=== PATIENT | female | born 1935 | race Caucasian/White ===

== ENCOUNTER 2017-07-30 16:36 | Emergency (ER) | payer MEDICARE, OTHER ==
[~2017-07-30] VITALS: Ht 157.5 cm; Wt 47.6 kg
[~2017-07-30 16:36] MED LIST: AMLODIPINE BESYL5 MG PO; ASPIR 8181 MG PO; BIOTIN2500 MCG PO; CLONIDINE HCL0.2 MG PO; IBESARTAN PO; LEVOTHYROXINE50 MCG PO; LIVALO4 MG PO; METOPROLOL SUCC50 MG PO; MIRAPEX0.25 MG PO; NORCO 5-325 TA1 EACH PO; PANTOPRAZOLE SO40 MG PO
[2017-07-30] MEDS ORDERED: ACETAMINOPHEN 325 MG TAB PO ONE (21:30)
[2017-07-30] MEDS ORDERED: CLONIDINE HCL 0.2 MG TAB PO ONE (21:30)
[2017-07-30 22:25] LABS: BILIRUBIN,URINE NEGATIVE (NEGATIVE); COLOR,URINE YELLOW (YELLOW); KETONES,URINE TRACE (NEGATIVE); LEUKOCYTE ESTERASE ,URINE TRACE (NEGATIVE); NITRITE,URINE NEGATIVE (NEGATIVE); URINE UROBILINOGEN 0.2 mg/dL (0.2 - 1)
[2017-07-30 22:26] LABS: CLARITY,URINE SL CLOUDY (CLEAR); PROTEIN,URINE DIPSTICK 1+ (NEGATIVE)
[2017-07-30 22:29] LABS: BASOPHILS # (AUTO) 0.1 (0.0-0.1); BASOPHILS % 0.5 % (0.0-1.0); EOSINOPHILS % 0.3 % (0.0-6.0); HEMATOCRIT 34.2 % (34.2-44.1); HEMOGLOBIN 10.1 g/dL (12.0-16.0); LYMPHOCYTES # (AUTO) 2.1 (1.0-3.2); MEAN CORPUSCULAR HEMOGLOBIN 22.1 pg (28-32); MEAN CORPUSCULAR HGB CONC 29.5 g/dL (31-35); MONOCYTES # (AUTO) 0.6 (0.2-0.8); MONOCYTES % 4.9 % (4.4-11.3); NEUTROPHILS # (AUTO) 8.7 (2.1-6.9); PLATELET COUNT 417 x10e3/uL (140-360); RED BLOOD COUNT 4.56 x10e6/uL (3.6-5.1); RED CELL DISTRIBUTION WIDTH 20.3 % (11.7-14.4)
[2017-07-30 22:32] LABS: BACTERIA,URINE FEW /HPF; EPITHELIAL CELLS,URINE MODERATE /LPF; MUCUS,URINE FEW (RARE); RBC,URINE 0-5 /HPF (0-5)
[2017-07-30 22:42] LABS: INR 1.33; PROTHROMBIN TIME 17.2 seconds (11.9-14.5)
[2017-07-30 22:43] LABS: PARTIAL THROMBOPLASTIN TIME 25.2 seconds (23.8-35.5)
[2017-07-30 22:52] LABS: ALBUMIN 3.3 g/dL (3.5-5.0); ALBUMIN/GLOBULIN RATIO 0.7 (0.8-2.0); ANION GAP 20.4 mmol/L (8-16); CALCIUM 10.2 mg/dL (8.4-10.2); CREATININE, SERUM 0.99 mg/dL (0.57-1.11); POTASSIUM 4.4 mmol/L (3.5-5.1)
[2017-07-30 22:59] LABS: CREATINE KINASE MB 1.3 ng/mL (0.00-5.00); TROPONIN I 0.023 ng/mL (0-0.300)
--- NOTE | 2017-07-30 23:01 | Diagnostic Imaging Report ---
EXAMINATION: Head CT without contrast. HISTORY:Headache. COMPARISON:CT brain from 07/26/2017. TECHNIQUE: Multidetector axial images were obtained from the foramen magnum to the vertex without contrast. The images were reconstructed using brain and bone algorithms. Thin section brain images were reformatted into coronal and sagittal planes. Intravenous contrast: None IMAGE QUALITY: Acceptable. FINDINGS: Skull/scalp: No abnormality. Parenchyma: Focal, subtle hypodensity in the posterior inferior aspect of left lentiform nucleus (image 9, series 2) represents age indeterminate lacunar infarct (better visualized in current study). Nonspecific few, scattered supratentorial white matter hypodensity are likely related to small vessel ischemic changes. No acute hemorrhage or mass. Arteries: Atherosclerotic calcification in bilateral carotid siphon. Dural sinuses: No abnormal density suggestive of thrombosis. Ventricles: Moderate compensated dilatation due to volume loss. No hydrocephalus. Extra-axial spaces: No abnormal density. Brain volume: Normal for age. Craniocervical junction: No mass, Chiari malformation, or basilar invagination. Sella: No mass. Paranasal/mastoid sinuses: Imaged portions unremarkable. IMPRESSION: 1. 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 2. Moderate generalized cerebral volume loss and mild supratentorial white matter microvascular ischemic changes. Signed by: Dr. Carmen Sam M.D. on 07/30/2017 10:57 PM
[2017-07-30] MEDS ORDERED: CEFTRIAXONE SOD 1 GM VIAL IV ONE (23:45)
[2017-07-31] MEDS ORDERED: SODIUM CHLORIDE 0.9% 50ML 50 ML ONE (00:01)
== END 2017-07-31 00:30 | disposition home or self-care (01) ==
LOC: ER 16:36
DX: G44.89 Other headache syndrome (principal); G44.1 Vascular headache, not elsewhere classified; N30.00 Acute cystitis without hematuria
CPT/HCPCS: 36415; 70450; 80053; 81001; 82550; 82553; 84484; 85025; 85610; 85730; 87086; 93005; 96365; 99284

== ENCOUNTER → 2017-08-10 | Outpatient (CLI) | payer MEDICARE, OTHER ==
--- NOTE | 2017-08-10 16:33 | Diagnostic Imaging Report ---
PROCEDURE:FOOT COMPLETE BILATERAL TECHNIQUE:AP, lateral, and oblique views of the feet obtained INDICATION:Tophaceous gout, pain COMPARISON:Right foot x-ray 03/17/17. FINDINGS: Right foot: No evidence of fracture or dislocation. Focal erosion of the base of the fifth metatarsal is stable. There are no new areas of periarticular erosions. No significant joint space narrowing or osteophytosis anywhere in the digits. A small plantar calcaneal spur is stable. Left foot: No evidence of fracture, dislocation, or focal osseous lesion. There are no periarticular erosions. No joint space narrowing or osteophytosis. No focal osseous lesions. Soft tissues: Diffuse swelling of the dorsum of each foot. No radiopaque foreign bodies. CONCLUSION: 1. Stable focal erosion of the base of the fifth metatarsal of the right foot. 2. No evidence of periarticular erosion of the left foot. 3. Diffuse soft tissue swelling of each foot. Dictated by: Joselin Gaston M.D. on 08/10/2017 at 16:42 Electronically approved by: Joselin Gaston M.D. on 08/10/2017 at 16:42
--- NOTE | 2017-08-10 16:43 | Diagnostic Imaging Report ---
PROCEDURE:HAND THREE VIEWS BILATERAL TECHNIQUE:AP, lateral, and oblique images of the right and left hands obtained INDICATION:Gout and poor circulation COMPARISON:None. FINDINGS: Right hand: The bones are diffusely demineralized. There is narrowing of the proximal and distal IP joints of all digits. There are sharply marginated periarticular erosions at the head of the middle phalanges of the second and fourth digits with associated soft tissue swelling. The second digit is more severely affected than the fourth digit. Small periarticular erosion is identified at the base of the middle phalanx of the fifth digit. The IP joint of the first digit exhibits osteophytosis in one or 2 periarticular erosions. The metacarpals and bones of the wrist are intact and normal in morphology. There are no calcifications in the soft tissues. Left hand: Diffusely demineralized. There are erosions and osteophyte formation of the first CMC joint. This results in subluxation of the base of the first metacarpal and hyperextension of the thumb. The proximal and distal IP joints are narrowed. Periarticular erosions are identified at the base of the middle phalanx of the third digit and at the head of the proximal phalanx of the third digit with associated soft tissue swelling. There are small periarticular erosions at the head of the middle phalanx of the second digit and at the base of the distal phalanx of the third digit. There is increased lucency between the scaphoid and capitate. A small erosion along the radial cortical margin of the capitate is suspected. There are no calcifications in the soft tissues. CONCLUSION: 1. Periarticular erosions and soft tissue swelling of the right hand, particularly the second digit, consistent with history of gout. 2. Periarticular erosions and soft tissue swelling of the left hand consistent with history of gout. The base of the thumb and third digit are most severely affected. Involvement of the wrist by gout is also suspected. Dictated by: Joselin Gaston M.D. on 08/10/2017 at 16:52 Electronically approved by: Joselin Gaston M.D. on 08/10/2017 at 16:52
== END ==
LOC: RAD 15:00
PROVIDERS: ATTEND Internal Medicine Rheumatology
DX: M79.672 Pain in left foot (principal); M1A.9XX1 Chronic gout, unspecified, with tophus (tophi)

== ENCOUNTER 2017-08-20 07:55 | Outpatient (RCR) | payer MEDICARE, OTHER | END 2017-09-12 | LOC: WCC 07:55 | PROVIDERS: ATTEND Plastic Surgery | DX: I70.245 Atherosclerosis of native arteries of left leg with ulceration of other part of foot (principal); I70.203 Unspecified atherosclerosis of native arteries of extremities, bilateral legs; L97.528 Non-pressure chronic ulcer of other part of left foot with other specified severity; M10.9 Gout, unspecified; I10 Essential (primary) hypertension; E03.8 Other specified hypothyroidism; K21.9 Gastro-esophageal reflux disease without esophagitis ==

== ENCOUNTER 2017-11-18 08:17 | Inpatient (IN) | payer MEDICARE, OTHER ==
[~2017-11-18] VITALS: Ht 160 cm; Wt 46.3 kg
--- OUTSIDE RECORDS SUMMARY | 2017-11-18 08:20 | XMS REPORT ---
Author Author [facility] Address Unknown Phone Unavailable Care Team Providers Care [place] Surfacer Name Role Phone WILSONROSALINE ORTEGA Unavailable Unavailable RA ZAPATA Unavailable Unavailable BAL ANG Unavailable Unavailable BRODERICK, LELO Unavailable Unavailable Problems This patient has no known problems. Allergies, Adverse Reactions, Alerts This patient has no known allergies or adverse reactions. Medications This patient has no known medications. Results Test Description Test Time Test Comments Text Results Atomic Results Result Comments HAND THREE VIEWS BILATERAL [facility] [address] [place] [address] Patient Name: KATHRYN GARAY MR #: [id number] : 1935 Age/Sex: 82/F Req #: [id number] Adm Physician: Ordered by: ROSALINE WILSON Report #: [id number] Location: [facility] Room/Bed: Procedure: [id number] DX/HAND THREE VIEWS BILATERAL Exam Date: 08/10/17 Exam Time: 1520 REPORT STATUS: Signed PROCEDURE: HAND THREE VIEWS BILATERAL TECHNIQUE: AP, lateral, and oblique images of the right and left hands obtained INDICATION: Gout and poor circulation COMPARISON: None. FINDINGS: Right hand: The bones are diffusely demineralized. There is narrowing of the proximal and distal IP joints of all digits. There are sharply marginated periarticular erosions at the head of the middle phalanges of the second and fourth digits with associated soft tissue swelling. The second digit is more severely affected than the fourth digit. Small periarticular erosion is identified at the base of the middle phalanx of the fifth digit. The IP joint of the first digit exhibits osteophytosis in one or 2 periarticular erosions. The metacarpals and bones of the wrist are intact and normal in morphology. There are no calcifications in the soft tissues. Left hand: Diffusely demineralized. There are erosions and osteophyte formation of the first CMC joint. This results in subluxation of the base of the first metacarpal and hyperextension of the thumb. The proximal and distal IP joints are narrowed. Periarticular erosions are identified at the base of the middle phalanx of the third digit and at the head of the proximal phalanx of the third digit with associated soft tissue swelling. There are small periarticular erosions at the head of the middle phalanx of the second digit and at the base of the distal phalanx of the third digit. There is increased lucency between the scaphoid and capitate. A small erosion along the radial cortical margin of the capitate is suspected. There are no calcifications in the soft tissues. CONCLUSION: 1. Periarticular erosions and soft tissue swelling of the right hand, particularly the second digit, consistent with history of gout. 2. Periarticular erosions and soft tissue swelling of the left hand consistent with history of gout. The base of the thumb and third digit are most severely affected. Involvement of the wrist by gout is also suspected. Dictated by: Andres Gaston M.D. on 08/10/2017 at 16 :52 Electronically approved by: Andres Gaston M.D. on 08/10/2017 at 16:52 Dictated By: ANDRES GASTON MD 51 Transcribed By: DEEPAK on 08/10 COPY TO: ROSALINE WILSON FOOT COMPLETE BILATERAL [place] [address] Patient Name: KATHRYN GARAY MR #: [id number] : 1935 Age/Sex: 82/F Req #: [id number] Adm Physician: Ordered by: ROSALINE WILSON Report #: [id number] Location: [facility] Room/Bed: Procedure: [id number] DX/FOOT COMPLETE BILATERAL Exam Date: 08/10/17 Exam Time: 1520 REPORT STATUS: Signed PROCEDURE: FOOT COMPLETE BILATERAL TECHNIQUE: AP, lateral, and oblique views of the feet obtained INDICATION: Tophaceous gout, pain COMPARISON: Right foot x -ray 03/17/17. FINDINGS: Right foot: No evidence of fracture or dislocation. Focal erosion of the base of the fifth metatarsal is stable. There are no new areas of periarticular erosions. No significant joint space narrowing or osteophytosis anywhere in the digits. A small plantar calcaneal spur is stable. Left foot: No evidence of fracture, dislocation, or focal osseous lesion. There are no periarticular erosions. No joint space narrowing or osteophytosis. No focal osseous lesions. Soft tissues: Diffuse swelling of the dorsum of each foot. No radiopaque foreign bodies. CONCLUSION: 1. Stable focal erosion of the base of the fifth metatarsal of the right foot. 2. No evidence of periarticular erosion of the left foot. 3. Diffuse soft tissue swelling of each foot. Dictated by: Andres Gaston M.D. on 08/10/2017 at 16:42 Electronically approved by: Andres Gaston M.D. on 08/10/2017 at 16:42 Dictated By: ANDRES GASTON MD 41 Transcribed By: DEEPAK on 08/10/171641 COPY TO: ROSALINE WILSON CT BRAIN WO [facility] [address] [place] [address] Patient Name: KATHRYN GARAY MR #: [id number] : 1935 Age/Sex: 82/F Req #: [id number] Adm Physician: Ordered by: RA ZAPATA MD Report # : [id number] Location: ER Room/Bed: Procedure: [id number] CT/CT BRAIN WO Exam Date: 07/30/17 Exam Time: 2227 REPORT STATUS: Signed EXAMINATION: Head CT without contrast. HISTORY:Headache. COMPARISON:CT brain from 07/26/2017. TECHNIQUE : Multidetector axial images were obtained from the foramen magnum to the vertex without contrast. The images were reconstructed using brain and bone algorithms. Thin section brain images were reformatted into coronal and sagittal planes. Intravenous contrast: None IMAGE QUALITY: Acceptable. FINDINGS: Skull/scalp: No abnormality. Parenchyma: Focal, subtle hypodensity in the posterior inferior aspect of left lentiform nucleus (image 9, series 2) represents age indeterminate lacunar infarct ( better visualized in current study). Nonspecific few, scattered supratentorial white matter hypodensity are likely related to small vessel ischemic changes. No acute hemorrhage or mass. Arteries: Atherosclerotic calcification in bilateral carotid siphon. Dural sinuses: No abnormal density suggestive of thrombosis. Ventricles: Moderate compensated dilatation due to volume loss. No hydrocephalus. Extra- axial spaces: No abnormal density. Brain volume: Normal for age. Craniocervical junction: No mass, Chiari malformation, or basilar invagination. Sella: No mass. Paranasal/mastoid sinuses: Imaged portions unremarkable. IMPRESSION: 1. 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 2. Moderate generalized cerebral volume loss and mild supratentorial white matter microvascular ischemic changes. Signed by: Dr. Carmen Sam M.D. on 07/30/2017 10:57 PM Dictated By : CARMEN SAM MD 1337 Transcribed By: JAYDEN on 07/30/177 COPY TO: RA ZAPATA MD CT BRAIN WO [place] [address] Patient Name: KATHRYN GARAY MR #: [id number] : 1935 Age/Sex: 82/F Req #: [id number] Adm Physician: Ordered by: BAL ANG MD Report #: [id number] Location: CT Room/Bed: Procedure: [id number] CT/CT BRAIN WO Exam Date: 07/26/17 Exam Time: 1430 REPORT STATUS: Signed Examination: CT BRAIN WITHOUT CONTRAST History:Constant headaches Comparison studies:None Technique: Axial images were obtained from the skull base to the vertex. Coronal and sagittal images reconstructed from the axial data. Intravenous contrast: None Findings: Scalp: No abnormalities. Bones: No fractures, blastic or lytic lesions. Brain sulci: Moderate volume loss for age. Ventricles: No hydrocephalus. Extra-axial space: No abnormalities. Parenchyma: No abnormal densities. No masses, hemorrhage, acute or chronic vascular insults. Sellar/suprasellar region: No abnormalities. Craniocervical junction: Patent foramen magnum. No Chiari one malformation. Incidental findings: Atherosclerotic calcification of the cavernous and supraclinoid internal carotid arteries. Impression: 1. No acute intracranial abnormalities. 2. Moderate volume loss for age. Signed by: Dr. Anuja Cox M.D. on 07/26/2017 3:41 PM Dictated By: ANUJA CHUNG MD 1541 COPY TO: BAL ANG MD CTA ABD/PEL/RUN OFF [facility] [address] [place] [address] Patient Name: KATHRYN GARAY MR #: [id number] : 1935 Age/Sex: 82/F Req #: [id number] Adm Physician: Ordered by: VONDA ZHANG MD Report #: [id number] Location: ER Room/Bed: Procedure: [id number] CT/CTA ABD/PEL/RUN OFF Exam Date: 07/13/17 Exam Time: 2013 REPORT STATUS: Signed CTA OF THE ABDOMINAL AORTA AND BILATERAL LOWER EXTREMITY RUNOFF Comparison: None History: 82 y/o with thoracic aortic aneurysm. Technique: Multi-detector CT technology was employed. Spiral images was performed of the abdomen following the IV administration of 100 cc of Isovue-370. IV CONTRAST:100mL of Isovue-370 ORAL CONTRAST: Readicat RADIATION DOSE: Total DLP: 545.63 mGy*cm Estimated Effective Dose: DLP x 0.015 mSv COMPLICATIONS: None For optimization of anatomic evaluation, multiplanar reconstruction, maximum intensity projections, and advanced 3-D off-line postprocessing were performed on a dedicated stand-alone workstation under the direct supervision of the interpreting physician. FINDINGS: Potential study limitations: None. VASCULAR WITH ADVANCED 3-D OFF-LINE POSTPROCESSING: The abdominal aorta is abnormal with evidence of extensive atherosclerotic disease and infrarenal abdominal aortic ectasia. There is a mural thrombus to the left of midline best seen on series 3, image 36 The abdominal aorta measures: 2.1 cm at the supramesenteric segment 2.0 cm at the mesenteric segment 1.9 cm at the renal segment 2.2 cm at the mid infrarenal segment 1.7 cm at the aortic bifurcation. The celiac axis, SMA, and SABINE are patent. There are single renal arteries bilaterally, both of which appear patent. The pelvic arteries are tortuous and atherosclerotic, but otherwise normal in caliber and contour. Right lower extremity: The external iliac, femoral, deep femoral, popliteal arteries and trifurcation appear unremarkable with three-vessel runoff to the level of the ankle where the anterior tibial artery appears narrow but patent. Left lower extremity: The external iliac , femoral, deep femoral, popliteal arteries and trifurcation appear patent, however, quickly after bifurcation of the tibioperoneal trunk and the peroneal artery is obstructed on series 3, image 228 with 2 vessel runoff Soft tissues: Moderate edema in the bilateral lower extremities LOWER CHEST: The visualized lung bases are clear. Sliding hiatal hernia present ABDOMEN: The liver, gallbladder, spleen, and pancreas appear normal. The adrenal glands appear normal. Both kidneys demonstrate multiple simple cysts, the largest on the left kidney in the anterior interpolar region measuring 6.1 cm in diameter, the largest on the right upper pole measuring 3.5 cm in diameter. There is no significant retroperitoneal adenopathy. No free fluid or free air within the abdomen or pelvis. The bowel appears unremarkable on this non-GI contrast examination. Diverticulosis present. The appendix is not well visualized Pelvis: Evidence of hysterectomy. The ovaries are visualized. The bladder and rectum are unremarkable. IMPRESSION: 1. 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 2. Soft plaque/thrombus in the infrarenal abdominal aorta which appears slightly ectatic. 3. Left peroneal artery is obstructed just after the tibioperoneal trunk bifurcation with 2 vessel runoff. 4. Right lower extremity three-vessel runoff. 5. Bilateral renal cystic lesions, simple in appearance. 6. Diverticulosis without evidence of diverticulitis. 7. Severe levorotoscoliosis of the thoracolumbar spine Signed by: Dr. Lj Murdock M.D. on 07/14/2017 12:47 AM Dictated By: LJ EATON MD Transcribed By: JAYDEN on 07/14/1746 COPY TO: VONDA ZHANG MD
--- OUTSIDE RECORDS SUMMARY | 2017-11-18 08:20 | XMS REPORT | Continuity of Care Document ---
Author Author [facility] Organization [facility] Address [address] [place] [place] [address] Phone Unavailable Care Team Providers Care Mud Analysis Operator Name Role Phone URMILA COCHRAN MD PCP Insurance Providers Guarantor Kathryn Hand Address [address] [phone] Email NONE Payer Medicare A & B Policy Number [id number] Subscriber's Name Kathryn Hand Relationship 18 Self / Same As Patient Group Number [id number] Group Name RETIRED Effective Date 99 Payer GEHA Policy Number [id number] Subscriber's Name Ronan Walsh Relationship 01 Group Number [id number] Group Name RETIRED Effective Date 82 Advance Directives Directive Response Recorded Date/Time Does the patient have an advance directive? Yes 07/14/17 4:32am If yes, is advance directive on file with [facility]? No 07/14/17 4:32am If not on file with [facility] will patient provide a copy? Yes 07/14/17 4:32am Do you have a Directive to Physician? No 08/16/17 10:23am Do you have a Medical Power of Field Care Manager? No 08/16/17 10:23am Do you have an out of hospital Do Not Resuscitate Order? No 08/16/17 10:23am Do you have any special needs we should be aware of? No 08/16/17 10:23am Do you have a support person here with you today? No 08/16/17 10:23am Did patient receive Notice of Privacy Practices? Yes 08/16/17 10:23am Did patient receive patient rights and responsibilities? Yes 08/16/17 10:23am Problems Medical Problem Onset Date Status Arterial occlusion, lower extremity Unknown Cystitis Unknown Acute Headache Unknown Acute Hypertension Unknown Acute Urinary tract infection Unknown Acute Medications Current Home Medications Medication Dose Units Route Directions Days Qty Instructions Start Date Amlodipine Besylate 5 Mg Tablet 10 Mg Oral Daily 30 Tab Aspirin (Aspir 81) 81 Mg Tablet.dr 81 Mg Oral Daily Biotin 2,500 Mcg Capsule 5,000 Mg Oral Daily Clonidine Hcl 0.2 Mg Tablet 0.2 Mg Oral Three Times A Day Hydrocodone Bit/Acetaminophen ([place]own 5-325 Tablet) 1 Each Tablet 1 Each Oral As Needed Ibesartan 150 Mg Oral Daily Levothyroxine Sodium 50 Mcg Tablet 50 Mcg Oral Daily 30 Tab Metoprolol Succinate 50 Mg Tab.er.24h 100 Mg Oral Daily Pantoprazole Sodium (Protonix) 40 Mg Tablet.dr 40 Mg Oral Daily Pitavastatin Calcium (Livalo) 4 Mg Tablet 4 Mg Oral Daily Pramipexole Di-Hcl (Mirapex) 0.25 Mg Tablet 0.5 Mg Oral Bedtime 30 Tab Social History Social History Problem Response Recorded Date/Time Onset Date Status Hx Psychiatric Problems No 07/14/2017 4:32am Not Applicable Not Applicable Hx Eating Disorder No 07/14/2017 4:32am Not Applicable Not Applicable Hx Substance Use Disorder No 07/14/2017 4:32am Not Applicable Not Applicable Hx Depression No 07/14/2017 4:32am Not Applicable Not Applicable Hx Alcohol Use No 07/14/2017 4:32am Not Applicable Not Applicable Hx Substance Use Treatment No 07/14/2017 4:32am Not Applicable Not Applicable Hx Physical Abuse No 07/14/2017 4:32am Not Applicable Not Applicable Hospital Discharge Instructions No hospital discharge instruction information available. Plan of Care Prescriptions See Medication Section Functional Status No functional status information available. Allergies, Adverse Reactions, Alerts Allergen Type Severity Reaction Status Last Updated Sulfa (Sulfonamide Antibiotics) Allergy Mild Active 03/11/17 Dajiboc-Mlc-Bcp Reductase Inhibitor Adverse Reaction Intermediate MUSCLE SPASMS/SEVERE LEG CRAMPS Active 03/14/17 Levofloxacin Allergy Mild MUSCLE CRAMPS Active 07/21/10 Immunizations No immunization information available. Vital Signs Acute Vital Signs Vital Response Date/Time Temperature (Fahrenheit) 97.6 degrees F (97.6 - 99.5) 07/18/2017 4:38pm Pulse Pulse Rate (adult) 81 bpm (60 - 90) 07/18/2017 4:38pm Respiratory Rate 18 bpm (12 - 24) 07/18/2017 4:38pm Blood Pressure 134/62 mm Hg 07/18/2017 4:38pm Results Laboratory Results Test Name Result Units Flags Reference Collection Date/Time Result Date/ Time Comments Platelet Estimate ADEQUATE 03/12/2017 6:20am 03/12/2017 7:57am Platelet Morphology Comment NORMAL 03/12/2017 6:20am 03/12/2017 7: 57am Hypochromasia MODERATE 03/12/2017 6:20am 03/12/2017 7:57am Anisocytosis MODERATE 03/12/2017 6:20am 03/12/2017 7:57am Microcytosis MARKED 03/12/2017 6:20am 03/12/2017 7:57am Target Cells FEW 03/12/2017 6:20am 03/12/2017 7:57am Ovalocytes FEW 03/12/2017 6:20am 03/12/2017 7:57am Red Cell Morphology Comment ABNORMAL 03/12/2017 6:20am 03/12/2017 7 :57am Magnesium Level 1.9 MG/DL 1.3-2.1 03/21/2017 6:50am 03/21/2017 7:32am Amylase Level 94 U/L 25-125 2017 7:25am 2017 9:16am Lipase 26 U/L 8-78 2017 7:25am 2017 9:16am Bedside Glucose 141 mg/dL H 70-120 07/15/2017 4:09pm 07/15/2017 4:25pm Meter ID: [id number] Uric Acid 8.1 mg/dL H 2.6-6.0 07/13/2017 4:15pm 07/13/2017 5:59pm Triglycerides Level 131 MG/DL 0-149 07/15/2017 7:24am 07/15/2017 8: 26am Cholesterol Level 273 MD/DL H 0-199 07/15/2017 7:24am 07/15/2017 8:26am Less than 200 mg/dL Low Risk 201 - 239 mg/dL Borderline Risk 240 mg/dl and greater High Risk LDL Cholesterol 190 MG/DL H 60-130 07/15/2017 7:24am 07/15/2017 8:26am HDL Cholesterol 57 MG/DL 40-60 07/15/2017 7:24am 07/15/2017 8:26am Cholesterol/HDL Ratio 4.8 H 3.0-3.6 07/15/2017 7:24am 07/15/2017 8: 26am B-Type Natriuretic Peptide 950.6 pg/mL H 0-100 07/13/2017 4:15pm 2016 6:52pm White Blood Count 11.46 x10e3/uL H 4.8-10.8 07/30/2017 9:23pm 2016 10:30pm Red Blood Count 4.56 x10e6/uL 3.6-5.1 07/30/2017 9:23pm 07/30/2017 10: 30pm Hemoglobin 10.1 g/dL L 12.0-16.0 07/30/2017 9:23pm 07/30/2017 10:30pm Hematocrit 34.2 % 34.2-44.1 07/30/2017 9:23pm 07/30/2017 10:30pm Mean Corpuscular Volume 75.0 fL L 81-99 07/30/2017 9:23pm 07/30/2017 10: 30pm Mean Corpuscular Hemoglobin 22.1 pg L 28-32 07/30/2017 9:23pm 2016 10:30pm Mean Corpuscular Hemoglobin Concent 29.5 g/dL L 31-35 07/30/2017 9:23pm 07/30/2017 10:30pm Red Cell Distribution Width 20.3 % H 11.7-14.4 07/30/2017 9:23pm 2016 10:30pm Platelet Count 417 x10e3/uL H 140-360 07/30/2017 9:2307/30/2017 10: 30pm Neutrophils (%) (Auto) 76.0 % 38.7-80.0 07/30/2017 9:pm 07/30/2017 10 :30pm Lymphocytes (%) (Auto) 18.0 % 18.0-39.1 07/30/2017 9:2307/30/2017 10 :30pm Monocytes (%) (Auto) 4.9 % 4.4-11.3 07/30/2017 9:2307/30/2017 10: 30pm Eosinophils (%) (Auto) 0.3 % 0.0-6.0 07/30/2017 9:07/30/2017 10: 30pm Basophils (%) (Auto) 0.5 % 0.0-1.0 07/30/2017 9:2307/30/2017 10: 30pm IM GRANULOCYTES % 0.3 % 0.0-1.0 07/30/2017 9:2307/30/2017 10:30pm Neutrophils # (Auto) 8.7 H 2.1-6.9 07/30/2017 9:23pm 07/30/2017 10: 30pm Lymphocytes # (Auto) 2.1 1.0-3.2 07/30/2017 9:23pm 07/30/2017 10: 30pm Monocytes # (Auto) 0.6 0.2-0.8 07/30/2017 9:23pm 07/30/2017 10:30pm Eosinophils # (Auto) 0.0 0.0-0.4 07/30/2017 9:23pm 07/30/2017 10: 30pm Basophils # (Auto) 0.1 0.0-0.1 07/30/2017 9:07/30/2017 10:30pm Absolute Immature Granulocyte (auto 0.04 x10e3/uL 0-0.1 07/30/2017 9: 2307/30/2017 10:30pm Prothrombin Time 17.2 seconds H 11.9-14.5 07/30/2017 9:2307/30/2017 10:45pm Prothromb Time International Ratio 1.33 07/30/2017 9:232016 10:45pm Oral Anticoagulant Therapy INR Values: 1. Low Intensity Therapy 1.5 - 2.0 2. Moderate Intensity Therapy 2.0 - 3.0 3. High Intensity Therapy(1) 2.5 - 3.5 4. High Intensity Therapy(2) 3.0 - 4.0 5. Panic Value INR > 5.0 Activated Partial Thromboplast Time 25.2 seconds 23.8-35.5 07/30/2017 9: 23pm 07/30/2017 10:45pm Urine Color YELLOW YELLOW 07/30/2017 9:2007/30/2017 10:26pm Urine Clarity SL CLOUDY CLEAR 07/30/2017 9:20pm 07/30/2017 10:26pm Urine Specific [place] 1.020 1.010-1.025 07/30/2017 9:20pm 2016 10:26pm Urine pH 6 5 - 7 07/30/2017 9:20pm 07/30/2017 10:26pm Urine Leukocyte Esterase TRACE H NEGATIVE 07/30/2017 9:20pm 2016 10:26pm Urine Nitrite NEGATIVE NEGATIVE 07/30/2017 9:2007/30/2017 10:26pm Urine Protein 1+ H NEGATIVE 07/30/2017 9:20pm 07/30/2017 10:26pm Urine Glucose (UA) NEGATIVE NEGATIVE 07/30/2017 9:20pm 07/30/2017 10: 26pm Urine Ketones TRACE H NEGATIVE 07/30/2017 9:20pm 07/30/2017 10:26pm Urine Urobilinogen 0.2 mg/dL 0.2 - 1 07/30/2017 9:20pm 07/30/2017 10: 26pm Urine Bilirubin NEGATIVE NEGATIVE 07/30/2017 9:2007/30/2017 10: 26pm Urine Blood NEGATIVE NEGATIVE 07/30/2017 9:20pm 07/30/2017 10:26pm Urine WBC 11-20 /HPF H 0-5 07/30/2017 9:20pm 07/30/2017 10:32pm Urine RBC 0-5 /HPF 0-5 07/30/2017 9:20pm 07/30/2017 10:32pm Urine Bacteria FEW /HPF NONE 07/30/2017 9:20pm 07/30/2017 10:32pm Urine Epithelial Cells MODERATE /LPF NONE 07/30/2017 9:20pm 07/30/2017 10:32pm Urine Mucus FEW H RARE 07/30/2017 9:20pm 07/30/2017 10:32pm Sodium Level 134 mmol/L L 136-145 07/30/2017 9:32pm 07/30/2017 10:55pm Potassium Level 4.4 mmol/L 3.5-5.1 07/30/2017 9:32pm 07/30/2017 10: 55pm Chloride Level 96 mmol/L L 98-107 07/30/2017 9:32pm 07/30/2017 10:55pm Carbon Dioxide Level 22 mmol/L 22-29 07/30/2017 9:32pm 07/30/2017 10: 55pm Anion Gap 20.4 mmol/L H 8-16 07/30/2017 9:32p 07/30/2017 10:55pm Blood Urea Nitrogen 17 mg/dL 7-26 07/30/2017 9:32pm 07/30/2017 10:55pm Creatinine 0.99 mg/dL 0.57-1.11 07/30/2017 9:32pm 07/30/2017 10:55pm BUN/Creatinine Ratio 17 6-25 07/30/2017 9:32p 07/30/2017 10:55pm Estimat Glomerular Filtration Rate 54 ML/MIN L 60- 07/30/2017 9:32p 10:55pm Ranges were taken from the National Kidney Disease Education Program and the National Kid[employer] Foundation literature. Reference ranges: 60 or greater: Normal 16-59 (for 3 consecutive months): Chronic kidney disease 15 or less: Kidney failure Glucose Level 85 mg/dL 74-118 07/30/2017 9:32pm 07/30/2017 10:55pm Calcium Level 10.2 mg/dL 8.4-10.2 07/30/2017 9:32pm 07/30/2017 10:55pm Total Bilirubin 0.4 mg/dL 0.2-1.2 07/30/2017 9:32pm 07/30/2017 10:55pm Aspartate Amino Transf (AST/SGOT) 26 IU/L 5-34 07/30/2017 9:32pm 2016 10:55pm Alanine Aminotransferase (ALT/SGPT) 18 IU/L 0-55 07/30/2017 9:32pm 10:55pm Total Protein 8.2 g/dL H 6.5-8.1 07/30/2017 9:32p 07/30/2017 10:55pm Albumin 3.3 g/dL L 3.5-5.0 07/30/2017 9:32p 07/30/2017 10:55pm Globulin 4.9 g/dL H 2.3-3.5 07/30/2017 9:32p 07/30/2017 10:55pm Albumin/Globulin Ratio 0.7 L 0.8-2.0 07/30/2017 9:32p 07/30/2017 10: 55pm Alkaline Phosphatase 73 IU/L 40-150 07/30/2017 9:32p 07/30/2017 10: 55pm Creatine Kinase 21 IU/L L 29-168 07/30/2017 9:32p 07/30/2017 10:55pm Creatine Kinase MB 1.30 ng/mL 0.00-5.00 07/30/2017 9:32p 07/30/2017 11 :00pm Troponin I 0.023 ng/mL 0-0.300 07/30/2017 9:32p 07/30/2017 11:00pm Procedures Procedure Status Date Provider(s) CT of abdomen and pelvis without contrast Active 03/11/17 VONDA ZHANG MD X-ray of chest, two views Active 03/11/17 VNODA ZHANG MD X-ray of chest, two views Active 03/16/17 BERTHA EPPS MD Computed tomography angiography of abdominal aorta and bilateral iliofemoral arteries with lower extremity runoff without then with contrast Active VONDA ZHANG MD Computed tomography of brain without radiopaque contrast Active 07/26/17 BAL ANG MD Computed tomography of brain without radiopaque contrast Active 07/30/17 RA ZAPATA MD Encounters Encounter Location Arrival/Admit Date Discharge/Depart Date Attending Provider Discharged [facility]urring [facility] 08/20/17 7:55am 09/12/17 11:59pm SELENE KWON MD Registered Clinic [facility] 08/10/17 3:00pm ROSALINE WILSON Departed Emergency Room [facility] 07/30/17 4:36pm 12:30am RA ZAPATA MD Registered Clinic [facility] 07/26/17 2:08pm BAL ANG MD Discharged Inpatient [facility] 07/14/17 2:10am 07/18/17 7:15pm URMILA COCHRAN MD Registered Clinic [facility] 07/10/17 1:20pm URMIAL COCHRAN MD Discharged Inpatient [facility] 03/12/17 4:13pm 03/21/17 2:20pm URMILA COCHRAN MD
--- OUTSIDE RECORDS SUMMARY | 2017-11-18 08:20 | XMS REPORT | Clinical Summary ---
Author Author [facility] [employer] [facility] Address Unknown Phone Unavailable Care Team Providers Care Key Sander Name Role Phone PCP Unavailable Allergies Active Allergy Reactions Severity Noted Date Comments Sulfa (Sulfonamide Anaphylaxis High 11/18/2014 Antibiotics) Current Medications Prescription Sig. Disp. Refills Start End Date Status Date metoprolol (TOPROL-XL) Take 100 mg by mouth Active 100 MG 24 hr tablet daily. pantoprazole (PROTONIX) Take 40 mg by mouth Active 40 MG tablet daily. aspirin 81 MG EC tablet Take 81 mg by mouth Active daily. temazepam (RESTORIL) 30 Take 30 mg by mouth every Active mg capsule night as needed for Sleep. magnesium oxide 400 mg Take by mouth. 1-3 x Active Cap daily Active Problems Problem Noted Date Hyponatremia 11/18/2014 Encounters Date Type Specialty Care Team Description 02/06/2017 Hospital Cardiology Phillip Farias, Peripheral vascular Encounter disease, unspecified (HCC) 02/01/2017 Outside Orders Central Scheduling Phillip Fairas Peripheral vascular MD disease, unspecified (HCC) (Primary Dx) after 11/17/2016 Social History Tobacco Use Types Packs/Day Years Used Date Former Smoker Alcohol Use Drinks/Week oz/Week Comments Yes Sex Assigned at Date Recorded Not on file Last Filed Vital Signs Not on file Plan of Treatment Not on file Results * PERIPHERAL VASCULAR REPORT - SCAN (02/06/2017 3:23 PM) * Arterial Doppler Legs Bilateral (02/06/2017 10:08 AM) Component Value Ref Range Ejection Fraction Specimen Performing Laboratory [facility] CPACS Impressions Right Impression 1. The common femoral, profunda femoral, superficial femoral, popliteal, posterior tibial, peroneal and anterior tibial arteries are patent with biphasic Doppler waveforms throughout. 2. There is > 50 % stenosis of the common femoral and proximal superficial femoral arteries with elevated velocities of 283 cm/s and 213 cm/s. 3. The PT pressure is 158 mmHg with an REILLY of 1.01(normal range) and the DP pressure is 137 mmHg with an REILLY of 0.86 (mild obstruction range). 4. The great toe pressure is 71 mmHg with an abnormal TBI of 0.46. 5. The digits have adequate flow by PPG waveforms. Left Impression 1. The common femoral, superficial femoral, popliteal and peroneal arteries are patent with biphasic Doppler waveforms throughout. 2. The posterior tibial and anterior tibial arteries have monophasic waveforms. 3. The PT pressure is 102 mmHg with an REILLY of 0.65 (severe obstruction range)and the DP pressure is 88 mmHg with an REILLY of 0.56 (severe obstruction range. 4. The great toe pressure is 46 mmHg with an abnormal TBI of 0.29. 5. The digits have adequate flow by PPG waveforms. Conclusions Summary Arterial pressures and Doppler analysis were performed bilaterally. The arteries were adequately visualized. On the right, the common femoral, profunda femoral, superficial femoral, popliteal, posterior tibial, peroneal and anterior tibial arteries were patent with biphasic Doppler waveforms throughout. There was stenosis of the common femoral and proximal superficial femoral artery. The REILLY's were in the normal to mild obstruction range. The TBI was abnormal. The digits had adequate flow by PPG. On the left, the common femoral, superficial femoral, popliteal and peroneal arteries were patent with biphasic Doppler waveforms throughout. The posterior tibial and anterior tibial arteries had monophasic waveforms. The REILLY's were in the severe obstruction range. The TBI was abnormal and the digits had adequate flow by PPG. Signature Velocities are measured in cm/s ; Diameters are measured in cm LE Duplex Measurements Right Left + + + ------+ + + + +--------- --------+ + !Location ! !PSV!EDV !Waveform ! !PSV !EDV!Waveform ! + + + ------+ + + + +--------- --------+ + !Mid Common Femoral ! !283! !Biphasic ! !128 ! !Biphasic ! + + + ------+ + + + +--------- --------+ + !Prox PFA ! !187! !Biphasic ! !105 ! !Monophasic ! + + + ------+ + + + +--------- --------+ + !Prox SFA ! !213! !Biphasic ! !108 ! !Biphasic ! + + + ------+ + + + +--------- --------+ + !Mid SFA ! !140! !Biphasic ! !124 ! !Biphasic ! + + + ------+ + + + +--------- --------+ + !Dist SFA ! !97.4 ! !Biphasic ! !98.2 ! !Biphasic ! + + + ------+ + + + +--------- --------+ + !Prox Popliteal ! !84.1 ! !Biphasic ! !65.7 ! !Biphasic ! + + + ------+ + + + +--------- --------+ + !Dist Popliteal ! !103! !Biphasic ! !61 ! !Biphasic ! + + + ------+ + + + +--------- --------+ + !Prox PARKING LOT SPOTTER ! !87.2 ! !Biphasic ! !51.1 ! !Biphasic ! + + + ------+ + + + +--------- --------+ + !Mid PARKING LOT SPOTTER ! !91.9 ! !Biphasic ! !63.9 ! !Monophasic ! + + + ------+ + + + +--------- --------+ + !Dist PARKING LOT SPOTTER ! !92.7 ! !Biphasic ! !65.1 ! !Monophasic ! + + + ------+ + + + +--------- --------+ + !Prox TONI ! !92.6 ! !Biphasic ! !57 ! !Monophasic ! + + + ------+ + + + +--------- --------+ + !Mid TONI ! !108! !Biphasic ! !82.5 ! !Monophasic ! + + + ------+ + + + +--------- --------+ + !Dist TONI ! !86.2 ! !Biphasic ! !31 ! !Monophasic ! + + + ------+ + + + +--------- --------+ + !Prox Peroneal ! !68.6 ! !Biphasic ! !36.1 ! !Biphasic ! + + + ------+ + + + +--------- --------+ + !Dist Peroneal ! !56.3 ! !Biphasic ! !32.2 ! !Biphasic ! + + + ------+ + + + +--------- --------+ + Narrative [facility] - Lower Extremity Arterial Duplex Demographics Patient NameKATHRYN WALSH Date of Study02/06/2017 MILLICENT Age 81 Visit [id number] Gender Female Date of Birth Number Referring [facility] Room Number Physician Jose Supervisor Cereal Kenneth Coyle.Interpreting Jose Andre RVT, JESSIE Blair MD, [facility] Procedure Type of Study: Extremities Arteries: Lower Extremities Arterial Duplex, ARTERIAL DOPPLER LEGS, BILATERAL. Indications for Study:PVD. Patient Status:Routine. Study Location:Vascular Lab. Technical Quality:Adequate visualization. Procedure Note Interface, External Ris In - 02/06/2017 2:53 PM CDT [facility] - Lower Extremity Arterial Duplex Demographics Patient Name KATHRYN WALSH Date of Study 02/06/2017 MILLICENT Age 81 Visit Number [id number] Gender Female Date of 1935 Number Referring [facility] Room Number Physician Garcia Supervisor Cereal Kenneth Coyle. Interpreting Jose Andre RVT, JESSIE Blair MD, [facility] Procedure Type of Study: Extremities Arteries: Lower Extremities Arterial Duplex, ARTERIAL DOPPLER LEGS, BILATERAL. Indications for Study:PVD. Patient Status:Routine. Study Location:Vascular Lab. Technical Quality:Adequate visualization. Impressions Right Impression 1. The common femoral, profunda femoral, superficial femoral, popliteal, posterior tibial, peroneal and anterior tibial arteries are patent with biphasic Doppler waveforms throughout. 2. There is > 50 % stenosis of the common femoral and proximal superficial femoral arteries with elevated velocities of 283 cm/s and 213 cm/s. 3. The PT pressure is 158 mmHg with an REILLY of 1.01(normal range) and the DP pressure is 137 mmHg with an REILLY of 0.86 (mild obstruction range). 4. The great toe pressure is 71 mmHg with an abnormal TBI of 0.46. 5. The digits have adequate flow by PPG waveforms. Left Impression 1. The common femoral, superficial femoral, popliteal and peroneal arteries are patent with biphasic Doppler waveforms throughout. 2. The posterior tibial and anterior tibial arteries have monophasic waveforms. 3. The PT pressure is 102 mmHg with an REILLY of 0.65 (severe obstruction range)and the DP pressure is 88 mmHg with an REILLY of 0.56 (severe obstruction range. 4. The great toe pressure is 46 mmHg with an abnormal TBI of 0.29. 5. The digits have adequate flow by PPG waveforms. Conclusions Summary Arterial pressures and Doppler analysis were performed bilaterally. The arteries were adequately visualized. On the right, the common femoral, profunda femoral, superficial femoral, popliteal, posterior tibial, peroneal and anterior tibial arteries were patent with biphasic Doppler waveforms throughout. There was stenosis of the common femoral and proximal superficial femoral artery. The REILLY's were in the normal to mild obstruction range. The TBI was abnormal. The digits had adequate flow by PPG. On the left, the common femoral, superficial femoral, popliteal and peroneal arteries were patent with biphasic Doppler waveforms throughout. The posterior tibial and anterior tibial arteries had monophasic waveforms. The REILLY's were in the severe obstruction range. The TBI was abnormal and the digits had adequate flow by PPG. Signature Velocities are measured in cm/s ; Diameters are measured in cm LE Duplex Measurements Right Left + + + ------+ + + + +--------- --------+ + !Location ! !PSV !EDV !Waveform ! !PSV !EDV !Waveform ! + + + ------+ + + + +--------- --------+ + !Mid Common Femoral ! !283 ! !Biphasic ! !128 ! !Biphasic ! + + + ------+ + + + +--------- --------+ + !Prox PFA ! !187 ! !Biphasic ! !105 ! !Monophasic ! + + + ------+ + + + +--------- --------+ + !Prox SFA ! !213 ! !Biphasic ! !108 ! !Biphasic ! + + + ------+ + + + +--------- --------+ + !Mid SFA ! !140 ! !Biphasic ! !124 ! !Biphasic ! + + + ------+ + + + +--------- --------+ + !Dist SFA ! !97.4 ! !Biphasic ! !98.2 ! !Biphasic ! + + + ------+ + + + +--------- --------+ + !Prox Popliteal ! !84.1 ! !Biphasic ! !65.7 ! !Biphasic ! + + + ------+ + + + +--------- --------+ + !Dist Popliteal ! !103 ! !Biphasic ! !61 ! !Biphasic ! + + + ------+ + + + +--------- --------+ + !Prox PARKING LOT SPOTTER ! !87.2 ! !Biphasic ! !51.1 ! !Biphasic ! + + + ------+ + + + +--------- --------+ + !Mid PARKING LOT SPOTTER ! !91.9 ! !Biphasic ! !63.9 ! !Monophasic ! + + + ------+ + + + +--------- --------+ + !Dist PARKING LOT SPOTTER ! !92.7 ! !Biphasic ! !65.1 ! !Monophasic ! + + + ------+ + + + +--------- --------+ + !Prox TONI ! !92.6 ! !Biphasic ! !57 ! !Monophasic ! + + + ------+ + + + +--------- --------+ + !Mid TONI ! !108 ! !Biphasic ! !82.5 ! !Monophasic ! + + + ------+ + + + +--------- --------+ + !Dist TONI ! !86.2 ! !Biphasic ! !31 ! !Monophasic ! + + + ------+ + + + +--------- --------+ + !Prox Peroneal ! !68.6 ! !Biphasic ! !36.1 ! !Biphasic ! + + + ------+ + + + +--------- --------+ + !Dist Peroneal ! !56.3 ! !Biphasic ! !32.2 ! !Biphasic ! + + + ------+ + + + +--------- --------+ + after 11/17/2016
--- OUTSIDE RECORDS SUMMARY | 2017-11-18 08:20 | XMS REPORT | Clinical Summary ---
Author Author [facility] Address Unknown Phone Unavailable Care Team Providers Care Lusterer Name Role Phone Ronan Gardner MD PCP Unavailable Allergies Active Allergy Reactions Severity Noted Date Comments Levofloxacin Swelling 01/23/2017 Sulfa (Sulfonamide 01/23/2017 Antibiotics) Current Medications Prescription Sig. Disp. Refills Start End Date Status Date aspirin (ECOTRIN) 81 MG Take 81 mg by mouth. Active enteric coated tablet amLODIPine (NORVASC) 5 mg Take 5 mg by mouth once 3 12/18/19 Active tablet daily. 17 clonIDINE HCl (CATAPRES) 11/28/19 Active 0.2 MG tablet 17 levothyroxine (SYNTHROID, TAKE 1 TABLET BY MOUTH ON 3 11/26/19 Active LEVOXYL) 50 mcg tablet AN EMPTY STOMACH 17 metoprolol succinate XL Take 100 mg by mouth once 3 12/18/19 Active (TOPROL-XL) 100 mg 24 hr daily. 17 tablet pantoprazole (PROTONIX) Take 40 mg by mouth once 3 12/18/19 Active 40 MG EC tablet daily. 17 HYDROcodone-acetaminophen Take 1 tablet by mouth Active (NORCO) 5-325 mg per every 6 (six) hours as tablet needed for moderate pain. Active Problems Problem Noted Date GERD (gastroesophageal reflux disease) Substernal chest pain Encounters Date Type Specialty Care Team Description 01/29/2017 Documentation Gastroenterology Romie Ayala MD 01/26/2017 [facility] Radiology Romie Ayala Substernal chest pain Encounter 01/23/2017 [facility] Radiology Romie Ayala Substernal chest pain Encounter 01/23/2017 Office Visit Gastroenterology Romie Ayala Substernal chest pain (Primary Dx); Gastroesophageal reflux disease, esophagitis presence not specified after 11/17/2016 Family History Relation Name Status Comments Father Mother Social History Tobacco Use Types Packs/Day Years Used Date Former Smoker Alcohol Use Drinks/Week oz/Week Comments No Sex Assigned at Date Recorded Not on file Last Filed Vital Signs Vital Sign Reading Time Taken Blood Pressure 212/77 01/23/2017 2:08 PM CDT Pulse 90 01/23/2017 2:08 PM CDT Temperature 36.4 C (97.5 F) 01/23/2017 2:08 PM CDT Respiratory Rate - - Oxygen Saturation - - Inhaled Oxygen - - Concentration Weight 51.3 kg (113 lb) 01/23/2017 2:08 PM CDT Height - - Body Mass Index - - Plan of Treatment Health Maintenance Due Date Last Done Comments ZOSTER VACCINE 1994 PNEUMOCOCCAL 1999 POLYSACCHARIDE VACCINE AGE 65 AND OVER PNEUMOCOCCAL-13 1999 INFLUENZA VACCINE 03/13/2018 Results * US Abdomen Complete (01/26/2017 12:18 PM) Specimen Performing Laboratory [facility] [address] [place] [address] Narrative EXAM: US ABDOMEN COMPLETE CLINICAL DATA:R07.2 Precordial pain, ABDOMINAL PAIN COMPARISON: Yet IMPRESSION: LIVER:The liver demonstrates normal echogenicity without focal mass or intrahepatic biliary ductal dilatation. GALLBLADDER:The gallbladder is without evidence of calculi. The gallbladder wall is not thickened and there is no pericholecystic fluid. CBD: 2.3 mm, within normal limits. MPV:Demonstrated normal hepatopedal flow.0.98 cm diameter PANCREAS:The partially visualized portions of the pancreas are within normal limits. SPLEEN:.Spleen is not enlarged.7.0 cm. RIGHT KIDNEY: Right kidney demonstrated no mass or obstruction The right kidney measures 9.2cm. There are 2 renal cysts. LEFT KIDNEY: Left kidney demonstrated no mass or obstruction The left kidney measures 7.7cm. There are 3 renal cysts with the largest measuring 5.7 cm.. 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 IVC:The visualized portions of the inferior vena cava are unremarkable. ASCITES: No abnormal abdominal fluid collections are visualized. There is no evidence of ascites. PLEURAL EFFUSION:There are no pleural effusions. [facility]-[id number] Procedure Note Interface, Radiology Results Incoming - 01/26/2017 3:25 PM CDT EXAM: US ABDOMEN COMPLETE CLINICAL DATA: R07.2 Precordial pain, ABDOMINAL PAIN COMPARISON: Yet IMPRESSION: LIVER: The liver demonstrates normal echogenicity without focal mass or intrahepatic biliary ductal dilatation. GALLBLADDER: The gallbladder is without evidence of calculi. The gallbladder wall is not thickened and there is no pericholecystic fluid. CBD: 2.3 mm, within normal limits. MPV: Demonstrated normal hepatopedal flow. 0.98 cm diameter PANCREAS: The partially visualized portions of the pancreas are within normal limits. SPLEEN:. Spleen is not enlarged. 7.0 cm. RIGHT KIDNEY: Right kidney demonstrated no mass or obstruction The right kidney measures 9.2cm. There are 2 renal cysts. LEFT KIDNEY: Left kidney demonstrated no mass or obstruction The left kidney measures 7.7cm. There are 3 renal cysts with the largest measuring 5.7 cm.. 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 IVC: The visualized portions of the inferior vena cava are unremarkable. ASCITES: No abnormal abdominal fluid collections are visualized. There is no evidence of ascites. PLEURAL EFFUSION: There are no pleural effusions. [facility]-[id number] * [place] Esophagram Complete (01/23/2017 4:00 PM) Specimen Performing Laboratory [facility] [address] [place] [id number] Narrative EXAMINATION:FL ESOPHAGRAM COMPLETE CLINICAL HISTORY:R07.2 Precordial pain, Chest pain COMPARISON:None. Fluoroscopy time: 1.3 minute. FINDINGS: The patient swallowed air producing granules and barium without difficulty. The esophagus demonstrates frequent tertiary contractions in the distal esophagus. No stricture or suspicious filling defect is seen. There is a moderate sliding hiatal hernia. IMPRESSION: Moderate hiatal hernia. Prominent tertiary contractions. [facility]-[id number] Procedure Note Interface, Radiology Results Incoming - 01/23/2017 4:29 PM CDT EXAMINATION: FL ESOPHAGRAM COMPLETE CLINICAL HISTORY: R07.2 Precordial pain, Chest pain COMPARISON: None. Fluoroscopy time: 1.3 minute. FINDINGS: The patient swallowed air producing granules and barium without difficulty. The esophagus demonstrates frequent tertiary contractions in the distal esophagus. No stricture or suspicious filling defect is seen. There is a moderate sliding hiatal hernia. IMPRESSION: Moderate hiatal hernia. Prominent tertiary contractions. [facility]-[id number] after 11/17/2016 Insurance Payer Benefit Subscriber ID Type Phone Address Plan / Group MEDICARE MEDICARE xxxxxxxxxxx Medicare [place], [place] PART A AND B [facility] xxxxxxxxxxxx Commercial SUPPLEMENT Home: [id number] [facility] [place] [id number]
[2017-11-18] MEDS ORDERED: ALLOPURINOL100 MG PO (08:39)
[2017-11-18] MEDS ORDERED: MEGESTROL ACETA40 MG PO (08:42)
[2017-11-18 09:54] LABS: BASOPHILS # (AUTO) 0.1 (0.0-0.1); BASOPHILS % 0.5 % (0.0-1.0); EOSINOPHILS # (AUTO) 0.3 (0.0-0.4); EOSINOPHILS % 2.5 % (0.0-6.0); HEMATOCRIT 31.8 % (34.2-44.1); HEMOGLOBIN 9.2 g/dL (12.0-16.0); LYMPHOCYTES # (AUTO) 1.6 (1.0-3.2); LYMPHOCYTES % 13.5 % (18.0-39.1); MEAN CORPUSCULAR HEMOGLOBIN 20.4 pg (28-32); MEAN CORPUSCULAR HGB CONC 28.9 g/dL (31-35); MEAN CORPUSCULAR VOLUME 70.7 fL (81-99); MONOCYTES # (AUTO) 0.9 (0.2-0.8); MONOCYTES % 7.6 % (4.4-11.3); NEUTROPHILS # (AUTO) 8.6 (2.1-6.9); NEUTROPHILS % 75.5 % (38.7-80.0); PLATELET COUNT 453 x10e3/uL (140-360); RED CELL DISTRIBUTION WIDTH 29.9 % (11.7-14.4)
[2017-11-18 10:08] LABS: INR 1.05; PROTHROMBIN TIME 12.9 seconds (11.9-14.5)
[2017-11-18 10:14] LABS: ALANINE AMINOTRANSFERASE 23 IU/L (0-55); ALBUMIN 2.6 g/dL (3.5-5.0); ALBUMIN/GLOBULIN RATIO 0.5 (0.8-2.0); ALKALINE PHOSPHATASE 69 IU/L (40-150); ANION GAP 16.9 mmol/L (8-16); BLOOD UREA NITROGEN 22 mg/dL (7-26); BUN/CREATININE RATIO 26 (6-25); CALCIUM 8.8 mg/dL (8.4-10.2); CARBON DIOXIDE 26 mmol/L (22-29); CHLORIDE 102 mmol/L (98-107); CREATINE KINASE 22 IU/L (29-168); CREATININE, SERUM 0.85 mg/dL (0.57-1.11); EST GLOMERULAR FILTRATION RATE > 60 ML/MIN (60-); GLUCOSE 83 mg/dL (74-118); POTASSIUM 5.9 mmol/L (3.5-5.1); SODIUM 139 mmol/L (136-145)
--- NOTE | 2017-11-18 10:14 | Diagnostic Imaging Report ---
EXAMINATION: CHEST SINGLE (PORTABLE) INDICATION: \S\SOB \[id number] \S\[id number] COMPARISON: Chest radiograph from 03/11/[address] abdomen pelvis on 12 11/11/2016 FINDINGS: AP view TUBES and LINES: None. LUNGS: Lungs are well inflated. Interstitial bilateral lower lobe consolidation, left greater than right, new since prior exam. There is no evidence of pneumonia or pulmonary edema. PLEURA: No pleural effusion or pneumothorax. HEART AND MEDIASTINUM: The cardiac silhouette is within normal limits. Pulmonary arteries are prominent. Fullness of the left hilar may be also due to superimposed lymphadenopathy. Large hiatal hernia. BONES AND SOFT TISSUES: No acute osseous lesion. Soft tissues are unremarkable. UPPER ABDOMEN: No free air under the diaphragm. IMPRESSION: Interval development of bilateral lower lobes interstitial airspace opacities concerning for atypical pneumonia. Edema is possible, however, the heart is normal in size and there is no redistribution of the flow. Fullness of the left hilar, more prominent compared to prior exam. Consider further evaluation with CT chest with IV contrast. Unchanged large hiatal hernia. Signed by: Dr. Farhana Canales M.D. on 11/18/2017 10:10 AM
[2017-11-18] MEDS ORDERED: ALBUTEROL/IPRATROPIUM 3 ML NEB NEB ONE (10:30)
[2017-11-18 10:33] LABS: THYROID STIMULATING HORMONE 6.193 uIU/mL (0.350-4.940)
[2017-11-18] MEDS ORDERED: ENOXAPARIN SODIUM INJ 100 MG/ML SYR SC SCH ×2 (12:00→16:00)
[2017-11-18] MEDS: ENOXAPARIN SOD INJ 60 MG/0.6 ML SYR SC SCH (14:03)
--- NOTE | 2017-11-18 15:02 | Diagnostic Imaging Report ---
EXAM: VENTILATION PERFUSION LUNG SCAN INDICATION: SOB COMPARISON: Chest radiograph 11/18/2017 DISCUSSION: Xenon-133 gas 15 mCi was administered via inhalation. Dynamic images of the lungs in the posterior projection were obtained through single breath and washout phases. Distribution of tracer activity is irregular throughout the lungs. Washout is diffusely delayed with diffuse air trapping. Perfusion images of the lungs in multiple projections were obtained following intravenous administration of 6.3 mCi of Tc-99m MAA. Distribution of tracer is irregular throughout the lungs. There are no segmental perfusion defects of any size. The contours of the lungs are well demarcated. The cardiac silhouette is unremarkable. IMPRESSION: 1. Scan findings represent a VERY LOW probability for acute pulmonary embolic disease based on the PIOPED II criteria. 2. Scan findings are compatible with diffuse parenchymal and/or obstructive lung disease. Signed by: Dr. Katherine Gan M.D. on 11/18/2017 2:59 PM
[2017-11-18] MEDS ORDERED: FUROSEMIDE INJ 10 MG/ML 4 ML VIAL IV ONE (15:30)
[2017-11-18] MEDS ORDERED: ENOXAPARIN SOD INJ 60 MG/0.6 ML SYR SC SCH (16:00)
[2017-11-18] MEDS ORDERED: SODIUM CHLORIDE FLUSH 10 ML SYR INJ PRN (16:00)
[2017-11-18] MEDS: CEFTRIAXONE SOD 1 GM VIAL IV SCH (16:23)
[2017-11-18] MEDS ORDERED: ALLOPURINOL300 MG PO (16:39)
--- OUTSIDE RECORDS SUMMARY | 2017-11-18 16:49 | XMS REPORT | Clinical Summary ---
Author Author [facility] Address Unknown Phone Unavailable Care Team Providers Care Franchise Consultant Name Role Phone Ronan Gardner MD PCP [...] 01/29/2017 Documentation Gastroenterology Romie Ayala MD 01/26/2017 [facility] Radiology Romie Ayala Substernal chest pain Encounter 01/23/2017 [facility] Radiology Romie Ayala Substernal chest pain [...] 12:18 PM) Specimen Performing Laboratory [facility] [address] [place] [address] Narrative EXAM: US ABDOMEN COMPLETE CLINICAL DATA:R07.2 [...] ascites. PLEURAL EFFUSION:There are no pleural effusions. [facility]-[id number] Procedure Note Interface, Radiology Results Incoming - [...] PLEURAL EFFUSION: There are no pleural effusions. [facility]-[id number] * [place] Esophagram Complete (01/23/2017 4:00 PM) Specimen Performing Laboratory [facility] [address] [place] [address] Narrative EXAMINATION:FL ESOPHAGRAM COMPLETE CLINICAL HISTORY:R07.2 Precordial pain, Chest pain COMPARISON:None. Fluoroscopy time: 1.3 minute. FINDINGS: The patient swallowed air producing granules and barium without difficulty. The esophagus demonstrates frequent tertiary contractions in the distal esophagus. No stricture or suspicious filling defect is seen. There is a moderate sliding hiatal hernia. IMPRESSION: Moderate hiatal hernia. Prominent tertiary contractions. [facility]-[id number] Procedure Note Interface, Radiology Results Incoming - [...] IMPRESSION: Moderate hiatal hernia. Prominent tertiary contractions. [facility]-[id number] after 11/17/2016 Insurance Payer Benefit Subscriber ID Type Phone Address Plan / Group MEDICARE MEDICARE xxxxxxxxxxx Medicare [place], [place] PART A AND B [facility] xxxxxxxxxxxx Commercial SUPPLEMENT Home: [id number] [facility] [place] [phone]
--- OUTSIDE RECORDS SUMMARY | 2017-11-18 16:49 | XMS REPORT | Clinical Summary ---
Author Author [facility] Address Unknown Phone Unavailable Care Team Providers Care Superintendent Generating Plant Name Role Phone PCP Unavailable Allergies Active [...] (HCC) 02/01/2017 Outside Orders Central Scheduling Phillip Farias Peripheral vascular MD disease, unspecified (HCC) (Primary [...] Ref Range Ejection Fraction Specimen Performing Laboratory [facility]CHO [facility]ART[facility] MKCKESSON CPACS Impressions Right Impression [...] + + + +--------- --------+ + !Prox METAL ENGINEERING PROCESS WORKER ! !87.2 ! !Biphasic ! !51.1 ! !Biphasic ! + + + ------+ + + + +--------- --------+ + !Mid METAL ENGINEERING PROCESS WORKER ! !91.9 ! !Biphasic ! !63.9 ! !Monophasic ! + + + ------+ + + + +--------- --------+ + !Dist METAL ENGINEERING PROCESS WORKER ! !92.7 ! !Biphasic ! !65.1 ! [...] Date of Study02/06/2017 MILLICENT Age 81 Visit [id number] Gender Female Date of Birth Number Referring [facility] Room Number Physician Jose Micro Paleontologist Kenneth Coyle.Interpreting Jose Andre RVT, JESSIE Blair MD, [facility] Procedure Type of Study: Extremities Arteries: Lower Extremities Arterial Duplex, ARTERIAL DOPPLER LEGS, BILATERAL. Indications for Study:PVD. Patient Status:Routine. Study Location:Vascular Lab. Technical Quality:Adequate visualization. Procedure Note Interface, External Ris In - 02/06/2017 2:53 PM CDT [facility] - Lower Extremity Arterial Duplex Demographics Patient Name KATHRYN WALSH Date of Study 02/06/2017 MILLICENT Age 81 Visit Number [id number] Gender Female Date of 1935 Number Referring [facility] Room Number Physician Garcia Micro Paleontologist Kenneth Coyle. Interpreting Jose Andre RVT, JESSIE Blair MD, [facility] Procedure Type of Study: Extremities Arteries: Lower [...] + + + +--------- --------+ + !Prox METAL ENGINEERING PROCESS WORKER ! !87.2 ! !Biphasic ! !51.1 ! !Biphasic ! + + + ------+ + + + +--------- --------+ + !Mid METAL ENGINEERING PROCESS WORKER ! !91.9 ! !Biphasic ! !63.9 ! !Monophasic ! + + + ------+ + + + +--------- --------+ + !Dist METAL ENGINEERING PROCESS WORKER ! !92.7 ! !Biphasic ! !65.1 ! [...]
[2017-11-18] MEDS: FUROSEMIDE INJ 10 MG/ML 4 ML VIAL IV SCH (17:00)
[2017-11-18 17:19] VITALS: BP 178/76
[2017-11-18 17:26] VITALS: BP 178/76
[2017-11-18 17:30] VITALS: BP 178/76
--- NOTE | 2017-11-18 18:12 | Diagnostic Imaging Report ---
EXAM: CT Chest WITHOUT contrast 11/18/2017 3:49 PM INDICATION: \S\R/O HILAR MASS OR PNEUMONIA \[id number] \S\[id number] \S\Y COMPARISON: CTA abdomen and pelvis 07/13/[address] abdomen and pelvis 03/11/2017 TECHNIQUE: Chest was scanned utilizing a multidetector helical scanner from the lung apex through the level of the adrenal glands without administration of IV contrast. Absence of intravenous contrast decreases sensitivity for detection of lymphadenopathy and vascular pathology. Coronal and sagittal reformations were obtained. Routine protocol was performed. IV CONTRAST: None COMPLICATIONS: None RADIATION DOSE: Total DLP: 361 mGy*cm Estimated effective dose: (DLP x 0.015 x size factor) mSv CTDIvol has been reviewed. It is below the limits set by the Radiation Protocol Committee (RPC). FINDINGS: LINES/ TUBES: None. LUNGS AND AIRWAYS: Advanced bilateral centrilobular emphysema. Diffuse bilateral alveolar opacities suggestive of pulmonary edema. Bilateral lower lobes reticular consolidation, left greater than right, new since prior exam. Mild bilateral peribronchial wall thickening. PLEURA: Low-attenuation bilateral pleural effusions, small on the right and a small to moderate on the left. HEART AND MEDIASTINUM: The thyroid gland is normal. Few enlarged noncalcified mediastinal lymph nodes, measuring up to 1.2 cm. The left atrium and left ventricle are mildly enlarged. There is no pericardial effusion. Coronary artery calcifications. The thoracic aorta normal in caliber and associated with moderate atherosclerotic calcifications. The main pulmonary artery is normal in caliber measuring 2.6 cm in diameter (normal up to 3 cm). The left pulmonary artery is mildly enlarged measuring 2.4 cm in diameter (normal up to 2.2 cm). The right pulmonary artery is mildly enlarged measuring 2.4 cm in diameter (normal up to 2.2 cm). Large hiatal hernia. UPPER ABDOMEN: Both kidneys are atrophic and contain multiple simple cysts, the largest on the left kidney in the anterior interpolar region measuring 6.1 cm in diameter, the largest on the right upper pole measuring 3.5 cm in diameter, unchanged. BONES: Scoliosis with multilevel degenerative changes of the thoracic spine. SOFT TISSUES: Anasarca. IMPRESSION: 1. Mild enlargement of the heart with associated pulmonary edema and bilateral pleural effusions. 2. Bilateral lower lobes, left greater than right, reticular consolidations are new since prior CT and concerning for atypical pneumonia. 3. The prominent left hilar correlates with an enlarged left pulmonary artery likely due to pulmonary hypertension. 4. Few enlarged mediastinal lymph nodes, likely reactive. 5. Advanced bilateral emphysema. Signed by: Dr. Farhana Canales M.D. on 11/18/2017 6:08 PM
[2017-11-18 20:00] VITALS: BP 136/56
[2017-11-18] MEDS: ALBUTEROL/IPRATROPIUM 3 ML NEB NEB SCH (20:10)
[2017-11-18] MEDS: CLONIDINE HCL 0.2 MG TAB PO SCH (21:00)
[2017-11-18] MEDS: PRAMIPEXOLE DIHYDROCHLORIDE 0.25 MG TAB PO SCH (21:30)
[2017-11-19] VITALS (8 sets, daily range): BP systolic 111–168; BP diastolic 53–76
[2017-11-19] MEDS: ENOXAPARIN SOD INJ 60 MG/0.6 ML SYR SC SCH ×2 (00:16→12:12)
[2017-11-19] MEDS: ALBUTEROL/IPRATROPIUM 3 ML NEB NEB SCH ×4 (01:10→18:40)
[2017-11-19 02:47] LABS: CREATINE KINASE 17 IU/L (29-168)
[2017-11-19] MEDS: LEVOTHYROXINE SODIUM 88 MCG TAB PO SCH (05:13)
--- NOTE | 2017-11-19 07:02 | Diagnostic Imaging Report ---
EXAMINATION: CHEST SINGLE (PORTABLE) INDICATION: Congestive heart failure COMPARISON: 11/18/2017 FINDINGS: TUBES and LINES: None. LUNGS: Lungs are not well inflated. There are confluent left lung base atelectasis. There is mild prominence of the central pulmonary vasculature, consistent with pulmonary venous congestion. Interlobular septi thickening present. PLEURA: No pleural effusion or pneumothorax. HEART AND MEDIASTINUM: The cardiomediastinal silhouette is unremarkable. There are atherosclerotic calcifications within the aorta. BONES AND SOFT TISSUES: No acute osseous lesion. Soft tissues are unremarkable. UPPER ABDOMEN: No free air under the diaphragm. IMPRESSION: Findings are compatible with fluid overload and persistent left lung base atelectasis. Signed by: Dr. Lj Murdock M.D. on 11/19/2017 6:58 AM
[2017-11-19 07:47] LABS: ANION GAP 13.1 mmol/L (8-16); BLOOD UREA NITROGEN 19 mg/dL (7-26); BUN/CREATININE RATIO 24 (6-25); CALCIUM 8.4 mg/dL (8.4-10.2); CARBON DIOXIDE 30 mmol/L (22-29); CHLORIDE 102 mmol/L (98-107); CREATININE, SERUM 0.79 mg/dL (0.57-1.11); EST GLOMERULAR FILTRATION RATE > 60 ML/MIN (60-); GLUCOSE 105 mg/dL (74-118); POTASSIUM 4.1 mmol/L (3.5-5.1); SODIUM 141 mmol/L (136-145)
[2017-11-19 08:24] LABS: CREATINE KINASE MB 0.9 ng/mL (0-5.0)
[2017-11-19 08:26] LABS: BASOPHILS % 0.3 % (0.0-1.0); EOSINOPHILS # (AUTO) 0.1 (0.0-0.4); EOSINOPHILS % 0.6 % (0.0-6.0); HEMATOCRIT 25.7 % (34.2-44.1); LYMPHOCYTES # (AUTO) 1.3 (1.0-3.2); LYMPHOCYTES % 13.2 % (18.0-39.1); MEAN CORPUSCULAR HEMOGLOBIN 20.3 pg (28-32); MEAN CORPUSCULAR HGB CONC 29.2 g/dL (31-35); MEAN CORPUSCULAR VOLUME 69.5 fL (81-99); MONOCYTES % 10.5 % (4.4-11.3); NEUTROPHILS # (AUTO) 7.3 (2.1-6.9); PLATELET COUNT 320 x10e3/uL (140-360); RED CELL DISTRIBUTION WIDTH 29.4 % (11.7-14.4)
[2017-11-19 08:29] LABS: HEMOGLOBIN 7.5 g/dL (12.0-16.0)
[2017-11-19 08:52] LABS: % IRON SATURATION 9 % (15-50); IRON 17 ug/dL (50-170); TOTAL IRON BINDING CAPACITY 188 ug/dL (261-478); TRANSFERRIN 134 mg/dL (180-382)
[2017-11-19] MEDS: FUROSEMIDE INJ 10 MG/ML 4 ML VIAL IV SCH ×2 (08:59→16:46)
[2017-11-19] MEDS ORDERED: FUROSEMIDE INJ 10 MG/ML 4 ML VIAL IV SCH (09:00)
[2017-11-19] MEDS: IRBESARTAN 150 MG TAB PO SCH ×2 (09:00→16:50)
[2017-11-19] MEDS: MEGESTROL ACETATE 40 MG TAB PO SCH (09:00)
[2017-11-19] MEDS ORDERED: IRBESARTAN 150 MG PO SCH (09:00)
[2017-11-19] MEDS: ASPIRIN 81 MG CHEW TAB PO SCH (09:00)
[2017-11-19] MEDS ORDERED: AMLODIPINE BESYLATE 5 MG TAB PO SCH (09:00)
[2017-11-19] MEDS: CLONIDINE HCL 0.2 MG TAB PO SCH ×3 (09:00→21:02)
[2017-11-19] MEDS: ALLOPURINOL 100 MG TAB PO SCH (09:01)
[2017-11-19] MEDS: AMLODIPINE BESYLATE 10 MG TAB PO SCH (09:01)
[2017-11-19] MEDS: METOPROLOL SUCCINATE 50 MG TAB XL PO SCH (09:01)
[2017-11-19] MEDS: PANTOPRAZOLE SOD 40 MG TABEC PO SCH (09:20)
--- NOTE | 2017-11-19 09:22 | Consultation ---
DATE OF CONSULTATION: November 18, 2017 PULMONARY CONSULTATION CONSULTING PHYSICIAN: Dr. Lowe Source of the history is the patient and the review of the previous admissions. CHIEF COMPLAINT: Shortness of breath and cough going on for the last 3 days progressively getting worse. HPI: Ms. Hand is an 82-year-old female who presented to the emergency room with worsening shortness of breath, cough, dyspnea on exertion, and leg edema going on for last 3 days progressively getting worse. She reports that she received Lasix in the emergency room and has been feeling better. She has a 30-35 pack year smoking history, and has been diagnosed with COPD. She denies any chest pain, nausea or vomiting. She reports wheezing, dyspnea on exertion and paroxysmal nocturnal dyspnea. REVIEW OF SYSTEMS GENERAL: Denies any fever or chills. HEENT: Denies any head trauma. . ENT: Denies any headache. CV: Denies any chest pain. RESPIRATORY: Shortness of breath and wheezing. The rest of the review systems are negative except as in HPI. PAST MEDICAL HISTORY: Hypertension, hypothyroidism, COPD, history of DVT and PE in the past, hypertension, chronic pain. PAST SURGICAL HISTORY: Hysterectomy, tubal ligation and appendectomy. FAMILY HISTORY AND SOCIAL HISTORY: A 35-pack year smoking history. Stopped in . Denies any alcohol use. PHYSICAL EXAMINATION VITAL SIGNS: Temperature 96.4, pulse of 90, blood pressure 178/76, respiratory rate is 20-22, O2 sat 92% on 3 L. SKIN: Warm and dry. HEENT: Atraumatic and normocephalic. Pupils reactive. CHEST: Markedly reduced air entry bilaterally and wheezing. HEART: S1 and S2 audible. ABDOMEN: Soft, nontender and nondistended. EXTREMITIES: Bilateral pedal edema. NEUROLOGIC: Awake and alert. LABS: White count of 11,000, hemoglobin 9.2 and platelets 453,000. Chemistry: Sodium 139, potassium 5.9, chloride 102, bicarb 26, BUN 22, creatinine 0.85, AST 56. BNP 275.7. Albumin 2.6. TSH 6.93. CT of the chest was done in the emergency room. I have reviewed the images showing bilateral pleural effusion, right more than the left and increased congestion. Possible consolidation on the left lower lobe as well, and also showing emphysema. INR is 1.05, PT 12.9. ASSESSMENT AND PLAN: Ms. Hand is an 82-year-old female who presented with worsening shortness of breath. Patient has bilateral pleural effusion, history of chronic obstructive pulmonary disease, emphysema on chest computerized tomography and ex-smoker. Seems like a combination of tqkac-rgv-ideubon diastolic heart failure along with possible pneumonia. She has underlying chronic obstructive pulmonary disease. However, she reports that she did not have any problem breathing in the past. IMPRESSION 1. Xdlah-jl-mgvniwe diastolic heart failure. 2. Bilateral pleural effusion likely due to heart failure. 3. Reported Chronic obstructive pulmonary disease and emphysema on computerized tomography of chest. 4. Ex-smoker. 5. History of deep venous thrombosis, currently the INR is normal. I am unsure if she was on any new or oral anticoagulant like Eliquis or Xarelto. It is not on her medication list. 6. Hypothyroidism. PLAN 1. Patient has received 1 dose of Lasix in the emergency room. I will start the patient on Lasix IV 40 mg daily. Check labs. 2. Continue the patient on Lovenox. I am unsure if she was on any other coagulant. 3. Continue the patient on DuoNeb nebulizer treatments. Thank you for this consult. Job#: [id number] DIANA
[2017-11-19] MEDS ORDERED: SODIUM CHLORIDE 0.9% 250ML 250 ML IV ONE (09:45)
[2017-11-19 10:23] LABS: ANISOCYTOSIS MODE; HYPOCHROMASIA MODERATE; MICROCYTOSIS SLIGHT; PLATELET ESTIMATE ADEQUATE; POIKILOCYTOSIS SLIGHT; RBC MORPHOLOGY COMMENT ABNORMAL; TARGET CELLS FEW
[2017-11-19 10:24] LABS: PLATELET MORPHOLOGY COMMENT NORMAL
--- NOTE | 2017-11-19 15:36 | Consultation ---
DATE OF CONSULTATION: November 19, 2017 CARDIOLOGY CONSULTATION REQUESTING PHYSICIAN: Dr. Eduardo Gardner REASON FOR CONSULTATION: Pxanb-wh-upewoia diastolic heart failure. HISTORY OF PRESENT ILLNESS: This is an 82-year-old woman with a history of chronic diastolic heart failure, history of DVT/PE, hypertension and COPD, who presented with complaint of worsening shortness of breath. The patient reports she was in her usual state of health until Sunday when she began developing shortness of breath that was progressively worse. She presented to the ER for further evaluation. The patient endorses chronic lower extremity edema that is unchanged but does note that she has been having symptoms consistent with orthopnea and PND as well as dyspnea on exertion at approximately 10 feet. She denied any chest pain or palpitations. Of note, she recently traveled to [place] on Sunday for a vacation. REVIEW OF SYSTEMS: Negative, except as per HPI. PAST MEDICAL HISTORY 1. Chronic diastolic heart failure. 2. Hypertension. 3. History of DVT/PE. 4. COPD. PAST SURGICAL HISTORY 1. Hysterectomy. 2. Tubal ligation. 3. Appendectomy. SOCIAL HISTORY: Prior smoker. No alcohol. FAMILY HISTORY: Noncontributory. PHYSICAL EXAMINATION VITAL SIGNS: Temperature 98.3 degrees, pulse 120, respiratory rate 18, blood pressure 153/70, oxygen saturation 100% on 2 L nasal cannula. GENERAL: Elderly woman in no acute distress. Frail appearing, cachectic. HEENT: Normocephalic and atraumatic. Pupils are equal with no scleral icterus. NECK: Supple. No thyromegaly or cervical lymphadenopathy. No carotid bruit. LUNGS: Decreased breath sounds at the bases with crackles at the bases as well. No wheezes appreciated. CARDIOVASCULAR: Normal rate, regular rhythm. No murmur. Normal S1 and S2. ABDOMEN: Soft. Nontender. EXTREMITIES: There is 2+ pitting edema bilaterally. CARDIAC MEDICATION: Amlodipine 10 mg p.o. daily. LABS: WBC 9.76, hemoglobin 7.5, hematocrit 25.7, platelets 320. Sodium 141, potassium 4.1, chloride 102, CO2 30, BUN 19, creatinine 0.79. Troponin 0.001. BNP 276. INR 1.05. CT CHEST: Mild enlargement of the heart with associated pulmonary edema and bilateral pleural effusions. Bilateral lower lobe, left greater than right, reticular consolidations are new since prior CT concerning for atypical pneumonia. Prominent left hilar correlates with enlarged left pulmonary artery likely due to pulmonary hypertension. A few enlarged mediastinal lymph nodes likely reactive. Advanced bilateral emphysema. EKG: Normal sinus rhythm. IMPRESSION 1. Tntlm-mo-gljmsgz diastolic heart failure. 2. Atypical pneumonia suggested by CT chest. 3. Chronic obstructive pulmonary disease/emphysema. 4. Hypertension. 5. History of deep vein thrombosis/pulmonary embolism. 6. Hypothyroidism. 7. Chronic kidney disease. RECOMMENDATIONS: Scheduled intravenous furosemide for diuresis. Continue current cardiac medications otherwise. Patient is not on anticoagulation as an outpatient due to poor nutritional status. Patient had previously been on warfarin. However, she developed supratherapeutic INR to 8. Warfarin was subsequently stopped due to difficulty with INR control. If her nutritional status improves, which the patient indicates is now better, we could attempt resuming warfarin for anticoagulation. Discussed NOACs with the patient, but she would prefer to attempt warfarin instead. Thank you for this consult. We will continue to follow. BAL ANG MD Job#: [id number] NASEEM
[2017-11-19] MEDS: CEFTRIAXONE SOD 1 GM VIAL IV SCH (16:46)
[2017-11-19] MEDS: PRAMIPEXOLE DIHYDROCHLORIDE 0.25 MG TAB PO SCH (21:02)
[2017-11-19] MEDS: HYDROCODONE/APAP 5MG-325MG TAB PO PRN (21:30)
[2017-11-20] VITALS (7 sets, daily range): BP systolic 102–114; BP diastolic 50–57
[2017-11-20] MEDS: ALBUTEROL/IPRATROPIUM 3 ML NEB NEB SCH ×4 (01:50→19:00)
[2017-11-20] MEDS: LEVOTHYROXINE SODIUM 88 MCG TAB PO SCH (05:39)
[2017-11-20] MEDS: PANTOPRAZOLE SOD 40 MG TABEC PO SCH (09:20)
[2017-11-20] MEDS: ALLOPURINOL 100 MG TAB PO SCH (09:52)
[2017-11-20] MEDS: IRBESARTAN 150 MG TAB PO SCH ×2 (09:52→17:28)
[2017-11-20] MEDS: AMLODIPINE BESYLATE 10 MG TAB PO SCH (09:52)
[2017-11-20] MEDS: FUROSEMIDE INJ 10 MG/ML 4 ML VIAL IV SCH ×2 (09:52→17:28)
[2017-11-20] MEDS: METOPROLOL SUCCINATE 50 MG TAB XL PO SCH (09:52)
[2017-11-20] MEDS: CLONIDINE HCL 0.2 MG TAB PO SCH ×3 (09:52→21:15)
[2017-11-20] MEDS: ASPIRIN 81 MG CHEW TAB PO SCH (09:52)
[2017-11-20] MEDS: MEGESTROL ACETATE 40 MG TAB PO SCH (09:52)
[2017-11-20] MEDS: ENOXAPARIN SOD INJ 60 MG/0.6 ML SYR SC SCH ×2 (11:16)
--- NOTE | 2017-11-20 13:02 | Progress Note ---
DATE: November 20, 2017 CARDIOLOGY PROGRESS NOTE SUBJECTIVE: Patient denies chest pain or shortness of breath. She reports she has not been up and walking. OBJECTIVE VITAL SIGNS: Temperature 98.2 degrees, pulse 81, respiratory rate 16, blood pressure 114/55, oxygen saturation 93% on 1 liter nasal cannula. GENERAL: Elderly woman, frail, no acute distress, cachectic. LUNGS: Decreased breath sounds in the bases. No wheezes or crackles. CARDIOVASCULAR: Normal rate, regular rhythm. No murmur. Normal S1 and S2. ABDOMEN: Soft, nontender. EXTREMITIES: Trace edema. CARDIAC MEDICATIONS 1. Enoxaparin 50 mg subcutaneous q.12 h. 2. Furosemide 40 mg IV b.i.d. 3. Irbesartan 150 mg p.o. b.i.d. 4. Amlodipine 10 mg p.o. daily. 5. Metoprolol succinate 100 mg p.o. daily. 6. Aspirin 81 mg p.o. daily. 7. Levothyroxine 88 mcg p.o. daily. LABS: Pending. TELEMETRY: Normal sinus rhythm. IMPRESSION 1. Fixlw-na-tkjrtfb diastolic heart failure. 2. Atypical pneumonia suggested by computed tomography chest. 3. Chronic obstructive pulmonary disease/emphysema. 4. Hypertension. 5. History of deep vein thrombosis/pulmonary embolism. 6. Hypothyroidism. 7. Chronic kidney disease. RECOMMENDATIONS: Continue intravenous diuretics. Monitor basic metabolic panel daily. Continue current cardiac medications. Will request physical therapy evaluation. Patient is not currently on anticoagulation as an outpatient due to poor nutritional status and extremely labile INR. Once the patient recovers from her acute illness, we can attempt to resume warfarin now that she states her nutrition is better. We did discuss NOACs with the patient, but she expressed a preference for warfarin. Thank you for this consult. We will continue to follow. Job#: [id number]
[2017-11-20 13:13] LABS: ANION GAP 13.8 mmol/L (8-16); CALCIUM 8.6 mg/dL (8.4-10.2); CREATININE, SERUM 0.97 mg/dL (0.57-1.11); POTASSIUM 4.8 mmol/L (3.5-5.1)
[2017-11-20] MEDS ORDERED: SODIUM CHLORIDE 0.9% 250ML 250 ML ONE (17:22)
[2017-11-20] MEDS: CEFTRIAXONE SOD 1 GM VIAL IV SCH (17:27)
[2017-11-20] MEDS: IRON SUCROSE 100 MG in SODIUM CHLORIDE 0.9% 100 ML 100 ML IV SCH (17:36)
[2017-11-20] MEDS: PRAMIPEXOLE DIHYDROCHLORIDE 0.25 MG TAB PO SCH (21:15)
[2017-11-20] MEDS: HYDROCODONE/APAP 5MG-325MG TAB PO PRN (22:15)
[2017-11-21] VITALS (8 sets, daily range): BP systolic 90–126; BP diastolic 42–57
[2017-11-21] MEDS: ENOXAPARIN SOD INJ 60 MG/0.6 ML SYR SC SCH ×2 (00:15→12:33)
[2017-11-21] MEDS: ALBUTEROL/IPRATROPIUM 3 ML NEB NEB SCH ×3 (02:15→19:35)
[2017-11-21] MEDS: LEVOTHYROXINE SODIUM 88 MCG TAB PO SCH (06:01)
[2017-11-21 06:57] LABS: BASOPHILS % 0.2 % (0.0-1.0); EOSINOPHILS # (AUTO) 0.3 (0.0-0.4); EOSINOPHILS % 2.5 % (0.0-6.0); HEMATOCRIT 27.4 % (34.2-44.1); HEMOGLOBIN 8.1 g/dL (12.0-16.0); LYMPHOCYTES % 10.5 % (18.0-39.1); MEAN CORPUSCULAR HEMOGLOBIN 21.6 pg (28-32); MEAN CORPUSCULAR HGB CONC 29.6 g/dL (31-35); MEAN CORPUSCULAR VOLUME 73.1 fL (81-99); MONOCYTES # (AUTO) 0.8 (0.2-0.8); MONOCYTES % 7.7 % (4.4-11.3); NEUTROPHILS # (AUTO) 7.7 (2.1-6.9); NEUTROPHILS % 78.3 % (38.7-80.0); PLATELET COUNT 274 x10e3/uL (140-360); RED BLOOD COUNT 3.75 x10e6/uL (3.6-5.1); RED CELL DISTRIBUTION WIDTH 27.9 % (11.7-14.4)
[2017-11-21 07:17] LABS: ALBUMIN 1.8 g/dL (3.5-5.0); ALBUMIN/GLOBULIN RATIO 0.6 (0.8-2.0); ANION GAP 14.2 mmol/L (8-16); CALCIUM 8.2 mg/dL (8.4-10.2); CREATININE, SERUM 1.18 mg/dL (0.57-1.11); POTASSIUM 4.2 mmol/L (3.5-5.1)
[2017-11-21] MEDS ORDERED: MAGNESIUM SULFATE 2GM/50ML 50 ML IV ONE ×2 (08:15→12:30)
[2017-11-21] MEDS: PANTOPRAZOLE SOD 40 MG TABEC PO SCH (08:23)
[2017-11-21] MEDS: FUROSEMIDE INJ 10 MG/ML 4 ML VIAL IV SCH (08:33)
[2017-11-21] MEDS: MEGESTROL ACETATE 40 MG TAB PO SCH (08:34)
[2017-11-21] MEDS: ASPIRIN 81 MG CHEW TAB PO SCH (08:34)
[2017-11-21] MEDS: METOPROLOL SUCCINATE 50 MG TAB XL PO SCH (08:35)
[2017-11-21] MEDS: IRBESARTAN 150 MG TAB PO SCH ×2 (08:35→17:59)
[2017-11-21] MEDS: ALLOPURINOL 100 MG TAB PO SCH (08:35)
[2017-11-21] MEDS: AMLODIPINE BESYLATE 10 MG TAB PO SCH (08:36)
[2017-11-21] MEDS: CLONIDINE HCL 0.2 MG TAB PO SCH ×3 (08:36→21:00)
[2017-11-21 10:01] LABS: ANISOCYTOSIS MODERATE; HYPOCHROMASIA SLIGHT; RBC MORPHOLOGY COMMENT ABNORMAL
[2017-11-21 10:02] LABS: PLATELET ESTIMATE ADEQUATE; PLATELET MORPHOLOGY COMMENT FEW LARGE
[2017-11-21 10:06] LABS: ELLIPTOCYTE, RBC SLIGHT; TOXIC GRANULATION SLIGHT
[2017-11-21] MEDS: CEFTRIAXONE SOD 1 GM VIAL IV SCH (15:38)
[2017-11-21] MEDS: IRON SUCROSE 100 MG in SODIUM CHLORIDE 0.9% 100 ML 100 ML IV SCH (17:59)
--- NOTE | 2017-11-21 18:00 | Progress Note ---
DATE: November 21, 2017 CARDIOLOGY PROGRESS NOTE SUBJECTIVE: Patient denies chest pain or shortness of breath. She reports she is able to walk the halls without any dyspnea. OBJECTIVE VITAL SIGNS: Temperature 98.5 degrees, pulse 92, respiratory rate 18, blood pressure 115/53, oxygen saturation 92%. GENERAL: Elderly woman, frail, no acute distress, cachectic. LUNGS: Clear to auscultation bilaterally. No wheezes or crackles. CARDIOVASCULAR: Normal rate, regular rhythm. No murmur. Normal S1 and S2. ABDOMEN: Soft, nontender. EXTREMITIES: No edema. CARDIAC MEDICATIONS 1. Enoxaparin 50 mg subcutaneous q.12 h. 2. Irbesartan 150 mg p.o. b.i.d. 3. Metoprolol succinate 100 mg p.o. daily. 4. Aspirin 81 mg p.o. daily. 5. Furosemide 40 mg IV b.i.d. 6. Levothyroxine 88 mcg p.o. daily. 7. Amlodipine 10 mg p.o. daily. 8. Clonidine 0.2 mg p.o. t.i.d. LABS: WBC 9.83, hemoglobin 8.1, hematocrit 27.4, platelets 274. Sodium 139, potassium 4.2, chloride 94, CO2 35, BUN 31, creatinine 1.18. TELEMETRY: Normal sinus rhythm. IMPRESSION 1. Jxizq-dm-tszvwrg diastolic heart failure. 2. Atypical pneumonia suggested by computed tomography chest. 3. Chronic obstructive pulmonary disease/emphysema. 4. Hypertension. 5. History of deep vein thrombosis/pulmonary embolism. 6. Hypothyroidism. 7. Chronic kidney disease. RECOMMENDATIONS: The patient's creatinine is slightly higher today. Stop diuretics. Likely resume oral diuretics tomorrow. Monitor BMP daily. Continue current cardiac medications otherwise. Patient is not currently on anticoagulation as an outpatient due to poor nutritional status and extremely labile INR. Patient reports her appetite is better now. Once she recovers from her acute illness, we can attempt to resume warfarin. NOACs were discussed with the patient, but she did not wish to attempt them at this time. Thank you for this consult. We will continue to follow. Job#: [id number] [id number]
[2017-11-21] MEDS: PRAMIPEXOLE DIHYDROCHLORIDE 0.25 MG TAB PO SCH (20:56)
[2017-11-21] MEDS: HYDROCODONE/APAP 5MG-325MG TAB PO PRN (21:29)
[2017-11-22] VITALS (9 sets, daily range): BP systolic 109–148; BP diastolic 50–67
[2017-11-22] MEDS: ALBUTEROL/IPRATROPIUM 3 ML NEB NEB SCH ×4 (01:30→18:55)
[2017-11-22] MEDS: LEVOTHYROXINE SODIUM 88 MCG TAB PO SCH (05:12)
[2017-11-22 07:07] LABS: BASOPHILS % 0.4 % (0.0-1.0); EOSINOPHILS # (AUTO) 0.3 (0.0-0.4); EOSINOPHILS % 3.1 % (0.0-6.0); HEMATOCRIT 30.1 % (34.2-44.1); HEMOGLOBIN 8.9 g/dL (12.0-16.0); LYMPHOCYTES % 11.6 % (18.0-39.1); MEAN CORPUSCULAR HEMOGLOBIN 21.9 pg (28-32); MEAN CORPUSCULAR HGB CONC 29.6 g/dL (31-35); MONOCYTES # (AUTO) 0.8 (0.2-0.8); NEUTROPHILS # (AUTO) 6.3 (2.1-6.9); NEUTROPHILS % 75.5 % (38.7-80.0); PLATELET COUNT 333 x10e3/uL (140-360); RED BLOOD COUNT 4.07 x10e6/uL (3.6-5.1); RED CELL DISTRIBUTION WIDTH 28.8 % (11.7-14.4)
[2017-11-22 07:37] LABS: ALBUMIN/GLOBULIN RATIO 0.6 (0.8-2.0); ANION GAP 14.5 mmol/L (8-16); CALCIUM 9.1 mg/dL (8.4-10.2); CREATININE, SERUM 0.95 mg/dL (0.57-1.11); POTASSIUM 4.5 mmol/L (3.5-5.1)
[2017-11-22] MEDS: METOPROLOL SUCCINATE 50 MG TAB XL PO SCH (09:22)
[2017-11-22] MEDS: MEGESTROL ACETATE 40 MG TAB PO SCH (09:23)
[2017-11-22] MEDS: CLONIDINE HCL 0.2 MG TAB PO SCH ×3 (09:23→21:00)
[2017-11-22] MEDS: AMLODIPINE BESYLATE 10 MG TAB PO SCH (09:23)
[2017-11-22] MEDS: ASPIRIN 81 MG CHEW TAB PO SCH (09:23)
[2017-11-22] MEDS: ALLOPURINOL 100 MG TAB PO SCH (09:23)
[2017-11-22] MEDS: PANTOPRAZOLE SOD 40 MG TABEC PO SCH (09:23)
[2017-11-22] MEDS: IRBESARTAN 150 MG TAB PO SCH ×2 (09:23→17:19)
[2017-11-22] MEDS: ENOXAPARIN SOD INJ 60 MG/0.6 ML SYR SC SCH ×3 (12:15→23:40)
--- NOTE | 2017-11-22 15:01 | Progress Note ---
DATE: November 22, 2017 CARDIOLOGY PROGRESS NOTE SUBJECTIVE: The patient denies chest pain or shortness of breath. OBJECTIVE VITAL SIGNS: Temperature 98.7 degrees, pulse 91, respiratory rate 20, blood pressure 144/67, oxygen saturation 100% on 1 liter nasal cannula. GENERAL: Elderly woman, frail. No acute distress. Cachectic. LUNGS: Clear to auscultation bilaterally. No wheezes or crackles. CARDIOVASCULAR: Normal rate, regular rhythm, no murmur. Normal S1 and S2. ABDOMEN: Soft, nontender. EXTREMITIES: No edema. CARDIAC MEDICATIONS 1. Enoxaparin 50 mg subcu q.12 hours. 2. Irbesartan 150 mg p.o. b.i.d. 3. Amlodipine 10 mg p.o. daily. 4. Aspirin 81 mg p.o. daily. 5. Clonidine 0.2 mg p.o. t.i.d. 6. Metoprolol succinate 100 mg p.o. daily. 7. Levothyroxine 88 mcg p.o. daily. LABS: WBC 8.33, hemoglobin 8.9, hematocrit 30.1, platelets 333. Sodium 139, potassium 4.5, chloride 95, CO2 34, BUN 28, creatinine 0.95. TELEMETRY: Normal sinus rhythm. IMPRESSION 1. Sjkry-mk-gxdfneq diastolic heart failure. 2. Atypical pneumonia suggested by CT chest. 3. Chronic obstructive pulmonary disease/emphysema. 4. Hypertension. 5. History of deep vein thrombosis/pulmonary embolism. 6. Hypothyroidism. 7. Chronic kidney disease. RECOMMENDATIONS: Patient's creatinine has improved. Start low dose oral diuretics today. Discussion was held with patient regarding anticoagulation. Patient declined anticoagulation with NOACs due to cost. We will resume patient on warfarin 0.5 mg p.o. daily with close followup in the office. Continue current cardiac medications otherwise. Thank you for this consult. We will continue to follow. Job#: [id number] DEE
[2017-11-22] MEDS: CEFTRIAXONE SOD 1 GM VIAL IV SCH (15:44)
[2017-11-22] MEDS ORDERED: SODIUM CHLORIDE 0.9% 100 ML 100 ML ONE (15:45)
[2017-11-22] MEDS ORDERED: WARFARIN SOD 1 MG TAB PO SCH (17:00)
[2017-11-22] MEDS: IRON SUCROSE 100 MG in SODIUM CHLORIDE 0.9% 100 ML 100 ML IV SCH (17:29)
[2017-11-22] MEDS: PRAMIPEXOLE DIHYDROCHLORIDE 0.25 MG TAB PO SCH (20:51)
[2017-11-22] MEDS: HYDROCODONE/APAP 5MG-325MG TAB PO PRN (20:51)
[2017-11-23] VITALS: BP 129/61
[2017-11-23] MEDS: ALBUTEROL/IPRATROPIUM 3 ML NEB NEB SCH ×2 (01:25→06:30)
[2017-11-23 04:31] VITALS: BP 152/66
[2017-11-23] MEDS: LEVOTHYROXINE SODIUM 88 MCG TAB PO SCH (05:45)
[2017-11-23 07:51] LABS: INR 1.04; PROTHROMBIN TIME 12.8 seconds (11.9-14.5)
[2017-11-23 08:25] VITALS: BP 149/67
[2017-11-23] MEDS: ASPIRIN 81 MG CHEW TAB PO SCH (08:55)
[2017-11-23] MEDS: AMLODIPINE BESYLATE 10 MG TAB PO SCH (08:55)
[2017-11-23] MEDS: MEGESTROL ACETATE 40 MG TAB PO SCH (08:55)
[2017-11-23] MEDS: CLONIDINE HCL 0.2 MG TAB PO SCH (08:55)
[2017-11-23] MEDS: IRBESARTAN 150 MG TAB PO SCH (08:55)
[2017-11-23] MEDS: PANTOPRAZOLE SOD 40 MG TABEC PO SCH (08:55)
[2017-11-23] MEDS: METOPROLOL SUCCINATE 50 MG TAB XL PO SCH (08:56)
[2017-11-23] MEDS: ALLOPURINOL 100 MG TAB PO SCH (08:56)
[2017-11-23 11:39] VITALS: BP 149/67
[2017-11-23] MEDS ORDERED: COUMADIN1 MG PO (12:02)
[2017-11-23] MEDS: ENOXAPARIN SOD INJ 60 MG/0.6 ML SYR SC SCH (12:28)
--- NOTE | 2017-11-23 14:19 | Progress Note ---
DATE: November 23, 2017 CARDIOLOGY PROGRESS NOTE SUBJECTIVE: The patient denies chest pain or shortness of breath. She was advised to follow up for INR check in 1 week. OBJECTIVE VITAL SIGNS: Temperature 99 degrees, pulse 99, respiratory rate 20, blood pressure 149/67, oxygen saturation 100% on 2 liters nasal cannula. GENERAL: Awake, alert, frail, elderly woman in no acute distress. Cachectic. LUNGS: Clear to auscultation bilaterally. No wheezes or crackles. CARDIOVASCULAR: Normal rate, regular rhythm, no murmur. Normal S1 and S2. ABDOMEN: Soft, nontender. EXTREMITIES: No edema. CARDIAC MEDICATIONS 1. Enoxaparin 50 mg subcutaneous q.12 h. 2. Metoprolol succinate 100 mg p.o. daily. 3. Irbesartan 150 mg p.o. b.i.d. 4. Amlodipine 10 mg p.o. daily. 5. Clonidine 0.2 mg p.o. t.i.d. 6. Aspirin 81 mg p.o. daily. 7. Levothyroxine 88 mcg p.o. daily. 8. Warfarin 0.5 mg p.o. daily. LABS: INR 1.04. TELEMETRY: Normal sinus rhythm. IMPRESSION 1. Jcgwh-hi-vjbsvxx diastolic heart failure. 2. Atypical pneumonia suggested by CT chest. 3. Chronic obstructive pulmonary disease/emphysema. 4. Hypertension. 5. History of deep vein thrombosis/pulmonary embolism. 6. Hypothyroidism. 7. Chronic kidney disease. RECOMMENDATIONS: After an extensive discussion with the patient regarding anticoagulation, she declined NOAC due to cost. Warfarin 0.5 mg p.o. daily was resumed. She was instructed to follow up in the office for INR check next Sunday. She was given a prescription for Lasix 20 mg p.o. daily for her qerhz-hb-tmilqem diastolic heart failure. She will need followup labs at the office next week as well. Continue current cardiac medications otherwise. Thank you for this consult. We will continue to follow. Job#: [id number]
== END 2017-11-23 13:04 | disposition home health service (06) | DRG 291 ==
LOC: ER 08:17 → ERHOLD 16:46 → MED/SURG 16:49 → OBSVTOIN 11-19 11:46
PROVIDERS: ADMIT Internal Medicine; ATTEND Internal Medicine
PROC: 30233N1 Transfusion of Nonautologous Red Blood Cells into Peripheral Vein, Percutaneous Approach (ICD-10-PCS; principal; 2017-11-19)
DX: I13.0 Hypertensive heart and chronic kidney disease with heart failure and stage 1 through stage 4 chronic kidney disease, or unspecified chronic kidney disease (principal); I50.33 Acute on chronic diastolic (congestive) heart failure; J18.9 Pneumonia, unspecified organism; I48.91 Unspecified atrial fibrillation; N18.3 Chronic kidney disease, stage 3 (moderate); I73.9 Peripheral vascular disease, unspecified; J44.0 Chronic obstructive pulmonary disease with (acute) lower respiratory infection; Z86.711 Personal history of pulmonary embolism; Z86.718 Personal history of other venous thrombosis and embolism; J43.9 Emphysema, unspecified; E03.9 Hypothyroidism, unspecified; D50.9 Iron deficiency anemia, unspecified
CPT/HCPCS: 36415; 71045; 71250; 78582; 80048; 80053; 82550; 82553; 83540; 83735; 83880; 84443; 84466; 84484; 85025; 85379; 85610; 85730; 86850; 86900; 86920; 93005; 94640; 99284; A9540; A9558; G0378; J0696; J1650; J1756; J1940; J7050; P9016

== ENCOUNTER 2017-12-01 13:18 | Inpatient (IN) | payer MEDICARE, OTHER ==
[~2017-12-01] VITALS: Ht 160 cm; Wt 46.7 kg
[~2017-12-01 13:18] MED LIST changes: +ALLOPURINOL100 MG PO; +ALLOPURINOL300 MG PO; +COUMADIN1 MG PO; +MEGESTROL ACETA40 MG PO
--- OUTSIDE RECORDS SUMMARY | 2017-12-01 13:20 | XMS REPORT | Clinical Summary ---
Author Author [employer] Application Security [facility] Address Unknown Phone Unavailable Care Team Providers Care Track Helper Name Role Phone PCP Unavailable Allergies Active [...] MD disease, unspecified (HCC) (Primary Dx) after 11/30/2016 Social History Tobacco Use Types Packs/Day Years [...] Ref Range Ejection Fraction Specimen Performing Laboratory [facility] MKCKESSON CPACS Impressions Right Impression [...] + + + +--------- --------+ + !Prox RADIO DIV[employer] LIEUTENANT ! !87.2 ! !Biphasic ! !51.1 ! !Biphasic ! + + + ------+ + + + +--------- --------+ + !Mid [employer] ! !91.9 ! !Biphasic ! !63.9 ! !Monophasic ! + + + ------+ + + + +--------- --------+ + !Dist [employer] ! !92.7 ! !Biphasic ! !65.1 ! [...] Date of Study02/06/2017 MILLICENT Age 81 Visit [id number] Gender Female Date of Birth Number Referring [facility] Room Number Physician Jose Software Tools Engineer Kenneth Coyle.Interpreting Jose Andre RVT, JESSIE Blair MD, [facility] Procedure Type of Study: Extremities Arteries: Lower Extremities Arterial Duplex, ARTERIAL DOPPLER LEGS, BILATERAL. Indications for Study:PVD. Patient Status:Routine. Study Location:Vascular Lab. Technical Quality:Adequate visualization. Procedure Note Interface, External Ris In - 02/06/2017 2:53 PM CDT [facility] - Lower Extremity Arterial Duplex Demographics Patient Name KATHRYN WALSH Date of Study 02/06/2017 MILLICENT Age 81 Visit Number [id number] Gender Female Date of 1935 Number Referring [facility] Room Number Physician Garcia Software Tools Engineer Kenneth Coyle. Interpreting Jose Andre RVT, JESSIE Blair MD, [facility] Procedure Type of Study: Extremities Arteries: Lower [...] + + + +--------- --------+ + !Prox RADIO DIV[employer] LIE[employer]ENANT ! !87.2 ! !Biphasic ! !51.1 ! !Biphasic ! + + + ------+ + + + +--------- --------+ + !Mid [employer] ! !91.9 ! !Biphasic ! !63.9 ! !Monophasic ! + + + ------+ + + + +--------- --------+ + !Dist [employer] ! !92.7 ! !Biphasic ! !65.1 ! [...] + + + +--------- --------+ + after 11/30/2016
--- OUTSIDE RECORDS SUMMARY | 2017-12-01 13:20 | XMS REPORT | Continuity of Care Document ---
Author Author [facility] Organization [facility] Address [address] [place] [address] Phone Unavailable Care Team Providers Care Etcher Apprentice Photoengraving Name Role Phone URMILA COCHRAN MD PCP Insurance Providers Guarantor Kathryn Hand Address [address] [place] [address] Email PT DECLINED Payer [facility] Policy Number [id number] Subscriber's Name Ronan Walsh Relationship G8 Other Relationship Group Number [id number] Group Name RETIRED Effective Date 17 Payer Medicare A & B Policy Number [id number] Subscriber's Name Kathryn Hand Relationship 18 Self / Same As Patient Group Number [id number] Group Name RETIRED Effective Date 99 Advance Directives Directive Response Recorded Date/Time Does the patient have an advance directive? Yes 11/18/17 5:26pm If yes, is advance directive on file with [facility]? No 07/14/17 4:32am If not on file with [facility] will patient provide a copy? Yes 07/14/17 4:32am Do you have a Directive to Physician? No 11/18/17 9:46am Do you have a Medical Power of Rn Imaging? No 11/18/17 9:46am Do you have an out of hospital Do Not Resuscitate Order? No 11/18/17 9:46am Do you have any special needs we should be aware of? No 11/18/17 9:46am Do you have a support person here with you today? Yes 11/18/17 9:46am Did patient receive Notice of Privacy Practices? Yes 11/18/17 9:46am Did patient receive patient rights and responsibilities? Yes 11/18/17 9:46am Problems Medical Problem Onset Date Status Arterial occlusion, lower extremity Unknown Cystitis Unknown Acute Headache Unknown Acute Hypertension Unknown Acute Urinary tract infection Unknown Acute Medications Current Home Medications Medication Dose Units Route Directions Days Qty Instructions Start Date Allopurinol 100 Mg Tablet 100 Mg Oral Daily 30 Tab Allopurinol 300 Mg Tablet 100 Mg Oral Daily 30 Tab Amlodipine Besylate 5 Mg Tablet 10 Mg Oral Daily 30 Tab Aspirin (Aspir 81) 81 Mg Tablet.dr 81 Mg Oral Daily Biotin 2,500 Mcg Capsule 5,000 Mg Oral Daily Clonidine Hcl 0.2 Mg Tablet 0.2 Mg Oral Three Times A Day Hydrocodone Bit/Acetaminophen (Sunset 5-325 Tablet) 1 Each Tablet 1 Each Oral As Needed Ibesartan 150 Mg Oral Twice A Day Levothyroxine Sodium 50 Mcg Tablet 50 Mcg Oral Daily 30 Tab Megestrol Acetate 40 Mg Tablet 20 Mg Oral Daily 30 Tab Metoprolol Succinate 50 Mg Tab.er.24h 100 Mg Oral Daily Pantoprazole Sodium (Protonix) 40 Mg Tablet.dr 40 Mg Oral Daily Pramipexole Di-Hcl (Mirapex) 0.25 Mg Tablet 0.5 Mg Oral Bedtime 30 Tab Warfarin Sodium (Coumadin) 1 Mg Tablet 0.5 Mg Oral Today At 5:00PM 7 Tab Past Home Medications Medication Directions Ordered Status Pitavastatin Calcium (Livalo) 4 Mg Tablet, 4 Mg Oral Daily Discontinued Social History Social History Problem Response Recorded Date/Time Onset Date Status Hx Psychiatric Problems No 11/18/2017 5:26pm Not Applicable Not Applicable Hx Eating Disorder No 11/18/2017 5:26pm Not Applicable Not Applicable Hx Substance Use Disorder No 11/18/2017 5:26pm Not Applicable Not Applicable Hx Depression No 11/18/2017 5:26pm Not Applicable Not Applicable Hx Alcohol Use No 11/18/2017 5:26pm Not Applicable Not Applicable Hx Substance Use Treatment No 11/18/2017 5:26pm Not Applicable Not Applicable Hx Physical Abuse No 11/18/2017 5:26pm Not Applicable Not Applicable Smoking Status Start Date Stop Date Former smoker Hospital Discharge Instructions No hospital discharge instruction information available. Plan of Care Discharge Date 11/23/17 1:04pm Disposition HOME HEALTH SERVICE Instructions/Education Provided Using Oxygen at Home Prescriptions See Medication Section Additional Instructions/Education LOW SALT DIET AND FOLLOW UP WITH PRIMARY CARE PROVIDER IN 2 WEEKS SEE INSTRUCTIONS ON USE OF OXYGEN SCHEDULE FOLOW UP APPOINTMENT WITH DR. ANG IN 1 WEEK AFTER DISCHARGE FOR INR BLOOD CHECK Functional Status Query Response Date Recorded FUNCTIONAL STATUS . November 21, 2017 11:49am Assistive Devices Rolling Walker November 18, 2017 5:30pm Ambulation Ability Minimum Assistance 1 person assist November 18, 2017 5:30pm Toileting Ability Minimum Assistance November 22, 2017 6:22pm Allergies, Adverse Reactions, Alerts Allergen Type Severity Reaction Status Last Updated Sulfa (Sulfonamide Antibiotics) Allergy Mild Active 03/11/17 Giipnvk-Rke-Iiz Reductase Inhibitor Adverse Reaction Intermediate MUSCLE SPASMS/SEVERE LEG CRAMPS Active 03/14/17 Levofloxacin Allergy Mild MUSCLE CRAMPS Active 07/21/10 Immunizations No immunization information available. Vital Signs Acute Vital Signs Vital Response Date/Time Temperature (Fahrenheit) 99.0 degrees F (97.6 - 99.5) 11/23/2017 11:39am Pulse Pulse Rate (adult) 99 bpm (60 - 90) 11/23/2017 11:39am Respiratory Rate 20 bpm (12 - 24) 11/23/2017 11:39am Blood Pressure 149/67 mm Hg 11/23/2017 11:39am Height 5 ft 3 in 11/18/2017 5:26pm Weight 102.13 lb 11/21/2017 6:42am Body Mass Index 18.1 kg/m^2 11/21/2017 6:42am Results Laboratory Results Test Name Result Units Flags Reference Collection Date/Time Result Date/ Time Comments Ovalocytes FEW 03/12/2017 6:20am 03/12/2017 7:57am Amylase Level 94 U/L 25-125 2017 7:25am 2017 9:16am Lipase 26 U/L 8-78 2017 7:25am 2017 9:16am Bedside Glucose 141 mg/dL H 70-120 07/15/2017 4:09pm 07/15/2017 4:25pm Meter ID: [id number] Uric Acid 8.1 mg/dL H 2.6-6.0 07/13/2017 [...] H 3.0-3.6 07/15/2017 7:24am 07/15/2017 8: 26am Urine Color YELLOW YELLOW 07/30/2017 9:20pm 07/30/2017 10:26pm Urine Clarity SL CLOUDY CLEAR 07/30/2017 9:20pm 07/30/2017 10:26pm Urine Specific Gould 1.020 1.010-1.025 07/30/2017 9:20pm 2016 10:26pm Urine pH 6 5 - 7 07/30/2017 9:20pm 07/30/2017 10:26pm Urine Leukocyte Esterase TRACE H NEGATIVE 07/30/2017 9:20pm 2016 10:26pm Urine Nitrite NEGATIVE NEGATIVE 07/30/2017 9:20pm 07/30/2017 10:26pm Urine Protein 1+ H NEGATIVE 07/30/2017 9:20pm 07/30/2017 10:26pm Urine Glucose (UA) NEGATIVE NEGATIVE 07/30/2017 9:20pm 07/30/2017 10: 26pm Urine Ketones TRACE H NEGATIVE 07/30/2017 9:20pm 07/30/2017 10:26pm Urine Urobilinogen 0.2 mg/dL 0.2 - 1 07/30/2017 9:20pm 07/30/2017 10: 26pm Urine Bilirubin NEGATIVE NEGATIVE 07/30/2017 9:20pm 07/30/2017 10: 26pm Urine Blood NEGATIVE NEGATIVE 07/30/2017 9:20pm 07/30/2017 10:26pm Urine WBC 11-20 /HPF H 0-5 07/30/2017 9:20pm 07/30/2017 10:32pm Urine RBC 0-5 /HPF 0-5 07/30/2017 9:2007/30/2017 10:32pm Urine Bacteria FEW /HPF NONE 07/30/2017 9:20pm 07/30/2017 10:32pm Urine Epithelial Cells MODERATE /LPF NONE 07/30/2017 9:20pm 07/30/2017 10:32pm Urine Mucus FEW H RARE 07/30/2017 9:20pm 07/30/2017 10:32pm White Blood Count 8.33 x10e3/uL 4.8-10.8 11/22/2017 6:35am 11/22/2017 7 :11am Red Blood Count 4.07 x10e6/uL 3.6-5.1 11/22/2017 6:35am 11/22/2017 7: 11am Hemoglobin 8.9 g/dL L 12.0-16.0 11/22/2017 6:35am 11/22/2017 7:11am Hematocrit 30.1 % L 34.2-44.1 11/22/2017 6:35am 11/22/2017 7:11am Mean Corpuscular Volume 74.0 fL L 81-99 11/22/2017 6:35am 11/22/2017 7: 11am Mean Corpuscular Hemoglobin 21.9 pg L 28-32 11/22/2017 6:35am 2017 7:11am Mean Corpuscular Hemoglobin Concent 29.6 g/dL L 31-35 11/22/2017 6:35am 11/22/2017 7:11am Red Cell Distribution Width 28.8 % H 11.7-14.4 11/22/2017 6:35am 2017 7:11am Platelet Count 333 x10e3/uL 140-360 11/22/2017 6:35am 11/22/2017 7: 11am Neutrophils (%) (Auto) 75.5 % 38.7-80.0 11/22/2017 6:3511/22/2017 7: 11am Lymphocytes (%) (Auto) 11.6 % L 18.0-39.1 11/22/2017 6:3511/22/2017 7 :11am Monocytes (%) (Auto) 9.0 % 4.4-11.3 11/22/2017 6:3511/22/2017 7: 11am Eosinophils (%) (Auto) 3.1 % 0.0-6.0 11/22/2017 6:3511/22/2017 7: 11am Basophils (%) (Auto) 0.4 % 0.0-1.0 11/22/2017 6:3511/22/2017 7:11am IM GRANULOCYTES % 0.4 % 0.0-1.0 11/22/2017 6:3511/22/2017 7:11am Neutrophils # (Auto) 6.3 2.1-6.9 11/22/2017 6:3511/22/2017 7:11am Lymphocytes # (Auto) 1.0 1.0-3.2 11/22/2017 6:3511/22/2017 7:11am Monocytes # (Auto) 0.8 0.2-0.8 11/22/2017 6:3511/22/2017 7:11am Eosinophils # (Auto) 0.3 0.0-0.4 11/22/2017 6:3511/22/2017 7:11am Basophils # (Auto) 0.0 0.0-0.1 11/22/2017 6:3511/22/2017 7:11am Absolute Immature Granulocyte (auto 0.03 x10e3/uL 0-0.1 11/22/2017 6: 3511/22/2017 7:11am Platelet Estimate ADEQUATE 11/21/2017 6:3011/21/2017 10:07am Platelet Morphology Comment FEW LARGE 11/21/2017 6:3011/21/2017 10:07am Hypochromasia SLIGHT 11/21/2017 6:3011/21/2017 10:07am Poikilocytosis SLIGHT 11/19/2017 8:23am 11/19/2017 10:24am Anisocytosis MODERATE 11/21/2017 6:30am 11/21/2017 10:07am Microcytosis SLIGHT 11/19/2017 8:23am 11/19/2017 10:24am Macrocytosis MODERATE 11/21/2017 6:30am 11/21/2017 10:07am Target Cells FEW 11/19/2017 8:23am 11/19/2017 10:24am Toxic Granulation SLIGHT 11/21/2017 6:30am 11/21/2017 10:07am Elliptocytes SLIGHT 11/21/2017 6:30am 11/21/2017 10:07am Red Cell Morphology Comment ABNORMAL 11/21/2017 6:30am 11/21/2017 10:07am Prothrombin Time 12.8 seconds 11.9-14.5 11/23/2017 6:28am 11/23/2017 7: 55am Prothromb Time International Ratio 1.04 11/23/2017 6:28am 2017 7:55am Oral Anticoagulant Therapy INR Values: 1. Low Intensity Therapy 1.5 - 2.0 2. Moderate Intensity Therapy 2.0 - 3.0 3. High Intensity Therapy(1) 2.5 - 3.5 4. High Intensity Therapy(2) 3.0 - 4.0 5. Panic Value INR > 5.0 Activated Partial Thromboplast Time 32.0 seconds 23.8-35.5 11/18/2017 8: 31am 11/18/2017 10:10am D-Dimer Quantitative (PE/DVT) 3.04 ug/mLFEU H 0.00-0.45 11/18/2017 8: 31am 11/18/2017 10:13am As with all in vitro diagnostic tests, the test results should be interpreted by the physician in conjunction with clinical findings and other test results. Test results are reported in NEW D-dimer units(ug/mLFEU). Sodium Level 139 mmol/L 136-145 11/22/2017 6:35am 11/22/2017 7:43am Potassium Level 4.5 mmol/L 3.5-5.1 11/22/2017 6:35am 11/22/2017 7:43am Chloride Level 95 mmol/L L 98-107 11/22/2017 6:35am 11/22/2017 7:43am Carbon Dioxide Level 34 mmol/L H 22-29 11/22/2017 6:3511/22/2017 7: 43am Anion Gap 14.5 mmol/L 8-16 11/22/2017 6:35am 11/22/2017 7:43am Blood Urea Nitrogen 28 mg/dL H 7-11/22/2017 6:35am 11/22/2017 7:43am Creatinine 0.95 mg/dL 0.57-1.11 11/22/2017 6:3511/22/2017 7:43am BUN/Creatinine Ratio 29 H 6-11/22/2017 6:3511/22/2017 7:43am Estimat Glomerular Filtration Rate 56 ML/MIN L 60- 11/22/2017 6:3507/2018 7:43am Ranges were taken from the National Kidney Disease Education Program and the National Kid[employer] literature. Reference ranges: 60 or greater: Normal 16-59 (for 3 consecutive months): Chronic kidney disease 15 or less: Kidney failure Glucose Level 82 mg/dL 74-118 11/22/2017 6:3511/22/2017 7:43am Calcium Level 9.1 mg/dL 8.4-10.2 11/22/2017 6:3511/22/2017 7:43am Magnesium Level 1.7 MG/DL 1.3-2.1 11/22/2017 6:3511/22/2017 7:43am Iron Level 17 ug/dL L 50-170 11/19/2017 6:49am 11/19/2017 8:52am Total Iron Binding Capacity 188 ug/dL L 261-478 11/19/2017 6:49am 2017 8:52am Percent Iron Saturation 9 % L 15-50 11/19/2017 6:49am 11/19/2017 8:52am Transferrin 134 mg/dL L 180-382 11/19/2017 6:49am 11/19/2017 8:52am Total Bilirubin 0.2 mg/dL 0.2-1.2 11/22/2017 6:35am 11/22/2017 7:43am Aspartate Amino Transf (AST/SGOT) 40 IU/L H 5-34 11/22/2017 6:35am 11/22 7:43am Alanine Aminotransferase (ALT/SGPT) 24 IU/L 0-55 11/22/2017 6:35am 07/2018 7:43am Total Protein 5.5 g/dL L 6.5-8.1 11/22/2017 6:35am 11/22/2017 7:43am Albumin 2.0 g/dL L 3.5-5.0 11/22/2017 6:35am 11/22/2017 7:43am Globulin 3.5 g/dL 2.3-3.5 11/22/2017 6:35am 11/22/2017 7:43am Albumin/Globulin Ratio 0.6 L 0.8-2.0 11/22/2017 6:35am 11/22/2017 7: 43am Alkaline Phosphatase 71 IU/L 40-150 11/22/2017 6:35am 11/22/2017 7: 43am B-Type Natriuretic Peptide 63.5 pg/mL 0-100 11/22/2017 6:35am 2017 4:53pm Creatine Kinase 15 IU/L L 29-168 11/19/2017 6:40am 11/19/2017 8:27am Creatine Kinase MB 0.90 ng/mL 0-5.0 11/19/2017 6:40am 11/19/2017 8: 27am Troponin I 0.001 ng/mL 0-0.300 11/19/2017 6:40am 11/19/2017 8:27am Thyroid Stimulating Hormone (TSH) 6.193 uIU/mL H 0.350-4.940 11/18/2017 8 :31am 11/18/2017 10:47am Procedures Procedure Status Date Provider(s) CT of abdomen and pelvis without contrast Active 03/11/17 VONDA ZHANG MD X-ray of chest, two views Active 03/11/17 VONDA ZHANG MD X-ray of chest, two views Active 03/16/17 BERTHA EPPS MD Computed tomography angiography of abdominal aorta and bilateral iliofemoral arteries with lower extremity runoff without then with contrast Active VONDA ZHANG MD Computed tomography of brain without radiopaque contrast Active 07/26/17 BAL ANG MD Computed tomography of brain without radiopaque contrast Active 07/30/17 RA ZAPATA MD Computed tomography of chest without contrast Active 11/18/17 VONDA ZHANG MD Encounters Encounter Location Arrival/Admit Date Discharge/Depart Date Attending Provider Discharged Inpatient [facility] 11/19/17 11:46am 1:04pm URMILA COCHRAN MD Discharged Recurring [facility] 08/20/17 7:55am 09/12/17 11:59pm SELENE KWON MD Registered Clinic [facility] 08/10/17 3:00pm ROSALINE WILSON Departed Emergency Room [facility] 07/30/17 4:36pm 12:30am RA ZAPATA MD Registered Clinic [facility] 07/26/17 2:08pm BAL ANG MD Discharged Inpatient [facility] 07/14/17 2:10am 07/18/17 7:15pm URMILA COCHRAN MD Registered Clinic [facility] 07/10/17 1:20pm URMILA COCHRAN MD Discharged Inpatient [facility] 03/12/17 4:13pm 03/21/17 2:20pm URMILA COCHRAN MD
--- OUTSIDE RECORDS SUMMARY | 2017-12-01 13:20 | XMS REPORT | Clinical Summary ---
Author Author [facility] Organization [facility] Address Unknown Phone Unavailable Care Team Providers Care Machine Shop Inspector Name Role Phone Ronan Gardner MD PCP [...] 01/29/2017 Documentation Gastroenterology Romie Ayala MD 01/26/2017 [facility] Radiology Romie Ayala Substernal chest pain Encounter 01/23/2017 [facility] Radiology Romie Ayala Substernal chest pain Encounter 01/23/2017 Office Visit Gastroenterology Romie Ayala Substernal chest pain (Primary Dx); Gastroesophageal reflux disease, esophagitis presence not specified after 11/30/2016 Family History Relation Name Status Comments Father [...] 12:18 PM) Specimen Performing Laboratory [facility] [address] [place] [address] Narrative EXAM: US ABDOMEN COMPLETE CLINICAL DATA:R07.2 [...] ascites. PLEURAL EFFUSION:There are no pleural effusions. [facility]-[id number] Procedure Note Interface, Radiology Results Incoming - [...] PLEURAL EFFUSION: There are no pleural effusions. [facility]-[id number] * [place] Esophagram Complete (01/23/2017 4:00 PM) Specimen Performing Laboratory [facility] [address] [place] [id number] Narrative EXAMINATION:FL ESOPHAGRAM COMPLETE CLINICAL HISTORY:R07.2 Precordial pain, Chest pain COMPARISON:None. Fluoroscopy time: 1.3 minute. FINDINGS: The patient swallowed air producing granules and barium without difficulty. The esophagus demonstrates frequent tertiary contractions in the distal esophagus. No stricture or suspicious filling defect is seen. There is a moderate sliding hiatal hernia. IMPRESSION: Moderate hiatal hernia. Prominent tertiary contractions. [facility]-[id number] Procedure Note Interface, Radiology Results Incoming - [...] IMPRESSION: Moderate hiatal hernia. Prominent tertiary contractions. [facility]-[id number] after 11/30/2016 Insurance Payer Benefit Subscriber ID Type Phone Address Plan / Group MEDICARE MEDICARE xxxxxxxxxxx Medicare [place], [place] PART A AND B FORMERLY [facility] xxxxxxxxxxxx Commercial SUPPLEMENT Home: [address] [facility] [place] [id number]
[2017-12-01 14:22] LABS: ANION GAP 13.3 mmol/L (8-16); CALCIUM 9.6 mg/dL (8.4-10.2); CREATININE, SERUM 1.55 mg/dL (0.57-1.11); POTASSIUM 5.3 mmol/L (3.5-5.1)
[2017-12-01 16:11] LABS: CLARITY,URINE CLOUDY (CLEAR); COLOR,URINE YELLOW (YELLOW); LEUKOCYTE ESTERASE ,URINE 2+ (NEGATIVE); NITRITE,URINE POSITIVE (NEGATIVE); PROTEIN,URINE DIPSTICK 1+ (NEGATIVE)
[2017-12-01 16:12] LABS: BILIRUBIN,URINE NEGATIVE (NEGATIVE); KETONES,URINE NEGATIVE (NEGATIVE); URINE UROBILINOGEN 0.2 mg/dL (0.2 - 1)
[2017-12-01 16:21] LABS: BACTERIA,URINE FEW /HPF; WBC,URINE (MAN) >50 /HPF (0-5)
[2017-12-01] MEDS ORDERED: SODIUM CHLORIDE 0.9% 1000ML 1,000 ML IV STA (17:15)
[2017-12-01 17:25] LABS: BASOPHILS % 0.5 % (0.0-1.0); EOSINOPHILS # (AUTO) 0.2 (0.0-0.4); EOSINOPHILS % 2.1 % (0.0-6.0); HEMATOCRIT 29.2 % (34.2-44.1); HEMOGLOBIN 8.3 g/dL (12.0-16.0); LYMPHOCYTES # (AUTO) 0.9 (1.0-3.2); LYMPHOCYTES % 11.8 % (18.0-39.1); MEAN CORPUSCULAR HGB CONC 28.4 g/dL (31-35); MEAN CORPUSCULAR VOLUME 77.5 fL (81-99); MONOCYTES % 13.1 % (4.4-11.3); NEUTROPHILS # (AUTO) 5.5 (2.1-6.9); NEUTROPHILS % 71.2 % (38.7-80.0); PLATELET COUNT 554 x10e3/uL (140-360); RED BLOOD COUNT 3.77 x10e6/uL (3.6-5.1); RED CELL DISTRIBUTION WIDTH 29.5 % (11.7-14.4)
[2017-12-01 17:42] LABS: CREATINE KINASE MB 0.9 ng/mL (0-5.0)
--- NOTE | 2017-12-01 17:45 | Diagnostic Imaging Report ---
EXAMINATION: CHEST SINGLE (PORTABLE) INDICATION: Shortness of breath COMPARISON: Chest x-ray 11/19/2017 FINDINGS: AP view Patient is rotated on this exam. TUBES and LINES: None. LUNGS: Lungs are well inflated. Improving left basilar atelectasis. There is perihilar interstitial opacities, consistent with interstitial edema. Ill-defined airspace opacity in the left midlung. PLEURA: Likely tiny bilateral pleural effusions. HEART AND MEDIASTINUM: The cardiomediastinal silhouette is unremarkable. There are atherosclerotic calcifications within the aorta. BONES AND SOFT TISSUES: There are degenerative changes in the thoracic spine. Soft tissues are unremarkable. UPPER ABDOMEN: No free air under the diaphragm. IMPRESSION: Slight increase in interstitial edema compared to chest x-ray 11/19/2017. Questionable airspace opacity in the left midlung which may be a component of the edema versus superimposed infection. Signed by: Dr. Irineo Bauman M.D. on 12/01/2017 5:40 PM
[2017-12-01] MEDS ORDERED: CEFTRIAXONE SOD 1 GM VIAL IV SCH (18:00)
[2017-12-01] MEDS ORDERED: ONDANSETRON HCL 4 MG ORAL DISINTEGRATING TAB PO PRN (18:45)
--- OUTSIDE RECORDS SUMMARY | 2017-12-01 19:19 | XMS REPORT | Clinical Summary ---
Author Author [facility] [employer] [facility] Address Unknown Phone Unavailable Care Team Providers Care Crisis Counselor Name Role Phone PCP Unavailable Allergies Active [...] Ref Range Ejection Fraction Specimen Performing Laboratory [facility] MKCKESSON CPACS Impressions Right [...] + + + +--------- --------+ + !Prox SCOUTS ! !87.2 ! !Biphasic ! !51.1 ! !Biphasic ! + + + ------+ + + + +--------- --------+ + !Mid SCOUTS ! !91.9 ! !Biphasic ! !63.9 ! !Monophasic ! + + + ------+ + + + +--------- --------+ + !Dist SCOUTS ! !92.7 ! !Biphasic ! !65.1 ! [...] Date of Study02/06/2017 MILLICENT Age 81 Visit [id number] Gender Female Date of Birth Number Referring [facility] Room Number Physician Jose Police Sergeant Kenneth Coyle.Interpreting Jose Andre RVT, JESSIE Blair MD, [facility] Procedure Type of Study: Extremities Arteries: Lower Extremities Arterial Duplex, ARTERIAL DOPPLER LEGS, BILATERAL. Indications for Study:PVD. Patient Status:Routine. Study Location:Vascular Lab. Technical Quality:Adequate visualization. Procedure Note Interface, External Ris In - 02/06/2017 2:53 PM CDT PV LAB - Lower Extremity Arterial Duplex Demographics Patient Name KATHRYN WALSH Date of Study 02/06/2017 MILLICENT Age 81 Visit Number [id number] Gender Female Date of 1935 Number Referring [facility] Room Number Physician Garcia Police Sergeant Kenneth Coyle. Interpreting Jose Andre RVT, JESSIE Blair MD, [facility] Procedure Type of Study: Extremities Arteries: [...] + + + +--------- --------+ + !Prox SCOUTS ! !87.2 ! !Biphasic ! !51.1 ! !Biphasic ! + + + ------+ + + + +--------- --------+ + !Mid SCOUTS ! !91.9 ! !Biphasic ! !63.9 ! !Monophasic ! + + + ------+ + + + +--------- --------+ + !Dist SCOUTS ! !92.7 ! !Biphasic ! !65.1 ! [...]
--- OUTSIDE RECORDS SUMMARY | 2017-12-01 19:19 | XMS REPORT | Clinical Summary ---
Author Author [facility] Address Unknown Phone Unavailable Care Team Providers Care Bail Attacher Name Role Phone Ronan Gardner MD PCP [...] 01/29/2017 Documentation Gastroenterology Romie Ayala MD 01/26/2017 [facility] Radiology Romie Ayala Substernal chest pain Encounter 01/23/2017 [facility] Radiology Romie Ayala Substernal chest pain [...] 12:18 PM) Specimen Performing Laboratory [facility] [address] [place] [address] Narrative EXAM: US ABDOMEN COMPLETE CLINICAL DATA:R07.2 [...] ascites. PLEURAL EFFUSION:There are no pleural effusions. [facility]-[id number] Procedure Note Interface, Radiology Results Incoming - [...] PLEURAL EFFUSION: There are no pleural effusions. [facility]-[id number] * [place] Esophagram Complete (01/23/2017 4:00 PM) Specimen Performing Laboratory [facility] [address] [place] [id number] Narrative EXAMINATION:[place] ESOPHAGRAM COMPLETE CLINICAL HISTORY:R07.2 Precordial pain, Chest pain COMPARISON:None. Fluoroscopy time: 1.3 minute. FINDINGS: The patient swallowed air producing granules and barium without difficulty. The esophagus demonstrates frequent tertiary contractions in the distal esophagus. No stricture or suspicious filling defect is seen. There is a moderate sliding hiatal hernia. IMPRESSION: Moderate hiatal hernia. Prominent tertiary contractions. [facility]-[id number] Procedure Note Interface, Radiology Results Incoming - [...] IMPRESSION: Moderate hiatal hernia. Prominent tertiary contractions. [facility]-[id number] after 11/30/2016 Insurance Payer Benefit Subscriber ID Type Phone Address Plan / Group MEDICARE MEDICARE xxxxxxxxxxx Medicare [place], [place] PART A AND B FORMERLY [facility] xxxxxxxxxxxx Commercial SUPPLEMENT Home: [address] [facility] [facility] [place] [phone]
[2017-12-01] MEDS: CEFTRIAXONE SOD 1 GM VIAL IV SCH (19:57)
[2017-12-01] MEDS: SODIUM CHLORIDE 0.9% 1000ML 1,000 ML IV SCH (19:58)
[2017-12-01 20:17] LABS: INR 1.15; PROTHROMBIN TIME 13.8 seconds (11.9-14.5)
[2017-12-01 21:16] VITALS: BP 129/67
[2017-12-01 21:17] VITALS: BP 129/67
[2017-12-01 21:24] VITALS: BP 129/67
[2017-12-01] MEDS: PRAMIPEXOLE DIHYDROCHLORIDE 0.25 MG TAB PO SCH (22:13)
[2017-12-01] MEDS: HYDROCODONE/APAP 5MG-325MG TAB PO PRN (22:13)
[2017-12-01 23:12] VITALS: BP 138/54
[2017-12-02 03:53] VITALS: BP 137/50
[2017-12-02] MEDS: SODIUM CHLORIDE 0.9% 1000ML 1,000 ML IV SCH (05:21)
[2017-12-02 06:31] LABS: BASOPHILS % 0.3 % (0.0-1.0); EOSINOPHILS # (AUTO) 0.2 (0.0-0.4); EOSINOPHILS % 1.7 % (0.0-6.0); HEMOGLOBIN 7.7 g/dL (12.0-16.0); LYMPHOCYTES # (AUTO) 0.8 (1.0-3.2); LYMPHOCYTES % 8.7 % (18.0-39.1); MEAN CORPUSCULAR HEMOGLOBIN 22.4 pg (28-32); MEAN CORPUSCULAR HGB CONC 29.6 g/dL (31-35); MEAN CORPUSCULAR VOLUME 75.8 fL (81-99); MONOCYTES # (AUTO) 0.9 (0.2-0.8); MONOCYTES % 10.1 % (4.4-11.3); NEUTROPHILS # (AUTO) 6.9 (2.1-6.9); NEUTROPHILS % 77.6 % (38.7-80.0); PLATELET COUNT 480 x10e3/uL (140-360); RED BLOOD COUNT 3.43 x10e6/uL (3.6-5.1); RED CELL DISTRIBUTION WIDTH 28.5 % (11.7-14.4)
[2017-12-02 07:09] LABS: ANION GAP 12.2 mmol/L (8-16); CALCIUM 9.5 mg/dL (8.4-10.2); CREATININE, SERUM 1.27 mg/dL (0.57-1.11); POTASSIUM 5.2 mmol/L (3.5-5.1)
[2017-12-02 08:10] VITALS: BP 135/63
[2017-12-02] MEDS: ASPIRIN 81 MG CHEW TAB PO SCH (08:53)
[2017-12-02] MEDS: CLONIDINE HCL 0.2 MG TAB PO SCH ×4 (08:54→20:45)
[2017-12-02] MEDS: PANTOPRAZOLE SOD 40 MG TABEC PO SCH (08:54)
[2017-12-02] MEDS: METOPROLOL SUCCINATE 50 MG TAB XL PO SCH (08:54)
[2017-12-02] MEDS: LEVOTHYROXINE SODIUM 50 MCG TAB PO SCH (08:54)
[2017-12-02] MEDS: AMLODIPINE BESYLATE 5 MG TAB PO SCH (08:54)
[2017-12-02] MEDS ORDERED: ALLOPURINOL 100 MG TAB PO SCH (09:00)
[2017-12-02] MEDS ORDERED: ALLOPURINOL 300 MG TAB PO SCH (09:00)
[2017-12-02] MEDS: ALLOPURINOL 100 MG TAB PO SCH (09:11)
--- NOTE | 2017-12-02 10:23 | History and Physical ---
An 81-year-old female comes in with low blood pressure and also a finding of high potassium. HISTORY OF PRESENT ILLNESS: This is Ms. Hand with a history of COPD, AFib, hypothyroidism, DVT was in her usual state of health on the day of admission. Home health nurse visited the patient. Was found to have a low BP of 70/30. With that, the patient's lab work which was done in the office, analysis showed a potassium of 6.3. The patient with both these findings decided to come to the hospital and got admitted for urinary tract infection. The patient denies any chest pain or shortness of breath. No nausea, vomiting, diarrhea, no constipation, and no rectal bleeding. No abdominal pain or dysuria. PAST MEDICAL HISTORY: History of gout, history of hypertension, history of chronic pain, history of hypothyroidism, history of COPD, history of reflux esophagitis, history of restless leg syndrome, and history of DVT. MEDICATIONS: She takes at home are: 1. Allopurinol 400 mg. 2. Amlodipine 5 mg. 3. Aspirin 81 mg. 4. Biotin capsules. 5. Clonidine 0.2 mg tablet t.i.d. 6. Hydrocodone 5 per 325 mg p.r.n. 7. Levothyroxine 50 mcg daily. 8. Megestrol 40 mg daily. 9. Metoprolol succinate 50 mg ER. 10. Pantoprazole 40 mg. 11. Pramipexole. 12. Mirapex 0.25 mg daily. 13. Warfarin 1 mg daily. 14. Irbesartan 150 mg twice a day. SURGICAL HISTORY: History of hysterectomy and appendectomy. FAMILY HISTORY: Hypertension. SOCIAL HISTORY: No ETOH. History of smoking in the past. No drug abuse. REVIEW OF SYSTEMS: Negative for chest pain. No shortness of breath. No nausea, vomiting or diarrhea. No constipation. No rectal bleeding. No hematochezia. No hematemesis. Positive for baseline dyspnea, which is because of the patient's COPD. Positive for weakness, fatigue and lower extremity weakness. PHYSICAL EXAMINATION VITALS: Temperature is 97.5, pulse 78, respirations 20, blood pressure 120/69, pulse ox 92% on room air. HEENT: Normocephalic and atraumatic. Pupils reactive to light and accommodation. CV: S1 and S2 normal. Regular rate and rhythm. ABDOMEN: Nontender and nondistended. EXTREMITIES: No clubbing. No cyanosis. No edema. LABORATORY VALUES: White count was 8.88, hemoglobin 8.3 and 29.2, and platelets of 554,000. Chemistry shows sodium of 136, potassium 5.3, gap is 13.3, creatinine of 1.5. GFR was 32. The earlier labs in my office was 2.6. Coags are normal. Urine shows cloudy with rbcs and nitrites positive, and also esterase positive too. MICROBIOLOGY: Urine pending. ASSESSMENT 1. Urinary tract infection. 2. Hypotension. 3. Hyperkalemia. 4. History of chronic obstructive pulmonary disease. 5. History of hypertension. 6. History of atrial fibrillation. 7. Hypothyroidism. 8. Acute kidney injury. 9. Chronic diastolic congestive heart failure. PLAN: Continue all home medications. The patient has been put on Rocephin 1 g q.24 h. Will continue morning that. Also, await for the cultures of the urine. Further recommendations per clinical course. Potassium will watch it. If needed, Kayexalate will be given. At this point, there is no reason for it. Will adjust her medications and watch her kidneys closely. Job#: [id number] DIANA
[2017-12-02 10:29] LABS: ANISOCYTOSIS SLIGHT; BAND NEUTROPHILS % (MANUAL) 8 %; EOSINOPHILS % (MANUAL) 3 % (0-7); LYMPHOCYTES % (MANUAL) 16 % (19-48); MONOCYTES % (MANUAL) 1 % (3.4-9.0); NEUTROPHILS % (MANUAL) 72 % (40-74); PLATELET MORPHOLOGY COMMENT MODERATE LARGE; RBC MORPHOLOGY COMMENT ABNORMAL
[2017-12-02 10:30] LABS: PLATELET ESTIMATE MARKEDLY INCREASED
[2017-12-02 10:51] VITALS: BP 135/63
[2017-12-02 12:01] VITALS: BP 112/41
[2017-12-02] MEDS: WARFARIN SOD 1 MG TAB PO SCH (16:23)
[2017-12-02 16:27] VITALS: BP 111/55
[2017-12-02] MEDS: CEFTRIAXONE SOD 1 GM VIAL IV SCH (19:05)
[2017-12-02 20:00] VITALS: BP 129/51
[2017-12-02] MEDS: HYDROCODONE/APAP 5MG-325MG TAB PO PRN (20:40)
[2017-12-02] MEDS: PRAMIPEXOLE DIHYDROCHLORIDE 0.25 MG TAB PO SCH (20:40)
[2017-12-03] VITALS (7 sets, daily range): BP systolic 116–145; BP diastolic 53–65
[2017-12-03 06:45] LABS: BASOPHILS % 0.3 % (0.0-1.0); EOSINOPHILS # (AUTO) 0.1 (0.0-0.4); EOSINOPHILS % 1.6 % (0.0-6.0); HEMATOCRIT 27.2 % (34.2-44.1); HEMOGLOBIN 7.9 g/dL (12.0-16.0); LYMPHOCYTES % 11.4 % (18.0-39.1); MEAN CORPUSCULAR HEMOGLOBIN 22.1 pg (28-32); MEAN CORPUSCULAR VOLUME 76.2 fL (81-99); MONOCYTES # (AUTO) 0.9 (0.2-0.8); MONOCYTES % 10.8 % (4.4-11.3); NEUTROPHILS # (AUTO) 6.4 (2.1-6.9); NEUTROPHILS % 74.2 % (38.7-80.0); PLATELET COUNT 431 x10e3/uL (140-360); RED BLOOD COUNT 3.57 x10e6/uL (3.6-5.1); RED CELL DISTRIBUTION WIDTH 28.7 % (11.7-14.4)
[2017-12-03 07:07] LABS: ALBUMIN 1.7 g/dL (3.5-5.0); ALBUMIN/GLOBULIN RATIO 0.5 (0.8-2.0); CALCIUM 9.5 mg/dL (8.4-10.2); CREATININE, SERUM 1.03 mg/dL (0.57-1.11)
[2017-12-03 07:54] LABS: ELLIPTOCYTE, RBC SLIGHT
[2017-12-03 07:56] LABS: ANISOCYTOSIS SLIGHT; HYPOCHROMASIA MODERATE; PLATELET ESTIMATE ADEQUATE; PLATELET MORPHOLOGY COMMENT NORMAL; RBC MORPHOLOGY COMMENT NORMAL
[2017-12-03] MEDS: AMLODIPINE BESYLATE 5 MG TAB PO SCH (08:49)
[2017-12-03] MEDS: LEVOTHYROXINE SODIUM 50 MCG TAB PO SCH (08:49)
[2017-12-03] MEDS: CLONIDINE HCL 0.2 MG TAB PO SCH ×3 (08:49→20:54)
[2017-12-03] MEDS: PANTOPRAZOLE SOD 40 MG TABEC PO SCH (08:49)
[2017-12-03] MEDS: ASPIRIN 81 MG CHEW TAB PO SCH (08:49)
[2017-12-03] MEDS: METOPROLOL SUCCINATE 50 MG TAB XL PO SCH (08:50)
[2017-12-03] MEDS: ALLOPURINOL 100 MG TAB PO SCH (08:50)
[2017-12-03] MEDS ORDERED: MAGNESIUM SULFATE 2GM/50ML 50 ML IV ONE (09:00)
[2017-12-03] MEDS ORDERED: SODIUM CHLORIDE 0.9% 250ML 0 ML ONE (09:59)
[2017-12-03] MEDS: WARFARIN SOD 1 MG TAB PO SCH (16:25)
[2017-12-03] MEDS: CEFTRIAXONE SOD 1 GM VIAL IV SCH (20:50)
[2017-12-03] MEDS: HYDROCODONE/APAP 5MG-325MG TAB PO PRN (20:50)
[2017-12-03] MEDS: PRAMIPEXOLE DIHYDROCHLORIDE 0.25 MG TAB PO SCH (20:50)
[2017-12-04] VITALS: BP 109/54
[2017-12-04 04:00] VITALS: BP 132/63
[2017-12-04] MEDS ORDERED: MAGNESIUM SULFATE 2GM/50ML 50 ML IV ONE (04:45)
[2017-12-04] MEDS: LEVOTHYROXINE SODIUM 50 MCG TAB PO SCH (05:03)
[2017-12-04] MEDS ORDERED: SODIUM CHLORIDE 0.9% 250ML 250 ML ONE (05:17)
[2017-12-04] MEDS ORDERED: MEROPENEM 1 GM VIAL IV SCH (06:00)
[2017-12-04] MEDS ORDERED: MEROPENEM 1GM 100 ML IV SCH ×2 (06:00→06:30)
[2017-12-04] MEDS: MEROPENEM 1 GM VIAL IV SCH ×3 (06:34→21:40)
[2017-12-04 08:22] VITALS: BP 117/58
[2017-12-04] MEDS: METOPROLOL SUCCINATE 50 MG TAB XL PO SCH (09:03)
[2017-12-04] MEDS: ASPIRIN 81 MG CHEW TAB PO SCH (09:03)
[2017-12-04] MEDS: PANTOPRAZOLE SOD 40 MG TABEC PO SCH (09:03)
[2017-12-04] MEDS: MEGACE 400MG/ 10ML CUP PO SCH (09:03)
[2017-12-04] MEDS: ALLOPURINOL 100 MG TAB PO SCH (09:03)
[2017-12-04] MEDS: AMLODIPINE BESYLATE 5 MG TAB PO SCH (09:03)
[2017-12-04] MEDS: CLONIDINE HCL 0.2 MG TAB PO SCH ×3 (09:03→21:00)
[2017-12-04 12:05] VITALS: BP 102/50
[2017-12-04] MEDS: WARFARIN SOD 1 MG TAB PO SCH (16:55)
[2017-12-04 20:00] VITALS: BP 113/54
[2017-12-04 20:39] VITALS: BP 113/62
[2017-12-04] MEDS: PRAMIPEXOLE DIHYDROCHLORIDE 0.25 MG TAB PO SCH (21:40)
[2017-12-04] MEDS: HYDROCODONE/APAP 5MG-325MG TAB PO PRN (22:24)
[2017-12-05] VITALS (7 sets, daily range): BP systolic 112–181; BP diastolic 53–85
[2017-12-05] MEDS: LEVOTHYROXINE SODIUM 50 MCG TAB PO SCH (05:19)
[2017-12-05] MEDS: MEROPENEM 1 GM VIAL IV SCH ×2 (05:19→15:49)
[2017-12-05 06:57] LABS: BASOPHILS % 0.4 % (0.0-1.0); EOSINOPHILS # (AUTO) 0.1 (0.0-0.4); EOSINOPHILS % 1.7 % (0.0-6.0); HEMATOCRIT 29.6 % (34.2-44.1); HEMOGLOBIN 8.7 g/dL (12.0-16.0); LYMPHOCYTES % 12.9 % (18.0-39.1); MEAN CORPUSCULAR HEMOGLOBIN 22.4 pg (28-32); MEAN CORPUSCULAR HGB CONC 29.4 g/dL (31-35); MEAN CORPUSCULAR VOLUME 76.1 fL (81-99); MONOCYTES # (AUTO) 0.7 (0.2-0.8); MONOCYTES % 8.8 % (4.4-11.3); NEUTROPHILS # (AUTO) 5.8 (2.1-6.9); NEUTROPHILS % 74.5 % (38.7-80.0); PLATELET COUNT 508 x10e3/uL (140-360); RED BLOOD COUNT 3.89 x10e6/uL (3.6-5.1)
[2017-12-05 07:15] LABS: INR 1.02; PROTHROMBIN TIME 12.6 seconds (11.9-14.5)
[2017-12-05 07:40] LABS: ALBUMIN 1.9 g/dL (3.5-5.0); ALBUMIN/GLOBULIN RATIO 0.5 (0.8-2.0); ANION GAP 11.3 mmol/L (8-16); CALCIUM 10.4 mg/dL (8.4-10.2); CREATININE, SERUM 1.22 mg/dL (0.57-1.11)
[2017-12-05 07:49] LABS: POTASSIUM 6.3 mmol/L (3.5-5.1)
[2017-12-05 08:50] LABS: ANISOCYTOSIS MODE; ELLIPTOCYTE, RBC SLIGHT; HYPOCHROMASIA SLIGHT; PLATELET ESTIMATE MODERATELY INCREASED; PLATELET MORPHOLOGY COMMENT NORMAL; POIKILOCYTOSIS SLIG; RBC MORPHOLOGY COMMENT ABNORMAL; TARGET CELLS FEW
[2017-12-05] MEDS ORDERED: FAMOTIDINE INJ 20 MG in SODIUM CHLORIDE 0.9% 50ML 50 ML IV ONE ×2 (09:00→09:15)
[2017-12-05] MEDS ORDERED: IRON DEXTRAN INJ 50 MG in SODIUM CHLORIDE 0.9% 100 ML IV ONE ×2 (09:00→09:15)
[2017-12-05] MEDS ORDERED: DIPHENHYDRAMINE HCL INJ 25 MG in SODIUM CHLORIDE 0.9% 50ML 50 ML IV ONE ×2 (09:00→09:15)
[2017-12-05] MEDS ORDERED: IRON DEXTRAN INJ 500 MG in SODIUM CHLORIDE 0.9% 500ML 500 ML IV PRN ×2 (09:00→09:15)
[2017-12-05] MEDS ORDERED: DEXAMETHASONE PHOS 10MG INJ 20 MG in SODIUM CHLORIDE 0.9% 50ML 50 ML IV ONE (09:00)
[2017-12-05] MEDS ORDERED: SOD POLYSTYRENE SULFONATE SUSP 15 GM/60 ML BTL PO STA (09:29)
[2017-12-05] MEDS ORDERED: LACTULOSE SYRUP 20 GM/30 ML UDC PO STA (09:29)
[2017-12-05 09:44] LABS: BASOPHILS % 0.4 % (0.0-1.0); EOSINOPHILS # (AUTO) 0.2 (0.0-0.4); EOSINOPHILS % 1.9 % (0.0-6.0); HEMATOCRIT 26.7 % (34.2-44.1); HEMOGLOBIN 7.9 g/dL (12.0-16.0); MEAN CORPUSCULAR HEMOGLOBIN 22.5 pg (28-32); MEAN CORPUSCULAR HGB CONC 29.6 g/dL (31-35); MEAN CORPUSCULAR VOLUME 76.1 fL (81-99); MONOCYTES # (AUTO) 0.8 (0.2-0.8); MONOCYTES % 9.2 % (4.4-11.3); NEUTROPHILS # (AUTO) 6.4 (2.1-6.9); NEUTROPHILS % 74.9 % (38.7-80.0); PLATELET COUNT 442 x10e3/uL (140-360); RED BLOOD COUNT 3.51 x10e6/uL (3.6-5.1); RED CELL DISTRIBUTION WIDTH 28.8 % (11.7-14.4)
[2017-12-05] MEDS: MEGACE 400MG/ 10ML CUP PO SCH (09:56)
[2017-12-05] MEDS: PANTOPRAZOLE SOD 40 MG TABEC PO SCH (09:56)
[2017-12-05] MEDS: METOPROLOL SUCCINATE 50 MG TAB XL PO SCH (09:56)
[2017-12-05] MEDS: ASPIRIN 81 MG CHEW TAB PO SCH (09:56)
[2017-12-05] MEDS: AMLODIPINE BESYLATE 10 MG TAB PO SCH (09:56)
[2017-12-05] MEDS: ALLOPURINOL 100 MG TAB PO SCH (09:56)
[2017-12-05] MEDS: CLONIDINE HCL 0.2 MG TAB PO SCH ×2 (09:56→15:00)
[2017-12-05 10:15] LABS: % IRON SATURATION 23 % (15-50); IRON 50 ug/dL (50-170); TOTAL IRON BINDING CAPACITY 213 ug/dL (261-478); TRANSFERRIN 152 mg/dL (180-382)
[2017-12-05] MEDS: SODIUM CHLORIDE 0.9% 1000ML 1,000 ML IV SCH (11:41)
--- NOTE | 2017-12-05 11:55 | Consultation ---
DATE OF CONSULTATION: December 05, 2017 HISTORY OF PRESENT ILLNESS: Ms. Jemima Hand is a delightful 82-year-old white female with underlying history of hypertension, hypothyroidism, renal consult for hyperkalemia and acute kidney injury. Patient has abnormal kidney function in the past, but states that lately her potassium level has been running on the higher side. She is currently awake, alert, delightful lady, in no apparent distress. Denies nausea, vomiting, shortness of breath. Denies any diarrhea. ALLERGIES: TO STATIN, HMG-COA REDUCTASE INHIBITORS, SULFA, AND LEVAQUIN. CURRENT MEDICATIONS: Patient is on meropenem for pseudomonas UTI. She is on warfarin 0.5 mg p.o. daily. She is on Mirapex p.r.n., Protonix. She takes Megace 400 mg daily, Levothyroxine 50 mcg daily. She is on clonidine 0.2 p.o. t.i.d., aspirin to chew, amlodipine 10 mg daily, allopurinol 100 mg daily, diphenhydramine p.r.n., and famotidine 20 mg IV. SOCIAL HISTORY: Does not smoke or drink. Fairly independent lady. Denies any smoking or alcohol use. FAMILY HISTORY: Significant for hypertension. PHYSICAL EXAMINATION GENERAL: Awake, alert, lying supine, thin-built female, very poor muscle mass. VITAL SIGNS: Blood pressure 113/54, pulse rate 78, afebrile, oxygen saturation 98% on 2 liters nasal cannula. HEAD AND NECK: Corneae clear. Arcus senilis noted. No JVD. LUNGS: Relatively clear. HEART: S1, S2 audible. ABDOMEN: Soft, nontender. LOWER EXTREMITY: No edema. LABORATORY DATA: Shows anemia with hemoglobin 8.7 with a low MCV of 76, platelets are elevated at 508. Potassium of 6.1 with a creatinine 1.22, bicarbonate 31, calcium 10.4 with an albumin of 1.9 and also hypomagnesemic. IMPRESSION 1. Hyperkalemia, multifactorial. 2. Most likely iron deficiency anemia. 3. Hypercalcemia. We will do workup to start IV normal saline. We will give Kayexalate and lactulose. Place on a renal potassium restricted diet. Renal workup ordered including kidney ultrasound. Discussed with patient. Will need IV iron if iron deficiency is confirmed. Has complicated urinary tract infection, pseudomonas, currently receiving antibiotics. Please see orders. Job#: [id number] VAS
[2017-12-05 12:11] LABS: ANISOCYTOSIS SLIGHT; HOWELL-JOLLY BODIES FEW; HYPOCHROMASIA MODERATE; PLATELET ESTIMATE ADEQUATE; PLATELET MORPHOLOGY COMMENT FEW LARGE; RBC MORPHOLOGY COMMENT NORMAL
[2017-12-05] MEDS: WARFARIN SOD 1 MG TAB PO SCH (17:15)
[2017-12-05] MEDS: HYDRALAZINE HCL 20 MG/ML VIAL IV PRN ×2 (17:15→23:15)
[2017-12-05] MEDS: PRAMIPEXOLE DIHYDROCHLORIDE 0.25 MG TAB PO SCH (22:03)
[2017-12-05] MEDS: HYDROCODONE/APAP 5MG-325MG TAB PO PRN (22:03)
[2017-12-06] VITALS (9 sets, daily range): BP systolic 114–189; BP diastolic 56–78
[2017-12-06] MEDS: MEROPENEM 1 GM VIAL IV SCH ×4 (00:01→22:26)
[2017-12-06] MEDS ORDERED: METOPROLOL TARTRATE INJ 1 MG/ML VIAL IV PRN (00:15)
[2017-12-06] MEDS ORDERED: METOPROLOL TARTRATE INJ 1 MG/ML VIAL ONE ×2 (00:43→11:52)
[2017-12-06] MEDS: METOPROLOL TARTRATE INJ 1 MG/ML VIAL IV PRN ×2 (01:02→11:59)
[2017-12-06 01:42] LABS: CREATINE KINASE MB 0.8 ng/mL (0-5.0)
[2017-12-06] MEDS: SODIUM CHLORIDE 0.9% 1000ML 1,000 ML IV SCH ×2 (05:50→07:35)
[2017-12-06] MEDS: LEVOTHYROXINE SODIUM 50 MCG TAB PO SCH (06:06)
[2017-12-06 07:11] LABS: INR 1.16; PROTHROMBIN TIME 13.9 seconds (11.9-14.5)
[2017-12-06 07:19] LABS: ALBUMIN 2.1 g/dL (3.5-5.0); ALBUMIN/GLOBULIN RATIO 0.5 (0.8-2.0); ANION GAP 14.7 mmol/L (8-16); CALCIUM 10.7 mg/dL (8.4-10.2); CREATININE, SERUM 1.07 mg/dL (0.57-1.11); POTASSIUM 4.7 mmol/L (3.5-5.1)
[2017-12-06] MEDS: MEGACE 400MG/ 10ML CUP PO SCH (08:21)
[2017-12-06] MEDS: ALLOPURINOL 100 MG TAB PO SCH (08:21)
[2017-12-06] MEDS: METOPROLOL SUCCINATE 50 MG TAB XL PO SCH ×2 (08:21→16:58)
[2017-12-06] MEDS: ASPIRIN 81 MG CHEW TAB PO SCH (08:21)
[2017-12-06] MEDS: AMLODIPINE BESYLATE 10 MG TAB PO SCH (08:21)
[2017-12-06] MEDS: PANTOPRAZOLE SOD 40 MG TABEC PO SCH (08:21)
[2017-12-06] MEDS: NITROGLYCERIN 0.4 MG SUBL SL PRN ×2 (08:26→08:39)
[2017-12-06] MEDS ORDERED: NITROGLYCERIN 0.4 MG SUBL ONE (08:30)
--- NOTE | 2017-12-06 13:28 | Consultation ---
DATE OF CONSULTATION: December 06, 2017 CARDIOLOGY CONSULTATION REQUESTING PHYSICIAN: Dr. Eduardo Gardner. REASON FOR CONSULTATION: Chest pain. HISTORY OF PRESENT ILLNESS: This is an 82-year-old woman well known to our service with history of DVT/PE, chronic diastolic heart failure, hypertension, chronic kidney disease and COPD, who presented to [facility] ER with complaints of hypotension. She states she was in her usual state of health until the day of admission. Her home health nurse visited and found her to be hypotensive with a blood pressure of 70/30. Labs were done, and the patient was noted to be hyperkalemic with a potassium of 6.3. On presentation to the ER she was found to have acute kidney injury with a creatinine of 1.55 and hyperkalemia with a potassium of 5.3. BNP was elevated at 159, and she was found to have an abnormal UA with 1+ protein, 1+ blood, positive nitrites, 2+ leukocyte esterase, 6-10 RBCs and greater than 50 WBCs. She was, therefore, admitted for a urinary tract infection. She states she was doing well during admission until she developed chest pain last night. She describes the pain as a pressure that was 8 out of 10 in severity that lasted all night. There was no radiation, shortness of breath, nausea or diaphoresis. She denied any orthopnea, PND, lightheadedness or syncope. Cardiology is consulted for management of above. REVIEW OF SYSTEMS: Negative except as per HPI. PAST MEDICAL HISTORY 1. Chronic diastolic heart failure. 2. History of DVT/PE. 3. Hypertension. 4. Reported history of atrial fibrillation. 5. Chronic kidney disease. 6. COPD. PAST SURGICAL HISTORY 1. Hysterectomy. 2. Tubal ligation. 3. Appendectomy. ALLERGIES: PLEASE SEE EMR. MEDICATIONS: Please see medication list. SOCIAL HISTORY: Prior smoker. No alcohol. FAMILY HISTORY: Noncontributory. PHYSICAL EXAMINATION VITAL SIGNS: Temperature 98.5 degrees, pulse 119, respiratory rate 18, blood pressure 166/70, oxygen saturation 99% on nasal cannula. GENERAL: Elderly woman, cachectic, frail, in no acute distress. HEENT: Normocephalic, atraumatic. Pupils equal, no scleral icterus. NECK: Supple. No thyromegaly or cervical lymphadenopathy, no carotid bruits. LUNGS: Clear to auscultation bilaterally. No wheezes or crackles. CARDIOVASCULAR: Normal rate, regular rhythm. No murmur. Normal S1 and S2. ABDOMEN: Soft, nontender. EXTREMITIES: 1+ pitting edema on dependent areas. NEURO: Nonfocal exam. LABS: Sodium 144, potassium 4.7, chloride 106, CO2 28, BUN 33, creatinine 1.07. INR 1.16. Urine culture: Pseudomonas aeruginosa. IMPRESSION 1. Chest pain. 2. Pseudomonas aeruginosa urinary tract infection. 3. Acute kidney injury on chronic kidney disease, improving. 4. Iron deficiency anemia. 5. Ficvl-ig-kubyxqb diastolic heart failure. 6. History of deep vein thrombosis/pulmonary embolism. 7. Reported history of atrial fibrillation. 8. Hypertension, uncontrolled. 9. Sinus tachycardia. RECOMMENDATIONS: Patient's EKG demonstrates sinus tachycardia with PACs with nonspecific anterior T-wave changes. Trend cardiac biomarkers to rule out myocardial infarction. Increase metoprolol succinate. Continue current medications otherwise. Patient's INR is subtherapeutic. We will continue for now given patient's prior issues with nutrition status and will discuss with Nephrology if we can resume her outpatient ARB. Thank you for this consult. We will continue to follow. Job#: [id number] EV
[2017-12-06] MEDS: HYDROCODONE/APAP 5MG-325MG TAB PO PRN ×2 (15:16→22:27)
[2017-12-06] MEDS: WARFARIN SOD 1 MG TAB PO SCH (16:57)
[2017-12-06] MEDS: DEXTROSE 5% 1,000 ML IV SCH (16:58)
[2017-12-06 17:54] LABS: CREATINE KINASE MB 0.9 ng/mL (0-5.0)
[2017-12-06] MEDS ORDERED: SODIUM CHLORIDE 0.9% 250ML 250 ML ONE (22:04)
[2017-12-06] MEDS: PRAMIPEXOLE DIHYDROCHLORIDE 0.25 MG TAB PO SCH (22:26)
[2017-12-07] VITALS (7 sets, daily range): BP systolic 124–175; BP diastolic 59–73
[2017-12-07] MEDS: DEXTROSE 5% 1,000 ML IV SCH (02:30)
[2017-12-07] MEDS ORDERED: SODIUM CHLORIDE 0.9% 250ML 250 ML ONE (05:51)
[2017-12-07] MEDS: LEVOTHYROXINE SODIUM 50 MCG TAB PO SCH (06:16)
[2017-12-07] MEDS: MEROPENEM 1 GM VIAL IV SCH ×3 (06:16→21:32)
[2017-12-07 07:34] LABS: INR 1.19; PROTHROMBIN TIME 14.2 seconds (11.9-14.5)
[2017-12-07 07:44] LABS: ALBUMIN 2.1 g/dL (3.5-5.0); ALBUMIN/GLOBULIN RATIO 0.6 (0.8-2.0); ANION GAP 10.4 mmol/L (8-16); CALCIUM 10.6 mg/dL (8.4-10.2); CREATININE, SERUM 0.93 mg/dL (0.57-1.11); POTASSIUM 4.4 mmol/L (3.5-5.1)
--- NOTE | 2017-12-07 08:42 | Progress Note ---
DATE: Denies any nausea or vomiting. On IV fluids. Denies any trouble breathing at this time. Calcium has been high, and possibly some fluid overload on the x-ray. PHYSICAL EXAMINATION: GENERAL: Lying in bed, no distress as such. VITAL SIGNS: Temperature 97.9, pulse 86, blood pressure 166/70. CHEST: Faint crackles at the bases. CARDIAC: Normal heart tones. Rhythm sounds regular. ABDOMEN: Benign. EXTREMITIES: Trace edema. LABS: Hemoglobin 7.9. Calcium 10.6. BUN 31, creatinine 1, estimated GFR 58 mL per minute. K is 4.4. PTH was suppressed at 13. Phosphorus is 3.5. ASSESSMENT: Hypercalcemia, possibly chronic kidney disease stage 2 or 3. Source of hypercalcemia is unclear at this time. PLAN: Six doses of calcitonin. Serial chemistries. Await vitamin D level. Check serum and urine protein electrophoresis studies. Will follow along. Job#: [id number]
[2017-12-07] MEDS: MEGACE 400MG/ 10ML CUP PO SCH (08:57)
[2017-12-07] MEDS: ASPIRIN 81 MG CHEW TAB PO SCH (08:57)
[2017-12-07] MEDS: FUROSEMIDE 20 MG TAB PO SCH (08:57)
[2017-12-07] MEDS: AMLODIPINE BESYLATE 10 MG TAB PO SCH (08:58)
[2017-12-07] MEDS: METOPROLOL SUCCINATE 50 MG TAB XL PO SCH ×2 (08:58→17:00)
[2017-12-07] MEDS: CALCITONIN SALMON 400 IU/2ML VIAL SC SCH ×3 (08:58→21:00)
[2017-12-07] MEDS: ALLOPURINOL 100 MG TAB PO SCH (08:58)
[2017-12-07] MEDS: PANTOPRAZOLE SOD 40 MG TABEC PO SCH (08:58)
--- NOTE | 2017-12-07 11:49 | Consultation ---
DATE OF CONSULTATION: December 05, 2017 CONSULTATION TO: Dr. Gardner Ms. Hand is an 82-year-old white female who was referred to me for evaluation of anemia. The patient is very well known to me. The last I saw her was 11/01/2017 when she was referred to me by Dr. Castle for anemia. CBC showed a hemoglobin of 7.7 dated 10/08/2017, low MCV of 71.8, low MCHC of 27.5 with platelets of 523,000. The patient had complained of swelling of both legs, feeling fatigued, diarrhea. Had blood clots in the legs in the past. The patient was on: 1. Protonix. 2. Metoprolol. 3. Synthroid. 4. [place]. 5. Allopurinol. 6. Amlodipine. 7. Irbesartan. 8. Aspirin. 9. Colchicine. Subsequently, iron deficiency anemia diagnosis, essential hypertension and hypothyroidism were made. The patient was suggested to have a thorough GI and workup including a CAT scan of the abdomen and pelvis with contrast. Subsequently, she ends up here with about the same hemoglobin of 8.7. SOCIAL HISTORY: Noncontributory. FAMILY HISTORY: Noncontributory. ALLERGIES: REPORTED NONE. MEDICATIONS: The list is as I dictated. REVIEW OF SYSTEMS HEENT: Normal. CARDIAC: History of hypertension. RESPIRATORY: History of COPD. GI: Normal. : Normal. MUSCULOSKELETAL: Normal. SKIN AND BREASTS: Normal. NEUROENDOCRINE: History of hypothyroidism. PHYSICAL EXAMINATION GENERAL: A rather thin-built female. Anemic. No palpable adenopathy. HEART: Within normal limits. LUNGS: Clear. ABDOMEN: Obese. There is no hepatosplenomegaly. RECTAL: Exam deferred. CENTRAL NERVOUS SYSTEM: Essentially normal. LABS: Hemoglobin of 8.3, MCHC low at 28.4, platelets high at 508,000. Potassium reported high at 6.3. Protein is low at 5. Albumin low at 1.7. IMPRESSION 1. Iron deficiency anemia. 2. Secondary thrombocythemia. 3. Hyperkalemia. 4. Hypoproteinemia. 5. Hypoalbuminemia. 6. Congestive heart failure. 7. History of chronic obstructive pulmonary disease. 8. History of gout. 9. History of hypertension. 10. History of hypothyroidism. 11. Hypotension. 12. Urinary tract infection. PLAN, COMMENTS AND SUGGESTIONS: Suggest stool for occult blood. Suggest INFeD. If the CAT scans have not been done, suggest a CAT scan. Job#: [id number]
[2017-12-07] MEDS: WARFARIN SOD 1 MG TAB PO SCH (17:00)
--- NOTE | 2017-12-07 18:00 | Progress Note ---
DATE: December 07, 2017 CARDIOLOGY PROGRESS NOTE SUBJECTIVE: Patient denies chest pain or shortness of breath. OBJECTIVE VITAL SIGNS: Temperature 98 degrees, pulse 79, respiratory rate 20, blood pressure 135/63, oxygen saturation 100% on 3 liters nasal cannula. GENERAL: Elderly woman, cachectic, frail, no acute distress. LUNGS: Clear to auscultation bilaterally. No wheezes or crackles. CARDIOVASCULAR: Normal rate, regular rhythm. No murmur. Normal S1 and S2. ABDOMEN: Soft, nontender. EXTREMITIES: 1+ pitting edema dependent areas. CARDIAC MEDICATIONS 1. Warfarin 0.5 mg p.o. daily. 2. Metoprolol succinate 100 mg p.o. b.i.d. 3. Amlodipine 10 mg p.o. daily. 4. Furosemide 20 mg p.o. daily. 5. Aspirin 81 mg p.o. daily. 6. Levothyroxine 50 mcg p.o. daily. LABS: Sodium 139, potassium 4.4, chloride 103, CO2 30, BUN 31, creatinine 0.93. INR 1.19. TELEMETRY: Normal sinus rhythm. IMPRESSION 1. Chest pain. 2. Pseudomonas aeruginosa urinary tract infection. 3. Acute kidney injury on chronic kidney disease, improving. 4. Iron deficiency anemia. 5. Dzgrr-sa-vfxhpdl diastolic heart failure. 6. History of deep vein thrombosis/pulmonary embolism. 7. Reported history of atrial fibrillation. 8. Hypertension, uncontrolled. 9. Sinus tachycardia, resolved. RECOMMENDATIONS: Patient ruled out for a myocardial infarction with serial cardiac biomarkers. Heart rate is improved with increase in metoprolol. Continue current cardiac medications. Monitor patient on telemetry. Given patient's recent acute kidney injury and frailty, she is not a candidate for invasive cardiac evaluation at this time. Continue medical management. Patient's INR is subtherapeutic. Plan to increase warfarin to 1 mg if no procedures are planned. Antibiotics per primary service. Thank you for this consult. We will continue to follow. Job#: [id number] EV
[2017-12-07] MEDS: PRAMIPEXOLE DIHYDROCHLORIDE 0.25 MG TAB PO SCH (21:00)
[2017-12-07] MEDS ORDERED: MORPHINE SULFATE 2 MG/ML SYR IV PRN (21:00)
[2017-12-07] MEDS: PROMETHAZINE 12.5MG/ NACL 0.9% 12.5 MG/50 ML BAG IV PRN (21:32)
[2017-12-08] VITALS (7 sets, daily range): BP systolic 155–185; BP diastolic 68–77
[2017-12-08] MEDS: MEROPENEM 1 GM VIAL IV SCH ×2 (05:41→14:30)
[2017-12-08] MEDS: LEVOTHYROXINE SODIUM 50 MCG TAB PO SCH (05:41)
[2017-12-08 08:23] LABS: BASOPHILS % 0.3 % (0.0-1.0); EOSINOPHILS % 0.1 % (0.0-6.0); HEMATOCRIT 29.1 % (34.2-44.1); HEMOGLOBIN 8.6 g/dL (12.0-16.0); LYMPHOCYTES # (AUTO) 1.5 (1.0-3.2); LYMPHOCYTES % 11.9 % (18.0-39.1); MEAN CORPUSCULAR HEMOGLOBIN 22.6 pg (28-32); MEAN CORPUSCULAR HGB CONC 29.6 g/dL (31-35); MEAN CORPUSCULAR VOLUME 76.4 fL (81-99); MONOCYTES # (AUTO) 0.8 (0.2-0.8); MONOCYTES % 6.3 % (4.4-11.3); NEUTROPHILS # (AUTO) 9.9 (2.1-6.9); NEUTROPHILS % 79.7 % (38.7-80.0); PLATELET COUNT 460 x10e3/uL (140-360); RED BLOOD COUNT 3.81 x10e6/uL (3.6-5.1); RED CELL DISTRIBUTION WIDTH 29.2 % (11.7-14.4)
[2017-12-08] MEDS: PROMETHAZINE 12.5MG/ NACL 0.9% 12.5 MG/50 ML BAG IV PRN ×2 (08:35→14:30)
[2017-12-08 08:36] LABS: INR 1.08; PROTHROMBIN TIME 13.2 seconds (11.9-14.5)
[2017-12-08 08:50] LABS: ANION GAP 12.4 mmol/L (8-16); BLOOD UREA NITROGEN 27 mg/dL (7-26); BUN/CREATININE RATIO 35 (6-25); CALCIUM 10.3 mg/dL (8.4-10.2); CARBON DIOXIDE 29 mmol/L (22-29); CHLORIDE 102 mmol/L (98-107); CREATININE, SERUM 0.78 mg/dL (0.57-1.11); EST GLOMERULAR FILTRATION RATE > 60 ML/MIN (60-); GLUCOSE 82 mg/dL (74-118); PHOSPHORUS 2.6 MG/DL (2.3-4.7); POTASSIUM 4.4 mmol/L (3.5-5.1); SODIUM 139 mmol/L (136-145)
--- NOTE | 2017-12-08 08:58 | Diagnostic Imaging Report ---
EXAM: Abdomen, one view INDICATION: Pain. COMPARISON: None available. FINDINGS: LINES: None. Bowel: No air fluid levels.. No pneumoperitoneum.. Moderate amount of retained feces and air are noted in the colon and rectum. No calcifications project over the renal shadows, expected course of the ureters bilaterally, and bladder. Phleboliths are present in the pelvis. Soft tissues: Normal. Bones: No acute osseous abnormality. Degenerative changes of the lumbar spine and pelvis. Severe scoliosis of the thoracolumbar spine. Impression: No acute radiographic abnormality. Signed by: Dr. Carlos Neal M.D. on 12/08/2017 8:54 AM
[2017-12-08] MEDS: MEGACE 400MG/ 10ML CUP PO SCH (09:00)
[2017-12-08] MEDS: FUROSEMIDE 20 MG TAB PO SCH (09:00)
[2017-12-08] MEDS: AMLODIPINE BESYLATE 10 MG TAB PO SCH (09:00)
[2017-12-08] MEDS: ASPIRIN 81 MG CHEW TAB PO SCH (09:00)
[2017-12-08] MEDS: ALLOPURINOL 100 MG TAB PO SCH (09:00)
[2017-12-08] MEDS: METOPROLOL SUCCINATE 50 MG TAB XL PO SCH ×2 (09:00→16:36)
[2017-12-08 10:51] LABS: EOSINOPHILS % (MANUAL) 1 % (0-7); LYMPHOCYTES % (MANUAL) 14 % (19-48); MONOCYTES % (MANUAL) 6 % (3.4-9.0); NEUTROPHILS % (MANUAL) 79 % (40-74); PLATELET ESTIMATE SLIGHTLY INCREASED; PLATELET MORPHOLOGY COMMENT NORMAL
[2017-12-08 10:52] LABS: RBC MORPHOLOGY COMMENT NORMAL
[2017-12-08] MEDS: PANTOPRAZOL 40MG/SOD CHL 0.9% 50 ML IV SCH ×3 (11:00→21:14)
[2017-12-08] MEDS: CALCITONIN SALMON 400 IU/2ML VIAL SC SCH ×2 (11:00→21:13)
--- NOTE | 2017-12-08 15:26 | Progress Note ---
DATE: December 08, 2017 CARDIOLOGY PROGRESS NOTE SUBJECTIVE: The patient denies chest pain or shortness of breath. She is complaining of nausea. OBJECTIVE VITAL SIGNS: Temperature 99.2 degrees, pulse 97, respiratory rate 20, blood pressure 161/68, oxygen saturation 100% on 3 liters nasal cannula. GENERAL: Elderly woman, cachectic, frail, no acute distress. LUNGS: Clear to auscultation bilaterally. No wheezes or crackles. CARDIOVASCULAR: Normal rate, regular rhythm. No murmur. Normal S1 and S2. ABDOMEN: Soft, nontender. EXTREMITIES: No edema. CARDIAC MEDICATIONS 1. Warfarin 0.5 mg p.o. daily. 2. Metoprolol succinate 100 mg p.o. b.i.d. 3. Amlodipine 10 mg p.o. daily. 4. Furosemide 20 mg p.o. daily. 5. Aspirin 81 mg p.o. daily. 6. Levothyroxine 50 mcg p.o. daily. LABS: WBC 12.39, hemoglobin 8.6, hematocrit 29.1, platelets 460,000. Sodium 139, potassium 4.4, chloride 102, CO2 of 29, BUN 27, creatinine 0.78. TELEMETRY: Normal sinus rhythm. IMPRESSION 1. Chest pain. 2. Pseudomonas aeruginosa urinary tract infection. 3. Acute kidney injury on chronic kidney disease, improved. 4. Iron deficiency anemia. 5. Wbior-ab-jvgxgtj diastolic heart failure. 6. History of deep vein thrombosis/pulmonary embolism. 7. Reported history of atrial fibrillation. 8. Hypertension, uncontrolled. 9. Sinus tachycardia, resolved. RECOMMENDATIONS: The patient ruled out for myocardial infarction with serial cardiac biomarkers. Continue current cardiac medications. However, the patient refused her medications this morning. Monitor the patient on telemetry. Given the patient's frailty and recent acute kidney injury, she is not a candidate for invasive cardiac evaluation at this time. Continue medical management. The patient's INR is subtherapeutic. However, as she is feeling nauseated we will not increase her warfarin at this time. Antibiotics per primary service. Thank you for this consult. We will continue to follow. Job#: [id number]
[2017-12-08] MEDS: METOPROLOL TARTRATE INJ 1 MG/ML VIAL IV PRN ×2 (16:09→21:14)
[2017-12-08] MEDS: WARFARIN SOD 1 MG TAB PO SCH (16:34)
[2017-12-08] MEDS: SODIUM CHLORIDE 0.9% 1000ML 1,000 ML IV SCH (16:45)
[2017-12-08] MEDS: PRAMIPEXOLE DIHYDROCHLORIDE 0.25 MG TAB PO SCH (21:14)
[2017-12-09] VITALS (7 sets, daily range): BP systolic 160–182; BP diastolic 67–78
[2017-12-09] MEDS: SODIUM CHLORIDE 0.9% 1000ML 1,000 ML IV SCH (01:11)
[2017-12-09] MEDS: PANTOPRAZOL 40MG/SOD CHL 0.9% 50 ML IV SCH ×5 (01:11→22:38)
[2017-12-09] MEDS: HYDROCODONE/APAP 5MG-325MG TAB PO PRN ×2 (01:11→21:59)
[2017-12-09] MEDS: LEVOTHYROXINE SODIUM 50 MCG TAB PO SCH (06:10)
[2017-12-09] MEDS: METOPROLOL TARTRATE INJ 1 MG/ML VIAL IV PRN ×3 (06:11→21:58)
[2017-12-09] MEDS: PROMETHAZINE 12.5MG/ NACL 0.9% 12.5 MG/50 ML BAG IV PRN ×2 (06:56→21:59)
[2017-12-09] MEDS ORDERED: LEVOFLOXACIN 500MG/D5W 100ML 100 ML IV SCH (07:30)
[2017-12-09] MEDS: ALLOPURINOL 100 MG TAB PO SCH (08:15)
[2017-12-09] MEDS: PIPER-TAZ 3.375 GM 100 ML IV SCH ×4 (08:40→23:51)
[2017-12-09] MEDS: FUROSEMIDE 20 MG TAB PO SCH (08:50)
[2017-12-09] MEDS: AMLODIPINE BESYLATE 10 MG TAB PO SCH (08:50)
[2017-12-09] MEDS: MEGACE 400MG/ 10ML CUP PO SCH (08:50)
[2017-12-09] MEDS: METOPROLOL SUCCINATE 50 MG TAB XL PO SCH ×2 (08:50→16:10)
[2017-12-09] MEDS: ASPIRIN 81 MG CHEW TAB PO SCH (08:55)
[2017-12-09] MEDS ORDERED: LOSARTAN POTASSIUM 25 MG TAB PO ONE (16:00)
--- NOTE | 2017-12-09 16:38 | Progress Note ---
DATE: December 09, 2017 CARDIOLOGY PROGRESS NOTE SUBJECTIVE: The patient states she had a little chest pain overnight. Denies any shortness of breath. She states her nausea is better. OBJECTIVE VITAL SIGNS: Temperature 97.2 degrees, pulse 107, respiratory rate 22, blood pressure 173/75, oxygen saturation 93% on 3 liters nasal cannula. GENERAL: Elderly woman, cachectic, frail, no acute distress. LUNGS: Clear to auscultation bilaterally. No wheezes or crackles. CARDIOVASCULAR: Normal rate, regular rhythm. No murmur. Normal S1 and S2. ABDOMEN: Soft, nontender. EXTREMITIES: There is 1+ pitting edema of bilateral lower extremities. CARDIAC MEDICATIONS 1. Metoprolol tartrate 5 mg IV q.6 h. 2. Aspirin 81 mg p.o. daily. 3. Furosemide 20 mg p.o. daily. 4. Metoprolol succinate 100 mg p.o. b.i.d. 5. Amlodipine 10 mg p.o. daily. 6. Levothyroxine 50 mcg p.o. daily. 7. Warfarin 0.5 mg p.o. daily. LABS: None today. TELEMETRY: Normal sinus rhythm. IMPRESSION 1. Chest pain. 2. Pseudomonas aeruginosa urinary tract infection. 3. Acute kidney injury on chronic kidney disease, improved. 4. Iron deficiency anemia. 5. Fhdlw-rd-graduvo diastolic heart failure. 6. History of deep vein thrombosis/pulmonary embolism. 7. Reported history of atrial fibrillation. 8. Hypertension, uncontrolled. 9. Sinus tachycardia, resolved. RECOMMENDATIONS: The patient ruled out for myocardial infarction with serial cardiac biomarkers. Continue current cardiac medications. Monitor the patient on telemetry. Given the patient's frailty and recent acute kidney injury, she is not a candidate for invasive cardiac evaluation at this time. Continue medical management. The patient's INR is subtherapeutic. However, as she is not eating well at this time, we will make no changes to her warfarin dose. Antibiotics per primary service. We will resume the patient's irbesartan as her blood pressure is not controlled and her renal function has improved. Thank you for this consult. We will continue to follow. Job#: [id number]
[2017-12-09] MEDS ORDERED: SODIUM CHLORIDE 0.9% 250ML 250 ML ONE (21:35)
[2017-12-09] MEDS: PRAMIPEXOLE DIHYDROCHLORIDE 0.25 MG TAB PO SCH (21:58)
[2017-12-10] VITALS (8 sets, daily range): BP systolic 126–164; BP diastolic 58–77
[2017-12-10] MEDS: PANTOPRAZOL 40MG/SOD CHL 0.9% 50 ML IV SCH ×5 (03:44→22:03)
[2017-12-10] MEDS: PIPER-TAZ 3.375 GM 100 ML IV SCH ×3 (05:44→17:33)
[2017-12-10] MEDS: LEVOTHYROXINE SODIUM 50 MCG TAB PO SCH (05:44)
[2017-12-10] MEDS: METOPROLOL TARTRATE INJ 1 MG/ML VIAL IV PRN (05:45)
[2017-12-10] MEDS: ACETAMINOPHEN 325 MG TAB PO PRN (05:45)
[2017-12-10] MEDS: PROMETHAZINE 12.5MG/ NACL 0.9% 12.5 MG/50 ML BAG IV PRN (06:10)
[2017-12-10 07:28] LABS: BASOPHILS # (AUTO) 0.1 (0.0-0.1); BASOPHILS % 0.5 % (0.0-1.0); EOSINOPHILS % 0.3 % (0.0-6.0); HEMATOCRIT 32.9 % (34.2-44.1); LYMPHOCYTES # (AUTO) 1.3 (1.0-3.2); LYMPHOCYTES % 9.6 % (18.0-39.1); MEAN CORPUSCULAR HEMOGLOBIN 22.7 pg (28-32); MEAN CORPUSCULAR HGB CONC 30.4 g/dL (31-35); MEAN CORPUSCULAR VOLUME 74.6 fL (81-99); MONOCYTES # (AUTO) 0.8 (0.2-0.8); MONOCYTES % 5.6 % (4.4-11.3); NEUTROPHILS # (AUTO) 11.2 (2.1-6.9); NEUTROPHILS % 83.2 % (38.7-80.0); PLATELET COUNT 445 x10e3/uL (140-360); RED BLOOD COUNT 4.41 x10e6/uL (3.6-5.1); RED CELL DISTRIBUTION WIDTH 29.1 % (11.7-14.4)
[2017-12-10 07:34] LABS: INR 1.27; PROTHROMBIN TIME 14.9 seconds (11.9-14.5)
[2017-12-10 07:52] LABS: ANION GAP 14.1 mmol/L (8-16); BLOOD UREA NITROGEN 22 mg/dL (7-26); BUN/CREATININE RATIO 27 (6-25); CALCIUM 8.8 mg/dL (8.4-10.2); CARBON DIOXIDE 29 mmol/L (22-29); CHLORIDE 97 mmol/L (98-107); CREATININE, SERUM 0.83 mg/dL (0.57-1.11); EST GLOMERULAR FILTRATION RATE > 60 ML/MIN (60-); GLUCOSE 73 mg/dL (74-118); POTASSIUM 3.1 mmol/L (3.5-5.1); SODIUM 137 mmol/L (136-145)
[2017-12-10] MEDS: ASPIRIN 81 MG CHEW TAB PO SCH (09:40)
[2017-12-10] MEDS: LOSARTAN POTASSIUM 25 MG TAB PO SCH (09:40)
[2017-12-10] MEDS: METOPROLOL SUCCINATE 50 MG TAB XL PO SCH ×2 (09:40→17:33)
[2017-12-10] MEDS: AMLODIPINE BESYLATE 10 MG TAB PO SCH (09:40)
[2017-12-10] MEDS: MEGACE 400MG/ 10ML CUP PO SCH (09:40)
[2017-12-10] MEDS: FUROSEMIDE 20 MG TAB PO SCH (09:40)
[2017-12-10] MEDS: ALLOPURINOL 100 MG TAB PO SCH (09:41)
[2017-12-10 10:58] LABS: ANISOCYTOSIS MODE; POIKILOCYTOSIS SLIGHT; TARGET CELLS FEW
[2017-12-10 10:59] LABS: PLATELET ESTIMATE SLIGHTLY INCREASED; PLATELET MORPHOLOGY COMMENT FEW GIANT; RBC MORPHOLOGY COMMENT ABNORMAL
[2017-12-10] MEDS ORDERED: POTASSIUM CHLORIDE 20 MEQ TAB CR PO STA (12:58)
--- NOTE | 2017-12-10 14:29 | Progress Note ---
CARDIOLOGY PROGRESS NOTE DATE: December 10, 2017 SUBJECTIVE: The patient denies chest pain or shortness of breath. She still is nauseated. OBJECTIVE VITAL SIGNS: Temperature 98.4 degrees, pulse 97, respiratory rate 18, blood pressure 162/73. Oxygen saturation 98% on 3 liters nasal cannula. GENERAL: Elderly woman, cachectic, frail. No acute distress. LUNGS: Clear to auscultation bilaterally. No wheezes or crackles. CARDIOVASCULAR: Normal rate, regular rhythm. No murmur. Normal S1, S2. ABDOMEN: Soft, nontender. EXTREMITIES: 1+ pitting edema bilateral lower extremities. CARDIAC MEDICATIONS 1. Losartan 50 mg p.o. daily. 2. Furosemide 20 mg p.o. daily. 3. Metoprolol succinate 100 mg p.o. b.i.d. 4. Amlodipine 10 mg p.o. daily. 5. Aspirin 81 mg p.o. daily. LABS: WBC 13.44, hemoglobin 10, hematocrit 32.9, platelets 445. Sodium 137, potassium 3.1, chloride 97, CO2 29, BUN 20, creatinine 0.83. INR 1.27. TELEMETRY: Normal sinus rhythm. IMPRESSION 1. Chest pain. 2. Pseudomonas aeruginosa urinary tract infection. 3. Acute kidney injury on chronic kidney disease, improved. 4. Iron deficiency anemia. 5. Nbhhx-go-ixqsivs diastolic heart failure. 6. Deep vein thrombosis/pulmonary embolus. 7. Reported history of atrial fibrillation. 8. Hypertension, uncontrolled. 9. Sinus tachycardia, resolved. RECOMMENDATIONS: The patient ruled out for myocardial infarction with serial cardiac biomarkers. Continue current cardiac medications. Monitor the patient on telemetry. Given her frailty and recent acute kidney injury she is not a candidate for invasive cardiac evaluation at this time. Continue medical management. Patient's INR remains subtherapeutic however as patient is not eating well, we will make no changes to her warfarin dose. Antibiotics per primary service. We will evaluate response to irbesartan. She may need up-titration. Thank you for this consult. We will continue to follow. Job#: [id number] DEE
[2017-12-10 16:31] LABS: ALPHA 2 GLOBULIN URINE PEP 19.5 % (.)
[2017-12-10] MEDS: PRAMIPEXOLE DIHYDROCHLORIDE 0.25 MG TAB PO SCH (20:59)
[2017-12-10] MEDS: HYDROCODONE/APAP 5MG-325MG TAB PO PRN (21:06)
[2017-12-11] VITALS (9 sets, daily range): BP systolic 129–164; BP diastolic 61–72
[2017-12-11] MEDS: PIPER-TAZ 3.375 GM 100 ML IV SCH ×4 (00:24→17:26)
[2017-12-11] MEDS: PANTOPRAZOL 40MG/SOD CHL 0.9% 50 ML IV SCH ×5 (03:12→22:50)
[2017-12-11] MEDS: LEVOTHYROXINE SODIUM 50 MCG TAB PO SCH (05:29)
[2017-12-11 07:14] LABS: BASOPHILS % 0.3 % (0.0-1.0); EOSINOPHILS # (AUTO) 0.1 (0.0-0.4); EOSINOPHILS % 0.7 % (0.0-6.0); HEMATOCRIT 33.1 % (34.2-44.1); HEMOGLOBIN 10.1 g/dL (12.0-16.0); LYMPHOCYTES # (AUTO) 1.3 (1.0-3.2); LYMPHOCYTES % 9.3 % (18.0-39.1); MEAN CORPUSCULAR HEMOGLOBIN 23.1 pg (28-32); MEAN CORPUSCULAR HGB CONC 30.5 g/dL (31-35); MEAN CORPUSCULAR VOLUME 75.7 fL (81-99); MONOCYTES # (AUTO) 0.9 (0.2-0.8); MONOCYTES % 6.8 % (4.4-11.3); NEUTROPHILS # (AUTO) 11.2 (2.1-6.9); NEUTROPHILS % 82.3 % (38.7-80.0); PLATELET COUNT 408 x10e3/uL (140-360); RED BLOOD COUNT 4.37 x10e6/uL (3.6-5.1); RED CELL DISTRIBUTION WIDTH 29.1 % (11.7-14.4)
[2017-12-11 07:44] LABS: ALANINE AMINOTRANSFERASE 8 IU/L (0-55); ALBUMIN 2.3 g/dL (3.5-5.0); ALBUMIN/GLOBULIN RATIO 0.7 (0.8-2.0); ALKALINE PHOSPHATASE 43 IU/L (40-150); ANION GAP 13.6 mmol/L (8-16); BLOOD UREA NITROGEN 25 mg/dL (7-26); BUN/CREATININE RATIO 30 (6-25); CALCIUM 8.7 mg/dL (8.4-10.2); CARBON DIOXIDE 28 mmol/L (22-29); CHLORIDE 98 mmol/L (98-107); CREATININE, SERUM 0.84 mg/dL (0.57-1.11); EST GLOMERULAR FILTRATION RATE > 60 ML/MIN (60-); GLUCOSE 74 mg/dL (74-118); POTASSIUM 3.6 mmol/L (3.5-5.1); SODIUM 136 mmol/L (136-145)
[2017-12-11] MEDS: ASPIRIN 81 MG CHEW TAB PO SCH (08:05)
[2017-12-11] MEDS: AMLODIPINE BESYLATE 10 MG TAB PO SCH (08:05)
[2017-12-11] MEDS: METOPROLOL SUCCINATE 50 MG TAB XL PO SCH ×2 (08:05→17:26)
[2017-12-11] MEDS: LOSARTAN POTASSIUM 25 MG TAB PO SCH (08:05)
[2017-12-11] MEDS: ALLOPURINOL 100 MG TAB PO SCH (08:05)
[2017-12-11] MEDS: FUROSEMIDE 20 MG TAB PO SCH (08:05)
[2017-12-11] MEDS: MEGACE 400MG/ 10ML CUP PO SCH (08:05)
[2017-12-11] MEDS ORDERED: MAGNESIUM SULFATE 2GM/50ML 50 ML IV ONE ×3 (09:30→13:00)
[2017-12-11 09:33] LABS: BAND NEUTROPHILS % (MANUAL) 2 %; LYMPHOCYTES % (MANUAL) 21 % (19-48); METAMYELOCYTES % (MANUAL) 1 % (0-0); MONOCYTES % (MANUAL) 2 % (3.4-9.0); NEUTROPHILS % (MANUAL) 73 % (40-74)
[2017-12-11 09:34] LABS: RBC MORPHOLOGY COMMENT ABNORMAL; SMUDGE CELLS FEW; TARGET CELLS MODERATE
[2017-12-11 09:35] LABS: ANISOCYTOSIS MODE; MICROCYTOSIS MODERATE; PLATELET MORPHOLOGY COMMENT FEW LARGE; POIKILOCYTOSIS SLIGHT
[2017-12-11 09:36] LABS: PLATELET ESTIMATE ADEQUATE
--- NOTE | 2017-12-11 10:47 | Progress Note ---
DATE: December 11, 2017 CARDIOLOGY PROGRESS NOTE SUBJECTIVE: The patient denies chest pain or shortness of breath. She reports her nausea is better. OBJECTIVE VITAL SIGNS: Temperature 97.8 degrees, pulse 81, respiratory rate 18, blood pressure 164/72. Oxygen saturation 100% on 3 liters nasal cannula. GENERAL: Elderly woman, cachectic, frail. No acute distress. LUNGS: Clear to auscultation bilaterally. No wheezes or crackles. CARDIOVASCULAR: Normal rate, regular rhythm. No murmur. Normal S1, S2. ABDOMEN: Soft, nontender. EXTREMITIES: No edema. CARDIAC MEDICATIONS 1. Losartan 50 mg p.o. daily. 2. Furosemide 20 mg p.o. daily. 3. Metoprolol succinate 100 mg p.o. b.i.d. 4. Amlodipine 10 mg p.o. daily. 5. Aspirin 81 mg p.o. daily. 6. Levothyroxine 50 mcg p.o. daily. LABS: WBC 13.61, hemoglobin 10.1, hematocrit 33.1, platelets 408. Sodium 136, potassium 3.6, chloride 98, CO2 28, BUN 25, creatinine 0.84. TELEMETRY: Normal sinus rhythm. IMPRESSION 1. Chest pain. 2. Pseudomonas aeruginosa urinary tract infection. 3. Acute kidney injury on chronic kidney disease, improved. 4. Iron deficiency anemia with positive stool occult blood. 5. Bakuf-hz-hpajcxc diastolic heart failure. 6. History of deep vein thrombosis/pulmonary embolus. 7. Reported history of atrial fibrillation. 8. Hypertension, uncontrolled. 9. Sinus tachycardia, resolved. RECOMMENDATIONS: The patient ruled out for myocardial infarction with serial cardiac biomarkers. Continue current cardiac medications. Monitor the patient on telemetry. Her blood pressure is above goal for age. We will increase her ARB. Antibiotics per primary service. Monitor INR. Thank you for this consult. We will continue to follow. Job#: [id number]
[2017-12-11] MEDS ORDERED: LOSARTAN POTASSIUM 100 MG TAB PO NR (11:00)
[2017-12-11] MEDS: HYDROCODONE/APAP 5MG-325MG TAB PO PRN (21:11)
[2017-12-11] MEDS: PRAMIPEXOLE DIHYDROCHLORIDE 0.25 MG TAB PO SCH (21:11)
[2017-12-12] VITALS (7 sets, daily range): BP systolic 103–158; BP diastolic 51–67
[2017-12-12] MEDS: PIPER-TAZ 3.375 GM 100 ML IV SCH ×4 (00:03→18:31)
[2017-12-12] MEDS: PANTOPRAZOL 40MG/SOD CHL 0.9% 50 ML IV SCH ×4 (03:44→21:00)
[2017-12-12] MEDS: LEVOTHYROXINE SODIUM 50 MCG TAB PO SCH (05:13)
[2017-12-12 07:53] LABS: ALBUMIN 2.2 g/dL (3.5-5.0); ALBUMIN/GLOBULIN RATIO 0.9 (0.8-2.0); ANION GAP 13.3 mmol/L (8-16); CALCIUM 8.5 mg/dL (8.4-10.2); CREATININE, SERUM 0.94 mg/dL (0.57-1.11); POTASSIUM 3.3 mmol/L (3.5-5.1)
[2017-12-12] MEDS: AMLODIPINE BESYLATE 10 MG TAB PO SCH (08:30)
[2017-12-12] MEDS: FUROSEMIDE 20 MG TAB PO SCH (08:30)
[2017-12-12] MEDS: ALLOPURINOL 100 MG TAB PO SCH (08:30)
[2017-12-12] MEDS: LOSARTAN POTASSIUM 100 MG TAB PO SCH (08:30)
[2017-12-12] MEDS: MEGACE 400MG/ 10ML CUP PO SCH (08:30)
[2017-12-12] MEDS: METOPROLOL SUCCINATE 50 MG TAB XL PO SCH ×2 (08:30→18:31)
[2017-12-12] MEDS: ASPIRIN 81 MG CHEW TAB PO SCH (08:30)
[2017-12-12] MEDS ORDERED: LOSARTAN POTASSIUM 25 MG TAB PO SCH (09:00)
[2017-12-12 09:58] LABS: INR 1.23; PROTHROMBIN TIME 14.6 seconds (11.9-14.5)
--- NOTE | 2017-12-12 10:15 | Progress Note ---
DATE: December 12, 2017 CARDIOLOGY PROGRESS NOTE SUBJECTIVE: The patient denies chest pain or shortness of breath. She indicates that her nausea has resolved. OBJECTIVE VITALS: Temperature 96.9 degrees, pulse 73, respiratory rate 20, blood pressure 146/65, oxygen saturation 99% on 3 L nasal cannula. GENERAL: Elderly cachectic, frail woman in no acute distress. LUNGS: Clear to auscultation bilaterally. No wheezes or crackles. CARDIOVASCULAR: Normal rate. Regular rhythm. No murmur. Normal S1 and S2. ABDOMEN: Soft and nontender. EXTREMITIES: No edema. CARDIAC MEDICATIONS 1. Losartan 100 mg p.o. daily. 2. Furosemide 20 mg p.o. daily. 3. Metoprolol succinate 100 mg p.o. b.i.d. 4. Amlodipine 10 mg p.o. daily. 5. Aspirin 81 mg p.o. daily. 6. Levothyroxine 50 mcg p.o. daily. LABS: Sodium 136, potassium 3.3, chloride 98, CO2 28, BUN 24, creatinine 0.94. Telemetry is normal sinus rhythm. IMPRESSION 1. Chest pain. 2. Pseudomonas aeruginosa urinary tract infection. 3. Acute kidney injury on chronic kidney disease, improved. 4. Iron deficiency anemia with positive stool occult blood. 5. Ysadi-lx-rvkszat diastolic heart failure. 6. History of deep venous thrombosis/pulmonary embolism. 7. Reported history of atrial fibrillation. 8. Hypertension, uncontrolled. 9. Sinus tachycardia, resolved. RECOMMENDATIONS: The patient ruled out for myocardial infarction with serial cardiac biomarkers. Continue current cardiac medications. Monitor the patient on telemetry. Follow INR given the patient's variable nutritional status. Result from today is pending. Blood pressure has improved with increase in ARB. We will monitor for now. Antibiotics per primary service. Monitor and replete electrolytes. Thank you for this consult. We will continue to follow. Job#: [id number] DIANA
[2017-12-12] MEDS ORDERED: POTASSIUM CHLORIDE 20MEQ/100ML 200 ML IV ONE (11:00)
[2017-12-12] MEDS ORDERED: POTASSIUM CHLORIDE 20MEQ/15ML UDC PO STA (12:41)
[2017-12-12] MEDS: CHOLESTYRAMINE 4 GM PACKET PO SCH (21:00)
[2017-12-12] MEDS: PRAMIPEXOLE DIHYDROCHLORIDE 0.25 MG TAB PO SCH (21:00)
[2017-12-12] MEDS: HYDROCODONE/APAP 5MG-325MG TAB PO PRN (21:05)
[2017-12-13] VITALS (8 sets, daily range): BP systolic 98–139; BP diastolic 48–65
[2017-12-13] MEDS: PANTOPRAZOL 40MG/SOD CHL 0.9% 50 ML IV SCH ×5 (00:45→23:58)
[2017-12-13] MEDS: PIPER-TAZ 3.375 GM 100 ML IV SCH ×4 (00:50→17:36)
[2017-12-13] MEDS: LEVOTHYROXINE SODIUM 50 MCG TAB PO SCH (06:14)
[2017-12-13 06:59] LABS: BASOPHILS % 0.2 % (0.0-1.0); EOSINOPHILS # (AUTO) 0.2 (0.0-0.4); EOSINOPHILS % 1.5 % (0.0-6.0); HEMOGLOBIN 8.2 g/dL (12.0-16.0); LYMPHOCYTES # (AUTO) 1.3 (1.0-3.2); LYMPHOCYTES % 13.2 % (18.0-39.1); MEAN CORPUSCULAR HEMOGLOBIN 23.3 pg (28-32); MEAN CORPUSCULAR HGB CONC 30.4 g/dL (31-35); MEAN CORPUSCULAR VOLUME 76.7 fL (81-99); MONOCYTES % 10.1 % (4.4-11.3); NEUTROPHILS # (AUTO) 7.5 (2.1-6.9); NEUTROPHILS % 74.3 % (38.7-80.0); PLATELET COUNT 303 x10e3/uL (140-360); RED BLOOD COUNT 3.52 x10e6/uL (3.6-5.1); RED CELL DISTRIBUTION WIDTH 29.1 % (11.7-14.4)
[2017-12-13 07:19] LABS: ANION GAP 10.6 mmol/L (8-16); CALCIUM 8.3 mg/dL (8.4-10.2); CREATININE, SERUM 1.03 mg/dL (0.57-1.11); MAGNESIUM 1.4 MG/DL (1.3-2.1); POTASSIUM 3.6 mmol/L (3.5-5.1)
[2017-12-13] MEDS: FUROSEMIDE 20 MG TAB PO SCH (07:46)
[2017-12-13] MEDS: ALLOPURINOL 100 MG TAB PO SCH (07:46)
[2017-12-13] MEDS: AMLODIPINE BESYLATE 10 MG TAB PO SCH (07:46)
[2017-12-13] MEDS: LOSARTAN POTASSIUM 100 MG TAB PO SCH (07:46)
[2017-12-13] MEDS: CHOLESTYRAMINE 4 GM PACKET PO SCH ×2 (07:46→17:36)
[2017-12-13] MEDS: MEGACE 400MG/ 10ML CUP PO SCH (07:46)
[2017-12-13] MEDS: ASPIRIN 81 MG CHEW TAB PO SCH (07:46)
[2017-12-13] MEDS: METOPROLOL SUCCINATE 50 MG TAB XL PO SCH ×2 (07:46→17:00)
[2017-12-13 09:36] LABS: ANISOCYTOSIS MODERATE; PLATELET ESTIMATE ADEQUATE; PLATELET MORPHOLOGY COMMENT NORMAL; RBC MORPHOLOGY COMMENT ABNORMAL
[2017-12-13 09:37] LABS: HYPOCHROMASIA SLIGHT
--- NOTE | 2017-12-13 11:25 | Progress Note ---
DATE: December 13, 2017 CARDIOLOGY PROGRESS NOTE SUBJECTIVE: The patient denies chest pain or shortness of breath. OBJECTIVE VITALS: Temperature 97.5 degrees, pulse 71, respiratory rate 18, blood pressure 139/65, oxygen saturation 99% on room air. GENERAL: Elderly woman, cachectic, frail, in no acute distress. LUNGS: Clear to auscultation bilaterally. No wheezes or crackles. CARDIOVASCULAR: Normal rate. Regular rhythm. No murmur. Normal S1 and S2. ABDOMEN: Soft and nontender. EXTREMITIES: No edema. CARDIAC MEDICATIONS 1. Losartan 100 mg p.o. daily. 2. Furosemide 20 mg p.o. daily. 3. Metoprolol succinate 100 mg p.o. b.i.d. 4. Amlodipine 10 mg p.o. daily. 5. Aspirin 81 mg p.o. daily. LABS: WBC 10.14, hemoglobin 8.2, hematocrit 27, platelets 303. Sodium 134, potassium 3.6, chloride 102, CO2 25, BUN 23, creatinine 1.03. TELEMETRY: Normal sinus rhythm. IMPRESSION 1. Acute anemia, suspect gastrointestinal bleeding given positive stool occult blood. 2. Pseudomonas aeruginosa urinary tract infection. 3. Acute kidney injury on chronic kidney disease, improved. 4. Iron deficiency anemia. 5. Vddov-if-wrnkbas diastolic heart failure. 6. Chest pain. 7. History of deep venous thrombosis/pulmonary embolism. 8. Reported history of atrial fibrillation. 9. Hypertension, improved. 10. Sinus tachycardia, resolved. RECOMMENDATIONS: The patient ruled out for myocardial infarction with serial cardiac biomarkers. Continue current cardiac medications. Monitor the patient on telemetry. Warfarin has been discontinued due to the patient's anemia. GI consult noted. She may proceed with EGD without further cardiac evaluation. Antibiotics per primary service. Monitor and replete electrolytes. Thank you for this consult. We will continue to follow. Job#: [id number]
[2017-12-13] MEDS: PRAMIPEXOLE DIHYDROCHLORIDE 0.25 MG TAB PO SCH (21:30)
[2017-12-13] MEDS: HYDROCODONE/APAP 5MG-325MG TAB PO PRN (21:30)
[2017-12-14] VITALS (8 sets, daily range): BP systolic 114–152; BP diastolic 51–78
[2017-12-14] MEDS: PIPER-TAZ 3.375 GM 100 ML IV SCH (00:45)
[2017-12-14] MEDS: PANTOPRAZOL 40MG/SOD CHL 0.9% 50 ML IV SCH ×4 (04:26→20:21)
[2017-12-14 05:57] LABS: BASOPHILS % 0.3 % (0.0-1.0); EOSINOPHILS # (AUTO) 0.3 (0.0-0.4); EOSINOPHILS % 2.4 % (0.0-6.0); HEMATOCRIT 28.8 % (34.2-44.1); HEMOGLOBIN 8.4 g/dL (12.0-16.0); LYMPHOCYTES # (AUTO) 1.4 (1.0-3.2); LYMPHOCYTES % 13.2 % (18.0-39.1); MEAN CORPUSCULAR HEMOGLOBIN 23.1 pg (28-32); MEAN CORPUSCULAR HGB CONC 29.2 g/dL (31-35); MEAN CORPUSCULAR VOLUME 79.3 fL (81-99); MONOCYTES # (AUTO) 1.1 (0.2-0.8); MONOCYTES % 9.8 % (4.4-11.3); NEUTROPHILS # (AUTO) 7.9 (2.1-6.9); PLATELET COUNT 321 x10e3/uL (140-360); RED BLOOD COUNT 3.63 x10e6/uL (3.6-5.1)
[2017-12-14 06:15] LABS: ANION GAP 9.2 mmol/L (8-16); CALCIUM 8.2 mg/dL (8.4-10.2); CREATININE, SERUM 1.17 mg/dL (0.57-1.11); POTASSIUM 4.2 mmol/L (3.5-5.1)
[2017-12-14] MEDS: LEVOTHYROXINE SODIUM 50 MCG TAB PO SCH (06:24)
[2017-12-14 07:57] LABS: PLATELET ESTIMATE ADEQUATE; PLATELET MORPHOLOGY COMMENT NORMAL
[2017-12-14 07:59] LABS: ANISOCYTOSIS MARKED; ELLIPTOCYTE, RBC SLIGHT; HYPOCHROMASIA MARKED; MICROCYTOSIS MODERATE; RBC MORPHOLOGY COMMENT ABNORMAL; TARGET CELLS MODERATE
[2017-12-14] MEDS: MEGACE 400MG/ 10ML CUP PO SCH (09:00)
[2017-12-14] MEDS: CHOLESTYRAMINE 4 GM PACKET PO SCH ×2 (09:00→17:45)
[2017-12-14] MEDS: METOPROLOL SUCCINATE 50 MG TAB XL PO SCH ×2 (09:00→17:45)
[2017-12-14] MEDS: LOSARTAN POTASSIUM 100 MG TAB PO SCH (09:00)
[2017-12-14] MEDS: FUROSEMIDE 20 MG TAB PO SCH (09:00)
[2017-12-14] MEDS: AMLODIPINE BESYLATE 10 MG TAB PO SCH (09:00)
[2017-12-14] MEDS: ASPIRIN 81 MG CHEW TAB PO SCH (09:00)
[2017-12-14] MEDS: ALLOPURINOL 100 MG TAB PO SCH (09:00)
--- NOTE | 2017-12-14 17:51 | Progress Note ---
DATE: December 14, 2017 CARDIOLOGY PROGRESS NOTE SUBJECTIVE: The patient denies chest pain or shortness of breath. She reports she was eating well yesterday before she became n.p.o. for EGD today. OBJECTIVE VITAL SIGNS: Temperature 97.6 degrees, pulse 88, respiratory rate 18, blood pressure 134/78, oxygen saturation 100% on room air. GENERAL: Cachectic, frail, elderly woman in no acute distress. LUNGS: Clear to auscultation bilaterally. No wheezes or crackles. CARDIOVASCULAR: Normal rate, regular rhythm. No murmur. Normal S1 and S2. ABDOMEN: Soft, nontender. EXTREMITIES: No edema. CARDIAC MEDICATIONS 1. Losartan 100 mg p.o. daily. 2. Lasix 20 mg p.o. daily. 3. Metoprolol succinate 100 mg p.o. b.i.d. 4. Amlodipine 10 mg p.o. daily. 5. Aspirin 81 mg p.o. daily. 6. Levothyroxine 50 mcg p.o. daily. LABS: WBC 10.67, hemoglobin 8.4, hematocrit 28.8, platelets 321. Sodium 135, potassium 4.2, chloride 105, CO2 25, BUN 25, creatinine 1.17. IMPRESSION 1. Acute anemia, suspect gastrointestinal bleeding given a positive stool occult blood. 2. Pseudomonas aeruginosa urinary tract infection. 3. Acute kidney injury on chronic kidney disease, improved. 4. Iron deficiency anemia. 5. Hmpvt-mt-wdkxovq diastolic heart failure. 6. Chest pain. 7. History of deep vein thrombosis/pulmonary embolism. 8. History of atrial fibrillation. 9. Hypertension, improved. 10. Sinus tachycardia, resolved. RECOMMENDATIONS: The patient ruled out for a myocardial infarction with serial cardiac biomarkers. Her blood pressure is acceptable for age. Continue current cardiac medications. Monitor patient on telemetry. Warfarin is currently on hold given acute anemia. We will discuss resuming after EGD and GI evaluation has been completed. Antibiotics per primary service. Thank you for this consult. We will continue to follow. Job#: [id number] EV
[2017-12-14] MEDS ORDERED: PROPOFOL IV EMULSION 10 MG/ML 50 ML VIAL ONE (19:10)
[2017-12-14] MEDS: PRAMIPEXOLE DIHYDROCHLORIDE 0.25 MG TAB PO SCH (20:14)
[2017-12-14] MEDS: HYDROCODONE/APAP 5MG-325MG TAB PO PRN (20:20)
[2017-12-14] MEDS ORDERED: MAGNESIUM SULFATE 2GM/50ML 50 ML IV ONE (21:15)
[2017-12-14] MEDS ORDERED: SODIUM CHLORIDE 0.9% 250ML 250 ML ONE (21:57)
[2017-12-15] MEDS: PANTOPRAZOL 40MG/SOD CHL 0.9% 50 ML IV SCH ×2 (01:16→07:25)
[2017-12-15 04:15] VITALS: BP 142/63
[2017-12-15 06:45] LABS: BASOPHILS % 0.4 % (0.0-1.0); EOSINOPHILS # (AUTO) 0.3 (0.0-0.4); EOSINOPHILS % 2.5 % (0.0-6.0); HEMATOCRIT 30.2 % (34.2-44.1); LYMPHOCYTES # (AUTO) 1.2 (1.0-3.2); MEAN CORPUSCULAR HEMOGLOBIN 23.7 pg (28-32); MEAN CORPUSCULAR HGB CONC 29.8 g/dL (31-35); MEAN CORPUSCULAR VOLUME 79.7 fL (81-99); MONOCYTES % 8.9 % (4.4-11.3); NEUTROPHILS # (AUTO) 8.3 (2.1-6.9); NEUTROPHILS % 76.7 % (38.7-80.0); PLATELET COUNT 325 x10e3/uL (140-360); RED BLOOD COUNT 3.79 x10e6/uL (3.6-5.1); RED CELL DISTRIBUTION WIDTH 30.2 % (11.7-14.4)
[2017-12-15 07:11] LABS: ANION GAP 9.2 mmol/L (8-16); CALCIUM 8.6 mg/dL (8.4-10.2); CREATININE, SERUM 0.97 mg/dL (0.57-1.11); POTASSIUM 4.2 mmol/L (3.5-5.1)
[2017-12-15] MEDS: LEVOTHYROXINE SODIUM 50 MCG TAB PO SCH (07:17)
[2017-12-15 08:06] LABS: ANISOCYTOSIS MARKED; BAND NEUTROPHILS % (MANUAL) 1 %; EOSINOPHILS % (MANUAL) 1 % (0-7); HYPOCHROMASIA MODERATE; LYMPHOCYTES % (MANUAL) 16 % (19-48); NEUTROPHILS % (MANUAL) 82 % (40-74); POIKILOCYTOSIS MODERATE
[2017-12-15 08:07] LABS: PLATELET ESTIMATE ADEQUATE; PLATELET MORPHOLOGY COMMENT FEW EDTA CLUMPING
[2017-12-15] MEDS: LOSARTAN POTASSIUM 100 MG TAB PO SCH (09:00)
[2017-12-15] MEDS: ASPIRIN 81 MG CHEW TAB PO SCH (09:00)
[2017-12-15] MEDS: FUROSEMIDE 20 MG TAB PO SCH (09:01)
[2017-12-15] MEDS: AMLODIPINE BESYLATE 10 MG TAB PO SCH (09:01)
[2017-12-15] MEDS: METOPROLOL SUCCINATE 50 MG TAB XL PO SCH ×2 (09:01→17:00)
[2017-12-15] MEDS: ALLOPURINOL 100 MG TAB PO SCH (09:01)
[2017-12-15] MEDS: MEGACE 400MG/ 10ML CUP PO SCH (09:01)
[2017-12-15] MEDS: CHOLESTYRAMINE 4 GM PACKET PO SCH ×2 (09:01→17:14)
[2017-12-15 09:29] VITALS: BP 137/62
[2017-12-15 12:12] VITALS: BP 137/62
--- NOTE | 2017-12-15 12:49 | Progress Note ---
DATE: December 15, 2017 CARDIOLOGY PROGRESS NOTE SUBJECTIVE: Patient denies any shortness of breath, chest pain or palpitations. Status post EGD yesterday and feeling well. OBJECTIVE VITAL SIGNS: Temperature 98.2, pulse 82, respiratory rate 18. Blood pressure 137/62. Oxygen saturation 100% on 2 liters nasal cannula. CARDIOVASCULAR MEDICATIONS 1. Lasix 20 mg p.o. daily. 2. Metoprolol 100 p.o. b.i.d. 3. Amlodipine 10 p.o. daily. 4. Losartan 100 p.o. daily. 5. Aspirin 81 p.o. daily. 6. Levothyroxine 50 mcg p.o. daily. LABS: WBC count 10.79, hemoglobin 9.0, hematocrit 30.2, platelets 325. Sodium 136, potassium 4.2, BUN 19, creatinine 0.97. Calcium 8.6. TELEMETRY: Sinus rhythm. PHYSICAL EXAMINATION GENERAL: Alert and oriented times 3, resting comfortably in bed, does not appear to be in any acute distress. CARDIOVASCULAR: Regular rate and rhythm, normal S1 and S2. No S3 or S4 auscultated. No rubs. No gallops. LUNGS: Clear to auscultation throughout. No wheezing. No rhonchi. No crackles. ABDOMEN: Soft, nontender. LOWER EXTREMITIES: No edema. IMPRESSION 1. Acute anemia, suspect gastrointestinal bleed. However, ricki esophagitis and gastritis noted on esophagogastroduodenoscopy. Positive stool occult blood. 2. Pseudomonas aeruginosa urinary tract infection. 3. Acute kidney injury on chronic kidney disease, improved. 4. Iron deficiency anemia. 5. Yudbx-pz-zmtxqzp diastolic heart failure. 6. Chest pain, resolved. 7. History of deep vein thrombosis and pulmonary embolism. 8. History of atrial fibrillation. 9. Hypertension. RECOMMENDATION: Patient has been ruled out for myocardial infarction with serial cardiac markers. Chest pain has resolved. Continue to monitor and maintain on tele. Continue to monitor blood pressure closely. Patient acceptable for age at this time. Warfarin is currently on hold given acute anemia and also requiring procedures. Patient reports plan for colonoscopy coming up soon. Continue antibiotics per primary service. Protonix initiated due to gastritis. Will continue to follow the patient very closely. Dictated by Gabriela Cash NP. Job#: [id number]
[2017-12-15 13:15] VITALS: BP 129/59
[2017-12-15 17:06] VITALS: BP 124/59
[2017-12-15 20:00] VITALS: BP 138/65
[2017-12-15] MEDS: HYDROCODONE/APAP 5MG-325MG TAB PO PRN (21:47)
[2017-12-15] MEDS: PRAMIPEXOLE DIHYDROCHLORIDE 0.25 MG TAB PO SCH (21:47)
--- NOTE | 2017-12-15 23:30 | Progress Note ---
DATE: SUBJECTIVE: Patient is doing a little bit better. EGD was noted. Feels like her appetite is better. OBJECTIVE VITAL SIGNS: Stable. She is afebrile. GENERAL: No apparent distress. CARDIOVASCULAR: Regular rate and rhythm. LUNGS: Clear to auscultation bilaterally. ABDOMEN: Good bowel sounds, soft, nontender. EXTREMITIES: No clubbing, cyanosis. NEUROLOGIC: Nonfocal. ASSESSMENT AND PLAN 1. Gastrointestinal bleed. Continue with workup per gastrointestinal. 2. Anemia. Continue to monitor. 3. Anorexia. Continue with Megace and encourage p.o. intake. 4. Urinary tract infection. She has finished the antibiotics, so this has been discontinued. Please see hospital chart for full details. Job#: [id number] CQ
[2017-12-16] VITALS (7 sets, daily range): BP systolic 122–163; BP diastolic 58–68
[2017-12-16] MEDS: LEVOTHYROXINE SODIUM 50 MCG TAB PO SCH (06:37)
[2017-12-16 07:31] LABS: BASOPHILS # (AUTO) 0.1 (0.0-0.1); BASOPHILS % 0.4 % (0.0-1.0); EOSINOPHILS # (AUTO) 0.2 (0.0-0.4); EOSINOPHILS % 1.7 % (0.0-6.0); HEMATOCRIT 29.1 % (34.2-44.1); HEMOGLOBIN 8.5 g/dL (12.0-16.0); LYMPHOCYTES # (AUTO) 1.3 (1.0-3.2); LYMPHOCYTES % 9.9 % (18.0-39.1); MEAN CORPUSCULAR HEMOGLOBIN 23.4 pg (28-32); MEAN CORPUSCULAR HGB CONC 29.2 g/dL (31-35); MEAN CORPUSCULAR VOLUME 79.9 fL (81-99); MONOCYTES # (AUTO) 0.9 (0.2-0.8); MONOCYTES % 6.9 % (4.4-11.3); NEUTROPHILS % 80.7 % (38.7-80.0); PLATELET COUNT 328 x10e3/uL (140-360); RED BLOOD COUNT 3.64 x10e6/uL (3.6-5.1); RED CELL DISTRIBUTION WIDTH 30.5 % (11.7-14.4)
[2017-12-16 08:15] LABS: ANION GAP 10.2 mmol/L (8-16); BLOOD UREA NITROGEN 24 mg/dL (7-26); BUN/CREATININE RATIO 31 (6-25); CALCIUM 9.1 mg/dL (8.4-10.2); CARBON DIOXIDE 25 mmol/L (22-29); CHLORIDE 104 mmol/L (98-107); CREATININE, SERUM 0.78 mg/dL (0.57-1.11); EST GLOMERULAR FILTRATION RATE > 60 ML/MIN (60-); POTASSIUM 5.2 mmol/L (3.5-5.1); SODIUM 134 mmol/L (136-145)
[2017-12-16] MEDS ORDERED: BISACODYL 5 MG TAB EC PO ONE ×6 (09:00→23:30)
[2017-12-16] MEDS: LOSARTAN POTASSIUM 100 MG TAB PO SCH (09:12)
[2017-12-16] MEDS: MEGACE 400MG/ 10ML CUP PO SCH (09:12)
[2017-12-16] MEDS: FUROSEMIDE 20 MG TAB PO SCH (09:12)
[2017-12-16] MEDS: ASPIRIN 81 MG CHEW TAB PO SCH (09:12)
[2017-12-16] MEDS: METOPROLOL SUCCINATE 50 MG TAB XL PO SCH ×2 (09:13→17:15)
[2017-12-16] MEDS: AMLODIPINE BESYLATE 10 MG TAB PO SCH (09:13)
[2017-12-16] MEDS: ALLOPURINOL 100 MG TAB PO SCH (09:13)
[2017-12-16] MEDS: CHOLESTYRAMINE 4 GM PACKET PO SCH ×2 (09:13→17:00)
--- NOTE | 2017-12-16 10:33 | Progress Note ---
DATE: December 16, 2017 CARDIOLOGY PROGRESS NOTE SUBJECTIVE: Patient is without any complaints. She denies any shortness of breath, chest pain or palpitations. She states she is eagerly awaiting her colonoscopy tomorrow. OBJECTIVE VITAL SIGNS: Temperature 98.8, pulse 94, respiratory rate 20. Blood pressure 151/67. Oxygen saturation is 100% on 2 liters nasal cannula. CARDIOVASCULAR MEDICATIONS 1. Levothyroxine 50 mcg p.o. daily. 2. Furosemide 20 mg p.o. daily. 3. Amlodipine 10 p.o. daily. 4. Metoprolol 5 mg IV q.6 h. p.r.n. for hypertension. 5. Losartan 100 mg p.o. daily. 6. Aspirin 81 p.o. daily. 7. Metoprolol 100 mg p.o. b.i.d. LABS: WBC 13.59, hemoglobin 8.5, hematocrit 29.1, platelets 328. Sodium 134, potassium 5.2, BUN 24, creatinine 0.78, calcium 9.1. PHYSICAL EXAMINATION GENERAL: Alert and oriented times 3, resting comfortably in bed, does not appear to be in any acute distress. LUNGS: Clear to auscultation throughout. However, scattered fine crackles anteriorly in lower lobes. No wheezing. No rhonchi. ABDOMEN: Soft. Nontender. LOWER EXTREMITIES: No edema. CARDIOVASCULAR: Regular rate and rhythm. Normal S1 and S2. No rubs and no gallops noted. IMPRESSION 1. Acute anemia, suspected gastrointestinal bleed with positive occult stool. 2. Lida esophagitis and gastritis noted on esophagogastroduodenoscopy. 3. Pseudomonas aeruginosa urinary tract infection. 4. Ftalw-bs-hyzptjp kidney injury. 5. Iron deficiency anemia. 6. Ssfat-gr-xxxfuug diastolic heart failure. 7. Chest pain feature resolved. 8. History of deep vein thrombosis and pulmonary embolism. 9. Atrial fibrillation. 10. Hypertension. RECOMMENDATIONS: Continue the above-listed cardiac medications. Maintain on telemetry. Noted to be in sinus rhythm. Continue to monitor the blood pressure closely. Blood pressure is acceptable for age at this time and re-evaluate. Continue to hold warfarin with reported colonoscopy scheduled for tomorrow. Continue care with GI. Will continue to follow very closely. Dictated by Gabriela Cash NP. Job#: [id number]
[2017-12-16 10:36] LABS: GLUCOSE 87 mg/dL (74-118)
[2017-12-16] MEDS ORDERED: CITRATE OF MAGNESIA 300ML BOTTLE PO ONE ×2 (17:00→20:00)
[2017-12-16] MEDS: PRAMIPEXOLE DIHYDROCHLORIDE 0.25 MG TAB PO SCH (20:55)
[2017-12-16] MEDS: HYDROCODONE/APAP 5MG-325MG TAB PO PRN (20:55)
[2017-12-17] VITALS (8 sets, daily range): BP systolic 99–170; BP diastolic 44–64
[2017-12-17] MEDS: LEVOTHYROXINE SODIUM 50 MCG TAB PO SCH (03:54)
[2017-12-17] MEDS ORDERED: CITRATE OF MAGNESIA 300ML BOTTLE PO ONE (05:00)
[2017-12-17 06:20] LABS: BASOPHILS # (AUTO) 0.1 (0.0-0.1); BASOPHILS % 0.9 % (0.0-1.0); EOSINOPHILS # (AUTO) 0.3 (0.0-0.4); EOSINOPHILS % 3.5 % (0.0-6.0); HEMATOCRIT 28.5 % (34.2-44.1); HEMOGLOBIN 8.3 g/dL (12.0-16.0); LYMPHOCYTES # (AUTO) 1.1 (1.0-3.2); LYMPHOCYTES % 12.8 % (18.0-39.1); MEAN CORPUSCULAR HEMOGLOBIN 23.6 pg (28-32); MEAN CORPUSCULAR HGB CONC 29.1 g/dL (31-35); MEAN CORPUSCULAR VOLUME 81.2 fL (81-99); MONOCYTES # (AUTO) 0.8 (0.2-0.8); NEUTROPHILS % 72.4 % (38.7-80.0); PLATELET COUNT 348 x10e3/uL (140-360); RED BLOOD COUNT 3.51 x10e6/uL (3.6-5.1); RED CELL DISTRIBUTION WIDTH 30.3 % (11.7-14.4)
[2017-12-17 06:44] LABS: BLOOD UREA NITROGEN 26 mg/dL (7-26); BUN/CREATININE RATIO 33 (6-25); CALCIUM 9.7 mg/dL (8.4-10.2); CARBON DIOXIDE 21 mmol/L (22-29); CHLORIDE 107 mmol/L (98-107); CREATININE, SERUM 0.79 mg/dL (0.57-1.11); EST GLOMERULAR FILTRATION RATE > 60 ML/MIN (60-); GLUCOSE 83 mg/dL (74-118); SODIUM 135 mmol/L (136-145)
[2017-12-17 08:36] LABS: HYPOCHROMASIA SLIGHT; RBC MORPHOLOGY COMMENT ABNORMAL
[2017-12-17 08:37] LABS: ANISOCYTOSIS MODERATE; PLATELET ESTIMATE ADEQUATE; PLATELET MORPHOLOGY COMMENT NORMAL; POIKILOCYTOSIS MODERATE
[2017-12-17] MEDS: MEGACE 400MG/ 10ML CUP PO SCH (09:00)
[2017-12-17] MEDS: METOPROLOL SUCCINATE 50 MG TAB XL PO SCH ×2 (09:00→16:36)
[2017-12-17] MEDS: AMLODIPINE BESYLATE 10 MG TAB PO SCH (09:00)
[2017-12-17] MEDS: LOSARTAN POTASSIUM 100 MG TAB PO SCH (09:00)
[2017-12-17] MEDS: ALLOPURINOL 100 MG TAB PO SCH (09:00)
[2017-12-17] MEDS: ASPIRIN 81 MG CHEW TAB PO SCH (09:00)
[2017-12-17] MEDS: FUROSEMIDE 20 MG TAB PO SCH (09:00)
[2017-12-17] MEDS: CHOLESTYRAMINE 4 GM PACKET PO SCH ×2 (09:00→15:47)
[2017-12-17] MEDS ORDERED: PEG (High)/E-LYTE SOLN 4,000 ML BTL PO ONE (12:30)
--- NOTE | 2017-12-17 18:42 | Diagnostic Imaging Report ---
PROCEDURE: A single AP view of the chest. COMPARISON: 12/01/17 INDICATIONS: SHORTNESS OF BREATH, COUGH FINDINGS: Lines/tubes: None. Lungs: The lungs are well inflated. Multi-focal opacities, most prominent in right upper lobe. Pleura: There is no significant pleural effusion or pneumothorax. Heart and mediastinum: The heart and the mediastinum are unremarkable. Bones: No acute bony abnormality. IMPRESSION: Airspace opacities, especially in right upper lobe, concerning for pneumonia. Dictated by: Nghia Hallman M.D. on 12/17/2017 at 18:44 Electronically approved by: Nghia Hallman M.D. on 12/17/2017 at 18:44
--- NOTE | 2017-12-17 19:14 | Progress Note ---
DATE: December 17, 2017 CARDIOLOGY PROGRESS NOTE SUBJECTIVE: Patient denies chest pain or shortness of breath. She complains of congestion. OBJECTIVE VITAL SIGNS: Temperature 97.7 degrees, pulse 96, respiratory rate 18, blood pressure 170/64, oxygen saturation 100% on room air. GENERAL: Elderly woman, frail, no acute distress. Chronically ill-appearing. LUNGS: Clear to auscultation bilaterally. No wheezes or crackles. CARDIOVASCULAR: Normal rate, regular rhythm. No murmur. Normal S1 and S2. ABDOMEN: Soft, nontender. EXTREMITIES: No edema. CARDIAC MEDICATIONS 1. Metoprolol succinate 100 mg p.o. b.i.d. 2. Furosemide 20 mg p.o. daily. 3. Losartan 100 mg p.o. daily. 4. Amlodipine 10 mg p.o. daily. 5. Levothyroxine 50 mcg p.o. daily. 6. Aspirin 81 mg p.o. daily. LABS: WBC 8.22, hemoglobin 8.3, hematocrit 28.5, platelets 348. Sodium 135, potassium 4, chloride 107, CO2 21, BUN 26, creatinine 0.79. IMPRESSION 1. Acute anemia, suspect gastrointestinal bleed with positive stool occult blood. 2. Lida esophagitis and gastritis as noted on esophagogastroduodenoscopy. 3. Pseudomonas aeruginosa urinary tract infection. 4. Zbbjf-pu-gulgsvv kidney disease. 5. Iron deficiency anemia. 6. Bfued-vy-qdjycwb diastolic heart failure. 7. Chest pain, resolved. 8. History of deep vein thrombosis/pulmonary embolism. 9. Reported history of atrial fibrillation. 10. Hypertension. RECOMMENDATIONS: The patient ruled out for a myocardial infarction with serial cardiac biomarkers. Continue current cardiac medications. Warfarin is on hold given anemia. Currently undergoing GI evaluation for possible GI source of bleeding. Patient was unable to undergo colonoscopy today because she was not adequately clear after GoLYTELY prep. Attempting colonoscopy tomorrow. Antibiotics per primary service. Discussed resuming anticoagulation once GI evaluation is complete. Check chest x-ray given her complaint of cough. Blood pressure is not well controlled. However, patient missed several of her medications this morning due to her n.p.o. status. Thank you for this consult. We will continue to follow. Job#: [id number] MANISHA
[2017-12-17] MEDS: PRAMIPEXOLE DIHYDROCHLORIDE 0.25 MG TAB PO SCH (21:09)
[2017-12-17] MEDS: PIPER-TAZ 3.375 GM 100 ML IV SCH (22:40)
[2017-12-18] VITALS: BP 111/56
[2017-12-18 04:00] VITALS: BP 123/56
[2017-12-18] MEDS: ACETAMINOPHEN 325 MG TAB PO PRN (04:50)
[2017-12-18] MEDS: PIPER-TAZ 3.375 GM 100 ML IV SCH ×3 (06:09→21:31)
[2017-12-18] MEDS: LEVOTHYROXINE SODIUM 50 MCG TAB PO SCH (06:09)
[2017-12-18 07:12] LABS: BASOPHILS % 0.7 % (0.0-1.0); EOSINOPHILS # (AUTO) 0.2 (0.0-0.4); EOSINOPHILS % 3.7 % (0.0-6.0); HEMOGLOBIN 7.1 g/dL (12.0-16.0); LYMPHOCYTES # (AUTO) 0.9 (1.0-3.2); LYMPHOCYTES % 15.5 % (18.0-39.1); MEAN CORPUSCULAR HEMOGLOBIN 23.5 pg (28-32); MEAN CORPUSCULAR HGB CONC 29.6 g/dL (31-35); MEAN CORPUSCULAR VOLUME 79.5 fL (81-99); MONOCYTES # (AUTO) 0.7 (0.2-0.8); MONOCYTES % 12.1 % (4.4-11.3); NEUTROPHILS % 67.7 % (38.7-80.0); PLATELET COUNT 277 x10e3/uL (140-360); RED BLOOD COUNT 3.02 x10e6/uL (3.6-5.1); RED CELL DISTRIBUTION WIDTH 30.4 % (11.7-14.4)
[2017-12-18 07:34] LABS: ANION GAP 11.3 mmol/L (8-16); BLOOD UREA NITROGEN 24 mg/dL (7-26); BUN/CREATININE RATIO 29 (6-25); CALCIUM 9.2 mg/dL (8.4-10.2); CARBON DIOXIDE 25 mmol/L (22-29); CHLORIDE 106 mmol/L (98-107); CREATININE, SERUM 0.83 mg/dL (0.57-1.11); EST GLOMERULAR FILTRATION RATE > 60 ML/MIN (60-); GLUCOSE 75 mg/dL (74-118); POTASSIUM 4.3 mmol/L (3.5-5.1); SODIUM 138 mmol/L (136-145)
[2017-12-18 07:50] VITALS: BP 133/57
[2017-12-18 08:00] VITALS: BP 133/57
[2017-12-18] MEDS: METOPROLOL SUCCINATE 50 MG TAB XL PO SCH ×2 (09:00→17:00)
[2017-12-18] MEDS: ALLOPURINOL 100 MG TAB PO SCH (09:35)
[2017-12-18] MEDS: AMLODIPINE BESYLATE 10 MG TAB PO SCH (09:35)
[2017-12-18 09:53] LABS: ANISOCYTOSIS MODERATE; HOWELL-JOLLY BODIES FEW; HYPOCHROMASIA MODERATE; PLATELET ESTIMATE ADEQUATE; POIKILOCYTOSIS SLIGHT; RBC MORPHOLOGY COMMENT ABNORMAL
[2017-12-18 09:54] LABS: ELLIPTOCYTE, RBC SLIGHT; PLATELET MORPHOLOGY COMMENT FEW LARGE
--- NOTE | 2017-12-18 10:28 | Consultation ---
DATE OF CONSULTATION: PULMONARY CONSULTATION A charming but unfortunate 82-year-old woman admitted with low blood pressure noted by home health nurses. She was also found to be in renal failure with elevated potassium. She has a history of hypertension, intermittent atrial fibrillation, DVT in the past, chronic kidney disease, COPD, gouty arthritis. She was found to have a urinary tract infection. ALLERGIES: SHE IS ALLERGIC TO SULFA, LEVAQUIN AND STATINS. Currently, she is on Zosyn, allopurinol, Norvasc, aspirin, Questran, Vicodin, Levoxyl, losartan, Megace, metoprolol, pramipexole. She is an ex-smoker. Smoked for 35 years. Quit in . civil service worker. FAMILY HISTORY: Noncontributory. She has had tubal ligation, hysterectomy and appendectomy. PHYSICAL EXAMINATION GENERAL: She is a slight white female in no acute distress. Awaiting colonoscopy. VITALS: Temperature 97.8, pulse 92, respirations 18, blood pressure 123/81. HEENT: Head is normocephalic and atraumatic. LUNGS: Few rhonchi. HEART: Regular rhythm. ABDOMEN: Nontender. EXTREMITIES: Nonedematous. Chest x-ray suggests right upper lobe pneumonia. Vague and raring fluid in the supine position is also a possibility. PLAN: Continue antibiotics. GI evaluation. Ultrasound of chest. Follow 2-view chest x-ray. Inhaled bronchodilators. Will attempt to avoid beta-2 agonist in view of her history of atrial fibrillation. Continue anticoagulation in view of her sedentary lifestyle and history of DVT. She currently uses a walker. Thank you for this kind referral. Job#: [id number] [place]
[2017-12-18] MEDS: IPRATROPIUM BROMIDE 0.02% 2.5 ML NEB NEB SCH ×2 (13:00→19:30)
--- NOTE | 2017-12-18 13:49 | Operative Report ---
DATE OF PROCEDURE: December 18, 2017 REFERRING PHYSICIAN: Eduardo Cochran MD PROCEDURE PERFORMED: Colonoscopy with biopsies. INDICATIONS FOR COLONOSCOPY: Anemia, guaiac-positive stools. MEDICATION: Patient was done under MAC. Please see anesthesiologist's note. PROCEDURE: With the patient in the left lateral decubitus position, the flexible fiberoptic Olympus colonoscope was inserted into the rectum with ease and advanced all the way to the cecum. It was then withdrawn slowly. Mucosa overlying the cecum, ascending colon, and transverse colon grossly appeared to be within normal limits. There were some scattered minute ulcerations noted in the distal descending and the sigmoid colon, and biopsies were obtained. This might represent a resolving ischemic colitis. There was some diverticular disease noted in the sigmoid colon. The rectum grossly appeared to be within normal limits. The scope was then retroflexed into the distal rectum, and the area around the dentate line appeared to be within normal limits. The scope was then straightened out. The rectosigmoid area as well as the distal rectal area were decompressed. The scope was subsequently withdrawn. Patient tolerated the procedure well. IMPRESSION 1. Colitis, resolving, (?)ischemic, distal descending and sigmoid colon. Biopsies obtained. 2. Diverticulosis. PLAN: Follow up histology. Initiate GI soft diet. There is no need for a followup colonoscopy. Job#: [id number] cc:EDUARDO COCHRAN MD
[2017-12-18] MEDS: CHOLESTYRAMINE 4 GM PACKET PO SCH (14:15)
[2017-12-18] MEDS: LOSARTAN POTASSIUM 100 MG TAB PO SCH (14:15)
[2017-12-18] MEDS: MEGACE 400MG/ 10ML CUP PO SCH (14:15)
[2017-12-18] MEDS: ASPIRIN 81 MG CHEW TAB PO SCH (14:15)
[2017-12-18] MEDS: FUROSEMIDE 20 MG TAB PO SCH (14:15)
[2017-12-18] MEDS ORDERED: PANTOPRAZOLE SOD 40 MG TABEC PO ONE (14:30)
[2017-12-18] MEDS ORDERED: ACETAMINOPHEN 325 MG TAB PO STA (15:01)
[2017-12-18] MEDS ORDERED: FUROSEMIDE INJ 10 MG/ML 2 ML VIAL IV PRN (15:15)
[2017-12-18] MEDS ORDERED: SODIUM CHLORIDE 0.9% 250ML 250 ML IV ONE (15:15)
--- NOTE | 2017-12-18 15:42 | Progress Note ---
DATE: December 18, 2017 CARDIOLOGY PROGRESS NOTE SUBJECTIVE: Patient denies chest pain or shortness of breath. She underwent colonoscopy today which revealed resolving colitis in the distal descending and sigmoid colon, possibly ischemic, biopsies were obtained, and diverticulosis. A chest x-ray that was ordered for new-onset cough was suspicious for air-space opacities in the right upper lobe concerning for pneumonia. Chest x-ray PA and lateral is pending. OBJECTIVE VITAL SIGNS: Temperature 96.7 degrees, pulse 93, respiratory rate is 20, blood pressure 117/50, oxygen saturation 97% on 2 liters nasal cannula. GENERAL: Cachectic, elderly, frail woman in no acute distress. LUNGS: Clear to auscultation bilaterally. No wheezes or crackles. CARDIOVASCULAR: Normal rate, regular rhythm. No murmur. Normal S1 and S2. ABDOMEN: Soft, nontender. EXTREMITIES: No edema. CARDIAC MEDICATIONS 1. Losartan 100 mg p.o. daily. 2. Furosemide 20 mg p.o. daily. 3. Aspirin 81 mg p.o. daily. 4. Amlodipine 10 mg p.o. daily. 5. Levothyroxine 50 mcg p.o. daily. 6. Metoprolol succinate 100 mg p.o. b.i.d. LABS: WBC 5.88, hemoglobin 7.1, hematocrit 24, platelets 277. Sodium 138, potassium 4.3, chloride 106, CO2 25, BUN 24, creatinine 0.83. IMPRESSION 1. Acute anemia, suspect gastrointestinal bleeding due to positive stool occult blood. 2. Lida esophagitis and gastritis as noted on esophagogastroduodenoscopy. 3. Resolving colitis, possibly ischemic. 4. Pseudomonas aeruginosa urinary tract infection. 5. Suspected right upper lobe pneumonia. 6. Usiid-vq-bcqybwn kidney disease. 7. Iron deficiency anemia. 8. Fjqrg-yk-ylakfso diastolic heart failure. 9. Chest pain, resolved. 10. History of deep vein thrombosis/pulmonary embolism. 11. Reported history of atrial fibrillation. 12. Hypertension. RECOMMENDATIONS: Patient ruled out for myocardial infarction with serial cardiac biomarkers. Continue current cardiac medications. Warfarin is on hold given downtrending hemoglobin and hematocrit. Currently undergoing GI evaluation for possible GI source of bleeding. Await biopsy results. Antibiotics per primary service. Patient's blood pressure is well controlled today. Continue current antihypertensive therapies. Thank you for this consult. We will continue to follow. Job#: [id number] EV
[2017-12-18 16:00] VITALS: BP 138/52
[2017-12-18] MEDS ORDERED: FENTANYL CITRATE/PF 100MCG/2 ML INJ ONE (17:50)
--- NOTE | 2017-12-18 17:54 | Diagnostic Imaging Report ---
PROCEDURE:US CHEST (INCL MEDIASTINUM) COMPARISON:None. INDICATIONS:EFFUSION FINDINGS:Transverse and longitudinal images of the chest were performed for purpose of identifying effusions. Examination shows a small right and ltiwa-td-atjtvoqg left pleural effusions with associated lower lobe atelectatic changes. CONCLUSION: 1. Small right and kbfzi-nt-pxghmzes left pleural effusions with associated lower lobe atelectatic changes José Antonio Alexander M.D. Dictated by: José Antonio Alexander M.D. on 12/18/2017 at 17:56 Electronically approved by: José Antonio Alexander M.D. on 12/18/2017 at 17:56
[2017-12-18] MEDS ORDERED: LIDOCAINE HCL 2% LOCAL INJ 5 ML SDV VIAL INJ ONE (19:31)
[2017-12-18] MEDS ORDERED: PROPOFOL IV EMULSION 10 MG/ML 20 ML VIAL ONE (19:31)
[2017-12-18] MEDS ORDERED: PHENYLEPHRINE HCL 1% 10 MG/ML VIAL ONE (19:31)
[2017-12-18 20:00] VITALS: BP 118/70
[2017-12-18] MEDS ORDERED: MAGNESIUM/ALUMINUM/SIMETHICONE 30 ML UDC PO PRN (20:15)
[2017-12-18] MEDS: PRAMIPEXOLE DIHYDROCHLORIDE 0.25 MG TAB PO SCH (21:31)
[2017-12-19] VITALS (7 sets, daily range): BP systolic 120–157; BP diastolic 55–68
[2017-12-19] MEDS: IPRATROPIUM BROMIDE 0.02% 2.5 ML NEB NEB SCH ×4 (00:45→19:40)
[2017-12-19] MEDS: LEVOTHYROXINE SODIUM 50 MCG TAB PO SCH (06:18)
--- NOTE | 2017-12-19 06:40 | Diagnostic Imaging Report ---
CHEST 2 VIEWS, Technique: CHEST 2 VIEWS Comparison: 12/17/2017 Clinical history: Pneumonia DISCUSSION: Stable cardiomediastinal silhouette. Persistent patchy bilateral and nodular opacities. Small bilateral effusions with bibasilar atelectasis or consolidation. Hiatal hernia. IMPRESSION: Stable findings of pneumonia. Signed by: Dr Sharri Osuna MD on 12/19/2017 6:37 AM
[2017-12-19] MEDS: PIPER-TAZ 3.375 GM 100 ML IV SCH ×3 (06:56→21:47)
[2017-12-19 07:43] LABS: BASOPHILS % 0.5 % (0.0-1.0); EOSINOPHILS # (AUTO) 0.2 (0.0-0.4); EOSINOPHILS % 2.2 % (0.0-6.0); HEMATOCRIT 37.5 % (34.2-44.1); HEMOGLOBIN 12.1 g/dL (12.0-16.0); LYMPHOCYTES # (AUTO) 1.1 (1.0-3.2); LYMPHOCYTES % 13.2 % (18.0-39.1); MEAN CORPUSCULAR HEMOGLOBIN 26.2 pg (28-32); MEAN CORPUSCULAR HGB CONC 32.3 g/dL (31-35); MEAN CORPUSCULAR VOLUME 81.3 fL (81-99); MONOCYTES # (AUTO) 0.8 (0.2-0.8); MONOCYTES % 9.7 % (4.4-11.3); NEUTROPHILS # (AUTO) 6.3 (2.1-6.9); NEUTROPHILS % 73.9 % (38.7-80.0); PLATELET COUNT 249 x10e3/uL (140-360); RED BLOOD COUNT 4.61 x10e6/uL (3.6-5.1); RED CELL DISTRIBUTION WIDTH 23.5 % (11.7-14.4)
[2017-12-19] MEDS: FUROSEMIDE 20 MG TAB PO SCH (07:59)
[2017-12-19] MEDS: PANTOPRAZOLE SOD 40 MG TABEC PO SCH (07:59)
[2017-12-19] MEDS: LOSARTAN POTASSIUM 100 MG TAB PO SCH (07:59)
[2017-12-19] MEDS: MEGACE 400MG/ 10ML CUP PO SCH (07:59)
[2017-12-19] MEDS: ASPIRIN 81 MG CHEW TAB PO SCH (07:59)
[2017-12-19] MEDS: METOPROLOL SUCCINATE 50 MG TAB XL PO SCH ×2 (07:59→16:29)
[2017-12-19] MEDS: AMLODIPINE BESYLATE 10 MG TAB PO SCH (07:59)
[2017-12-19] MEDS: CHOLESTYRAMINE 4 GM PACKET PO SCH ×2 (07:59→16:28)
[2017-12-19] MEDS: ALLOPURINOL 100 MG TAB PO SCH (07:59)
[2017-12-19 08:05] LABS: ALBUMIN 2.1 g/dL (3.5-5.0); ALBUMIN/GLOBULIN RATIO 0.7 (0.8-2.0); ANION GAP 10.1 mmol/L (8-16); CALCIUM 8.8 mg/dL (8.4-10.2); CREATININE, SERUM 1.04 mg/dL (0.57-1.11); MAGNESIUM 1.3 MG/DL (1.3-2.1); POTASSIUM 4.1 mmol/L (3.5-5.1)
[2017-12-19 11:09] LABS: ANISOCYTOSIS MODERATE; PLATELET ESTIMATE ADEQUATE
[2017-12-19 11:10] LABS: PLATELET MORPHOLOGY COMMENT NORMAL; RBC MORPHOLOGY COMMENT NORMAL
--- NOTE | 2017-12-19 15:58 | Progress Note ---
DATE: December 19, 2017 CARDIOLOGY PROGRESS NOTE SUBJECTIVE: Patient denies chest pain or shortness of breath. She reports her cough is better. OBJECTIVE VITAL SIGNS: Temperature 98 degrees, pulse 85, respiratory rate 20, blood pressure 157/68, oxygen saturation 100% on 2 L nasal cannula. GENERAL: Awake, alert, cachectic, elderly, frail woman in no acute distress. LUNGS: Clear to auscultation bilaterally. No wheezes or crackles. CARDIOVASCULAR: Normal rate, regular rhythm. No murmur. Normal S1 and S2. ABDOMEN: Soft, nontender. EXTREMITIES: No edema. CARDIAC MEDICATIONS 1. Losartan 100 mg p.o. daily. 2. Furosemide 20 mg p.o. daily. 3. Metoprolol succinate 100 mg p.o. b.i.d. 4. Amlodipine 10 mg p.o. daily. 5. Aspirin 81 mg p.o. daily. 6. Levothyroxine 50 mcg p.o. daily. LABS: WBC 8.46, hemoglobin 12.1, hematocrit 37.5, platelets 249. Sodium 136, potassium 4.1, chloride 106, CO2 24, BUN 22, creatinine 1.04. IMPRESSION 1. Acute anemia, suspect gastrointestinal bleeding due to positive stool occult blood. 2. Lida esophagitis and gastritis as noted on esophagogastroduodenoscopy. 3. Resolving colitis, possibly ischemic. 4. Pseudomonas aeruginosa urinary tract infection. 5. Suspected right upper lobe pneumonia. 6. Eylfr-sd-bvwbctt kidney disease. 7. Iron deficiency anemia. 8. Rmlgf-rl-yqayavb diastolic heart failure. 9. Chest pain, resolved. 10. History of deep vein thrombosis/pulmonary embolism. 11. Reported history of atrial fibrillation. 12. Hypertension. RECOMMENDATIONS: Patient ruled out for myocardial infarction with serial cardiac biomarkers. Continue current cardiac medications. Warfarin is on hold given downtrending hemoglobin and hematocrit. Currently undergoing GI evaluation for possible source of bleeding. Await biopsy results. Antibiotics per primary service. Patient's blood pressure is borderline for age. Continue current antihypertensive therapy. Watch creatinine closely. Thank you for this consult. We will continue to follow. Job#: [id number]
[2017-12-19] MEDS: HYDROCODONE/APAP 5MG-325MG TAB PO PRN (21:47)
[2017-12-19] MEDS: PRAMIPEXOLE DIHYDROCHLORIDE 0.25 MG TAB PO SCH (21:47)
[2017-12-20] VITALS (8 sets, daily range): BP systolic 105–158; BP diastolic 47–69
[2017-12-20] MEDS: IPRATROPIUM BROMIDE 0.02% 2.5 ML NEB NEB SCH ×4 (02:05→20:38)
[2017-12-20] MEDS: PIPER-TAZ 3.375 GM 100 ML IV SCH ×3 (05:04→21:09)
[2017-12-20] MEDS: LEVOTHYROXINE SODIUM 50 MCG TAB PO SCH (05:05)
[2017-12-20] MEDS ORDERED: MAGNESIUM SULFATE 2GM/50ML 50 ML IV ONE (05:45)
[2017-12-20 07:16] LABS: BASOPHILS % 0.3 % (0.0-1.0); EOSINOPHILS # (AUTO) 0.2 (0.0-0.4); EOSINOPHILS % 3.2 % (0.0-6.0); HEMATOCRIT 36.2 % (34.2-44.1); HEMOGLOBIN 11.6 g/dL (12.0-16.0); LYMPHOCYTES # (AUTO) 1.3 (1.0-3.2); LYMPHOCYTES % 18.5 % (18.0-39.1); MEAN CORPUSCULAR HEMOGLOBIN 26.4 pg (28-32); MEAN CORPUSCULAR VOLUME 82.5 fL (81-99); MONOCYTES # (AUTO) 0.7 (0.2-0.8); MONOCYTES % 9.1 % (4.4-11.3); NEUTROPHILS % 68.3 % (38.7-80.0); PLATELET COUNT 264 x10e3/uL (140-360); RED BLOOD COUNT 4.39 x10e6/uL (3.6-5.1); RED CELL DISTRIBUTION WIDTH 24.2 % (11.7-14.4)
[2017-12-20 07:33] LABS: ANION GAP 11.1 mmol/L (8-16); CALCIUM 8.8 mg/dL (8.4-10.2); CREATININE, SERUM 0.95 mg/dL (0.57-1.11); POTASSIUM 4.1 mmol/L (3.5-5.1)
[2017-12-20 08:05] LABS: PLATELET ESTIMATE ADEQUATE
[2017-12-20 08:08] LABS: PLATELET MORPHOLOGY COMMENT FEW LARGE
[2017-12-20 08:09] LABS: ANISOCYTOSIS MODE; POIKILOCYTOSIS SLIGHT; RBC MORPHOLOGY COMMENT ABNORMAL
[2017-12-20] MEDS: CHOLESTYRAMINE 4 GM PACKET PO SCH ×2 (08:29→16:21)
[2017-12-20] MEDS: ASPIRIN 81 MG CHEW TAB PO SCH (08:29)
[2017-12-20] MEDS: PANTOPRAZOLE SOD 40 MG TABEC PO SCH (08:29)
[2017-12-20] MEDS: FUROSEMIDE 20 MG TAB PO SCH (08:29)
[2017-12-20] MEDS: MEGACE 400MG/ 10ML CUP PO SCH (08:29)
[2017-12-20] MEDS: ALLOPURINOL 100 MG TAB PO SCH (08:29)
[2017-12-20] MEDS: METOPROLOL SUCCINATE 50 MG TAB XL PO SCH ×2 (08:30→16:21)
[2017-12-20] MEDS: LOSARTAN POTASSIUM 100 MG TAB PO SCH (08:30)
[2017-12-20] MEDS: AMLODIPINE BESYLATE 10 MG TAB PO SCH (08:30)
--- NOTE | 2017-12-20 14:54 | Progress Note ---
DATE: December 20, 2017 CARDIOLOGY PROGRESS NOTE SUBJECTIVE: Patient denies chest pain or shortness of breath. She is still coughing. OBJECTIVE VITAL SIGNS: Temperature 97.8 degrees, pulse 82, respiratory rate 18, blood pressure 121/47, oxygen saturation 100% on nasal cannula. GENERAL: Awake, alert, cachectic, elderly, frail woman in no acute distress. LUNGS: Clear to auscultation bilaterally. No wheezes or crackles. CARDIOVASCULAR: Normal rate, regular rhythm. No murmur. Normal S1 and S2. ABDOMEN: Soft, nontender. EXTREMITIES: No edema. CARDIAC MEDICATIONS 1. Losartan 100 mg p.o. daily. 2. Metoprolol succinate 100 mg p.o. b.i.d. 3. Amlodipine 10 mg p.o. daily. 4. Furosemide 20 mg p.o. daily. 5. Aspirin 81 mg p.o. daily. 6. Levothyroxine 50 mcg p.o. daily. LABS: WBC 7.24, hemoglobin 11.6, hematocrit 36.2, platelets 264. Sodium 136, potassium 4.1, chloride 107, CO2 22, BUN 18, creatinine 0.95. IMPRESSION 1. Acute anemia, suspect gastrointestinal bleeding due to positive stool occult blood. 2. Lida esophagitis and gastritis as noted on esophagogastroduodenoscopy. 3. Resolving colitis, possibly ischemic. 4. Pseudomonas aeruginosa urinary tract infection. 5. Suspected right upper lobe pneumonia. 6. Vrlti-cz-bmlzjgn kidney disease. 7. Iron deficiency anemia. 8. Vvpqk-cl-uzdhzle diastolic heart failure. 9. Chest pain, resolved. 10. History of deep vein thrombosis/pulmonary embolism. 11. Reported history of atrial fibrillation. 12. Hypertension. RECOMMENDATIONS: Patient ruled out for myocardial infarction with serial cardiac biomarkers. Continue current cardiac medications. Warfarin is on hold due to continued worsening of hemoglobin and hematocrit. Plan to resume once H and H have been stable and cleared from GI standpoint. Antibiotics per primary service. Blood pressure is acceptable for age. Continue current antihypertensive therapy. Thank you for this consult. We will continue to follow. Job#: [id number]
[2017-12-20] MEDS: PRAMIPEXOLE DIHYDROCHLORIDE 0.25 MG TAB PO SCH (21:08)
[2017-12-21] VITALS (9 sets, daily range): BP systolic 105–142; BP diastolic 50–65
[2017-12-21] MEDS: IPRATROPIUM BROMIDE 0.02% 2.5 ML NEB NEB SCH ×4 (01:22→19:25)
[2017-12-21] MEDS: PIPER-TAZ 3.375 GM 100 ML IV SCH ×3 (05:17→18:22)
[2017-12-21] MEDS: LEVOTHYROXINE SODIUM 50 MCG TAB PO SCH (05:17)
[2017-12-21] MEDS: LOSARTAN POTASSIUM 100 MG TAB PO SCH (10:18)
[2017-12-21] MEDS: ASPIRIN 81 MG CHEW TAB PO SCH (10:18)
[2017-12-21] MEDS: FUROSEMIDE 20 MG TAB PO SCH (10:18)
[2017-12-21] MEDS: PANTOPRAZOLE SOD 40 MG TABEC PO SCH (10:18)
[2017-12-21] MEDS: MEGACE 400MG/ 10ML CUP PO SCH (10:19)
[2017-12-21] MEDS: CHOLESTYRAMINE 4 GM PACKET PO SCH ×2 (10:19→18:20)
[2017-12-21] MEDS: ALLOPURINOL 100 MG TAB PO SCH (10:19)
[2017-12-21] MEDS: AMLODIPINE BESYLATE 10 MG TAB PO SCH (10:19)
[2017-12-21] MEDS: METOPROLOL SUCCINATE 50 MG TAB XL PO SCH ×2 (10:19→17:00)
[2017-12-21] MEDS ORDERED: FUROSEMIDE INJ 10 MG/ML 4 ML VIAL IV SCH (16:45)
[2017-12-21] MEDS ORDERED: FUROSEMIDE INJ 10 MG/ML 2 ML VIAL IV ONE (16:45)
--- NOTE | 2017-12-21 17:01 | Progress Note ---
DATE: December 21, 2017 CARDIOLOGY PROGRESS NOTE SUBJECTIVE: Patient denies chest pain or shortness of breath. She is still coughing. OBJECTIVE VITAL SIGNS: Temperature 96.6 degrees, pulse 91, respiratory rate 17, blood pressure 142/65, oxygen saturation 96% on 2 liters nasal cannula. GENERAL: Elderly, cachectic, frail woman in no acute distress, awake and alert. LUNGS: Clear to auscultation bilaterally. No wheezes or crackles. CARDIOVASCULAR: Normal rate, regular rhythm. No murmur. Normal S1 and S2. ABDOMEN: Soft, nontender. EXTREMITIES: No edema. CARDIAC MEDICATIONS 1. Metoprolol succinate 100 mg p.o. b.i.d. 2. Amlodipine 10 mg p.o. daily. 3. Losartan 100 mg p.o. daily. 4. Furosemide 20 mg p.o. daily. 5. Aspirin 81 mg p.o. daily. 6. Levothyroxine 50 mcg p.o. daily. LABS: None today. IMPRESSION 1. Acute anemia, suspect gastrointestinal bleeding due to positive stool occult blood. 2. Lida esophagitis and gastritis as noted on esophagogastroduodenoscopy. 3. Resolving colitis, possibly ischemic. 4. Pseudomonas aeruginosa urinary tract infection. 5. Suspected right upper lobe pneumonia. 6. Edvxc-th-kfwhrvy kidney disease. 7. Iron deficiency anemia. 8. Poazr-ga-mrscogp diastolic heart failure. 9. Chest pain, resolved. 10. History of deep vein thrombosis/pulmonary embolism. 11. Reported history of atrial fibrillation. 12. Hypertension. RECOMMENDATIONS: The patient ruled out for a myocardial infarction with serial cardiac biomarkers. Continue current cardiac medications. Warfarin was held due to worsening hemoglobin and hematocrit. Plan to resume once hemoglobin and hematocrit have been stable and she is cleared from GI standpoint. Antibiotics per primary service. Blood pressure is acceptable for age. We will continue current antihypertensive therapy. Give 1 dose of IV Lasix today given she has 1+ lower extremity edema today. Thank you for this consult. We will continue to follow. Job#: [id number] EV
[2017-12-21] MEDS: PRAMIPEXOLE DIHYDROCHLORIDE 0.25 MG TAB PO SCH (20:59)
[2017-12-21] MEDS: HYDROCODONE/APAP 5MG-325MG TAB PO PRN (21:01)
[2017-12-22] VITALS (7 sets, daily range): BP systolic 95–156; BP diastolic 48–70
[2017-12-22] MEDS: IPRATROPIUM BROMIDE 0.02% 2.5 ML NEB NEB SCH ×4 (01:10→19:03)
[2017-12-22] MEDS: LEVOTHYROXINE SODIUM 50 MCG TAB PO SCH (05:51)
[2017-12-22] MEDS: PIPER-TAZ 3.375 GM 100 ML IV SCH ×3 (05:51→20:52)
[2017-12-22] MEDS: PANTOPRAZOLE SOD 40 MG TABEC PO SCH (07:30)
[2017-12-22] MEDS: CHOLESTYRAMINE 4 GM PACKET PO SCH ×2 (09:00→17:00)
[2017-12-22] MEDS: METOPROLOL SUCCINATE 50 MG TAB XL PO SCH ×2 (09:00→17:00)
[2017-12-22] MEDS: AMLODIPINE BESYLATE 10 MG TAB PO SCH (09:00)
[2017-12-22] MEDS: FUROSEMIDE 20 MG TAB PO SCH (09:00)
[2017-12-22] MEDS: MEGACE 400MG/ 10ML CUP PO SCH (09:00)
[2017-12-22] MEDS: LOSARTAN POTASSIUM 100 MG TAB PO SCH (09:00)
[2017-12-22] MEDS: ALLOPURINOL 100 MG TAB PO SCH (09:00)
[2017-12-22] MEDS: ASPIRIN 81 MG CHEW TAB PO SCH (09:00)
--- NOTE | 2017-12-22 13:55 | Progress Note ---
DATE: December 22, 2017 CARDIOLOGY PROGRESS NOTE SUBJECTIVE: No complaints today. OBJECTIVE VITALS: Temperature 97.3, heart rate 88, respiratory rate 16, blood pressure 127/70, O2 sat 96% on 2 L per minute nasal cannula. GENERAL: No acute distress. CHEST: Scattered rhonchi. CARDIOVASCULAR: Regular rate and rhythm. Normal S1 and S2. No S3. No S4. ABDOMEN: Soft. EXTREMITIES: No edema. CARDIOVASCULAR MEDICATIONS 1. Metoprolol succinate 100 mg b.i.d. 2. Amlodipine 10 mg daily. 3. Losartan 100 mg daily. 4. Furosemide 20 daily. 5. Aspirin 81 mg daily. STUDIES: Reviewed. No labs for today. ASSESSMENT 1. Acute anemia: Suspected gastrointestinal bleed in the setting of positive stool occult blood. 2. Lida esophagitis and gastritis. 3. Resolved colitis, possibly ischemic. 4. Pseudomonas aeruginosa urinary tract infection. 5. Suspected right upper lobe pneumonia. 6. Mgjkl-qg-sgbabko kidney disease. 7. Iron deficiency anemia. 8. Vpwfc-gs-tcfhzxo diastolic heart failure with improved volume status. 9. History of deep venous thrombosis/pulmonary embolism. 10. Reported history of atrial fibrillation. 11. Hypertension. 12. Resolved chest pain. PLAN: No AMI. Tolerating current cardiovascular medications. Given recent anemia, anticoagulation on hold. Await GI input. If okay to resume, will re-challenge with warfarin. Monitor H and H closely. Volume status overall better. Job#: [id number] DIANA
[2017-12-22] MEDS: HYDROCODONE/APAP 5MG-325MG TAB PO PRN (20:52)
[2017-12-22] MEDS: PRAMIPEXOLE DIHYDROCHLORIDE 0.25 MG TAB PO SCH (20:52)
[2017-12-23] VITALS: BP 153/67
[2017-12-23] MEDS: IPRATROPIUM BROMIDE 0.02% 2.5 ML NEB NEB SCH ×4 (02:50→19:12)
[2017-12-23 04:00] VITALS: BP 162/72
[2017-12-23] MEDS: PIPER-TAZ 3.375 GM 100 ML IV SCH ×3 (05:26→21:25)
[2017-12-23] MEDS: LEVOTHYROXINE SODIUM 50 MCG TAB PO SCH (05:26)
[2017-12-23] MEDS: PANTOPRAZOLE SOD 40 MG TABEC PO SCH (07:30)
[2017-12-23 08:11] LABS: BASOPHILS # (AUTO) 0.1 (0.0-0.1); BASOPHILS % 0.7 % (0.0-1.0); EOSINOPHILS # (AUTO) 0.3 (0.0-0.4); EOSINOPHILS % 3.3 % (0.0-6.0); HEMATOCRIT 41.4 % (34.2-44.1); HEMOGLOBIN 12.9 g/dL (12.0-16.0); LYMPHOCYTES # (AUTO) 1.5 (1.0-3.2); MEAN CORPUSCULAR HEMOGLOBIN 26.7 pg (28-32); MEAN CORPUSCULAR HGB CONC 31.2 g/dL (31-35); MEAN CORPUSCULAR VOLUME 85.5 fL (81-99); MONOCYTES # (AUTO) 0.6 (0.2-0.8); MONOCYTES % 7.9 % (4.4-11.3); NEUTROPHILS # (AUTO) 5.2 (2.1-6.9); NEUTROPHILS % 67.9 % (38.7-80.0); PLATELET COUNT 254 x10e3/uL (140-360); RED BLOOD COUNT 4.84 x10e6/uL (3.6-5.1); RED CELL DISTRIBUTION WIDTH 25.1 % (11.7-14.4)
[2017-12-23 08:13] VITALS: BP 154/69
[2017-12-23] MEDS: CHOLESTYRAMINE 4 GM PACKET PO SCH ×2 (09:00→17:00)
[2017-12-23] MEDS: METOPROLOL SUCCINATE 50 MG TAB XL PO SCH ×2 (09:00→17:00)
[2017-12-23] MEDS: ASPIRIN 81 MG CHEW TAB PO SCH (09:00)
[2017-12-23] MEDS: MEGACE 400MG/ 10ML CUP PO SCH (09:00)
[2017-12-23] MEDS: FUROSEMIDE 20 MG TAB PO SCH (09:00)
[2017-12-23] MEDS: LOSARTAN POTASSIUM 100 MG TAB PO SCH (09:00)
[2017-12-23] MEDS: ALLOPURINOL 100 MG TAB PO SCH (09:00)
[2017-12-23] MEDS: AMLODIPINE BESYLATE 10 MG TAB PO SCH (09:00)
[2017-12-23 12:16] VITALS: BP 147/64
--- NOTE | 2017-12-23 15:24 | Progress Note ---
DATE: December 23, 2017 CARDIOLOGY PROGRESS NOTE SUBJECTIVE: No complaints. OBJECTIVE: VITAL SIGNS: Temperature 97.6, heart rate 87, respiratory rate 18, blood pressure 147/64, O2 sat 96% on room air. GENERAL: No acute distress. CHEST: Clear to auscultation. CARDIOVASCULAR: Regular rate and rhythm. Normal S1 and S2. ABDOMEN: Soft. EXTREMITIES: No edema. CARDIOVASCULAR MEDICATIONS: 1. Metoprolol succinate 100 mg b.i.d. 2. Amlodipine 10 mg daily. 3. Losartan 100 mg daily. 4. Furosemide 20 mg daily. 5. Aspirin 81 mg daily. LABORATORY STUDIES: Reviewed. White blood cells 7.6, hemoglobin 12.9, platelets 254. INR 1.2; that is from yesterday. Last creatinine from December 20, 2017, was 0.95. ASSESSMENT: 1. Acute anemia, suspected gastrointestinal bleed in setting of positive occult blood in stools. 2. Lida esophagitis and gastritis. 3. Resolved colitis, possibly ischemic. 4. Pseudomonas aeruginosa urinary tract infection. 5. Suspected right upper lobe pneumonia. 6. Acute on chronic kidney disease. 7. Iron deficiency anemia. 8. Acute on chronic diastolic heart failure, with now improved volume status. 9. History of deep vein thrombosis and pulmonary embolism. 10. Reported history of atrial fibrillation. 11. Hypertension. 12. Resolved chest pain. RECOMMENDATIONS: Continue current cardiovascular medications. Given recent anemia and above-listed GI issues, await GI input regarding resuming anticoagulation. If okay, will rechallenge with warfarin. Continue to monitor H\T\H. Stable volume status. Continue antihypertensives. Blood pressure remains mildly elevated. However, will monitor over the following couple of days prior to further adjustment in medication doses. Job#: [id number] EV
[2017-12-23 16:38] VITALS: BP 159/70
[2017-12-23 20:00] VITALS: BP 154/67
[2017-12-23] MEDS: PRAMIPEXOLE DIHYDROCHLORIDE 0.25 MG TAB PO SCH (21:25)
[2017-12-24] VITALS (7 sets, daily range): BP systolic 130–174; BP diastolic 55–75
[2017-12-24] MEDS: IPRATROPIUM BROMIDE 0.02% 2.5 ML NEB NEB SCH ×3 (02:05→12:57)
[2017-12-24] MEDS: PIPER-TAZ 3.375 GM 100 ML IV SCH ×2 (04:59→13:37)
[2017-12-24] MEDS: LEVOTHYROXINE SODIUM 50 MCG TAB PO SCH (05:19)
[2017-12-24 07:37] LABS: BASOPHILS % 0.6 % (0.0-1.0); EOSINOPHILS # (AUTO) 0.3 (0.0-0.4); HEMATOCRIT 38.3 % (34.2-44.1); HEMOGLOBIN 11.9 g/dL (12.0-16.0); LYMPHOCYTES # (AUTO) 1.2 (1.0-3.2); LYMPHOCYTES % 19.1 % (18.0-39.1); MEAN CORPUSCULAR HEMOGLOBIN 25.9 pg (28-32); MEAN CORPUSCULAR HGB CONC 31.1 g/dL (31-35); MEAN CORPUSCULAR VOLUME 83.3 fL (81-99); MONOCYTES # (AUTO) 0.6 (0.2-0.8); MONOCYTES % 9.6 % (4.4-11.3); NEUTROPHILS % 64.6 % (38.7-80.0); PLATELET COUNT 257 x10e3/uL (140-360); RED CELL DISTRIBUTION WIDTH 25.1 % (11.7-14.4)
[2017-12-24 07:51] LABS: BLOOD UREA NITROGEN 15 mg/dL (7-26); BUN/CREATININE RATIO 18 (6-25); CALCIUM 8.9 mg/dL (8.4-10.2); CARBON DIOXIDE 24 mmol/L (22-29); CHLORIDE 104 mmol/L (98-107); CREATININE, SERUM 0.83 mg/dL (0.57-1.11); EST GLOMERULAR FILTRATION RATE > 60 ML/MIN (60-); GLUCOSE 76 mg/dL (74-118); SODIUM 133 mmol/L (136-145)
[2017-12-24] MEDS: LOSARTAN POTASSIUM 100 MG TAB PO SCH (09:07)
[2017-12-24] MEDS: ASPIRIN 81 MG CHEW TAB PO SCH (09:07)
[2017-12-24] MEDS: PANTOPRAZOLE SOD 40 MG TABEC PO SCH (09:07)
[2017-12-24] MEDS: ALLOPURINOL 100 MG TAB PO SCH (09:08)
[2017-12-24] MEDS: CHOLESTYRAMINE 4 GM PACKET PO SCH ×2 (09:08→17:00)
[2017-12-24] MEDS: METOPROLOL SUCCINATE 50 MG TAB XL PO SCH ×2 (09:08→17:45)
[2017-12-24] MEDS: AMLODIPINE BESYLATE 10 MG TAB PO SCH (09:08)
[2017-12-24] MEDS: MEGACE 400MG/ 10ML CUP PO SCH (09:08)
[2017-12-24] MEDS: FUROSEMIDE 20 MG TAB PO SCH (09:08)
--- NOTE | 2017-12-24 12:51 | Progress Note ---
DATE: December 24, 2017 CARDIOLOGY PROGRESS NOTE SUBJECTIVE: The patient denies chest pain or shortness of breath. She is being discharged today. OBJECTIVE VITAL SIGNS: Temperature 96.6 degrees, pulse 93, respiratory rate 18, blood pressure 143/65, oxygen saturation 97% on room air. GENERAL: Elderly, frail, cachectic woman in no acute distress. LUNGS: Clear to auscultation bilaterally. No wheezes or crackles. CARDIOVASCULAR: Normal rate, regular rhythm. No murmur. Normal S1 and S2. ABDOMEN: Soft. EXTREMITIES: No edema. CARDIAC MEDICATIONS 1. Furosemide 20 mg p.o. daily. 2. Metoprolol succinate 100 mg p.o. b.i.d. 3. Amlodipine 10 mg p.o. daily. 4. Losartan 100 mg p.o. daily. 5. Aspirin 81 mg p.o. daily. 6. Levothyroxine 50 mcg p.o. daily. LABS: WBC 6.17, hemoglobin 11.9, hematocrit 38.3, platelets 257. Sodium 133, potassium 5, chloride 104, CO2 24, BUN 15, creatinine 0.83. IMPRESSION 1. Acute anemia, suspect gastrointestinal bleed in setting of positive stool occult blood. 2. Lida esophagitis and gastritis. 3. Resolved colitis, possibly ischemic. 4. Pseudomonas aeruginosa urinary tract infection. 5. Suspected right upper lobe pneumonia. 6. Ldlib-fg-rmkvhzd kidney disease. 7. Iron deficiency anemia. 8. Hoqdm-ce-kgjclkd diastolic heart failure with now improved volume status. 9. History of deep vein thrombosis/pulmonary embolism. 10. Reported history of atrial fibrillation. 11. Hypertension. 12. Resolved chest pain. RECOMMENDATIONS: Continue current cardiac medications. Given recent anemia and positive stool occult blood, await GI input regarding resuming anticoagulation. Continue monitoring hemoglobin and hematocrit. Continue current cardiac medications otherwise. Blood pressure is labile but has been elevated recently. If her blood pressure remains elevated, plan to add further antihypertensive therapies. Thank you for this consult. We will continue to follow. Job#: [id number] EV
--- NOTE | 2017-12-26 11:02 | Operative Report ---
DATE OF PROCEDURE: December 14, 2017 REFERRING PHYSICIAN: Dr. Eduardo Gardner and Dr. Shalonda Farmer PROCEDURE PERFORMED: Esophagogastroduodenoscopy with biopsies and esophageal brushings. INDICATIONS FOR ESOPHAGOGASTRODUODENOSCOPY: Anemia and guaiac positive stools and History of acid reflux. MEDICATION: Patient was done under MAC. Please see anesthesiologist's note. PROCEDURE: With patient in left lateral decubitus position, flexible fiberoptic Olympus gastroscope was introduced into the esophagus under direct visualization without any difficulty. There was some scattered yellowish-whitish plaques. Those were brushed. There were some scattered yellowish-whitish plaques in the esophagus and those were brushed and sent to stain for ricki. The scope was then advanced with ease into her stomach traversing a moderate-size hiatal hernia. Mucosa overlying the antrum and the body revealed some patchy erythema and low-grade to moderate edema and biopsies were obtained and sent to stain for H. pylori. Several hyperplastic appearing polyps were noted in the body of the stomach. Some were partially excised with cold biopsy forceps. Pylorus appeared to be of normal contour and shape, was intubated with ease and the scope was advanced all the way to the 2nd portion of the duodenum. The scope was then withdrawn slowly. Mucosa overlying the proximal 2nd portion and the duodenal bulb appeared to be within normal limits. The scope was then withdrawn back into the stomach and retroflexed and the previously described hiatal hernia was also noted in the retroflexed position. The scope was then straightened out. Scope was subsequently withdrawn. Patient tolerated the procedure well. IMPRESSION 1. Rule out ricki esophagitis. 2. Moderate-size hiatal hernia. 3. Gastritis biopsied. Biopsies sent to stain for H. pylori. 4. Gastric polyps, body, some partially excised with cold biopsy forceps. PLAN: Follow up histology. Initiate Protonix 40 mg one p.o. q. a.m. a.c. Findings do not necessarily explain patient's anemia. She might benefit from a colonoscopy however for the time being she declines to proceed. Job#: [id number] DG cc:MD SHALONDA VILLATORO MD
== END 2017-12-24 18:43 | disposition home or self-care (01) | DRG 682 ==
LOC: ER 13:18 → ERHOLD 18:32 → EDBEDREQ 18:41 → IMCU 20:24 → OBSVTOIN 12-03 16:28 → MED/SURG3 12-04 10:13
PROVIDERS: ADMIT Internal Medicine; ATTEND Internal Medicine
PROC: 0DBN8ZX Excision of Sigmoid Colon, Via Natural or Artificial Opening Endoscopic, Diagnostic (ICD-10-PCS; 2017-12-18)
PROC: 30233N1 Transfusion of Nonautologous Red Blood Cells into Peripheral Vein, Percutaneous Approach (ICD-10-PCS; 2017-12-18)
PROC: 0DBM8ZX Excision of Descending Colon, Via Natural or Artificial Opening Endoscopic, Diagnostic (ICD-10-PCS; principal; 2017-12-18 11:38)
DX: N17.9 Acute kidney failure, unspecified (principal); I50.33 Acute on chronic diastolic (congestive) heart failure; J18.9 Pneumonia, unspecified organism; N30.01 Acute cystitis with hematuria; I13.0 Hypertensive heart and chronic kidney disease with heart failure and stage 1 through stage 4 chronic kidney disease, or unspecified chronic kidney disease; E44.0 Moderate protein-calorie malnutrition; Z68.1 Body mass index [BMI] 19.9 or less, adult; K55.9 Vascular disorder of intestine, unspecified; B37.81 Candidal esophagitis; J44.9 Chronic obstructive pulmonary disease, unspecified; I48.91 Unspecified atrial fibrillation; Z79.01 Long term (current) use of anticoagulants; E03.9 Hypothyroidism, unspecified; D50.9 Iron deficiency anemia, unspecified; E83.52 Hypercalcemia; R07.9 Chest pain, unspecified; B96.5 Pseudomonas (aeruginosa) (mallei) (pseudomallei) as the cause of diseases classified elsewhere; Z87.891 Personal history of nicotine dependence; R00.0 Tachycardia, unspecified; D69.59 Other secondary thrombocytopenia; E77.8 Other disorders of glycoprotein metabolism; M10.9 Gout, unspecified; I95.9 Hypotension, unspecified; Z88.1 Allergy status to other antibiotic agents; Z88.2 Allergy status to sulfonamides; Z88.8 Allergy status to other drugs, medicaments and biological substances; K57.30 Diverticulosis of large intestine without perforation or abscess without bleeding; N18.3 Chronic kidney disease, stage 3 (moderate); Z86.711 Personal history of pulmonary embolism
CPT/HCPCS: 36415; 43235; 43239; 45380; 71045; 71046; 74018; 76604; 80048; 80053; 81001; 82270; 82306; 82550; 82553; 82728; 82948; 83540; 83605; 83735; 83880; 83970; 84100; 84132; 84165; 84166; 84466; 84484; 84550; 85025; 85610; 86850; 86900; 86920; 87040; 87086; 87106; 87186; 87205; 87493; 88305; 88312; 93005; 94640; 96361; 96365; 96366; 96376; 97139; 99284; G0378; J0360; J0696; J1100; J1200; J1750; J1940; J2001; J2185; J2270; J2370; J2543; J2550; J3480; J7030; J7040; J7050; J7070; P9016

== ENCOUNTER 2018-01-03 10:59 | Inpatient (IN) | payer MEDICARE, OTHER ==
[~2018-01-03] VITALS: Ht 157.5 cm; Wt 49.0 kg
[2018-01-03] VITALS (31 sets, daily range): BP systolic 83–151; BP diastolic 46–96
--- OUTSIDE RECORDS SUMMARY | 2018-01-03 11:02 | XMS REPORT | Clinical Summary ---
Author Author [facility] Address Unknown Phone Unavailable Care Team Providers Care Curb Supervisor Name Role Phone PCP Unavailable Allergies Active [...] MD disease, unspecified (HCC) (Primary Dx) after 01/02/2017 Social History Tobacco Use Types Packs/Day Years [...] Range Ejection Fraction Specimen Performing Laboratory [facility] MKCKESSON CPACS Impressions Right [...] + + + +--------- --------+ + !Prox BLUE PRINT CONTROL CLERK ! !87.2 ! !Biphasic ! !51.1 ! !Biphasic ! + + + ------+ + + + +--------- --------+ + !Mid BLUE PRINT CONTROL CLERK ! !91.9 ! !Biphasic ! !63.9 ! !Monophasic ! + + + ------+ + + + +--------- --------+ + !Dist BLUE PRINT CONTROL CLERK ! !92.7 ! !Biphasic ! !65.1 ! [...] Date of Study02/06/2017 MILLICENT Age 81 Visit [id number] Gender Female Date of Birth Number Referring [facility] Room Number Physician Jose Utility Plant Operative Kenneth Coyle.Interpreting Jose Andre RVT, JESSIE Blair MD, [facility] [place] Procedure Type of Study: Extremities Arteries: Lower Extremities Arterial Duplex, ARTERIAL DOPPLER LEGS, BILATERAL. Indications for Study:PVD. Patient Status:Routine. Study Location:Vascular Lab. Technical Quality:Adequate visualization. Procedure Note Interface, External Ris In - 02/06/2017 2:53 PM CDT [facility] - Lower Extremity Arterial Duplex Demographics Patient Name KATHRYN WALSH Date of Study 02/06/2017 MILLICENT Age 81 Visit Number [id number] Gender Female Date of 1935 Number Referring [facility] Room Number Physician Garcia [employer] Plant Operative Kenneth Coyle. Interpreting Jose Andre RVT, JESSIE Blair MD, [facility] [place] Procedure Type of Study: Extremities Arteries: Lower [...] + + + +--------- --------+ + !Prox BLUE PRINT CONTROL CLERK ! !87.2 ! !Biphasic ! !51.1 ! !Biphasic ! + + + ------+ + + + +--------- --------+ + !Mid BLUE PRINT CONTROL CLERK ! !91.9 ! !Biphasic ! !63.9 ! !Monophasic ! + + + ------+ + + + +--------- --------+ + !Dist BLUE PRINT CONTROL CLERK ! !92.7 ! !Biphasic ! !65.1 ! [...] + + + +--------- --------+ + after 01/02/2017
--- OUTSIDE RECORDS SUMMARY | 2018-01-03 11:02 | XMS REPORT | Clinical Summary ---
Author Author [facility] Address Unknown Phone Unavailable Care Team Providers Care Nba Player Name Role Phone Ronan Gardner MD PCP [...] reflux disease, esophagitis presence not specified after 01/02/2017 Family History Relation Name Status Comments Father [...] Health Maintenance Due Date Last Done Comments SHINGRIX VACCINE (#1) 1984 ZOSTER VACCINE 1994 PNEUMOCOCCAL 1999 POLYSACCHARIDE VACCINE AGE 65 AND OVER PNEUMOCOCCAL-13 1999 INFLUENZA VACCINE 03/13/2018 Results * US Abdomen Complete (01/26/2017 12:18 PM) Specimen Performing Laboratory [facility] [address] [place] [address] Narrative EXAM: US ABDOMEN COMPLETE CLINICAL DATA:R07.2 [...] ascites. PLEURAL EFFUSION:There are no pleural effusions. [id number] Procedure Note Interface, Radiology Results Incoming - [...] PLEURAL EFFUSION: There are no pleural effusions. [id number] * [place] Esophagram Complete (01/23/2017 4:00 PM) Specimen Performing Laboratory [address] [address] Narrative EXAMINATION:FL ESOPHAGRAM COMPLETE CLINICAL HISTORY:R07.2 Precordial pain, Chest pain COMPARISON:None. Fluoroscopy time: 1.3 minute. FINDINGS: The patient swallowed air producing granules and barium without difficulty. The esophagus demonstrates frequent tertiary contractions in the distal esophagus. No stricture or suspicious filling defect is seen. There is a moderate sliding hiatal hernia. IMPRESSION: Moderate hiatal hernia. Prominent tertiary contractions. [id number] Procedure Note Interface, Radiology Results Incoming - [...] IMPRESSION: Moderate hiatal hernia. Prominent tertiary contractions. [facility]-[id number] after 01/02/2017 Insurance Payer Benefit Subscriber ID Type Phone Address Plan / Group MEDICARE MEDICARE xxxxxxxxxxx Medicare [place] PART A AND B [facility] xxxxxxxxxxxx Commercial SUPPLEMENT Home: [address] [place], [place] [phone] [place] [id number]
--- OUTSIDE RECORDS SUMMARY | 2018-01-03 11:03 | XMS REPORT | Continuity of Care Document ---
Author Author [facility] Organization [facility] Address [address] [place] [address] Phone Unavailable Care Team Providers Care Artist'S Model Name Role Phone URMILA COCHRAN MD PCP Insurance Providers Guarantor Kathryn Hand Address [address] [place] [address] Email [email or web address] Payer Medicare A & B Policy Number [id number] Subscriber's Name Kathryn Hand Relationship 18 Self / Same As Patient Group Number [id number] Group Name RETIRED Effective Date 99 Payer GEHA Policy Number [id number] Subscriber's Name Tacos Walsh Relationship G8 Other Relationship Group Number [id number] Group Name RETIRED Effective Date 82 Advance Directives Directive Response Recorded Date/Time Does the patient have an advance directive? Yes 12/01/17 9:18pm If yes, is advance directive on file with [facility]? No 12/01/17 9:18pm If not on file with [facility] will patient provide a copy? Yes 12/01/17 9:18pm Do you have a Directive to Physician? No 12/01/17 4:17pm Do you have a Medical Power of Touring Production Manager? No 12/01/17 4:17pm Do you have an out of hospital Do Not Resuscitate Order? No 12/01/17 4:17pm Do you have any special needs we should be aware of? No 12/01/17 4:17pm Do you have a support person here with you today? Yes 12/01/17 4:17pm Did patient receive Notice of Privacy Practices? Yes 12/01/17 4:17pm Did patient receive patient rights and responsibilities? Yes 12/01/17 4:17pm Problems Medical Problem Onset Date Status Arterial [...] Oral Three Times A Day Hydrocodone Bit/Acetaminophen (Perry 5-325 Tablet) 1 Each Tablet 1 Each [...] Onset Date Status Hx Psychiatric Problems No 12/01/2017 9:18pm Not Applicable Not Applicable Hx Eating Disorder No 12/01/2017 9:18pm Not Applicable Not Applicable Hx Substance Use Disorder No 12/01/2017 9:18pm Not Applicable Not Applicable Hx Depression No 12/01/2017 9:18pm Not Applicable Not Applicable Hx Alcohol Use No 12/01/2017 9:18pm Not Applicable Not Applicable Hx Substance Use Treatment No 12/01/2017 9:18pm Not Applicable Not Applicable Hx Physical Abuse No 12/01/2017 9:18pm Not Applicable Not Applicable Hospital Discharge Instructions No hospital discharge instruction information available. Plan of Care Discharge Date 12/24/17 6:43pm Disposition HOME, SELF-CARE Instructions/Education Provided Hematuria - Female Prescriptions See Medication Section Additional Instructions/Education REGULAR DIET AND FOLLOW UP WITH DR COCHRAN IN 2 WEEKS Functional Status Query Response Date Recorded FUNCTIONAL STATUS . December 05, 2017 11:51am Assistive Devices Rolling Walker December 01, 2017 9:24pm Ambulation Ability Minimum Assistance December 01, 2017 9:24pm Toileting Ability Independent December 24, 2017 1:41pm Allergies, Adverse Reactions, Alerts Allergen Type Severity Reaction Status Last Updated Sulfa (Sulfonamide Antibiotics) Allergy Mild Active 03/11/17 Ibmovro-Kao-Tbi Reductase Inhibitor Adverse Reaction Intermediate MUSCLE SPASMS/SEVERE LEG CRAMPS Active 03/14/17 Levofloxacin Allergy Mild MUSCLE CRAMPS Active 07/21/10 Immunizations No immunization information available. Vital Signs Acute Vital Signs Vital Response Date/Time Temperature (Fahrenheit) 97.8 degrees F (97.6 - 99.5) 12/24/2017 4:06pm Pulse Pulse Rate (adult) 88 bpm (60 - 90) 12/24/2017 4:06pm Respiratory Rate 18 bpm (12 - 24) 12/24/2017 4:06pm Blood Pressure 130/62 mm Hg 12/24/2017 4:06pm Height 5 ft 3 in 12/01/2017 1:42pm Weight 103 lb 12/24/2017 12:00am Body Mass Index 18.2 kg/m^2 12/24/2017 12:00am Results Laboratory Results Test Name Result Units Flags Reference Collection Date/Time Result Date/ Time Comments Ovalocytes FEW 03/12/2017 6:20am 03/12/2017 7:57am Amylase Level 94 U/L 25-125 2017 7:25am 2017 9:16am Lipase 26 U/L 8-78 2017 7:25am 2017 9:16am Triglycerides Level 131 MG/DL 0-149 07/15/2017 7:24am [...] 3.0-3.6 07/15/2017 7:24am 07/15/2017 8: 26am Urine Mucus FEW H RARE 07/30/2017 9:20pm 07/30/2017 10:32pm Toxic Granulation SLIGHT 11/21/2017 6:30am 11/21/2017 10:07am Activated Partial Thromboplast Time 32.0 seconds 23.8-35.5 11/18/2017 8: 31am 11/18/2017 10:10am D-Dimer Quantitative (PE/DVT) 3.04 ug/mLFEU H 0.00-0.45 11/18/2017 8: 31am 11/18/2017 10:13am As with all in vitro diagnostic tests, the test results should be interpreted by the physician in conjunction with clinical findings and other test results. Test results are reported in NEW D-dimer units(ug/mLFEU). Thyroid Stimulating Hormone (TSH) 6.193 uIU/mL H 0.350-4.940 11/18/2017 8 :31am 11/18/2017 10:47am White Blood Count 6.17 x10e3/uL 4.8-10.8 12/24/2017 6:55am 12/24/2017 7 :42am Red Blood Count 4.60 x10e6/uL 3.6-5.1 12/24/2017 6:55am 12/24/2017 7: 42am Hemoglobin 11.9 g/dL L 12.0-16.0 12/24/2017 6:55am 12/24/2017 7:42am Hematocrit 38.3 % 34.2-44.1 12/24/2017 6:55am 12/24/2017 7:42am Mean Corpuscular Volume 83.3 fL 81-99 12/24/2017 6:55am 12/24/2017 7: 42am Mean Corpuscular Hemoglobin 25.9 pg L 28-32 12/24/2017 6:55am 2017 7:42am Mean Corpuscular Hemoglobin Concent 31.1 g/dL 31-35 12/24/2017 6:55am 12/24/2017 7:42am Red Cell Distribution Width 25.1 % H 11.7-14.4 12/24/2017 6:55am 2017 7:42am Platelet Count 257 x10e3/uL 140-360 12/24/2017 6:55am 12/24/2017 7: 42am Neutrophils (%) (Auto) 64.6 % 38.7-80.0 12/24/2017 6:55am 12/24/2017 7: 42am Lymphocytes (%) (Auto) 19.1 % 18.0-39.1 12/24/2017 6:55am 12/24/2017 7: 42am Monocytes (%) (Auto) 9.6 % 4.4-11.3 12/24/2017 6:55am 12/24/2017 7: 42am Eosinophils (%) (Auto) 5.0 % 0.0-6.0 12/24/2017 6:55am 12/24/2017 7: 42am Basophils (%) (Auto) 0.6 % 0.0-1.0 12/24/2017 6:5512/24/2017 7:42am IM GRANULOCYTES % 1.1 % H 0.0-1.0 12/24/2017 6:5512/24/2017 7:42am Neutrophils # (Auto) 4.0 2.1-6.9 12/24/2017 6:55am 12/24/2017 7:42am Lymphocytes # (Auto) 1.2 1.0-3.2 12/24/2017 6:55am 12/24/2017 7:42am Monocytes # (Auto) 0.6 0.2-0.8 12/24/2017 6:55am 12/24/2017 7:42am Eosinophils # (Auto) 0.3 0.0-0.4 12/24/2017 6:55am 12/24/2017 7:42am Basophils # (Auto) 0.0 0.0-0.1 12/24/2017 6:55am 12/24/2017 7:42am Absolute Immature Granulocyte (auto 0.07 x10e3/uL 0-0.1 12/24/2017 6: 55am 12/24/2017 7:42am Differential Total Cells Counted 100 12/15/2017 6:20am 12/15/2017 8 :07am Neutrophils % (Manual) 82 % H 40-74 12/15/2017 6:20am 12/15/2017 8:07am Band Neutrophils % 1 % 12/15/2017 6:20am 12/15/2017 8:07am Lymphocytes % (Manual) 16 % L 19-48 12/15/2017 6:20am 12/15/2017 8:07am Monocytes % (Manual) 2 % L 3.4-9.0 12/11/2017 6:53am 12/11/2017 9:36am Eosinophils % (Manual) 1 % 0-7 12/15/2017 6:20am 12/15/2017 8:07am Metamyelocytes % 1 % H 0-0 12/11/2017 6:53am 12/11/2017 9:36am Reactive Lymphocytes 1 12/11/2017 6:53am 12/11/2017 9:36am Smudge Cells FEW 12/11/2017 6:53am 12/11/2017 9:36am Platelet Estimate ADEQUATE 12/20/2017 6:42am 12/20/2017 8:09am Platelet Morphology Comment FEW LARGE 12/20/2017 6:42am 12/20/2017 8:09am Hypochromasia MODERATE 12/18/2017 6:54am 12/18/2017 9:54am Poikilocytosis SLIGHT 12/20/2017 6:42am 12/20/2017 8:09am Anisocytosis MODE 12/20/2017 6:42am 12/20/2017 8:09am Microcytosis MODERATE 12/14/2017 5:15am 12/14/2017 7:59am Macrocytosis MODERATE 12/13/2017 6:05am 12/13/2017 9:37am Target Cells MODERATE 12/14/2017 5:15am 12/14/2017 7:59am [place] Bodies FEW 12/18/2017 6:54am 12/18/2017 9:54am Elliptocytes SLIGHT 12/18/2017 6:54am 12/18/2017 9:54am Red Cell Morphology Comment ABNORMAL 12/20/2017 6:42am 12/20/2017 8 :09am Prothrombin Time 14.6 seconds H 11.9-14.5 12/12/2017 7:09am 12/12/2017 10:02am Prothromb Time International Ratio 1.23 12/12/2017 7:09am 2017 10:02am Oral Anticoagulant Therapy INR Values: 1. Low Intensity Therapy 1.5 - 2.0 2. Moderate Intensity Therapy 2.0 - 3.0 3. High Intensity Therapy(1) 2.5 - 3.5 4. High Intensity Therapy(2) 3.0 - 4.0 5. Panic Value INR > 5.0 Urine Color YELLOW YELLOW 12/01/2017 3:58pm 12/01/2017 4:12pm Urine Clarity CLOUDY H CLEAR 12/01/2017 3:58pm 12/01/2017 4:12pm Urine Specific Childs 1.015 1.010-1.025 12/01/2017 3:58pm 2017 4:12pm Urine pH 7 5 - 7 12/01/2017 3:58pm 12/01/2017 4:12pm Urine Leukocyte Esterase 2+ H NEGATIVE 12/01/2017 3:58pm 12/01/2017 4: 12pm Urine Nitrite POSITIVE H NEGATIVE 12/01/2017 3:58pm 12/01/2017 4:12pm Urine Protein 1+ H NEGATIVE 12/01/2017 3:58pm 12/01/2017 4:12pm Urine Glucose (UA) NEGATIVE NEGATIVE 12/01/2017 3:58pm 12/01/2017 4: 12pm Urine Ketones NEGATIVE NEGATIVE 12/01/2017 3:58pm 12/01/2017 4:12pm Urine Urobilinogen 0.2 mg/dL 0.2 - 1 12/01/2017 3:58pm 12/01/2017 4: 12pm Urine Bilirubin NEGATIVE NEGATIVE 12/01/2017 3:58pm 12/01/2017 4: 12pm Urine Blood 1+ H NEGATIVE 12/01/2017 3:58pm 12/01/2017 4:12pm Urine WBC >50 /HPF H 0-5 12/01/2017 3:58pm 12/01/2017 4:21pm Urine RBC 6-10 /HPF H 0-5 12/01/2017 3:58pm 12/01/2017 4:21pm Urine Bacteria FEW /HPF NONE 12/01/2017 3:58pm 12/01/2017 4:21pm Urine Epithelial Cells NONE /LPF NONE 12/01/2017 3:58pm 12/01/2017 4: 21pm Sodium Level 133 mmol/L L 136-145 12/24/2017 6:55am 12/24/2017 7:52am Potassium Level 5.0 mmol/L 3.5-5.1 12/24/2017 6:55am 12/24/2017 7:52am Chloride Level 104 mmol/L 98-107 12/24/2017 6:55am 12/24/2017 7:52am Carbon Dioxide Level 24 mmol/L 22-29 12/24/2017 6:55am 12/24/2017 7: 52am Anion Gap 10.0 mmol/L 8-16 12/24/2017 6:55am 12/24/2017 7:52am Blood Urea Nitrogen 15 mg/dL 7-26 12/24/2017 6:55am 12/24/2017 7:52am Creatinine 0.83 mg/dL 0.57-1.11 12/24/2017 6:55am 12/24/2017 7:52am BUN/Creatinine Ratio 18 6-25 12/24/2017 6:55am 12/24/2017 7:52am Estimat Glomerular Filtration Rate > 60 ML/MIN 60- 12/24/2017 6:55am 7:52am Ranges were taken from the National Kidney Disease Education Program and the National Kidney Foundation literature. Reference ranges: 60 or greater: Normal 16-59 (for 3 consecutive months): Chronic kidney disease 15 or less: Kidney failure Glucose Level 76 mg/dL 74-118 12/24/2017 6:55am 12/24/2017 7:52am Calcium Level 8.9 mg/dL 8.4-10.2 12/24/2017 6:55am 12/24/2017 7:52am Bedside Glucose 262 mg/dL H 70-120 12/15/2017 7:48am 12/15/2017 7:55am Meter ID: [id number] Lactic Acid Level 7.5 MG/DL 4.5-19.8 12/01/2017 5:45pm 12/01/2017 6: 05pm Uric Acid 5.8 mg/dL 2.6-8.0 12/06/2017 6:25am 12/06/2017 7:20am Phosphorus Level 2.6 MG/DL 2.3-4.7 12/08/2017 7:3012/08/2017 8:53am Magnesium Level 1.3 MG/DL 1.3-2.1 12/19/2017 7:1312/19/2017 8:08am Iron Level 50 ug/dL 50-170 12/05/2017 8:3312/05/2017 10:17am Total Iron Binding Capacity 213 ug/dL L 261-478 12/05/2017 8:332017 10:17am Percent Iron Saturation 23 % 15-50 12/05/2017 8:3312/05/2017 10: 17am Transferrin 152 mg/dL L 180-382 12/05/2017 8:3312/05/2017 10:17am Ferritin 708.92 ng/mL H 4.63-204.00 12/05/2017 8:3312/05/2017 10: 32am Total Bilirubin 0.4 mg/dL 0.2-1.2 12/19/2017 7:1312/19/2017 8:08am Aspartate Amino Transf (AST/SGOT) 14 IU/L 5-34 12/19/2017 7:2017 8:08am Alanine Aminotransferase (ALT/SGPT) 8 IU/L 0-55 12/19/2017 7:12/19 8:08am Total Protein 5.0 g/dL L 6.5-8.1 12/19/2017 7:12/19/2017 8:08am Albumin 2.1 g/dL L 3.5-5.0 12/19/2017 7:12/19/2017 8:08am Globulin 2.9 g/dL 2.3-3.5 12/19/2017 7:12/19/2017 8:08am Albumin/Globulin Ratio 0.7 L 0.8-2.0 12/19/2017 7:1312/19/2017 8: 08am Alkaline Phosphatase 46 IU/L 40-150 12/19/2017 7:1312/19/2017 8: 08am B-Type Natriuretic Peptide 159.4 pg/mL H 0-100 12/01/2017 1:40pm 2017 5:52pm Creatine Kinase 8 IU/L L 29-168 12/06/2017 5:24pm 12/06/2017 5:48pm Creatine Kinase MB 0.90 ng/mL 0-5.0 12/06/2017 5:24pm 12/06/2017 5: 54pm Troponin I 0.015 ng/mL 0-0.300 12/06/2017 5:24pm 12/06/2017 5:54pm Albumin (PEP) 2.6 g/dL L 2.9-4.4 12/08/2017 7:3012/10/2017 9:09pm Kvsrt-7-Wihbwtxzm 0.3 g/dL 0.0-0.4 12/08/2017 7:12/10/2017 9:09pm Wdrux-7-Wudyfbyxy 1.1 g/dL H 0.4-1.0 12/08/2017 7:3012/10/2017 9: 09pm Beta Gamma Globulin 0.8 g/dL 0.7-1.3 12/08/2017 7:12/10/2017 9: 09pm Gamma Globulins 0.5 g/dL 0.4-1.8 12/08/2017 7:12/10/2017 9:09pm Total Protein (PEP) 5.3 g/dL L 6.0-8.5 12/08/2017 7:12/10/2017 9: 09pm Globulin 2.7 g/dL 2.2-3.9 12/08/2017 7:3012/10/2017 9:09pm [place] Light Chain Analysis 8.5 mg/L 3.3-19.4 12/08/2017 7:2017 9:09pm Lambda Light Chain Analysis 10.6 mg/L 5.7-26.3 12/08/2017 7:302017 9:09pm Totl [place]/Lambda Light Chain Ratio 0.80 0.26-1.65 12/08/2017 7:30am 12/10/2017 9:09pm Performed at: - [facility] [address] [id number] Bench Molder Apprentice: Augusto Clark MD, Phone: [phone] Performed at: DA - [facility] [address], [place], [place] [id number] Bench Molder Apprentice: ANGEL Barber MD, Phone: [phone] Protein Electrophoresis M-Manny Not Observed g/dL Not Observed 2017 7:30am 12/10/2017 9:09pm Albumin/Globulin Ratio 1.0 0.7-1.7 12/08/2017 7:30am 12/10/2017 9: 09pm Protein Electrophoresis Note Comment . 12/08/2017 7:30am 12/10/2017 9 :09pm Protein electrophoresis scan will follow via computer, mail, or gravity meter observer delivery. 25-Hydroxy Vitamin D Total 31 ng/mL . 12/06/2017 6:25am 12/13/2017 5: 32am Reference Range: All Ages: Target levels 30 - 100 25-Hydroxy Vitamin D3 30 ng/mL . 12/06/2017 6:25am 12/13/2017 5:32am Performed at: [facility] [address] [place] [id number] Bench Molder Apprentice: Marko Wright MD, Phone: [phone] 25-Hydroxy Vitamin D2 <1.0 ng/mL . 12/06/2017 6:25am 12/13/2017 5:32am Urine Protein 12.9 mg/dL Not Estab. 12/08/2017 7:49am 12/10/2017 9: 09pm Urine Albumin 35.6 % . 12/08/2017 7:49am 12/10/2017 9:09pm Urine Bamsd-5-Qqscmpbx 11.4 % . 12/08/2017 7:49am 12/10/2017 9:09pm Urine Mocay-6-Gnbwfhlzq 19.5 % . 12/08/2017 7:49am 12/10/2017 9:09pm Urine Beta Globulin 23.6 % . 12/08/2017 7:49am 12/10/2017 9:09pm Urine Gamma Globulin 9.9 % . 12/08/2017 7:49am 12/10/2017 9:09pm Urine Random PEP M-Manny % Not Observed % Not Observed 12/08/2017 7: 49am 12/10/2017 9:09pm Protein Electrophoresis Note Comment . 12/08/2017 7:49am 12/10/2017 9 :09pm Protein electrophoresis scan will follow via computer, mail, or gravity meter observer delivery. Performed at: [address] [id number] Bench Molder Apprentice: Augusto Clark MD, Phone: [phone] Performed at: [address], [place], [place] [id number] Bench Molder Apprentice: ANGEL Barber MD, Phone: [phone] Parathyroid Hormone 13 pg/mL L 15-65 12/05/2017 6:30am 12/06/2017 8: 28am Calcium (Send out) 9.7 mg/dL 8.7-10.3 12/05/2017 6:30am 12/06/2017 8: 28am Parathyroid Hormone Interpretation Comment . 12/05/2017 6:30am 2017 8:28am Interpretation Intact PTH Calcium (pg/mL) (mg/dL) Normal 15 - 65 8.6 - 10.2 Primary Hyperparathyroidism >65 >10.2 Secondary Hyperparathyroidism >65 <10.2 Non-Parathyroid Hypercalcemia <65 >10.2 Hypoparathyroidism <15 < 8.6 Non-Parathyroid Hypocalcemia 15 - 65 < 8.6 Performed at: [address] [id number] Bench Molder Apprentice: Augusto Clark MD, Phone: [phone] Performed at: [address] [id number] Bench Molder Apprentice: Walter Ruvalcaba MD, Phone: [phone] Stool Occult Blood POSITIVE H NEGATIVE 12/08/2017 8:47pm 12/11/2017 8: 05am Clostridium Difficile Toxin A & B NEGATIVE NEGATIVE 12/07/2017 8:47pm 12/08/2017 9:51am Testing on stool aspirate specimens is outside wellness assistant claims since specimen type not validated on this assay. Microbiology Results Procedure Source Organism/Result Collection Date/Time Result Date/Time Result Status Urine Culture Urine,Clean Catch PSEUDOMONAS AERUGINOSA 12/01/2017 3:58pm 12/03/2017 10:45am Final Fungal Smear [id number], Esophageal EDGARDO ALBICANS 12/14/2017 3:20pm 06/2018 9:18am Final Blood Culture Blood NO GROWTH AFTER 5 DAYS, FINAL REPORT 12/18/2017 3:00pm 12/23/2017 3:31pm Final Procedures Procedure Status Date Provider(s) TRANSFUSE NONAUT RED BLOOD CELLS IN PERIPH VEIN, PERC Completed 11/19/17 URMILA COCHRAN MD EGD with biopsy Completed 12/14/17 DOLORES SANTOYO MD EGD (esophagogastroduodenoscopy) Completed 12/14/17 DOLORES SANTOYO MD Colonoscopy with biopsy Completed 12/18/[address] of abdomen and pelvis without contrast [...] without contrast Active 11/18/17 VONDA ZHANG MD X-ray of chest, two views Active 12/19/17 TACOS HERNANDEZ MD Ultrasound of chest including mediastinum Active 12/18/17 TACOS HERNANDEZ MD Encounters Encounter Location Arrival/Admit Date Discharge/Depart Date Attending Provider Discharged Inpatient [facility] 12/03/17 4:28pm 12/24/17 6:43pm URMILA COCHRAN MD Discharged Inpatient [facility] 11/19/17 11:46am 1:04pm URMILA COCHRAN MD Discharged Recurring [facility] 08/20/17 7:55am 09/12/17 11:59pm SELENE KWON MD Registered Clinic [facility] 08/10/17 3:00pm ROSALINE WILSON Departed Emergency Room [facility] 07/30/17 4:36pm 12:30am RA ZAPATA MD Registered Clinic [facility] 07/26/17 2:08pm BLA ANG MD Discharged Inpatient [facility] 07/14/17 2:10am 07/18/17 7:15pm URMILA COCHRAN MD Registered Clinic [facility] 07/10/17 1:20pm URMILA COCHRAN MD Discharged Inpatient [facility] 03/12/17 4:13pm 03/21/17 2:20pm URMIAL COCHRAN MD
[2018-01-03] MEDS ORDERED: ASPIRIN 81 MG CHEW TAB PO ONE (11:30)
[2018-01-03 11:42] LABS: BASOPHILS % 0.5 % (0.0-1.0); EOSINOPHILS # (AUTO) 0.1 (0.0-0.4); EOSINOPHILS % 0.8 % (0.0-6.0); HEMATOCRIT 35.9 % (34.2-44.1); HEMOGLOBIN 11.3 g/dL (12.0-16.0); LYMPHOCYTES % 12.4 % (18.0-39.1); MEAN CORPUSCULAR HGB CONC 31.5 g/dL (31-35); MEAN CORPUSCULAR VOLUME 85.9 fL (81-99); MONOCYTES # (AUTO) 0.7 (0.2-0.8); MONOCYTES % 8.4 % (4.4-11.3); NEUTROPHILS # (AUTO) 6.3 (2.1-6.9); NEUTROPHILS % 76.9 % (38.7-80.0); PLATELET COUNT 324 x10e3/uL (140-360); RED BLOOD COUNT 4.18 x10e6/uL (3.6-5.1); RED CELL DISTRIBUTION WIDTH 24.4 % (11.7-14.4)
[2018-01-03 11:54] LABS: INR 1.16; PARTIAL THROMBOPLASTIN TIME 26.1 seconds (23.8-35.5); PROTHROMBIN TIME 13.9 seconds (11.9-14.5)
[2018-01-03 12:00] LABS: ALBUMIN 2.7 g/dL (3.5-5.0); ALBUMIN/GLOBULIN RATIO 0.7 (0.8-2.0); ANION GAP 21.4 mmol/L (8-16); CALCIUM 9.2 mg/dL (8.4-10.2); CREATININE, SERUM 7.9 mg/dL (0.57-1.11)
[2018-01-03 12:01] LABS: CREATINE KINASE 28 IU/L (29-168)
[2018-01-03 12:05] LABS: MAGNESIUM 0.9 MG/DL (1.3-2.1); POTASSIUM 7.4 mmol/L (3.5-5.1)
[2018-01-03] MEDS ORDERED: DEXTROSE 50% SYRINGE 50 ML IV STA (12:10)
[2018-01-03] MEDS ORDERED: SODIUM BICARBONATE 8.4% INJ 50 ML SYR IV STA (12:10)
[2018-01-03] MEDS ORDERED: MAGNESIUM SULFATE 2GM/50ML 50 ML IV ONE (12:15)
[2018-01-03] MEDS ORDERED: CALCIUM CHLORIDE 13.6 MEQ in SODIUM CHLORIDE 0.9% 100 ML 100 ML IV ONE (12:15)
[2018-01-03] MEDS ORDERED: INSULIN REGULAR, HUMAN 100 UNIT/1 ML 3ML VIAL SQ ONE (12:15)
[2018-01-03] MEDS ORDERED: ALBUTEROL SULF 0.083% NEB SOLN 3 ML NEB NEB STA (12:18)
[2018-01-03] MEDS ORDERED: ALBUTEROL SULF 0.083% NEB SOLN 3 ML NEB ONE (12:20)
[2018-01-03] MEDS ORDERED: FUROSEMIDE INJ 10 MG/ML 4 ML VIAL IV ONE (12:30)
--- NOTE | 2018-01-03 12:33 | Diagnostic Imaging Report ---
PROCEDURE: A single AP view of the chest. COMPARISON: [facility], DX, CHEST SINGLE (PORTABLE), 12/01/2017, 17:27. [facility], DX, CHEST SINGLE (PORTABLE), 12/17/2017, 18:34. [facility], DX, CHEST 2 VIEWS, 12/19/2017, 6:17. INDICATIONS: CHRONIC HIGH BLOOD PRESSURE, KIDNEY PROBLEMS FINDINGS: Lines/tubes: None. Lungs: Interval improvement in patchy and nodular airspace opacity in the lateral aspect of the right upper lobe. No consolidation or pulmonary edema. Pleura: There is no pleural effusion or pneumothorax. Heart and mediastinum: Cardiac silhouette is unremarkable. Pulmonary vasculature is normal. Bones: Stable rightward curvature of the thoracic spine with associated degenerative changes. IMPRESSION: 1. improvement in right upper lobe opacity, consistent with improved pneumonia José Antonio Alexander M.D. Dictated by: José Antonio Alexander M.D. on 01/03/2018 at 12:35 Electronically approved by: José Antonio Alexander M.D. on 01/03/2018 at 12:35
[2018-01-03 14:01] LABS: CLARITY,URINE CLEAR (CLEAR); COLOR,URINE YELLOW (YELLOW)
[2018-01-03 14:02] LABS: BILIRUBIN,URINE NEGATIVE (NEGATIVE); KETONES,URINE NEGATIVE (NEGATIVE); LEUKOCYTE ESTERASE ,URINE NEGATIVE (NEGATIVE); NITRITE,URINE NEGATIVE (NEGATIVE); PROTEIN,URINE DIPSTICK 2+ (NEGATIVE); URINE UROBILINOGEN 0.2 mg/dL (0.2 - 1)
[2018-01-03] MEDS ORDERED: SODIUM CHLORIDE 0.9% 1000ML 1,000 ML IV SCH (14:23)
[2018-01-03] MEDS ORDERED: MAGNESIUM OXIDE 400 MG TAB PO ONE (14:30)
[2018-01-03 14:36] LABS: BACTERIA,URINE MODERATE /HPF; EPITHELIAL CELLS,URINE FEW /LPF; WBC,URINE (MAN) 0-5 /HPF (0-5)
[2018-01-03] MEDS ORDERED: SODIUM CHLORIDE 0.9% 1000ML 1,000 ML IV ONE (15:15)
[2018-01-03 15:18] LABS: ANION GAP 20.6 mmol/L (8-16); CALCIUM 9.8 mg/dL (8.4-10.2); CREATININE, SERUM 7.83 mg/dL (0.57-1.11)
[2018-01-03 15:20] LABS: POTASSIUM 6.6 mmol/L (3.5-5.1)
[2018-01-03 15:20] LABS: ANISOCYTOSIS SLIGHT; ELLIPTOCYTE, RBC MODERATE
[2018-01-03] MEDS: HYDROCODONE/APAP 5MG-325MG TAB PO PRN ×2 (15:20→20:05)
[2018-01-03 15:21] LABS: PLATELET ESTIMATE ADEQUATE; PLATELET MORPHOLOGY COMMENT NORMAL; RBC MORPHOLOGY COMMENT ABNORMAL
--- OUTSIDE RECORDS SUMMARY | 2018-01-03 15:41 | XMS REPORT | Clinical Summary ---
Author Author [employer] [facility] Address Unknown Phone Unavailable Care Team Providers Care Licensed Veterinary Technician Name Role Phone PCP Unavailable Allergies Active [...] Ref Range Ejection Fraction Specimen Performing Laboratory [facility] ECHO HEARTLAB MKCKESSON [...] + + + +--------- --------+ + !Prox LOCKSTITCH BACK MAKER ! !87.2 ! !Biphasic ! !51.1 ! !Biphasic ! + + + ------+ + + + +--------- --------+ + !Mid LOCKSTITCH BACK MAKER ! !91.9 ! !Biphasic ! !63.9 ! !Monophasic ! + + + ------+ + + + +--------- --------+ + !Dist LOCKSTITCH BACK MAKER ! !92.7 ! !Biphasic ! !65.1 ! [...] Date of Study02/06/2017 MILLICENT Age 81 Visit [id number] Gender Female Date of Birth Number Referring [facility] Room Number Physician Jose Trial Justice Kenneth Coyle.Interpreting Jose Andre RVT, JESSIE Blair MD, [facility] Procedure Type of Study: Extremities Arteries: Lower Extremities Arterial Duplex, ARTERIAL DOPPLER LEGS, BILATERAL. Indications for Study:PVD. Patient Status:Routine. Study Location:Vascular Lab. Technical Quality:Adequate visualization. Procedure Note Interface, External Ris In - 02/06/2017 2:53 PM CDT [facility] - Lower Extremity Arterial Duplex Demographics Patient Name KATHRYN WALSH Date of Study 02/06/2017 MILLICENT Age 81 Visit Number [id number] Gender Female Date of 1935 Number Referring [facility] Room Number Physician Garcia Trial Justice Kenneth Coyle. Interpreting Jsoe Andre RVT, JESSIE Blair MD, [facility] Procedure Type of Study: Extremities Arteries: Lower [...] + + + +--------- --------+ + !Prox LOCKSTITCH BACK MAKER ! !87.2 ! !Biphasic ! !51.1 ! !Biphasic ! + + + ------+ + + + +--------- --------+ + !Mid LOCKSTITCH BACK MAKER ! !91.9 ! !Biphasic ! !63.9 ! !Monophasic ! + + + ------+ + + + +--------- --------+ + !Dist LOCKSTITCH BACK MAKER ! !92.7 ! !Biphasic ! !65.1 ! [...]
--- OUTSIDE RECORDS SUMMARY | 2018-01-03 15:41 | XMS REPORT | Clinical Summary ---
Author Author [facility] Organization [facility] Address Unknown Phone Unavailable Care Team Providers Care Flosser Name Role Phone Ronan Gardner MD PCP [...] 01/29/2017 Documentation Gastroenterology Romie Ayala MD 01/26/2017 [facility] Radiology Romie Ayala Substernal chest pain Encounter 01/23/2017 [facility] Radiology Romie Ayala Substernal chest pain [...] Complete (01/26/2017 12:18 PM) Specimen Performing Laboratory [facility] [address] [place] [address] Narrative EXAM: US ABDOMEN COMPLETE CLINICAL DATA:R07.2 [...] ascites. PLEURAL EFFUSION:There are no pleural effusions. [facility]-[id number] Procedure Note Interface, Radiology Results Incoming - [...] PLEURAL EFFUSION: There are no pleural effusions. [facility]-[id number] * [place] Esophagram Complete (01/23/2017 4:00 PM) Specimen Performing Laboratory [address] [address] Narrative EXAMINATION:[place] ESOPHAGRAM COMPLETE CLINICAL HISTORY:R07.2 Precordial pain, Chest pain COMPARISON:None. Fluoroscopy time: 1.3 minute. FINDINGS: The patient swallowed air producing granules and barium without difficulty. The esophagus demonstrates frequent tertiary contractions in the distal esophagus. No stricture or suspicious filling defect is seen. There is a moderate sliding hiatal hernia. IMPRESSION: Moderate hiatal hernia. Prominent tertiary contractions. [facility]-[id number] Procedure Note Interface, Radiology Results Incoming - [...] IMPRESSION: Moderate hiatal hernia. Prominent tertiary contractions. [facility]-[id number] after 01/02/2017 Insurance Payer Benefit Subscriber ID Type Phone Address Plan / Group MEDICARE MEDICARE xxxxxxxxxxx Medicare [place], [place] PART A AND B [facility] xxxxxxxxxxxx Commercial SUPPLEMENT Home: [address] [place], [place] [phone] [place] [phone]
[2018-01-03] MEDS ORDERED: SODIUM BICARBONATE 8.4% SYRING 150 ML in DEXTROSE 5% 1,000 ML IV SCH (15:57)
[2018-01-03] MEDS ORDERED: LOPERAMIDE HCL 2 MG CAP PO ONE (16:00)
[2018-01-03] MEDS ORDERED: HEPARIN SOD (PORCINE) 1000 UNIT/ML SDV ONE ×2 (17:55→21:34)
[2018-01-03] MEDS ORDERED: LIDOCAINE HCL 2% LOCAL 20 ML VIAL ONE (18:00)
--- NOTE | 2018-01-03 18:06 | Diagnostic Imaging Report ---
PROCEDURE:US RETROPERITONEAL ( KIDNEY ). COMPARISON:Patients [facility], CT, CTA ABD/PEL/RUN OFF, 07/13/2017, 20:14. INDICATIONS:ARF TECHNIQUE: Franco-scale and color sonographic images of the bilateral kidneys and bladder where obtained in transverse and longitudinal planes. FINDINGS: RIGHT KIDNEY: 9.2 cm, cortex 1.6 cm Cysts: 4.1 x 2.9 x 3.1 cm mostly anechoic lesion in the superior to mid aspect, which contains a thin internal nonvascular septation (previously measured approximately 3.7 x 3.1 x 3.[address] 1.8 x 1.7 x 1.7 cm cystic, anechoic lesion in the mid aspect (previously measured 1.9 x 1.[address] Solid masses: None Stones: None Hydronephrosis: None Echogenicity: Increased LEFT KIDNEY: 9.0 cm, cortex 1.3 cm Cysts: 8.2 x 5.1 x 7.0 cm cystic, anechoic mostly exophytic lesion arising from the mid to inferior aspect (previously measured 6.1 x 6.3 x 6[address] 3.7 x 3.2 x 4.0 cm partly exophytic cystic, anechoic lesion in the superior to mid aspect which contains a thin nonvascular septation (previously measured 2.8 x 2.4 x 2.[address]) Solid masses: None Stones: None Hydronephrosis: None Echogenicity: Increased Bladder: Decompressed, with De Oliveira catheter in place. CONCLUSION: 1. Bilateral renal size in the lower limit of normal. Bilateral increased renal cortical echogenicity, consistent with medical renal disease. No hydronephrosis, stones, or obstruction. 2. Interval increase in size of 4.1 cm minimally complex cyst in the superior to mid right kidney, 4.0 cm minimally complex cyst in the superior to mid left kidney, and 8.2 cm simple cyst in the mid to inferior left kidney, when accounting for differences in modality. 3. Stable simple cyst in the mid right kidney. José Antonio Alexander M.D. Dictated by: José Antonio Alexander M.D. on 01/03/2018 at 18:08 Electronically approved by: José Antonio Alexander M.D. on 01/03/2018 at 18:08
[2018-01-03] MEDS: SODIUM BICARBONATE 8.4% SYRING 150 ML in DEXTROSE 5% 1,000 ML IV SCH (18:35)
--- NOTE | 2018-01-03 18:36 | Consultation ---
DATE OF CONSULTATION: January 03, 2018 HISTORY OF PRESENT ILLNESS: This is an 82-year-old female accompanied by her daughter who is known to me from prior admission. She was recently here had endoscopy done. So went home and had relentless diarrhea. It is "non-stop" according to her daughter. She comes into the hospital with dehydration and weakness. Found to have life-threatening hyperkalemia and acute kidney injury. She is currently laying supine, following commands, feels weak because of all the diarrhea. She has had previous history of urinary tract infection, prior colitis, diverticulosis, recent colonoscopy, history of Pseudomonas urinary tract infection, iron deficiency anemia, wxict-nv-sfbuirp kidney failure, koiag-sl-pynqaom diastolic heart failure, prior DVT and PE, history of hypertension and sinus tachycardia. ALLERGIES: STATINS, , INHIBITORS, SULFA AND LEVAQUIN. CURRENT MEDICATIONS: The patient was given 2 grams of magnesium sulfate, was given urgent treatment for hyperkalemia with insulin, calcium and dextrose. Currently receiving normal saline at 50 mL an hour, which I am going to change to 100 mL an hour. SOCIAL HISTORY: Does not smoke or drink. FAMILY HISTORY: Significant for hypertension. Current chest x-ray noted. Current labs showing white count 8.24. Hemoglobin 11.3. Sodium 136. Potassium 6.6. Bicarbonate 12. Creatinine 7.83. With a glucose 47. Magnesium 0.9. BNP 1004. PHYSICAL EXAMINATION: VITALS: Blood pressure 143/96, pulse rate 72, afebrile. Oxygen saturation 95%. HEAD AND NECK: Conjunctivae somewhat pale. Oral mucosa dry. Neck veins flat. LUNGS: Relatively clear. No rales. HEART: S1 and S2 audible. Significant 2-3/6 ejection systolic murmur lower left sternal border. ABDOMEN: Otherwise soft and nontender. LOWER EXTREMITY EXAMINATION: 2+ lower extremity edema. IMPRESSION AND PLAN: Life-threatening hyperkalemia with hyperacute T waves on ECG. Discussed with the ER physician. Will need a stat dialysis catheter. Radiology paged at 3:06 p.m. stat for stat dialysis catheter, triple-lumen in. The meantime, will change IV fluid to D5 with 3 amps of sodium bicarbonate at 100 mL an hour. As soon as dialysis catheter is placed, patient will be requiring dialysis. Magnesium has been replaced. Severe nutrition deficiency with severe electrolyte abnormalities. Underlying acute tubular necrosis. Will have the nurse place a De Oliveira catheter. Strict intake and output. Discontinue normal saline and start IV bicarbonate. No evidence of congestive heart failure. The patient will be transferred to the ICU. Job#: [id number]
[2018-01-03] MEDS ORDERED: LIDOCAINE HCL 1% LOCAL INJ 20 ML VIAL ONE (18:48)
--- NOTE | 2018-01-03 18:50 | Operative Report ---
DATE OF PROCEDURE: January 03, 2018 This procedure done as an emergency. The radiologist left at 3 p.m., and Dr. Ruvalcaba director of agronomy and refuses to come and would not be able to show up until 8 p.m. Patient has a life-threatening hyperkalemia with acute kidney injury, severe metabolic acidosis and hypotensive. Discussed with patient, discussed with family. Consent obtained. Thereafter, area over right femoral vein prepped and draped and rendered sterile. Thereafter, 1% lidocaine used to infiltrate skin and subcutaneous tissue. Thereafter, 18-gauge needle used to cannulate right femoral vein. Thereafter, flexible J-tipped guide wire introduced through the needle into the inferior vena cava without any resistance. The needle was withdrawn, exit site dilated. Thereafter, 19.5-cm Mahurkar dialysis catheter placed over a wire using Seldinger technique. Wire pulled. Good blood return noted both ports. Both ports aspirated, flushed. Line secured. Patient tolerated the procedure well. No complications noted. Procedure done under glove, gown, mask, sterile drapes and all aseptic measures. Job#: [id number]
[2018-01-03] MEDS ORDERED: SODIUM CHLORIDE 0.9% 1000ML 1,000 ML ONE ×2 (19:10→21:35)
[2018-01-03] MEDS: SODIUM CHLORIDE 0.9% 1000ML 2,000 ML IV PRN ×2 (20:00→21:40)
--- NOTE | 2018-01-03 20:00 | Diagnostic Imaging Report ---
SINGLE VIEW CHEST, 01/03/2018 Clinical History: Line placement. Technique: Single, portable AP view chest. Comparison: December 17, 2017; December 19, 2017 Findings: See impression. Impression: 1. Right internal jugular central venous catheter tip at the atrial caval junction. 2. No pneumothorax. 3. Hyperinflation consistent with air trapping from COPD. 4. Normal heart size. 5. Mild central vascular congestion. 6. Right upper lobe airspace opacity, decreased in volume relative to December 17, 2017 consistent with improving/resolving infection or atelectasis. This report was generated with voice-recognition technology. Errors in stile ripsaw operator can occur. Please interpret accordingly and contact a radiologist if there are any questions regarding the report. Signed by: Dr. Boni Ruvalcaba M.D. on 01/03/2018 7:56 PM
--- NOTE | 2018-01-03 20:10 | Diagnostic Imaging Report ---
Non-tunneled Central Venous Catheter Placement 01/03/2018 Pre-Procedure Diagnosis: Acute renal failure; poor IV access Post-procedure Diagnosis:Acute renal failure; poor IV access Motor Vehicle Licence Examiner: Ramez Ruvalcaba Certified Appliance Service Technician: None Sedation: None. 1% lidocaine local anesthesia. Estimate blood loss: <5 mL Blood administered: None Complications: None Implants/Grafts: 16 cm 7-Bengali 3 lumen CVC Specimen: None Procedure: Informed consent was obtained and the patient positioned supine in the ICU. A timeout was performed, followed by preliminary ultrasound of the right internal jugular vein (see findings below). The right neck was prepped and draped in standard fashion. Using real-time ultrasound guidance a 18 gauge vascular needle was used to access the right internal jugular vein. An image was stored in the electronic medical record. A wire was advanced while monitoring the patient's cardiac rhythm and the needle exchanged for a non-tunneled central venous catheter using standard Seldinger technique. At the end of the procedure the catheter was flushed, secured to the skin and a sterile dressing applied. The patient tolerated the procedure well and without immediate complication. Findings: Patent right internal jugular vein as demonstrated by normal ultrasound compressibility. Impression: 1. Successful placement of a non-tunneled right internal jugular central venous catheter using ultrasound guidance. 2. The patient had an indwelling right femoral non-tunneled dialysis catheter in place at the time of central line placement; Trialysis catheter placement was therefore deferred. This report was generated with voice-recognition technology. Errors in flash oven operator can occur. Please interpret accordingly and contact a radiologist if there are any questions regarding the report. Signed by: Dr. Boni Ruvalcaba M.D. on 01/03/2018 8:06 PM
--- NOTE | 2018-01-03 20:10 | Diagnostic Imaging Report ---
Non-tunneled Central Venous Catheter Placement 01/03/2018 Pre-Procedure Diagnosis: Acute renal failure; poor IV access Post-procedure Diagnosis:Acute renal failure; poor IV access Power And Recovery Superintendent: Ramez Ruvalcaba Client Liaison: None Sedation: None. 1% lidocaine local anesthesia. Estimate blood loss: <5 mL Blood administered: None Complications: None Implants/Grafts: 16 cm 7-Indonesian 3 lumen CVC Specimen: None Procedure: Informed consent was obtained and the patient positioned supine in the ICU. A timeout was performed, followed by preliminary ultrasound of the right internal jugular vein (see findings below). The right neck was prepped and draped in standard fashion. Using real-time ultrasound guidance a 18 gauge vascular needle was used to access the right internal jugular vein. An image was stored in the electronic medical record. A wire was advanced while monitoring the patient's cardiac rhythm and the needle exchanged for a non-tunneled central venous catheter using standard Seldinger technique. At the end of the procedure the catheter was flushed, secured to the skin and a sterile dressing applied. The patient tolerated the procedure well and without immediate complication. Findings: Patent right internal jugular vein as demonstrated by normal ultrasound compressibility. Impression: 1. Successful placement of a non-tunneled right internal jugular central venous catheter using ultrasound guidance. 2. The patient had an indwelling right femoral non-tunneled dialysis catheter in place at the time of central line placement; Trialysis catheter placement was therefore deferred. This report was generated with voice-recognition technology. Errors in ground support equipment mechanic can occur. Please interpret accordingly and contact a radiologist if there are any questions regarding the report. Signed by: Dr. Boni Ruvalcaba M.D. on 01/03/2018 8:06 PM
[2018-01-03] MEDS ORDERED: MANNITOL 25% 12.5GM/50 ML VIAL IV PRN (21:00)
[2018-01-03 21:07] LABS: CREATINE KINASE 22 IU/L (29-168)
[2018-01-03] MEDS: VANCOMYCIN 250MG/5ML ORAL SOLN PO SCH (21:30)
[2018-01-03] MEDS: HEPARIN SOD (PORCINE) 1000 UNIT/ML SDV IV PRN ×2 (22:00→22:05)
[2018-01-03] MEDS ORDERED: DEXTROSE 50% SYRINGE 50 ML IV PRN (22:15)
[2018-01-04] VITALS (33 sets, daily range): BP systolic 101–151; BP diastolic 47–106
[2018-01-04] MEDS: VANCOMYCIN 250MG/5ML ORAL SOLN PO SCH ×3 (05:30→21:26)
[2018-01-04] MEDS: SODIUM BICARBONATE 8.4% SYRING 150 ML in DEXTROSE 5% 1,000 ML IV SCH (05:30)
[2018-01-04 06:09] LABS: BASOPHILS % 0.3 % (0.0-1.0); EOSINOPHILS # (AUTO) 0.1 (0.0-0.4); EOSINOPHILS % 0.9 % (0.0-6.0); HEMATOCRIT 26.4 % (34.2-44.1); HEMOGLOBIN 8.6 g/dL (12.0-16.0); LYMPHOCYTES # (AUTO) 0.7 (1.0-3.2); LYMPHOCYTES % 10.4 % (18.0-39.1); MEAN CORPUSCULAR HGB CONC 32.6 g/dL (31-35); MEAN CORPUSCULAR VOLUME 82.8 fL (81-99); MONOCYTES # (AUTO) 0.7 (0.2-0.8); MONOCYTES % 11.1 % (4.4-11.3); NEUTROPHILS # (AUTO) 4.8 (2.1-6.9); NEUTROPHILS % 76.4 % (38.7-80.0); PLATELET COUNT 206 x10e3/uL (140-360); RED BLOOD COUNT 3.19 x10e6/uL (3.6-5.1); RED CELL DISTRIBUTION WIDTH 23.7 % (11.7-14.4)
[2018-01-04 06:38] LABS: ALBUMIN 1.9 g/dL (3.5-5.0); ALBUMIN/GLOBULIN RATIO 0.7 (0.8-2.0); ANION GAP 13.7 mmol/L (8-16); CALCIUM 7.6 mg/dL (8.4-10.2); CREATININE, SERUM 3.97 mg/dL (0.57-1.11); POTASSIUM 4.7 mmol/L (3.5-5.1)
[2018-01-04 06:39] LABS: MAGNESIUM 1.1 MG/DL (1.3-2.1)
[2018-01-04] MEDS: HYDROCODONE/APAP 5MG-325MG TAB PO PRN ×3 (07:00→16:08)
[2018-01-04 07:36] LABS: CREATINE KINASE MB 1.1 ng/mL (0-5.0)
[2018-01-04] MEDS: DEXTROSE 5%/0.45% SOD CHL 1,000 ML IV SCH ×2 (07:38→17:15)
[2018-01-04 07:40] LABS: BAND NEUTROPHILS % (MANUAL) 4 %; LYMPHOCYTES % (MANUAL) 9 % (19-48); MONOCYTES % (MANUAL) 8 % (3.4-9.0); NEUTROPHILS % (MANUAL) 75 % (40-74)
[2018-01-04 07:41] LABS: PLATELET ESTIMATE ADEQUATE; RBC MORPHOLOGY COMMENT ABNORMAL
[2018-01-04 07:42] LABS: ANISOCYTOSIS MODERATE; HYPOCHROMASIA SLIGHT; PLATELET MORPHOLOGY COMMENT NORMAL; POIKILOCYTOSIS SLIGHT
[2018-01-04] MEDS ORDERED: MAGNESIUM SULFATE 2GM/50ML 50 ML IV ONE (07:45)
[2018-01-04] MEDS: BIOTIN PO SCH (09:00)
[2018-01-04] MEDS: PANTOPRAZOLE SOD 40 MG TABEC PO SCH ×2 (09:36→13:01)
[2018-01-04] MEDS: MEGESTROL ACETATE 40 MG TAB PO SCH ×2 (09:36→13:00)
[2018-01-04] MEDS: LEVOTHYROXINE SODIUM 50 MCG TAB PO SCH ×2 (09:36→13:01)
[2018-01-04] MEDS: METOPROLOL SUCCINATE 50 MG TAB XL PO SCH ×2 (09:36→13:01)
[2018-01-04] MEDS: PRAMIPEXOLE DIHYDROCHLORIDE 0.25 MG TAB PO SCH (20:44)
--- NOTE | 2018-01-04 23:27 | Consultation ---
DATE OF CONSULTATION: January 04, 2018 CARDIOLOGY CONSULT REASON FOR CONSULTATION: Ongoing cardiac care. CONSULTING PHYSICIAN: Dr. Gardner. HISTORY OF PRESENT ILLNESS: Ms. Hand is 82 years old, female . She is a patient that is well known to our practice . We are actually the ones who requested her to head to the ER due to acute renal failure on recent lab work done in the office with a noted potassium level of 7.8 at that time. It has been reported from a recent visit in the office that the patient has had ongoing diarrhea and has been experiencing low blood pressure issues at home, fatigue and also an ongoing cough. For these reasons, lab work had been ordered as outpatient; however, acute renal failure was noted and for that reason the patient was instructed to go the ER. The patient was seen today at the bedside. She denies any chest pain or shortness of breath. She does endorse some pain in her lower extremities, right greater than left, and also swelling in her right lower extremity, greater than the left lower extremity and also some pain in her right arm and shoulder that relates to her use of walker frequently due to diarrhea back and forth to the bathroom. She denies any chills, fever, dizziness or syncope. PAST MEDICAL HISTORY: High blood pressure, high cholesterol, thyroid disease, blood clotting disorder and gout. PAST SURGICAL HISTORY: None. FAMILY HISTORY: Positive for high blood pressure. ALLERGIES: SULFA. REVIEW OF SYSTEMS: Negative except as mentioned in the history of present illness. PHYSICAL EXAMINATION: VITALS: Temperature 98.7. Pulse 91. Respiratory rate 18. Blood pressure 120/59. Oxygen saturation 100% on room air. GENERAL: Alert and oriented x3. Resting comfortably in bed. Does not appear to be in any acute distress at this time. LUNGS: Diminished breath sounds, posterior lower lobe, otherwise clear to auscultation. No wheezing and no rhonchi or crackles. CARDIOVASCULAR: Regular rate and rhythm. Tachycardiac. ABDOMEN: Round, soft and nontender. EXTREMITIES: Lower extremities with 2+ pitting edema, right lower extremity, left 1+ pitting edema. SKIN: Scattered bruises throughout. TELEMETRY: Sinus tachycardia. CARDIOVASCULAR MEDICATIONS: Levothyroxine 50 mcg p.o. daily. Metoprolol 100 p.o. daily. Pantoprazole 40 p.o. daily. LABORATORY DATA: WBC 6.32, hemoglobin 8.6, hematocrit 26.4, platelets 206,000. Sodium 141, potassium 4.7, BUN 37, creatinine 3.97, GFR 11, calcium 7.6, magnesium 1.1, creatinine kinase 19 and CK-MB 1.10. Troponin 0.01. Chest x-ray from yesterday with improvement in the right upper lobe opacity which is consistent with pneumonia. IMPRESSION: 1. Right upper lobe pneumonia. 2. Thromboembolic disorder. 3. Dxciu-ea-qomgmgp diastolic heart failure. 4. Anemia secondary to renal failure. 5. Acute renal failure, status post dialysis yesterday. RECOMMENDATION: Continue with the above-listed cardiac medications. Patient on contact isolation due to suspected C. diff. Continue to monitor. Obtain venous Doppler of the lower extremities, especially with asymmetric swelling. We will review records from our office to see if any other tests are necessary at this time. Continue volume management and nephrology care per Dr. Peralta. Thank you for this consultation. Will continue to follow this patient closely. Dictated by: Gabriela Cash NP Job#: [id number]
[2018-01-05] VITALS (7 sets, daily range): BP systolic 120–159; BP diastolic 60–76
[2018-01-05] MEDS: DEXTROSE 5%/0.45% SOD CHL 1,000 ML IV SCH ×2 (03:15→13:27)
[2018-01-05] MEDS: VANCOMYCIN 250MG/5ML ORAL SOLN PO SCH ×3 (05:04→21:19)
[2018-01-05] MEDS: LEVOTHYROXINE SODIUM 50 MCG TAB PO SCH (05:04)
[2018-01-05] MEDS: HYDROCODONE/APAP 5MG-325MG TAB PO PRN ×2 (06:30→21:20)
[2018-01-05] MEDS: BIOTIN PO SCH (09:00)
[2018-01-05] MEDS: PANTOPRAZOLE SOD 40 MG TABEC PO SCH (09:17)
[2018-01-05] MEDS: MEGESTROL ACETATE 40 MG TAB PO SCH (09:17)
[2018-01-05] MEDS: METOPROLOL SUCCINATE 50 MG TAB XL PO SCH (09:17)
[2018-01-05 09:23] LABS: ALBUMIN 2.1 g/dL (3.5-5.0); ALBUMIN/GLOBULIN RATIO 0.7 (0.8-2.0); ANION GAP 12.3 mmol/L (8-16); CALCIUM 8.2 mg/dL (8.4-10.2); CREATININE, SERUM 2.52 mg/dL (0.57-1.11); MAGNESIUM 1.2 MG/DL (1.3-2.1); PHOSPHORUS 2.4 MG/DL (2.3-4.7); POTASSIUM 4.3 mmol/L (3.5-5.1)
--- NOTE | 2018-01-05 13:10 | Progress Note ---
DATE: January 05, 2018 CARDIOLOGY PROGRESS NOTE SUBJECTIVE: Patient complains of right upper arm and lower arm pain that is worsening and swelling that is worsening. Denies any chest pain or shortness of breath. OBJECTIVE VITAL SIGNS: Temperature 97.6, pulse 94, respiratory rate 19. Blood pressure 159/76. Oxygen saturation 92% on room air. CARDIOVASCULAR MEDICATIONS 1. Metoprolol succinate 100 mg p.o. daily. 2. Megace 20 mg p.o. daily. LABS: Sodium 136, potassium 4.3, BUN 18, creatinine 2.52. GFR 18. Magnesium 1.2. AST 10, ALT 11. TELEMETRY: Sinus rhythm. PHYSICAL EXAMINATION GENERAL: Alert and oriented times 3. Resting comfortably in bed. Family at the bedside. Does not appear to be in any acute distress. LUNGS: Clear to auscultation throughout. No wheezing. No rhonchi or crackles. CARDIOVASCULAR: Regular rate and rhythm. No murmurs or gallops noted. ABDOMEN: Rounded, soft, nontender. EXTREMITIES: Lower extremities have 2+ pitting edema, right greater than left. Upper extremities have 2+ nonpitting edema to the right upper extremity with redness and pain upon touch. SKIN: Scattered bruises throughout. IMPRESSION 1. Right upper lobe pneumonia. 2. Thromboembolic disorder. 3. Ybtlh-lk-ntrflqg diastolic heart failure. 4. Anemia. 5. Acute renal failure, status post dialysis with improvement noted. RECOMMENDATION: Volume management per nephrology. Continue the above-listed cardiac medications. Obtain upper extremity Doppler to rule out DVT at this time. Arm elevation and pain management advised. Will continue to follow carefully. Dictated by Gabriela Cash NP. Job#: [id number]
[2018-01-05] MEDS: PRAMIPEXOLE DIHYDROCHLORIDE 0.25 MG TAB PO SCH (21:00)
[2018-01-06] VITALS (7 sets, daily range): BP systolic 142–169; BP diastolic 63–102
[2018-01-06] MEDS: DEXTROSE 5%/0.45% SOD CHL 1,000 ML IV SCH ×2 (02:00→16:18)
[2018-01-06] MEDS: HYDROCODONE/APAP 5MG-325MG TAB PO PRN ×2 (05:24→22:19)
[2018-01-06] MEDS: VANCOMYCIN 250MG/5ML ORAL SOLN PO SCH ×3 (05:24→21:39)
[2018-01-06] MEDS: LEVOTHYROXINE SODIUM 50 MCG TAB PO SCH (05:24)
[2018-01-06 07:36] LABS: BASOPHILS % 0.3 % (0.0-1.0); EOSINOPHILS # (AUTO) 0.1 (0.0-0.4); EOSINOPHILS % 1.3 % (0.0-6.0); HEMATOCRIT 31.8 % (34.2-44.1); HEMOGLOBIN 10.1 g/dL (12.0-16.0); LYMPHOCYTES # (AUTO) 1.3 (1.0-3.2); LYMPHOCYTES % 15.2 % (18.0-39.1); MEAN CORPUSCULAR HEMOGLOBIN 27.1 pg (28-32); MEAN CORPUSCULAR HGB CONC 31.8 g/dL (31-35); MEAN CORPUSCULAR VOLUME 85.3 fL (81-99); MONOCYTES % 11.6 % (4.4-11.3); NEUTROPHILS # (AUTO) 6.2 (2.1-6.9); NEUTROPHILS % 70.8 % (38.7-80.0); PLATELET COUNT 224 x10e3/uL (140-360); RED BLOOD COUNT 3.73 x10e6/uL (3.6-5.1); RED CELL DISTRIBUTION WIDTH 23.2 % (11.7-14.4)
[2018-01-06] MEDS: PANTOPRAZOLE SOD 40 MG TABEC PO SCH (08:00)
[2018-01-06] MEDS: METOPROLOL SUCCINATE 50 MG TAB XL PO SCH (08:00)
[2018-01-06] MEDS: MEGESTROL ACETATE 40 MG TAB PO SCH (08:00)
[2018-01-06 08:29] LABS: ANION GAP 10.4 mmol/L (8-16); CALCIUM 8.2 mg/dL (8.4-10.2); CREATININE, SERUM 2.68 mg/dL (0.57-1.11); PHOSPHORUS 2.8 MG/DL (2.3-4.7); POTASSIUM 4.4 mmol/L (3.5-5.1)
[2018-01-06 08:32] LABS: MAGNESIUM 1.1 MG/DL (1.3-2.1)
[2018-01-06] MEDS: BIOTIN PO SCH (09:00)
[2018-01-06] MEDS ORDERED: MAGNESIUM SULFATE 2GM/50ML 50 ML IV ONE (09:30)
[2018-01-06 11:31] LABS: PLATELET ESTIMATE ADEQUATE; PLATELET MORPHOLOGY COMMENT NORMAL
[2018-01-06 11:32] LABS: ANISOCYTOSIS SLIGHT; RBC MORPHOLOGY COMMENT NORMAL
[2018-01-06] MEDS: LIDOCAINE 5% PATCH TP SCH (12:42)
--- NOTE | 2018-01-06 14:29 | Progress Note ---
DATE: CARDIOLOGY PROGRESS NOTE SUBJECTIVE: Patient complains of right upper extremity pain and swelling. Denies any chest pain or shortness of breath. She states overall she feels a little bit better. CARDIOVASCULAR MEDICATIONS 1. Metoprolol 100 mg p.o. daily. 2. Levothyroxine 50 mcg p.o. daily. OBJECTIVE VITAL SIGNS: Temperature 97.1, pulse 82, respiratory rate 18, blood pressure 168/78, oxygen saturation 95% on room air. GENERAL: Alert and oriented x3, resting comfortably in bed, does not appear to be in acute distress. LUNGS: Clear to auscultation throughout. No wheezing. No rhonchi or crackles. CARDIOVASCULAR: Regular in rate and rhythm. No murmur, no gallops. ABDOMEN: Soft, nontender. EXTREMITIES: Lower extremities, 2+ pitting edema, right greater than left. Upper extremities, nonpitting edema right upper extremity with fluid patches noted. Scant bruises. LABS: WBC 8.71, hemoglobin 10.1, hematocrit 31.8, platelets 324. Sodium 130, potassium 4.4, creatinine 2.68, GFR 17, calcium 8.2, magnesium 1.1. TELEMETRY: Sinus rhythm. IMPRESSION 1. Right upper lobe pneumonia. 2. Thromboembolic disorder. 3. Jzhpc-tn-wxxkxxb diastolic heart failure. 4. Anemia. 5. Acute renal failure, status post dialysis with improvement. RECOMMENDATIONS: Continue the above-listed cardiac medications. Volume management per transfer engineer. Monitor electrolytes closely and replace. Magnesium replaced today. Continue right arm elevation and pain management with lidocaine patch. We will continue to follow very closely. Dictated by: Gabriela Cash NP Job#: [id number] [facility]
[2018-01-06] MEDS: PRAMIPEXOLE DIHYDROCHLORIDE 0.25 MG TAB PO SCH (21:39)
[2018-01-07] VITALS (10 sets, daily range): BP systolic 139–171; BP diastolic 62–74
[2018-01-07] MEDS: VANCOMYCIN 250MG/5ML ORAL SOLN PO SCH ×3 (05:34→21:18)
[2018-01-07] MEDS: LEVOTHYROXINE SODIUM 50 MCG TAB PO SCH (05:34)
[2018-01-07] MEDS: HYDROCODONE/APAP 5MG-325MG TAB PO PRN ×2 (05:34→21:18)
[2018-01-07] MEDS: DEXTROSE 5%/0.45% SOD CHL 1,000 ML IV SCH ×2 (06:36→20:54)
[2018-01-07 07:45] LABS: BASOPHILS % 0.4 % (0.0-1.0); EOSINOPHILS # (AUTO) 0.2 (0.0-0.4); EOSINOPHILS % 1.8 % (0.0-6.0); HEMATOCRIT 30.7 % (34.2-44.1); HEMOGLOBIN 9.8 g/dL (12.0-16.0); LYMPHOCYTES # (AUTO) 1.4 (1.0-3.2); LYMPHOCYTES % 16.6 % (18.0-39.1); MEAN CORPUSCULAR HGB CONC 31.9 g/dL (31-35); MEAN CORPUSCULAR VOLUME 84.6 fL (81-99); MONOCYTES # (AUTO) 0.8 (0.2-0.8); MONOCYTES % 9.6 % (4.4-11.3); NEUTROPHILS # (AUTO) 5.7 (2.1-6.9); NEUTROPHILS % 70.6 % (38.7-80.0); PLATELET COUNT 222 x10e3/uL (140-360); RED BLOOD COUNT 3.63 x10e6/uL (3.6-5.1); RED CELL DISTRIBUTION WIDTH 22.5 % (11.7-14.4)
[2018-01-07 08:09] LABS: ANION GAP 10.5 mmol/L (8-16); CALCIUM 8.4 mg/dL (8.4-10.2); CREATININE, SERUM 2.75 mg/dL (0.57-1.11); POTASSIUM 4.5 mmol/L (3.5-5.1)
[2018-01-07 08:12] LABS: ANISOCYTOSIS MODERATE; HYPOCHROMASIA SLIGHT; PLATELET CLUMPS RARE; PLATELET ESTIMATE ADEQUATE; POIKILOCYTOSIS SLIGHT; RBC MORPHOLOGY COMMENT ABNORMAL
[2018-01-07 08:33] LABS: FERRITIN 857.18 ng/mL (4.63-204.00); FREE T4 (FREE THYROXINE) 0.91 ng/dL (0.9-1.8); THYROID STIMULATING HORMONE 3.782 uIU/mL (0.350-4.940)
[2018-01-07] MEDS: PANTOPRAZOLE SOD 40 MG TABEC PO SCH (08:46)
[2018-01-07] MEDS: MEGESTROL ACETATE 40 MG TAB PO SCH (08:46)
[2018-01-07] MEDS: METOPROLOL SUCCINATE 50 MG TAB XL PO SCH (08:47)
[2018-01-07] MEDS: LIDOCAINE 5% PATCH TP SCH (08:47)
[2018-01-07] MEDS: BIOTIN PO SCH (08:48)
[2018-01-07 08:59] LABS: FOLATE 10.9 ng/mL (7.0-15.4)
[2018-01-07] MEDS: SODIUM FERRIC GLUCONATE COMPLX 125 MG in SODIUM CHLORIDE 0.9% 100 ML 100 ML IV SCH (10:41)
--- NOTE | 2018-01-07 12:20 | Progress Note ---
DATE: CARDIOLOGY PROGRESS NOTE SUBJECTIVE: She reports feeling very well. She has not any complaints this morning. Denies any chest pain, shortness of breath, or palpitations. She reports that her right upper extremity pain and swelling is improving. CARDIOVASCULAR MEDICATIONS 1. Metoprolol 100 mg p.o. daily. 2. Levothyroxine 50 mcg p.o. daily. OBJECTIVE VITAL SIGNS: Temperature 96.2, pulse 82, respiratory rate 20, blood pressure 155/70, oxygen saturation 95% on room air. GENERAL: Alert and oriented x3, resting comfortably in bed, does not appear to be in any acute distress. LUNGS: Clear to auscultation throughout. No wheezing. No rhonchi or crackles. CARDIOVASCULAR: Regular rate and rhythm. Normal S1, S2. S3 and S4 noted. ABDOMEN: Soft, nontender. EXTREMITIES: Lower extremities, trace edema bilaterally with improvement noted. Right upper extremity, 1+ nonpitting edema. LABS: WBC 8.12, hemoglobin 9.8, hematocrit 30.7, platelets 222. Sodium 132, potassium 4.5, BUN 27, creatinine 2.75, GFR 16, calcium 8.4. TELEMETRY: Sinus rhythm. IMPRESSION 1. Right upper lobe pneumonia. 2. Thromboembolic disorder. 3. Ggowf-kh-nhbmtvf diastolic heart failure. 4. Anemia. 5. Acute renal failure, currently on hemodialysis. RECOMMENDATIONS: Continue the above-listed cardiac medications. Volume management per gasket supervisor. Monitor electrolyte and replace accordingly. Continue right upper extremity elevation and pain management. We will continue to follow closely. Dictated By: Gabriela Cash NP Job#: [id number] [facility]
[2018-01-07] MEDS: PRAMIPEXOLE DIHYDROCHLORIDE 0.25 MG TAB PO SCH (21:18)
[2018-01-08] VITALS (7 sets, daily range): BP systolic 140–180; BP diastolic 70–77
[2018-01-08] MEDS: VANCOMYCIN 250MG/5ML ORAL SOLN PO SCH ×3 (05:14→21:07)
[2018-01-08] MEDS: LEVOTHYROXINE SODIUM 50 MCG TAB PO SCH (05:14)
[2018-01-08 07:31] LABS: BASOPHILS % 0.2 % (0.0-1.0); EOSINOPHILS # (AUTO) 0.2 (0.0-0.4); EOSINOPHILS % 1.8 % (0.0-6.0); HEMATOCRIT 29.1 % (34.2-44.1); HEMOGLOBIN 9.5 g/dL (12.0-16.0); LYMPHOCYTES # (AUTO) 1.4 (1.0-3.2); LYMPHOCYTES % 16.7 % (18.0-39.1); MEAN CORPUSCULAR HEMOGLOBIN 27.7 pg (28-32); MEAN CORPUSCULAR HGB CONC 32.6 g/dL (31-35); MEAN CORPUSCULAR VOLUME 84.8 fL (81-99); MONOCYTES # (AUTO) 0.7 (0.2-0.8); MONOCYTES % 8.9 % (4.4-11.3); NEUTROPHILS # (AUTO) 5.9 (2.1-6.9); NEUTROPHILS % 71.4 % (38.7-80.0); PLATELET COUNT 215 x10e3/uL (140-360); RED BLOOD COUNT 3.43 x10e6/uL (3.6-5.1); RED CELL DISTRIBUTION WIDTH 22.6 % (11.7-14.4)
[2018-01-08 07:52] LABS: ALBUMIN/GLOBULIN RATIO 0.8 (0.8-2.0); ANION GAP 12.7 mmol/L (8-16); CALCIUM 8.5 mg/dL (8.4-10.2); CREATININE, SERUM 3.03 mg/dL (0.57-1.11); MAGNESIUM 1.3 MG/DL (1.3-2.1); POTASSIUM 4.7 mmol/L (3.5-5.1)
[2018-01-08] MEDS: PANTOPRAZOLE SOD 40 MG TABEC PO SCH (08:07)
[2018-01-08] MEDS: MEGESTROL ACETATE 40 MG TAB PO SCH (08:08)
[2018-01-08] MEDS: METOPROLOL SUCCINATE 50 MG TAB XL PO SCH (08:08)
[2018-01-08] MEDS: LIDOCAINE 5% PATCH TP SCH (08:08)
[2018-01-08] MEDS: BIOTIN PO SCH (08:16)
[2018-01-08] MEDS: DEXTROSE 5%/0.45% SOD CHL 1,000 ML IV SCH ×2 (10:07→13:39)
[2018-01-08] MEDS: SODIUM FERRIC GLUCONATE COMPLX 125 MG in SODIUM CHLORIDE 0.9% 100 ML 100 ML IV SCH (10:07)
--- NOTE | 2018-01-08 10:25 | Progress Note ---
DATE: January 08, 2018 CARDIOLOGY PROGRESS NOTE SUBJECTIVE: Patient is without any complaints. She states she feels a lot better. OBJECTIVE VITAL SIGNS: Temperature 97.7, pulse 85, respiratory rate 20. Blood pressure 172/73. Oxygen saturation 93% on room air. CARDIOVASCULAR MEDICATIONS: Metoprolol 100 mg p.o. daily. LABS: WBC 8.21, hemoglobin 9.5, hematocrit 29.7, platelets 215. Sodium 134, potassium 4.7, BUN 32, creatinine 3.03, GFR 15, magnesium 1.3. C. diff positive. TELEMETRY: Sinus rhythm. PHYSICAL EXAMINATION GENERAL: Alert and oriented times 3, resting comfortably in bed, does not appear to be in any acute distress. NECK: Supple. No JVD noted. CARDIOVASCULAR: Regular rate and rhythm. Normal S1, S2. S3 and S4 noted. LUNGS: Clear to auscultation throughout. No wheezing. No rhonchi or crackles. ABDOMEN: Soft, nontender. Normoactive bowel sounds. LOWER EXTREMITIES: Trace edema bilaterally. Edema noted to the right upper extremity with improvement. IMPRESSION 1. Right upper lobe pneumonia. 2. Thromboembolic disorder. 3. Kukcm-st-hykbfas diastolic heart failure. 4. Anemia. 5. Acute renal failure, currently on hemodialysis. RECOMMENDATIONS: Continue with the above-listed cardiac medications. Volume management per nephrology. The patient received iron infusion yesterday with improvement of symptoms and energy per her reporting. Monitor electrolytes and replace accordingly. Continue right upper extremity elevation and pain management. Will continue to follow this patient closely. Maintain on telemetry. Job#: [id number]
[2018-01-08] MEDS: HYDROCODONE/APAP 5MG-325MG TAB PO PRN ×2 (11:40→21:06)
--- NOTE | 2018-01-08 16:21 | Diagnostic Imaging Report ---
PROCEDURE: Frontal and lateral views of the chest. COMPARISON: Patients [facility], DX, CHEST XRAY POST PROCEDURE, 01/03/2018, 19:45. Patients [facility], DX, CHEST SINGLE (PORTABLE), 01/03/2018, 11:59. INDICATIONS: CHF FINDINGS: Lines/tubes: Interval removal of previously visualized right sided central line. Lungs: Hyperinflated lungs. Continued improvement in right upper lobe airspace opacity, with only minimal opacities to left. Stable prominence of bilateral interstitial markings. Pleura: Interval development of small left pleural effusion and likely associated atelectasis. Heart and mediastinum: Cardiac silhouette is unremarkable. Mild central venous congestion, which is improved from previous exam Bones: No acute bony abnormality. IMPRESSION: 1. hyperinflated lungs, consistent with COPD. Continued improvement in right upper lobe airspace opacity. 2. Interval development of small left pleural effusion and likely associated left lower lobe atelectasis. 3. Improved mild central pulmonary venous congestion. José Antonio Alexander M.D. Dictated by: José Antonio Alexander M.D. on 01/08/2018 at 16:24 Electronically approved by: José Antonio Alexander M.D. on 01/08/2018 at 16:24
[2018-01-08] MEDS: PRAMIPEXOLE DIHYDROCHLORIDE 0.25 MG TAB PO SCH (21:07)
[2018-01-09] VITALS (7 sets, daily range): BP systolic 130–176; BP diastolic 63–81
[2018-01-09] MEDS: LEVOTHYROXINE SODIUM 50 MCG TAB PO SCH (05:43)
[2018-01-09] MEDS: VANCOMYCIN 250MG/5ML ORAL SOLN PO SCH ×3 (05:44→20:52)
[2018-01-09] MEDS: DEXTROSE 5%/0.45% SOD CHL 1,000 ML IV SCH (06:45)
[2018-01-09 06:51] LABS: BASOPHILS % 0.2 % (0.0-1.0); EOSINOPHILS # (AUTO) 0.1 (0.0-0.4); EOSINOPHILS % 0.5 % (0.0-6.0); HEMATOCRIT 29.4 % (34.2-44.1); HEMOGLOBIN 9.4 g/dL (12.0-16.0); LYMPHOCYTES # (AUTO) 0.6 (1.0-3.2); LYMPHOCYTES % 3.5 % (18.0-39.1); MEAN CORPUSCULAR HEMOGLOBIN 27.5 pg (28-32); MONOCYTES # (AUTO) 0.5 (0.2-0.8); MONOCYTES % 2.7 % (4.4-11.3); NEUTROPHILS % 92.3 % (38.7-80.0); PLATELET COUNT 195 x10e3/uL (140-360); RED BLOOD COUNT 3.42 x10e6/uL (3.6-5.1); RED CELL DISTRIBUTION WIDTH 22.5 % (11.7-14.4)
[2018-01-09 07:13] LABS: ALBUMIN 2.2 g/dL (3.5-5.0); ALBUMIN/GLOBULIN RATIO 0.8 (0.8-2.0); ANION GAP 12.4 mmol/L (8-16); CALCIUM 8.5 mg/dL (8.4-10.2); CREATININE, SERUM 2.78 mg/dL (0.57-1.11); POTASSIUM 4.4 mmol/L (3.5-5.1)
[2018-01-09] MEDS: METOPROLOL SUCCINATE 50 MG TAB XL PO SCH (08:12)
[2018-01-09] MEDS: PANTOPRAZOLE SOD 40 MG TABEC PO SCH (08:12)
[2018-01-09] MEDS: LIDOCAINE 5% PATCH TP SCH (08:12)
[2018-01-09] MEDS ORDERED: MAGNESIUM SULFATE 2GM/50ML 50 ML IV STA (08:16)
[2018-01-09] MEDS: HYDROCODONE/APAP 5MG-325MG TAB PO PRN ×4 (08:24→22:45)
[2018-01-09 09:33] LABS: ANISOCYTOSIS SLIG; HYPOCHROMASIA SLIGHT; PLATELET ESTIMATE ADEQUATE; POIKILOCYTOSIS SLIGHT; RBC MORPHOLOGY COMMENT ABNORMAL; SMUDGE CELLS FEW
[2018-01-09 09:34] LABS: ELLIPTOCYTE, RBC SLIGHT; PLATELET MORPHOLOGY COMMENT FEW LARGE
--- NOTE | 2018-01-09 10:13 | Progress Note ---
DATE: CARDIOLOGY PROGRESS NOTE SUBJECTIVE: Patient complains of being tired and slightly nauseated. Denies any chest pain or shortness of breath. OBJECTIVE VITAL SIGNS: Temperature 98.9, pulse 107, respiratory rate 20. Blood pressure 169/77. Oxygen saturation 91% on room air. CARDIOVASCULAR MEDICATIONS 1. Levothyroxine 50 mcg p.o. daily. 2. Metoprolol 100 mg p.o. daily. LABS: WBC 17.31, hemoglobin 9.4, hematocrit 29.4, platelets 195. Sodium 131, potassium 4.4, BUN 31, creatinine 2.78. GFR 16. Chest x-ray from yesterday showed hyperinflated lungs consistent with COPD. Continued improvement in the right upper lobe airspace opacity. Interval development of a small left pleural effusion, likely associated with left lower lobe atelectasis. Improvement in mild central pulmonary venous congestion. TELEMETRY: Sinus rhythm. PHYSICAL EXAMINATION GENERAL: Alert and oriented times 3, resting comfortably in bed, does not appear to be in acute distress. NECK: Supple. No JVD noted. CARDIOVASCULAR: Regular rate and rhythm. Normal S1 and S2. S3 and S4 auscultated. LUNGS: Clear to auscultation throughout. No wheezing. No rhonchi. ABDOMEN: Soft, nontender. Normoactive bowel sounds. EXTREMITIES: Lower extremities have trace edema bilaterally. Edema noted to the right upper extremity with some improvement. IMPRESSION 1. Right upper lobe pneumonia. 2. Thromboembolic disorder. 3. Opgvt-ch-wdplapr diastolic heart failure. 4. Anemia. 5. Acute renal failure, currently on hemodialysis. RECOMMENDATIONS: Continue the above list of cardiac medications. Patient will need a repeat echocardiogram today. Volume management per nephrology. Antimicrobial therapy per primary team. Will continue to follow this patient closely and maintain on telemetry at all times. Dictated by Gabriela Cash NP. Job#: [id number]
[2018-01-09] MEDS: PRAMIPEXOLE DIHYDROCHLORIDE 0.25 MG TAB PO SCH (20:52)
[2018-01-10] VITALS (9 sets, daily range): BP systolic 100–154; BP diastolic 53–69
[2018-01-10] MEDS: HYDROCODONE/APAP 5MG-325MG TAB PO PRN ×3 (04:43→21:23)
[2018-01-10] MEDS: VANCOMYCIN 250MG/5ML ORAL SOLN PO SCH ×3 (05:48→21:15)
[2018-01-10] MEDS: LEVOTHYROXINE SODIUM 50 MCG TAB PO SCH (05:48)
[2018-01-10 06:54] LABS: ANION GAP 10.3 mmol/L (8-16); CALCIUM 8.2 mg/dL (8.4-10.2); CREATININE, SERUM 2.4 mg/dL (0.57-1.11); MAGNESIUM 1.4 MG/DL (1.3-2.1); POTASSIUM 4.3 mmol/L (3.5-5.1)
--- NOTE | 2018-01-10 07:02 | Diagnostic Imaging Report ---
SP LUMBAR, COMPLETE MIN 4VW Comparison: None Clinical history: \S\LOWER BACK PAIN SO WANT L-S SPINE SERIES PLAIN FILM XRAYS \S\[id number] \S\45 Findings: Marked apex levocurvature of the spine centered at L1. Severe multilevel degenerative disc disease and facet arthrosis throughout the lumbar spine. Degenerative changes are seen about the hips. Atherosclerotic calcifications. Impression: Marked levocurvature with severe underlying degenerative changes. Signed by: Dr Sharri Osuna MD on 01/10/2018 6:58 AM
[2018-01-10] MEDS: PANTOPRAZOLE SOD 40 MG TABEC PO SCH (07:43)
[2018-01-10 08:03] LABS: BASOPHILS # (AUTO) 0.1 (0.0-0.1); BASOPHILS % 0.3 % (0.0-1.0); EOSINOPHILS # (AUTO) 0.1 (0.0-0.4); EOSINOPHILS % 0.2 % (0.0-6.0); HEMATOCRIT 29.2 % (34.2-44.1); HEMOGLOBIN 9.1 g/dL (12.0-16.0); LYMPHOCYTES # (AUTO) 0.6 (1.0-3.2); LYMPHOCYTES % 1.6 % (18.0-39.1); MEAN CORPUSCULAR HEMOGLOBIN 27.5 pg (28-32); MEAN CORPUSCULAR HGB CONC 31.2 g/dL (31-35); MEAN CORPUSCULAR VOLUME 88.2 fL (81-99); MONOCYTES # (AUTO) 1.8 (0.2-0.8); MONOCYTES % 5.1 % (4.4-11.3); NEUTROPHILS # (AUTO) 30.7 (2.1-6.9); NEUTROPHILS % 88.6 % (38.7-80.0); PLATELET COUNT 149 x10e3/uL (140-360); RED BLOOD COUNT 3.31 x10e6/uL (3.6-5.1); RED CELL DISTRIBUTION WIDTH 22.5 % (11.7-14.4)
[2018-01-10] MEDS: METOPROLOL SUCCINATE 50 MG TAB XL PO SCH (09:45)
[2018-01-10] MEDS: LIDOCAINE 5% PATCH TP SCH (09:45)
--- NOTE | 2018-01-10 10:02 | Progress Note ---
DATE: CARDIOLOGY PROGRESS NOTE SUBJECTIVE: The patient reports right upper extremity continued swelling. Otherwise, no other complaint. OBJECTIVE VITAL SIGNS: Temperature 97.0, pulse 95, respiratory rate 16, blood pressure 136/63, oxygen saturation 92% on room air. CARDIAC MEDICATIONS: Metoprolol 100 mg p.o. daily. LABS: WBC 34.61, hemoglobin 9.1, hematocrit 29.2, platelets 149. Sodium 129, potassium 4.3, BUN 32, creatinine 2.40. GFR 19. Magnesium 1.4. X-ray of the back from today with marked levo curvature with severe underlying degenerative changes. TELEMETRY: Sinus rhythm. PHYSICAL EXAMINATION GENERAL: Alert and oriented times 3, resting comfortably in bed, appears to be tired. NECK: Supple. No JVD noted. CARDIOVASCULAR: Irregular rate and rhythm, S1 and S2 noted. S4 is auscultated. LUNGS: Left lower lobe with fine crackles noted. Otherwise, clear to auscultation. No wheezing, no rhonchi. ABDOMEN: Rounded, soft, nontender. LOWER EXTREMITIES: There is 2+ nonpitting edema bilaterally. IMPRESSION 1. Right upper lobe pneumonia. 2. Thromboembolic disorder. 3. Wbtiw-cu-eqauece diastolic heart failure. 4. Anemia. 5. Acute renal failure. 6. Clostridium difficile. 7. Leukocytosis. RECOMMENDATIONS: Infectious disease has been consulted. Blood culture is being obtained today. Volume management per nephrology. Continue antimicrobial therapy. Monitor white blood count closely. We will continue to follow this patient very closely. Dictated by Gabriela Cash NP. Job#: [id number]
[2018-01-10 11:09] LABS: ANISOCYTOSIS SLIGHT; BAND NEUTROPHILS % (MANUAL) 6 %; HYPOCHROMASIA SLIGHT; LYMPHOCYTES % (MANUAL) 2 % (19-48); METAMYELOCYTES % (MANUAL) 1 % (0-0); MONOCYTES % (MANUAL) 5 % (3.4-9.0); MYELOCYTES % (MANUAL) 1 % (0-0); NEUTROPHILS % (MANUAL) 85 % (40-74); PLATELET ESTIMATE SLIGHTLY DECREASED; PLATELET MORPHOLOGY COMMENT NORMAL; RBC MORPHOLOGY COMMENT NORMAL
[2018-01-10] MEDS: DEXTROSE 5%/0.45% SOD CHL 1,000 ML IV SCH (14:10)
--- NOTE | 2018-01-10 15:24 | Diagnostic Imaging Report ---
Non-tunneled Central Venous Catheter Placement 01/03/2018 Pre-Procedure Diagnosis: Acute renal failure; poor IV access Post-procedure Diagnosis:Acute renal failure; poor IV access Truss Builder: Ramez Ruvalcaba Diagnostics Tech: None Sedation: None. 1% lidocaine local anesthesia. Estimate blood loss: <5 mL Blood administered: None Complications: None Implants/Grafts: 16 cm 7-Yakut 3 lumen CVC Specimen: None Procedure: Informed consent was obtained and the patient positioned supine in the ICU. A timeout was performed, followed by preliminary ultrasound of the right internal jugular vein (see findings below). The right neck was prepped and draped in standard fashion. Using real-time ultrasound guidance a 18 gauge vascular needle was used to access the right internal jugular vein. An image was stored in the electronic medical record. A wire was advanced while monitoring the patient's cardiac rhythm and the needle exchanged for a non-tunneled central venous catheter using standard Seldinger technique. At the end of the procedure the catheter was flushed, secured to the skin and a sterile dressing applied. The patient tolerated the procedure well and without immediate complication. Findings: Patent right internal jugular vein as demonstrated by normal ultrasound compressibility. Impression: 1. Successful placement of a non-tunneled right internal jugular central venous catheter using ultrasound guidance. 2. The patient had an indwelling right femoral non-tunneled dialysis catheter in place at the time of central line placement; Trialysis catheter placement was therefore deferred. This report was generated with voice-recognition technology. Errors in strip catcher can occur. Please interpret accordingly and contact a radiologist if there are any questions regarding the report. Signed by: Dr. Boni Ruvalcaba M.D. on 01/03/2018 8:06 PM
[2018-01-10] MEDS: PRAMIPEXOLE DIHYDROCHLORIDE 0.25 MG TAB PO SCH (21:23)
[2018-01-10] MEDS: METRONIDAZOLE 500MG/NS 100ML 100 ML IV SCH (21:23)
--- NOTE | 2018-01-10 23:35 | Consultation ---
DATE OF CONSULTATION: REASON FOR CONSULTATION: Leukocytosis. HISTORY OF PRESENT ILLNESS: This patient who is currently in the hospital, she was admitted on January 03, 2018. She is an 82-year-old who has complicated medical history, comes in with general feeling of not feeling well. Patient has nausea, vomiting, diarrhea. She was found to have hyperkalemia and she was seen by renal. She does have history of UTI before, colitis before, diverticulosis, colonoscopies, UTI with Pseudomonas aeruginosa. ALLERGIES: STATIN, LEVAQUIN. SOCIAL HISTORY: There is no smoking, drug abuse, alcohol abuse. FAMILY HISTORY: Hypertension. The patient was admitted with the feeling of not feeling well. The patient was found to have hyperkalemia, chronic kidney disease with ATN. She was seen by cardiology and as well as renal. For the last couple of days, her white count was getting progressively worse, so infectious disease was consulted. The patient who is not a good source of information, history was taken mainly from the chart. PAST MEDICAL HISTORY: She does have history of hypertension, hypercholesterolemia, hypothyroidism, DVT, blood clotting, gout. REVIEW OF SYSTEMS: She is just feeling very weak. HEENT: There is no headache, visual changes, hearing changes. GI: Has some nausea. Has some abdominal discomfort. : Unremarkable. LABORATORY DATA: Reviewed. Her C. diff was positive. Her white count is 54.6, hemoglobin 9.1. Her sodium 129, potassium 4.3, creatinine of 2.4. PHYSICAL EXAMINATION: GENERAL: She is currently alert. VITAL SIGNS: Stable, afebrile. Temperature 95.9, heart rate 74, respirations 18. HEENT: Normocephalic. NECK: Supple. CHEST: Clear. COR: S1 and S2. No murmur. ABDOMEN: Soft. EXTREMITIES: edema. IMPRESSION: 1. Clostridium difficile colitis. 2. Sepsis. Will put on vancomycin 250 p.o. q.6., Flagyl 500 IV q.8h. Recheck complete blood cell count, recheck chemistry panel. Gentle hydration and supportive care. Hold off any other antibiotic for the time being. Will follow with you. Job#: [id number]
[2018-01-11] VITALS (31 sets, daily range): BP systolic 100–135; BP diastolic 34–84
[2018-01-11] MEDS ORDERED: AZTREONAM 1 GM/NS 50 ML 50 ML IV SCH ×2 (02:15→06:00)
[2018-01-11] MEDS ORDERED: SODIUM CHLORIDE 0.9% 50ML 50 ML ONE (02:51)
[2018-01-11] MEDS ORDERED: CEFTRIAXONE SOD 1 GM VIAL IV SCH (04:15)
[2018-01-11] MEDS: METRONIDAZOLE 500MG/NS 100ML 100 ML IV SCH ×3 (04:32→21:28)
[2018-01-11] MEDS: LEVOTHYROXINE SODIUM 50 MCG TAB PO SCH (06:00)
[2018-01-11] MEDS: VANCOMYCIN 250MG/5ML ORAL SOLN PO SCH ×3 (06:00→21:34)
[2018-01-11 06:01] LABS: ABG HCO3 26 mmol/L (23-28); ABG PCO2 77 mmHg (41-51); ABG PH 7.13 (7.31-7.41); ABG PO2 104 mmHg (80-105)
[2018-01-11 06:54] LABS: BASOPHILS # (AUTO) 0.1 (0.0-0.1); BASOPHILS % 0.3 % (0.0-1.0); HEMATOCRIT 26.7 % (34.2-44.1); HEMOGLOBIN 8.4 g/dL (12.0-16.0); LYMPHOCYTES # (AUTO) 0.2 (1.0-3.2); LYMPHOCYTES % 0.6 % (18.0-39.1); MEAN CORPUSCULAR HEMOGLOBIN 27.8 pg (28-32); MEAN CORPUSCULAR HGB CONC 31.5 g/dL (31-35); MEAN CORPUSCULAR VOLUME 88.4 fL (81-99); MONOCYTES # (AUTO) 0.3 (0.2-0.8); NEUTROPHILS # (AUTO) 25.4 (2.1-6.9); PLATELET COUNT 105 x10e3/uL (140-360); RED BLOOD COUNT 3.02 x10e6/uL (3.6-5.1); RED CELL DISTRIBUTION WIDTH 22.2 % (11.7-14.4)
[2018-01-11 07:36] LABS: ALBUMIN/GLOBULIN RATIO 0.7 (0.8-2.0); CALCIUM 8.7 mg/dL (8.4-10.2); CREATININE, SERUM 2.67 mg/dL (0.57-1.11)
--- NOTE | 2018-01-11 07:50 | Diagnostic Imaging Report ---
PROCEDURE: CHEST SINGLE (PORTABLE) COMPARISON: 01/08/2018. INDICATIONS: HYPERKALEMIA FINDINGS: Stable appearance of right internal jugular central venous catheter. Worsening interstitial pulmonary edema and small bilateral pleural effusions relative to 01/08/2018. No new consolidation. Stable cardiomediastinal contour. No acute osseous abnormality. CONCLUSION: 1. Worsening interstitial pulmonary edema and increasing small bilateral pleural effusions relative to 01/08/2018. 2. Stable pulmonary hyperinflation. Dictated by: Ronan Cramer M.D. on 01/11/2018 at 7:52 Electronically approved by: Ronan Cramer M.D. on 01/11/2018 at 7:52
--- NOTE | 2018-01-11 07:54 | Diagnostic Imaging Report ---
PROCEDURE:X-RAY ABDOMEN - KUB COMPARISON:None. INDICATIONS:HYPERKALEMIA FINDINGS: Bowel gas pattern shows no dilated, air-filled loops of bowel. No mass effect or organomegaly. Motion artifact limits evaluation for pneumoperitoneum. Scoliotic curvature with associated degenerative disc changes of the lumbar spine. Atherosclerotic vascular calcifications. Degenerative joint disease of the hips right greater than left. CONCLUSION: Nonobstructive bowel gas pattern. Dictated by: Ronan Cramer M.D. on 01/11/2018 at 7:56 Electronically approved by: Ronan Cramer M.D. on 01/11/2018 at 7:56
[2018-01-11] MEDS: PANTOPRAZOLE SOD 40 MG TABEC PO SCH (08:00)
[2018-01-11 08:01] LABS: ABG HCO3 22 mmol/L (23-28); ABG PCO2 39 mmHg (41-51); ABG PH 7.37 (7.31-7.41); ABG PO2 148 mmHg (80-105)
[2018-01-11] MEDS ORDERED: FUROSEMIDE INJ 10 MG/ML 2 ML VIAL IV NR (09:00)
[2018-01-11] MEDS ORDERED: MEROPENEM 500 MG VIAL ONE (09:13)
[2018-01-11] MEDS ORDERED: SODIUM CHLORIDE 0.9% 250ML 250 ML IV ONE (09:15)
[2018-01-11] MEDS: MEROPENEM 500 MG VIAL IV SCH (09:15)
[2018-01-11] MEDS ORDERED: LEVOFLOXACIN 500MG/D5W 100ML 100 ML IV SCH ×2 (09:30→10:00)
[2018-01-11] MEDS ORDERED: LEVOFLOXACIN 500MG/D5W 100ML 100 ML IV ONE (09:31)
[2018-01-11 09:53] LABS: BAND NEUTROPHILS % (MANUAL) 9 %; MONOCYTES % (MANUAL) 2 % (3.4-9.0); NEUTROPHILS % (MANUAL) 89 % (40-74); NUCLEATED RED BLOOD CELLS 1
[2018-01-11 09:55] LABS: PLATELET ESTIMATE SLIGHTLY DECREASED; PLATELET MORPHOLOGY COMMENT NORMAL; RBC MORPHOLOGY COMMENT ABNORMAL
[2018-01-11 09:56] LABS: ANISOCYTOSIS MODERATE; HYPOCHROMASIA SLIGHT; POIKILOCYTOSIS SLIGHT
[2018-01-11] MEDS ORDERED: MEROPENEM 500 MG VIAL IV SCH (10:00)
[2018-01-11] MEDS ORDERED: SODIUM BICARBONATE 8.4% SYRING 150 ML in DEXTROSE 5% 1,000 ML IV SCH (10:00)
[2018-01-11] MEDS: LIDOCAINE 5% PATCH TP SCH (10:33)
[2018-01-11] MEDS ORDERED: SODIUM CHLORIDE 0.9% 250ML 250 ML ONE ×2 (10:34→17:31)
[2018-01-11] MEDS ORDERED: BUMETANIDE 10 MG in SODIUM CHLORIDE 0.9% 100 ML 60 ML IV SCH (13:30)
[2018-01-11] MEDS ORDERED: BUMETANIDE INJ 0.25MG/ML 4ML VIAL IV STA (13:30)
--- NOTE | 2018-01-11 15:34 | Consultation ---
DATE OF CONSULTATION: PULMONARY/CRITICAL CARE CONSULTATION REASON FOR CONSULTATION: ICU management. HISTORY OF PRESENT ILLNESS: Ms. Hand is an 82-year-old female known to me from previous admission. Patient was on the medical floor being treated for C diff colitis and was transferred here for hypoxia and shortness of breath and respiratory failure. Ms. Hand is an 82-year-old female. She has a history of smoking, around 47-dkie-[id number] smoking history. She quit in . This time she came in initially with diarrhea and was diagnosed with C diff colitis. She had an EGD done, and Dr. Gasca has been following. Initially when she came in, she was severely hyperkalemic and underwent dialysis, which was discontinued and patient was transferred to medical floor. returner today, she became hypoxic, short of breath, obtunded. Patient was started on BiPAP. ABG showed a pH of 7.13, pCO2 of 77, and it has improved to a pH of 7.37 and pCO2 of 39 after the BiPAP use. She is awake and alert and following commands now. I have reviewed the chest x-ray film, which is showing evidence of bilateral lower lobe infiltrate, right more than the left, and then right-sided pleural effusion. REVIEW OF SYSTEMS: GENERAL: Denies any fever or chills. HEAD: Denies any head trauma. ENT: Denies any earache. CVS: Denies any chest pain. RESPIRATORY: Shortness of breath. GI: Denies any nausea or vomiting. REST OF THE REVIEW OF SYSTEMS: Are negative except as in history of present illness. PAST MEDICAL HISTORY: Hypertension, hypothyroidism, COPD, history of DVT and PE in the past, chronic diastolic heart failure. Patient's last echo was done on the , which is not read. The echo before that was done in 2017. Dr. Mercer's note says the patient has oytwu-kl-dfbyqzc diastolic heart failure as well and history of atrial fibrillation. FAMILY AND SOCIAL HISTORY: Ex-smoker. Does not drink. Denies any family history of heart disease. Family is at bedside. PHYSICAL EXAMINATION: VITALS: Temperature 96.4, pulse of 78, blood pressure 109/50, respiratory rate of 18, O2 sat 100% on 60% FIO2, and heart rate is in 90s. GENERAL: She is awake and alert and following commands. HEENT: Head atraumatic, normocephalic. NECK: Supple. No JVD. Oral mucosa is dry. CHEST: Is clear to auscultation bilaterally. No wheezing. Crackles on the bases and reduced air entry on the bases. HEART: S1/S2 audible. ABDOMEN: Soft, nontender, nondistended. EXTREMITIES: No clubbing, cyanosis. Trace edema. NEUROLOGIC: Awake and alert. Following commands. LABORATORY DATA: pH has improved to 7.37, and pCO2 is now 40. Chemistry is showing sodium of 127, potassium 4.0, chloride 96, BUN 38, creatinine 2.67. BNP is 2033. White count is 27,000, hemoglobin 8.4, platelets 105. CHEST X-RAY: I have reviewed the films, and it is showing evidence of bilateral lower lobe infiltrate. Compared to January 08, these are new. The acuity of development suggests that possibly it is fluid, but underlying pneumonia cannot be excluded. ASSESSMENT AND PLAN: Ms. Hand is an 82-year-old female who was initially admitted for diarrhea, is being treated for C diff colitis, became acutely hypoxic and hypercapnic with shortness of breath, started on BiPAP and transferred to ICU. CURRENT PROBLEMS: 1. Poaty-eq-cbmupdj hypercapnic respiratory failure. 2. Acute kidney injury. 3. Yqnto-hr-pndtbfu diastolic heart failure. 4. Possibly pneumonia on the right side, aspiration versus heart failure. 5. History of chronic obstructive pulmonary disease. 6. Hypothyroidism. 7. History of deep vein thrombosis and pulmonary embolism. 8. History of atrial fibrillation. PLAN: 1. Continue the patient on BiPAP for now. I have reviewed the settings and changed the settings at bedside. Patient is comfortable, awake and alert. Will attempt to try on nasal cannula if she tolerates. 2. Vasopressors if needed. 3. Discussed with Dr. Peralta, no need for hemodialysis at this point. 4. Defer diuretics to Nephrology. Blood pressure is marginal. 5. Patient is already on IV meropenem and Levaquin, which will be continued. It was started earlier this morning. 6. Patient is being treated for C diff colitis with p.o. vancomycin and IV Flagyl as well. Discussed with patient's family at bedside in detail. Critical care time spent 50 minutes. Thank you for this consult. Job#: [id number] EV
--- NOTE | 2018-01-11 18:41 | Progress Note ---
DATE: CARDIOLOGY PROGRESS NOTE SUBJECTIVE: Patient reports back pain and shortness of breath. She is currently on BiPAP. OBJECTIVE: VITAL SIGNS: Temperature 97.4, pulse 92, respiratory rate 18, blood pressure 109/50, oxygen saturation 100% on BiPAP. CARDIOVASCULAR MEDICATIONS 1. Levothyroxine 50 mcg p.o. daily. 2. Metoprolol succinate discontinued today. LABS: WBC 27.93, hemoglobin 8.4, hematocrit 26.7, platelets 105,000. Sodium 127, potassium 4.0, BUN 38, creatinine 2.67, AST 23, ALT 12. BNP 2034.6. Chest x-ray with worsening interstitial pulmonary edema and increasing small bilateral pleural effusions and stable pulmonary hyperinflation. Abdominal x-ray with a nonobstructive bowel pattern. Telemetry, sinus rhythm. PHYSICAL EXAM GENERAL: Awake and alert, increased effort of breathing noted. Family at the bedside. NECK: Supple. No JVD noted. LUNGS: Diminished breath sounds anterior lower lobes. Fine scattered crackles. Otherwise, clear to auscultation. CARDIOVASCULAR: Regular rate and rhythm. Normal S1, S2. S3 and S4 noted. ABDOMEN: Rounded, soft, nontender LOWER EXTREMITIES: 2+ pitting edema bilaterally. IMPRESSIONS 1. Right upper lobe pneumonia. 2. Pulmonary congestion . 3. Thromboembolic disorder. 4. Luckk-gb-hedisae diastolic heart failure with most recent echocardiogram with left ventricular ejection fraction of 60-65. 5. Anemia secondary to renal disease. 6. Acute renal failure. 7. Clostridium difficile. 8. Sepsis. 9. Respiratory failure. RECOMMENDATION: Patient has signed DNR orders. Transfer to ICU for higher level of care. Continue with the above-listed cardiac medications. Okay to discontinue beta-blockers in the light of sepsis and hypotension. Volume management per nephrology. Continue antimicrobial therapy. Infectious disease has been consulted. Monitor very closely. Dictated By: Gabriela Cash NP Job#: [id number] CQ
[2018-01-11] MEDS: BALSAM PERU/CASTOR OIL 60 GM OINT...G. TP SCH (21:29)
[2018-01-11] MEDS: BUMETANIDE 10 MG in SODIUM CHLORIDE 0.9% 100 ML 60 ML IV SCH (21:29)
[2018-01-11] MEDS: PRAMIPEXOLE DIHYDROCHLORIDE 0.25 MG TAB PO SCH (21:29)
[2018-01-11] MEDS: HYDROCODONE/APAP 5MG-325MG TAB PO PRN (21:36)
[2018-01-12] VITALS (25 sets, daily range): BP systolic 118–158; BP diastolic 48–103
[2018-01-12] MEDS: HYDROCODONE/APAP 5MG-325MG TAB PO PRN ×6 (01:38→23:38)
[2018-01-12] MEDS: METRONIDAZOLE 500MG/NS 100ML 100 ML IV SCH ×3 (04:18→20:51)
[2018-01-12 04:47] LABS: BASOPHILS # (AUTO) 0.1 (0.0-0.1); BASOPHILS % 0.3 % (0.0-1.0); EOSINOPHILS % 0.1 % (0.0-6.0); HEMATOCRIT 28.5 % (34.2-44.1); HEMOGLOBIN 9.3 g/dL (12.0-16.0); LYMPHOCYTES # (AUTO) 0.6 (1.0-3.2); LYMPHOCYTES % 3.3 % (18.0-39.1); MEAN CORPUSCULAR HEMOGLOBIN 28.3 pg (28-32); MEAN CORPUSCULAR HGB CONC 32.6 g/dL (31-35); MEAN CORPUSCULAR VOLUME 86.6 fL (81-99); MONOCYTES # (AUTO) 1.1 (0.2-0.8); MONOCYTES % 5.7 % (4.4-11.3); NEUTROPHILS # (AUTO) 17.4 (2.1-6.9); NEUTROPHILS % 88.7 % (38.7-80.0); PLATELET COUNT 106 x10e3/uL (140-360); RED BLOOD COUNT 3.29 x10e6/uL (3.6-5.1); RED CELL DISTRIBUTION WIDTH 19.9 % (11.7-14.4)
[2018-01-12 05:09] LABS: ALBUMIN 1.9 g/dL (3.5-5.0); ALBUMIN/GLOBULIN RATIO 0.7 (0.8-2.0); ANION GAP 12.4 mmol/L (8-16); CALCIUM 8.7 mg/dL (8.4-10.2); CREATININE, SERUM 2.6 mg/dL (0.57-1.11); MAGNESIUM 1.2 MG/DL (1.3-2.1); POTASSIUM 4.4 mmol/L (3.5-5.1)
[2018-01-12] MEDS: LEVOTHYROXINE SODIUM 50 MCG TAB PO SCH (06:22)
[2018-01-12] MEDS: VANCOMYCIN 250MG/5ML ORAL SOLN PO SCH ×3 (06:22→20:52)
[2018-01-12] MEDS ORDERED: MAGNESIUM SULFATE 2GM/50ML 50 ML IV ONE (06:30)
[2018-01-12] MEDS ORDERED: MEROPENEM 500MG 500 MG in SODIUM CHLORIDE 0.9% 50ML 50 ML IV SCH (09:00)
[2018-01-12] MEDS: BALSAM PERU/CASTOR OIL 60 GM OINT...G. TP SCH ×3 (09:00→20:51)
[2018-01-12] MEDS: LIDOCAINE 5% PATCH TP SCH (09:04)
[2018-01-12] MEDS: MEROPENEM 500 MG VIAL IV SCH (09:05)
[2018-01-12] MEDS: BUMETANIDE 10 MG in SODIUM CHLORIDE 0.9% 100 ML 60 ML IV SCH ×2 (09:30→19:49)
[2018-01-12] MEDS ORDERED: SODIUM CHLORIDE 0.9% 250ML 250 ML ONE (12:23)
--- NOTE | 2018-01-12 13:33 | Diagnostic Imaging Report ---
Examination: Single AP view of the chest. COMPARISON: Single chest 01/11/2018 INDICATION: Shortness of breath IMPRESSION: 1. Lines and Tubes: Supporting right subclavian line is unchanged. 2. Lungs are well-inflated. No interval change in bilateral moderate pleural effusions (left greater than right), likely associated atelectasis and bilateral interstitial opacities extending from the sohail, consistent with interstitial pulmonary edema. 3. Cardiac silhouette is unremarkable. Central pulmonary venous congestion. 4. No acute bony abnormalities. Signed by: Dr. José Antonio Alexander M.D. on 01/12/2018 1:29 PM
--- NOTE | 2018-01-12 13:53 | Progress Note ---
DATE: January 12, 2018 CARDIOLOGY PROGRESS NOTE SUBJECTIVE: Shortness of breath improving. Telemetry with sinus rhythm. OBJECTIVE VITAL SIGNS: Temperature 96.6, heart rate 84, respiratory rate 16, blood pressure 147/57, O2 sat 100% on 2 L per minute nasal cannula. GENERAL: No acute distress. CHEST: Decreased breath sounds bilaterally. CARDIOVASCULAR: Regular rate and rhythm. Normal S1 and S2. No S3, no S4. ABDOMEN: Soft. EXTREMITIES: Trace edema. CARDIOVASCULAR MEDICATIONS: Reviewed, including bumetanide. Patient receiving antibiotics. STUDIES: White blood cells trending down at 19.5, hemoglobin 9.3, platelets 106. Sodium 129, potassium 4.4, chloride 95, bicarbonate 26, BUN 41, creatinine 2.6, glucose 100, calcium 8.7, magnesium 1.2. AST 19, ALT 11, alk phos 95, total protein 4.6, albumin 1.9. Blood cultures are growing gram-negative rods. Urine culture growing E. coli. ASSESSMENT 1. Right upper lobe pneumonia. 2. Bacteremia with gram-negative rods. 3. Thromboembolic disorder. 4. Wugaa-mq-fbtadlm diastolic heart failure with most recent echocardiogram revealing left ventricular ejection fraction of 60% to 65%. 5. Anemia secondary to renal disease. 6. Acute kidney injury. 7. Clostridium difficile. 8. Sepsis. 9. Respiratory failure. RECOMMENDATIONS: Continue to hold beta dru for now given recent hypotension and worsening sepsis. Continue antibiotics as per primary service. Antibiotic coverage deferred to ID and primary service. Improving from a volume standpoint. Nephrology managing diuretics. Will continue to monitor. Overall guarded prognosis. Job#: [id number]
[2018-01-12] MEDS: PRAMIPEXOLE DIHYDROCHLORIDE 0.25 MG TAB PO SCH (20:51)
[2018-01-13] VITALS (14 sets, daily range): BP systolic 117–172; BP diastolic 49–86
[2018-01-13] MEDS: METRONIDAZOLE 500MG/NS 100ML 100 ML IV SCH ×3 (04:24→20:13)
[2018-01-13] MEDS: HYDROCODONE/APAP 5MG-325MG TAB PO PRN ×4 (04:25→23:30)
[2018-01-13 05:57] LABS: BASOPHILS # (AUTO) 0.1 (0.0-0.1); BASOPHILS % 0.4 % (0.0-1.0); EOSINOPHILS # (AUTO) 0.1 (0.0-0.4); EOSINOPHILS % 0.3 % (0.0-6.0); HEMATOCRIT 30.5 % (34.2-44.1); HEMOGLOBIN 10.3 g/dL (12.0-16.0); LYMPHOCYTES # (AUTO) 0.7 (1.0-3.2); LYMPHOCYTES % 4.1 % (18.0-39.1); MEAN CORPUSCULAR HEMOGLOBIN 27.9 pg (28-32); MEAN CORPUSCULAR HGB CONC 33.8 g/dL (31-35); MEAN CORPUSCULAR VOLUME 82.7 fL (81-99); MONOCYTES # (AUTO) 1.2 (0.2-0.8); MONOCYTES % 7.4 % (4.4-11.3); NEUTROPHILS % 86.8 % (38.7-80.0); PLATELET COUNT 102 x10e3/uL (140-360); RED BLOOD COUNT 3.69 x10e6/uL (3.6-5.1); RED CELL DISTRIBUTION WIDTH 19.4 % (11.7-14.4)
[2018-01-13 06:23] LABS: ALBUMIN 1.9 g/dL (3.5-5.0); ALBUMIN/GLOBULIN RATIO 0.7 (0.8-2.0); ANION GAP 14.1 mmol/L (8-16); CALCIUM 8.7 mg/dL (8.4-10.2); CREATININE, SERUM 2.56 mg/dL (0.57-1.11); POTASSIUM 4.1 mmol/L (3.5-5.1)
[2018-01-13] MEDS: VANCOMYCIN 250MG/5ML ORAL SOLN PO SCH ×3 (06:46→22:00)
[2018-01-13] MEDS: LEVOTHYROXINE SODIUM 50 MCG TAB PO SCH (06:46)
[2018-01-13] MEDS: BUMETANIDE 10 MG in SODIUM CHLORIDE 0.9% 100 ML 60 ML IV SCH ×2 (06:46→16:49)
[2018-01-13] MEDS: PANTOPRAZOLE SOD 40 MG TABEC PO SCH (07:39)
[2018-01-13] MEDS: BALSAM PERU/CASTOR OIL 60 GM OINT...G. TP SCH ×3 (10:24→20:13)
[2018-01-13] MEDS: LIDOCAINE 5% PATCH TP SCH (10:24)
[2018-01-13] MEDS ORDERED: MAGNESIUM SULFATE 2GM/50ML 50 ML IV ONE (11:15)
[2018-01-13] MEDS ORDERED: SODIUM CHLORIDE 0.9% 250ML 250 ML ONE (11:18)
[2018-01-13 11:20] LABS: BAND NEUTROPHILS % (MANUAL) 3 %; LYMPHOCYTES % (MANUAL) 6 % (19-48); MONOCYTES % (MANUAL) 6 % (3.4-9.0); NEUTROPHILS % (MANUAL) 85 % (40-74)
[2018-01-13 11:21] LABS: PLATELET ESTIMATE SLIGHTLY DECREASED; PLATELET MORPHOLOGY COMMENT NORMAL; RBC MORPHOLOGY COMMENT NORMAL
[2018-01-13] MEDS: METOPROLOL TARTRATE 25 MG TAB PO SCH ×2 (12:42→20:12)
--- NOTE | 2018-01-13 15:30 | Progress Note ---
DATE: January 13, 2018 CARDIOLOGY PROGRESS NOTE SUBJECTIVE: Improving shortness of breath. OBJECTIVE VITAL SIGNS: Temperature 96.6, heart rate 103, respiratory rate 20, blood pressure 165/69, O2 sat 99% on nasal cannula at 4 liters per minute. GENERAL: No acute distress. CHEST: Decreased breath sounds in bilateral bases. CARDIOVASCULAR: Regular rate and rhythm. Normal S1 and S2. No S3. No S4. No murmurs. ABDOMEN: Soft. EXTREMITIES: Trace edema. CARDIOVASCULAR MEDICATIONS: Reviewed. On Bumex drip at 10 per hour. STUDIES: White blood cells 16.1, hemoglobin 10.3, platelets 102. Sodium 131, potassium 4.1, chloride 94, bicarbonate 27, BUN 42, creatinine 2.5, glucose 84, calcium 8.7, total bilirubin 0.3, AST 15, ALT 11, alk phos 124, total protein 4.6, albumin 1.9. ASSESSMENT 1. Right upper lobe pneumonia. 2. Bacteremia with gram-negative rods. 3. Thromboembolic disorder. 4. Vmink-gt-aoouyqb diastolic heart failure with most recent echocardiogram left ventricular ejection fraction 60% to 65%. 5. Anemia secondary to renal disease. 6. Acute kidney injury. 7. Clostridium difficile. 8. Sepsis. 9. Respiratory failure. RECOMMENDATIONS: Given labile blood pressure and recent sepsis, beta blockers are on hold. Blood pressure seems to be improving. Can rechallenge today. Continue diuretics. As for now, however, approaching euvolemia. Can consider transitioning to IV drip starting tomorrow depending on how she continues to do. Her creatinine is 2.5, down from 2.6 yesterday. The peak creatinine was 7.9 on 01/03/2018. Continue antibiotics per primary service and ID. Job#: [id number]
[2018-01-13] MEDS: PRAMIPEXOLE DIHYDROCHLORIDE 0.25 MG TAB PO SCH (20:13)
[2018-01-14] VITALS (8 sets, daily range): BP systolic 135–151; BP diastolic 56–69
[2018-01-14] MEDS: BUMETANIDE 10 MG in SODIUM CHLORIDE 0.9% 100 ML 60 ML IV SCH ×2 (02:22→12:30)
[2018-01-14] MEDS: METRONIDAZOLE 500MG/NS 100ML 100 ML IV SCH ×3 (04:16→20:52)
[2018-01-14] MEDS: VANCOMYCIN 250MG/5ML ORAL SOLN PO SCH ×3 (05:06→21:14)
[2018-01-14] MEDS: LEVOTHYROXINE SODIUM 50 MCG TAB PO SCH (05:06)
[2018-01-14] MEDS: HYDROCODONE/APAP 5MG-325MG TAB PO PRN ×2 (05:07→14:30)
[2018-01-14 06:50] LABS: BASOPHILS % 0.4 % (0.0-1.0); EOSINOPHILS # (AUTO) 0.1 (0.0-0.4); EOSINOPHILS % 0.8 % (0.0-6.0); HEMATOCRIT 31.8 % (34.2-44.1); HEMOGLOBIN 10.6 g/dL (12.0-16.0); LYMPHOCYTES # (AUTO) 0.8 (1.0-3.2); LYMPHOCYTES % 8.3 % (18.0-39.1); MEAN CORPUSCULAR HEMOGLOBIN 27.9 pg (28-32); MEAN CORPUSCULAR HGB CONC 33.3 g/dL (31-35); MEAN CORPUSCULAR VOLUME 83.7 fL (81-99); MONOCYTES # (AUTO) 0.9 (0.2-0.8); MONOCYTES % 9.7 % (4.4-11.3); NEUTROPHILS # (AUTO) 7.5 (2.1-6.9); NEUTROPHILS % 80.3 % (38.7-80.0); PLATELET COUNT 104 x10e3/uL (140-360); RED CELL DISTRIBUTION WIDTH 19.9 % (11.7-14.4)
[2018-01-14 07:03] LABS: ALBUMIN 1.9 g/dL (3.5-5.0); ALBUMIN/GLOBULIN RATIO 0.8 (0.8-2.0); ANION GAP 12.9 mmol/L (8-16); CALCIUM 8.3 mg/dL (8.4-10.2); CREATININE, SERUM 2.31 mg/dL (0.57-1.11); POTASSIUM 3.9 mmol/L (3.5-5.1)
[2018-01-14] MEDS: PANTOPRAZOLE SOD 40 MG TABEC PO SCH (07:30)
[2018-01-14] MEDS: MEROPENEM 500 MG VIAL IV SCH (09:00)
[2018-01-14] MEDS: BALSAM PERU/CASTOR OIL 60 GM OINT...G. TP SCH ×3 (09:00→20:52)
[2018-01-14] MEDS: LIDOCAINE 5% PATCH TP SCH (09:00)
--- NOTE | 2018-01-14 11:20 | Progress Note ---
DATE: January 14, 2018 CARDIOLOGY PROGRESS NOTE SUBJECTIVE: The patient denies chest pain or shortness of breath. She reports she is feeling improved. OBJECTIVE VITAL SIGNS: Temperature 97.2 degrees, pulse 90, respiratory rate 20, blood pressure 151/65, oxygen saturation 98% on 2 L nasal cannula. GENERAL: Elderly woman, frail, chronically ill-appearing, no acute distress. LUNGS: Decreased breath sounds in bilateral bases. No wheezes or crackles. CARDIOVASCULAR: Normal rate, regular rhythm. Normal S1 and S2. No murmur. ABDOMEN: Soft. EXTREMITIES: No edema. CARDIAC MEDICATIONS 1. Levothyroxine 50 mcg p.o. daily. 2. Metoprolol tartrate 12.5 mg p.o. q.12 h. 3. Bumex 1 mg an hour. LABS: WBC 9.31, hemoglobin 10.6, hematocrit 31.8, platelets 104. Sodium 132, potassium 3.9, chloride 95, CO2 28, BUN 45, creatinine 2.31. TELEMETRY: Normal sinus rhythm. IMPRESSION 1. Right upper lobe pneumonia. 2. Serratia marcescens bacteremia. 3. Escherichia coli urinary tract infection. 4. Clostridium difficile diarrhea. 5. Fhqha-eu-ogqvbfa diastolic heart failure with most recent ejection fraction on echocardiogram of 60% to 65%. 6. Acute kidney injury, improving. 7. Thromboembolic disease. 8. Anemia. 9. Hypertension. RECOMMENDATIONS 1. Antibiotics per infectious disease. 2. Continue IV diuretics. The patient's creatinine is improving with diuretics. We will continue to monitor creatinine and replete electrolytes. 3. The patient is now hypertensive and tolerating low-dose beta dru, continue for now. Further titration in the next day if blood pressure remains elevated. 4. Physical therapy as tolerated. Thank you for this consult. We will continue to follow. Job#: [id number]
--- NOTE | 2018-01-14 13:58 | Diagnostic Imaging Report ---
Non-tunneled Central Venous Catheter Placement 01/14/2018 Pre-Procedure Diagnosis: Bacteremia Post-procedure Diagnosis:Bacteremic Machinist/Machine Builder: Ramez Ruvalcaba Director Of Application Development: None Sedation: None. 1% lidocaine local anesthesia. Radiation Dose:0.4 mGy (cumulative air kerma) Fluoroscopy time:0.1 minutes Estimate blood loss: None Blood administered: None Complications: None Implants/Grafts: 20 cm 7-Urdu 3 lumen CVC Specimen: Right internal jugular central venous catheter tip Procedure: Informed consent was obtained and the patient positioned supine in the fluoroscopy suite. A timeout was performed, followed by preliminary ultrasound of the left internal jugular vein (see findings below). The left neck was prepped and draped in standard fashion. Using real-time ultrasound guidance a 18 gauge vascular needle was used to access the left internal jugular vein. An image was stored in the electronic medical record. A wire was advanced while monitoring the patient's cardiac rhythm and the needle exchanged for a non-tunneled central venous catheter using Seldinger technique. The catheter was positioned at the low SVC/superior atrial-caval junction under fluoroscopy. At the end of the procedure the catheter was flushed, secured to the skin and a sterile dressing applied. The right internal jugular central venous catheter was then removed without complication. The patient tolerated the procedure well and without immediate complication. Findings: Patent left internal jugular vein as demonstrated by normal ultrasound compressibility. Impression: 1. Successful placement of a non-tunneled left internal jugular central venous catheter using ultrasound and fluoroscopic guidance. 2. Right internal jugular central venous catheter removal. The tip was submitted for culture. This report was generated with voice-recognition technology. Errors in rater associate can occur. Please interpret accordingly and contact a radiologist if there are any questions regarding the report. Signed by: Dr. Boni Ruvalcaba M.D. on 01/14/2018 1:54 PM
--- NOTE | 2018-01-14 13:58 | Diagnostic Imaging Report ---
Non-tunneled Central Venous Catheter Placement 01/14/2018 Pre-Procedure Diagnosis: Bacteremia Post-procedure Diagnosis:Bacteremic Grout Machine Tender: Ramez Ruvalcaba Isobutylene Operator Chief: None Sedation: None. 1% lidocaine local anesthesia. Radiation Dose:0.4 mGy (cumulative air kerma) Fluoroscopy time:0.1 minutes Estimate blood loss: None Blood administered: None Complications: None Implants/Grafts: 20 cm 7-Greek 3 lumen CVC Specimen: Right internal jugular central venous catheter tip Procedure: Informed consent was obtained and the patient positioned supine in the fluoroscopy suite. A timeout was performed, followed by preliminary ultrasound of the left internal jugular vein (see findings below). The left neck was prepped and draped in standard fashion. Using real-time ultrasound guidance a 18 gauge vascular needle was used to access the left internal jugular vein. An image was stored in the electronic medical record. A wire was advanced while monitoring the patient's cardiac rhythm and the needle exchanged for a non-tunneled central venous catheter using Seldinger technique. The catheter was positioned at the low SVC/superior atrial-caval junction under fluoroscopy. At the end of the procedure the catheter was flushed, secured to the skin and a sterile dressing applied. The right internal jugular central venous catheter was then removed without complication. The patient tolerated the procedure well and without immediate complication. Findings: Patent left internal jugular vein as demonstrated by normal ultrasound compressibility. Impression: 1. Successful placement of a non-tunneled left internal jugular central venous catheter using ultrasound and fluoroscopic guidance. 2. Right internal jugular central venous catheter removal. The tip was submitted for culture. This report was generated with voice-recognition technology. Errors in health data administrator can occur. Please interpret accordingly and contact a radiologist if there are any questions regarding the report. Signed by: Dr. Boni Ruvalcaba M.D. on 01/14/2018 1:54 PM
--- NOTE | 2018-01-14 13:58 | Diagnostic Imaging Report ---
Non-tunneled Central Venous Catheter Placement 01/14/2018 Pre-Procedure Diagnosis: Bacteremia Post-procedure Diagnosis:Bacteremic [employer] Specialist: Ramez Ruvalcaba Pulverizing And Sifting Operator: None Sedation: None. 1% lidocaine local anesthesia. Radiation Dose:0.4 mGy (cumulative air kerma) Fluoroscopy time:0.1 minutes Estimate blood loss: None Blood administered: None Complications: None Implants/Grafts: 20 cm 7-Urdu 3 lumen CVC Specimen: Right internal jugular central venous catheter tip Procedure: Informed consent was obtained and the patient positioned supine in the fluoroscopy suite. A timeout was performed, followed by preliminary ultrasound of the left internal jugular vein (see findings below). The left neck was prepped and draped in standard fashion. Using real-time ultrasound guidance a 18 gauge vascular needle was used to access the left internal jugular vein. An image was stored in the electronic medical record. A wire was advanced while monitoring the patient's cardiac rhythm and the needle exchanged for a non-tunneled central venous catheter using Seldinger technique. The catheter was positioned at the low SVC/superior atrial-caval junction under fluoroscopy. At the end of the procedure the catheter was flushed, secured to the skin and a sterile dressing applied. The right internal jugular central venous catheter was then removed without complication. The patient tolerated the procedure well and without immediate complication. Findings: Patent left internal jugular vein as demonstrated by normal ultrasound compressibility. Impression: 1. Successful placement of a non-tunneled left internal jugular central venous catheter using ultrasound and fluoroscopic guidance. 2. Right internal jugular central venous catheter removal. The tip was submitted for culture. This report was generated with voice-recognition technology. Errors in ross lift operator can occur. Please interpret accordingly and contact a radiologist if there are any questions regarding the report. Signed by: Dr. Boni Ruvalcaba M.D. on 01/14/2018 1:54 PM
--- NOTE | 2018-01-14 13:58 | Diagnostic Imaging Report ---
Non-tunneled Central Venous Catheter Placement 01/14/2018 Pre-Procedure Diagnosis: Bacteremia Post-procedure Diagnosis:Bacteremic Health Record Technician: Ramez Ruvalcaba Core Blower: None Sedation: None. 1% lidocaine local anesthesia. Radiation Dose:0.4 mGy (cumulative air kerma) Fluoroscopy time:0.1 minutes Estimate blood loss: None Blood administered: None Complications: None Implants/Grafts: 20 cm 7-Kiswahili 3 lumen CVC Specimen: Right internal jugular central venous catheter tip Procedure: Informed consent was obtained and the patient positioned supine in the fluoroscopy suite. A timeout was performed, followed by preliminary ultrasound of the left internal jugular vein (see findings below). The left neck was prepped and draped in standard fashion. Using real-time ultrasound guidance a 18 gauge vascular needle was used to access the left internal jugular vein. An image was stored in the electronic medical record. A wire was advanced while monitoring the patient's cardiac rhythm and the needle exchanged for a non-tunneled central venous catheter using Seldinger technique. The catheter was positioned at the low SVC/superior atrial-caval junction under fluoroscopy. At the end of the procedure the catheter was flushed, secured to the skin and a sterile dressing applied. The right internal jugular central venous catheter was then removed without complication. The patient tolerated the procedure well and without immediate complication. Findings: Patent left internal jugular vein as demonstrated by normal ultrasound compressibility. Impression: 1. Successful placement of a non-tunneled left internal jugular central venous catheter using ultrasound and fluoroscopic guidance. 2. Right internal jugular central venous catheter removal. The tip was submitted for culture. This report was generated with voice-recognition technology. Errors in international operations manager can occur. Please interpret accordingly and contact a radiologist if there are any questions regarding the report. Signed by: Dr. Boni Ruvalcaba M.D. on 01/14/2018 1:54 PM
[2018-01-14] MEDS: PRAMIPEXOLE DIHYDROCHLORIDE 0.25 MG TAB PO SCH (20:52)
[2018-01-15] VITALS: BP 138/65
[2018-01-15] MEDS: METRONIDAZOLE 500MG/NS 100ML 100 ML IV SCH ×2 (03:16→11:46)
[2018-01-15 04:00] VITALS: BP 155/69
[2018-01-15] MEDS: HYDROCODONE/APAP 5MG-325MG TAB PO PRN (04:08)
[2018-01-15] MEDS: VANCOMYCIN 250MG/5ML ORAL SOLN PO SCH ×2 (05:53→17:03)
[2018-01-15] MEDS: LEVOTHYROXINE SODIUM 50 MCG TAB PO SCH (05:53)
[2018-01-15 07:28] VITALS: BP 156/71
[2018-01-15 07:38] LABS: BASOPHILS # (AUTO) 0.1 (0.0-0.1); EOSINOPHILS % 0.6 % (0.0-6.0); HEMATOCRIT 31.6 % (34.2-44.1); HEMOGLOBIN 10.3 g/dL (12.0-16.0); MEAN CORPUSCULAR HEMOGLOBIN 27.9 pg (28-32); MEAN CORPUSCULAR HGB CONC 32.6 g/dL (31-35); MEAN CORPUSCULAR VOLUME 85.6 fL (81-99); MONOCYTES # (AUTO) 0.9 (0.2-0.8); MONOCYTES % 12.7 % (4.4-11.3); NEUTROPHILS # (AUTO) 5.1 (2.1-6.9); NEUTROPHILS % 70.9 % (38.7-80.0); PLATELET COUNT 84 x10e3/uL (140-360); RED BLOOD COUNT 3.69 x10e6/uL (3.6-5.1); RED CELL DISTRIBUTION WIDTH 20.2 % (11.7-14.4)
[2018-01-15 08:01] LABS: ALBUMIN/GLOBULIN RATIO 0.9 (0.8-2.0); ANION GAP 13.6 mmol/L (8-16); CALCIUM 8.1 mg/dL (8.4-10.2); CREATININE, SERUM 2.24 mg/dL (0.57-1.11); MAGNESIUM 1.5 MG/DL (1.3-2.1); POTASSIUM 3.6 mmol/L (3.5-5.1)
[2018-01-15] MEDS: MEROPENEM 500 MG VIAL IV SCH (08:11)
[2018-01-15] MEDS: LIDOCAINE 5% PATCH TP SCH (08:11)
[2018-01-15] MEDS: PANTOPRAZOLE SOD 40 MG TABEC PO SCH (08:11)
[2018-01-15] MEDS: BALSAM PERU/CASTOR OIL 60 GM OINT...G. TP SCH ×4 (08:11→17:11)
[2018-01-15] MEDS ORDERED: MEGACE 400MG/ 10ML CUP PO SCH (09:00)
[2018-01-15] MEDS ORDERED: MAGNESIUM SULFATE 2GM/50ML 50 ML IV ONE (10:00)
[2018-01-15 10:46] LABS: EOSINOPHILS % (MANUAL) 1 % (0-7); LYMPHOCYTES % (MANUAL) 18 % (19-48); METAMYELOCYTES % (MANUAL) 2 % (0-0); MONOCYTES % (MANUAL) 4 % (3.4-9.0); NEUTROPHILS % (MANUAL) 74 % (40-74)
[2018-01-15 10:47] LABS: ANISOCYTOSIS SLIGHT; HYPOCHROMASIA SLIGHT; PLATELET ESTIMATE MODERATELY DECREASED; RBC MORPHOLOGY COMMENT ABNORMAL; TARGET CELLS FEW
[2018-01-15 10:48] LABS: PLATELET MORPHOLOGY COMMENT FEW LARGE; POIKILOCYTOSIS SLIGHT
[2018-01-15 11:27] VITALS: BP 156/71
[2018-01-15] MEDS: METOPROLOL TARTRATE 25 MG TAB PO SCH (11:45)
[2018-01-15 12:27] VITALS: BP 111/55
--- NOTE | 2018-01-15 13:56 | Progress Note ---
DATE: January 15, 2018 CARDIOLOGY PROGRESS NOTE SUBJECTIVE: The patient denies chest pain or shortness of breath. Her appetite is improved. OBJECTIVE VITAL SIGNS: Temperature 95.6 degrees, pulse 95, respiratory rate 20, blood pressure 111/55, oxygen saturation 100% on 3 L nasal cannula. GENERAL: Elderly woman, chronically ill-appearing, cachectic, no acute distress. LUNGS: Decreased breath sounds in bilateral bases. No wheezes or crackles. CARDIOVASCULAR: Normal rate, regular rhythm. Normal S1 and S2. No murmur. ABDOMEN: Soft. EXTREMITIES: There is 1+ pitting edema. CARDIAC MEDICATIONS 1. Metoprolol tartrate 12.5 mg p.o. q.12 h. 2. Levothyroxine 50 mcg p.o. daily. LABS: WBC 7.16, hemoglobin 10.3, hematocrit 31.6, platelets 84. Sodium 132, potassium 3.6, chloride 96, CO2 26, BUN 46, creatinine 2.24. Catheter tip culture growing gram-negative rods. TELEMETRY: Normal sinus rhythm. IMPRESSION 1. Serratia marcescens bacteremia. 2. Escherichia coli urinary tract infection. 3. Clostridium difficile diarrhea. 4. Bigcb-pa-yfixrvc diastolic heart failure with most recent ejection fraction on echocardiogram of 60% to 65%. 5. Acute kidney injury, improving. 6. Thromboembolic disease. 7. Anemia. 8. Hypertension. 9. Gram-negative laurel catheter tip positive culture. RECOMMENDATIONS: Antibiotics per infectious disease. Resume IV diuretics. The patient's creatinine has improved with diuresis. Monitor creatinine and replete electrolytes. The patient's blood pressure has been acceptable. We will make no changes to her antihypertensive therapy at this time. Physical therapy as tolerated. Thank you for this consult. We will continue to follow. Job#: [id number]
[2018-01-15] MEDS ORDERED: FUROSEMIDE INJ 10 MG/ML 4 ML VIAL IV SCH (15:00)
--- NOTE | 2018-01-30 10:36 | Consultation ---
DATE OF CONSULTATION: January 08, 2018 CONSULTATION TO: Dr. Gardner HISTORY: Jemima Hand is an 82-year-old white female who has been referred to me for evaluation of iron deficiency anemia and leukemoid reaction. The patient had presented with cough, fever. Subsequently was found to have bronchopneumonia. SOCIAL HISTORY: History of smoking in the past. FAMILY HISTORY: Noncontributory. ALLERGIES: REPORTED LEVAQUIN, STATINS, SULFA. MEDICATIONS: At this time consist of: 1. Sodium gluconate. 2. Vancomycin. 3. Heparin. 4. Mannitol. 5. Dextrose. 6. Megace. 7. Metoprolol. 8. Protonix. 9. Synthroid. REVIEW OF SYSTEMS: HEENT: Normal. CARDIAC: History of hypertension. RESPIRATORY: History of COPD. GI: Multiple GI bleeds. : Chronic renal failure. MUSCULOSKELETAL: Normal. SKIN AND BREASTS: Normal. NEUROENDOCRINE: History of hypothyroidism. PHYSICAL EXAMINATION: GENERAL: A rather thin-built female, anemic. HEENT: No palpable adenopathy. HEART: Within normal limits. LUNGS: Clear. ABDOMEN: Obese. There is no hepatosplenomegaly. RECTAL: Deferred. CENTRAL NERVOUS SYSTEM: Essentially normal. LABS: Shows a hemoglobin of 9.5, hematocrit of 29.1, white count of 8200, platelets 215,000. IMPRESSION: 1. Iron deficiency anemia, partially treated. 2. Chronic renal failure. 3. Hypoproteinemia. 4. Hypoalbuminemia. 5. Chronic obstructive pulmonary disease. 6. Left pleural effusion. 7. Atelectasis. 8. Bronchopneumonia. PLAN, COMMENTS, AND SUGGESTIONS: Continue antibiotics. Hematologically is stable. Discontinue Megace. Thank you. Job#: [id number]
== END 2018-01-15 20:32 | DRG 871 ==
LOC: ER 10:59 → ERHOLD 15:38 → ICU 15:41 → MED/SURG3 01-04 16:57 → ICU 01-11 10:28 → MED/SURG3 01-13 10:27
PROVIDERS: ADMIT Internal Medicine; ATTEND Internal Medicine
PROC: 02HV33Z Insertion of Infusion Device into Superior Vena Cava, Percutaneous Approach (ICD-10-PCS; 2018-01-03)
PROC: 5A1D70Z Performance of Urinary Filtration, Intermittent, Less than 6 Hours Per Day (ICD-10-PCS; 2018-01-03)
PROC: 5A1D70Z Performance of Urinary Filtration, Intermittent, Less than 6 Hours Per Day (ICD-10-PCS; principal; 2018-01-04)
PROC: 5A09357 Assistance with Respiratory Ventilation, Less than 24 Consecutive Hours, Continuous Positive Airway Pressure (ICD-10-PCS; 2018-01-11)
PROC: 30233N1 Transfusion of Nonautologous Red Blood Cells into Peripheral Vein, Percutaneous Approach (ICD-10-PCS; 2018-01-11)
PROC: 02HV33Z Insertion of Infusion Device into Superior Vena Cava, Percutaneous Approach (ICD-10-PCS; 2018-01-14)
DX: A41.9 Sepsis, unspecified organism (principal); N17.0 Acute kidney failure with tubular necrosis; I50.33 Acute on chronic diastolic (congestive) heart failure; J18.9 Pneumonia, unspecified organism; J96.22 Acute and chronic respiratory failure with hypercapnia; I13.0 Hypertensive heart and chronic kidney disease with heart failure and stage 1 through stage 4 chronic kidney disease, or unspecified chronic kidney disease; E46 Unspecified protein-calorie malnutrition; A04.72 Enterocolitis due to Clostridium difficile, not specified as recurrent; E87.2 Acidosis; N39.0 Urinary tract infection, site not specified; N17.9 Acute kidney failure, unspecified; A41.89 Other specified sepsis; E87.5 Hyperkalemia; E83.42 Hypomagnesemia; I25.10 Atherosclerotic heart disease of native coronary artery without angina pectoris; E86.0 Dehydration; Z87.440 Personal history of urinary (tract) infections; K57.90 Diverticulosis of intestine, part unspecified, without perforation or abscess without bleeding; Z86.718 Personal history of other venous thrombosis and embolism; Z86.711 Personal history of pulmonary embolism; Z88.1 Allergy status to other antibiotic agents; Z88.2 Allergy status to sulfonamides; Z88.8 Allergy status to other drugs, medicaments and biological substances; D63.1 Anemia in chronic kidney disease; Z87.891 Personal history of nicotine dependence; J44.9 Chronic obstructive pulmonary disease, unspecified; I48.91 Unspecified atrial fibrillation; E03.9 Hypothyroidism, unspecified; N18.3 Chronic kidney disease, stage 3 (moderate); K21.9 Gastro-esophageal reflux disease without esophagitis; B96.20 Unspecified Escherichia coli [E. coli] as the cause of diseases classified elsewhere
CPT/HCPCS: 36415; 36430; 36556; 36600; 51701; 71045; 71046; 72110; 74018; 74470; 76770; 76937; 77001; 80048; 80053; 81001; 82550; 82553; 82607; 82728; 82746; 82805; 82948; 83540; 83605; 83630; 83735; 83880; 84100; 84439; 84443; 84466; 84484; 85025; 85610; 85730; 86706; 86850; 86900; 86920; 87040; 87045; 87070; 87071; 87086; 87177; 87186; 87205; 87340; 87493; 90962; 93005; 93306; 93970; 93971; 94640; 94660; 96361; 99285; C1751; J0696; J1644; J1940; J1956; J2001; J2185; J2916; J7030; J7050; J7070; J7799; P9016